=== PATIENT | female | born 1955 | race Caucasian/White ===

== ENCOUNTER → 2018-11-21 | Outpatient (REF) | payer OTHER | LOC: M LAB REF 16:23 | PROVIDERS: ATTEND Nurse Practitioner Family | DX: R79.82 Elevated C-reactive protein (CRP) (principal) ==

== ENCOUNTER 2019-03-05 16:07 | Emergency (ER) | payer MEDICARE, OTHER ==
[~2019-03-05] VITALS: Ht 157.5 cm; Wt 64.2 kg
[2019-03-05] MEDS ORDERED: ATOR1TAB19 PO (16:14)
[2019-03-05] MEDS ORDERED: HYDR25TAB PO (16:14)
[2019-03-05] MEDS ORDERED: PRED10TA2 (16:14)
[2019-03-05 17:40] LABS: BASO # 0.1 10^3/uL (0.0-0.2); BASO % 0.7 % (0.0-1.0); EOS # 0.2 10^3/uL (0.0-0.50); EOS % 1.5 % (0.0-3.0); HEMATOCRIT 49.5 % (36.0-47.0); HEMOGLOBIN 16.6 g/dl (12.0-15.5); MEAN CORPUSCULAR HEMOGLOBIN 32.7 pg (27.0-33.0); MEAN CORPUSCULAR HGB CONC 33.5 g/dl (32.0-36.5); MEAN CORPUSCULAR VOLUME 97.4 fl (80.0-96.0); MONO # 0.7 10^3/uL (0.0-0.8); NEUTROPHILS # 8.3 10^3/uL (1.8-7.7); PLATELET COUNT, AUTOMATED 285 10^3/uL (150-450); RED BLOOD COUNT 5.08 10^6/uL (4.00-5.40); WHITE BLOOD COUNT 12.4 10^3/uL (4.0-10.0)
[2019-03-05 17:51] LABS: INR 0.92; PROTHROMBIN TIME 12.5 SECONDS (12.1-14.4)
[2019-03-05 18:05] LABS: ALBUMIN 3.8 GM/DL (3.2-5.2); ALT/SGPT 26 U/L (12-78); BILIRUBIN,TOTAL 0.6 MG/DL (0.2-1.0); BLOOD UREA NITROGEN 15 MG/DL (7-18); CALCIUM LEVEL 9.2 MG/DL (8.8-10.2); CARBON DIOXIDE LEVEL 27 MEQ/L (21-32); CHLORIDE LEVEL 105 MEQ/L (98-107); CPK CREATINE PHOSPHOKINASE 84 U/L (26-192); GLOMERULAR FILTRATION RATE > 60.0 (>45); GLUCOSE, FASTING 93 MG/DL (70-100); LIPASE 85 U/L (73-393); MB/CK RELATIVE INDEX 2.14 (< OR =4); SODIUM LEVEL 141 MEQ/L (136-145); TOTAL PROTEIN 8.3 GM/DL (6.4-8.2); TROPONIN I < 0.02 NG/ML (< 0.10)
--- NOTE | 2019-03-05 18:14 | REP ---
Clinical: Acute chest pain. Technique: Portable upright view of the chest. Comparison: 03/20/2015 Findings: Mediastinum and cardiac silhouette are within normal limits. Chronic stable interstitial changes are appreciated. Mild basilar atelectasis cannot be excluded. No definite effusion. No pneumothorax. Impression: Chronic stable changes. Cannot exclude trace bibasilar atelectasis. Electronically Signed by Aj Whtiley MD 03/05/2019 06:05 P
[2019-03-05] MEDS ORDERED: ALPRAZolam 0.5 MG TAB PO ONE (19:30)
[2019-03-05] MEDS ORDERED: hydrALAZINE INJ 20 MG/ML VIAL IV ONE (19:30)
[2019-03-05] MEDS ORDERED: LABETALOL HCL 100 MG/20 ML VIAL IV STA (20:24)
[2019-03-05 21:41] VITALS: BP 179/80
[2019-03-05] MEDS ORDERED: LABE100T36 PO (21:44)
[2019-03-05] MEDS ORDERED: LABETALOL 100 MG TAB PO ONE (21:45)
--- NOTE | 2019-03-06 06:05 | ECGEPIP ---
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
== END 2019-03-05 22:05 | disposition home or self-care (01) ==
LOC: M ED 16:07
DX: I10 Essential (primary) hypertension (principal); F41.9 Anxiety disorder, unspecified; J44.9 Chronic obstructive pulmonary disease, unspecified; E78.00 Pure hypercholesterolemia, unspecified; A69.20 Lyme disease, unspecified; Z79.899 Other long term (current) drug therapy; F17.200 Nicotine dependence, unspecified, uncomplicated; Z88.0 Allergy status to penicillin; Z88.5 Allergy status to narcotic agent

== ENCOUNTER 2019-03-12 13:01 | Inpatient (IN) | payer MEDICARE, OTHER ==
[~2019-03-12] VITALS: Ht 157.5 cm; Wt 74.0 kg
[~2019-03-12 13:01] MED LIST: ATOR1TAB19 PO; HYDR25TAB PO; LABE100T36 PO; PRED10TA2
[2019-03-12] MEDS ORDERED: ONDANSETRON 4MG/2ML VIAL (J2405) As Ordered ONE (13:22)
[2019-03-12] MEDS ORDERED: DILUENT IV ONE (13:30)
[2019-03-12] MEDS ORDERED: NS IV ONE (13:30)
[2019-03-12] MEDS ORDERED: MORPHINE 2 MG/ML 1ML SYRINGE (J2270) IV PRN (13:30)
[2019-03-12] MEDS ORDERED: ONDANSETRON 4MG/2ML VIAL (J2405) IV ONE (13:30)
[2019-03-12 13:46] LABS: VENOUS BASE EXCESS 0.1 (-2.0-2.0); VENOUS HCO3 23.4 MEQ/L (23.0-27.0); VENOUS O2 SATURATION 89.9 % (60.0-80.0); VENOUS PARTIAL PRESSURE CO2 34.9 mmHg (38.0-50.0); VENOUS PARTIAL PRESSURE O2 59.3 mmHg (30.0-50.0); VENOUS PH 7.444 UNITS (7.330-7.430); VENOUS STANDARD HCO3 24.3 MEQ/L; VENOUS TOTAL CO2 24.5 MEQ/L (24.0-28.0)
[2019-03-12 13:55] LABS: BASO # 0.1 10^3/uL (0.0-0.2); BASO % 0.4 % (0.0-1.0); HEMOGLOBIN 18.4 g/dl (12.0-15.5); LYMPH # 1.5 10^3/uL (1.5-4.5); LYMPH % 5.8 % (24.0-44.0); MEAN CORPUSCULAR HGB CONC 34.7 g/dl (32.0-36.5); MEAN CORPUSCULAR VOLUME 95.2 fl (80.0-96.0); MONO # 1.3 10^3/uL (0.0-0.8); MONO % 4.8 % (0.0-5.0); NEUTROPHILS # 23.4 10^3/uL (1.8-7.7); NEUTROPHILS % 87.9 % (36.0-66.0); PLATELET COUNT, AUTOMATED 336 10^3/uL (150-450); RED BLOOD COUNT 5.57 10^6/uL (4.00-5.40); WHITE BLOOD COUNT 26.6 10^3/uL (4.0-10.0)
[2019-03-12 14:11] LABS: INR 0.99; PARTIAL THROMBOPLASTIN TIME 26.1 SECONDS (25.4-37.6); PROTHROMBIN TIME 13.2 SECONDS (12.1-14.4)
[2019-03-12] MEDS ORDERED: PROMETHAZINE INJ 25 MG/ML VIAL (J2550) IV ONE (14:15)
--- NOTE | 2019-03-12 14:18 | REP ---
CHEST, PORTABLE: AP portable view of the chest is performed and compared to a prior study of 03/05/2019. There is diffuse interstitial fibrotic change which is stable. There is slight elevation of the left hemidiaphragm. No new infiltrate is seen. The heart is normal in size. There is calcification of the thoracic aorta. The mediastinal silhouette is unchanged. IMPRESSION: Stable chronic changes. No acute infiltrate. Electronically Signed by Tony Billings MD 03/16/2019 01:46 P
[2019-03-12 14:22] LABS: ALBUMIN 4.3 GM/DL (3.2-5.2); ALT/SGPT 31 U/L (12-78); AMYLASE 68 U/L (25-115); BILIRUBIN,DIRECT 0.1 MG/DL (0.0-0.2); BILIRUBIN,TOTAL 0.7 MG/DL (0.2-1.0); BLOOD UREA NITROGEN 41 MG/DL (7-18); CALCIUM LEVEL 9.7 MG/DL (8.8-10.2); CARBON DIOXIDE LEVEL 22 MEQ/L (21-32); CHLORIDE LEVEL 98 MEQ/L (98-107); CPK CREATINE PHOSPHOKINASE 221 U/L (26-192); CREATININE FOR GFR 2.39 MG/DL (0.55-1.30); GLOMERULAR FILTRATION RATE 21.7 (>45); GLUCOSE, FASTING 205 MG/DL (70-100); MB/CK RELATIVE INDEX 2.49 (< OR =4); SODIUM LEVEL 136 MEQ/L (136-145); TOTAL PROTEIN 9.2 GM/DL (6.4-8.2); TROPONIN I < 0.02 NG/ML (< 0.10)
[2019-03-12] MEDS ORDERED: ADVA230A INH (15:41)
[2019-03-12] MEDS ORDERED: BENA20TA8 PO (15:41)
[2019-03-12] MEDS ORDERED: VENTAER INH (15:41)
[2019-03-12] MEDS ORDERED: PRED10TA2 PO (15:41)
[2019-03-12] MEDS ORDERED: HYDROMORPHONE HCL 0.5 MG/ 0.5 ML SYRINGE (J1170 PER 1) IV PRN (15:45)
[2019-03-12] MEDS ORDERED: ALBUTEROL SULFATE 2.5 MG/0.5 ML INH NEB SOLN INH PRN (15:45)
[2019-03-12] MEDS ORDERED: MEROPENEM INJ 1 GM in APPROPRIATE DILUENT 1 EA IV SCH (15:45)
--- NOTE | 2019-03-12 15:47 | REP ---
REASON FOR EXAM: Abdominal pain. COMPARISON: 05/21/2007. The lack of intravenous contrast and the lack of administration of oral bowel preparatory contrast significantly decreases the sensitivity of the exam. Fibrotic and subsegmental atelectatic changes are seen in the lung bases increased from the prior exam. There are no pleural or pericardial effusions. Limited evaluation of the solid intra-abdominal organs and gallbladder show no gross abnormalities. Limited evaluation of the pancreas, adrenal glands, and kidneys show no gross abnormalities. There are bilateral renovascular calcifications. Limited evaluation of the abdominal aorta shows an infrarenal abdominal aortic aneurysm which measures 3.1 cm in its AP dimension. Additionally, there appear to be some centrally displaced calcifications indicating the possibility of an aneurysmal dissection. This cannot be further evaluated without intravenous contrast administration and it represents a change from the prior exam. Limited evaluation of the bowel loops and their mesenteries shows no gross abnormalities. There is no evidence of free fluid or free air in the abdomen or retroperitoneum. CT PELVIS: Limited evaluation of the bowel loops and their mesenteries show no gross abnormalities. There is no free fluid or free air. There is no evidence of a mass or adenopathy. Bone window technique throughout the exam shows the osseous structures to be within normal limits for the patient's age. IMPRESSION: There is an infrarenal abdominal aortic aneurysm as described above. Contrast enhanced abdominal aortic CTA is recommended. None of the prior chest CTs imaged this portion of the abdomen as would be expected. Other chronic changes as described above. Electronically Signed by Yuniel Mcarthur DO 03/12/2019 04:55 P
[2019-03-12] MEDS: NS 1,000 ML IV SCH (16:15)
[2019-03-12 16:17] LABS: LDH LACTATE DEHYDROGENASE 291 U/L (84-246)
--- NOTE | 2019-03-12 16:35 | HPEPDOC ---
General Date of Admission Mar 12, 2019 at 15:38 Date of Service: Mar 12, 2019 Chief Complaint The patient is a 63-year-old female who presented to the emergency room with complaints of diarrhea and abdominal pain since yesterday evening History of Present Illness Patient is a 63-year-old female with a PMHx HTN, DLP, COPD, Interstitial cystitis, Osteoporosis, RA, who presented to the ER with complaints of abdominal pain that progressed to diarrhea that started yesterday at 8 PM. Patient had reported greater than 10 episodes of bowel movements with blood. Patient reports chills but is unsure of any fevers. . She also reported associated abdominal pain occurring in the middle of her abdomen without any radiation. No alleviating or aggravating factors reported the pain as a 7-8/10, aching nature and continuous. Patient also had associated nausea and vomiting; describes the vomitus as water only. Patient reported this is the first time she experienced this. Patient denies chest pain, palpitations, shortness of breath, cough or discomfort with urination. Patient has reported poor appetite but noted her weight has been consistent. Patient was recently in the ER on 03/05/2019 for elevated blood pressure was placed on labetalol and subsequently changed as an outpatient recently by her provider Juhi Cuellar. Home Medications Scheduled Atorvastatin Calcium (Atorvastatin Calcium) 10 Mg Tablet, 10 MG PO QHS, (Reported) Benazepril HCl (Benazepril HCl) 20 Mg Tablet, 20 MG PO DAILY, (Reported) Fluticasone Propion/Salmeterol (Advair Hfa 230-21 Mcg Inhaler) 12 Gm Hfa.aer.ad, 2 PUFF INH BID, (Reported) Hydrochlorothiazide (Hydrochlorothiazide) 25 Mg Tablet, 25 MG PO DAILY, (Reported) Scheduled PRN Albuterol Sulfate (Ventolin Hfa) 18 Gm Hfa.aer.ad, 2 PUFF INH Q6H PRN for SHORTNESS OF BREATH, (Reported) Prednisone (Prednisone) 10 Mg Tablet, 10 MG PO Q2D PRN for RA FLARE, (Reported) Allergies Coded Allergies: Penicillins (Verified Allergy, Unknown, anaphylaxis, 03/12/19) morphine (Verified Adverse Reaction, Severe, N/V, 03/12/19) Past Medical History Medical History HTN, DLP, COPD, Interstitial cystitis, Osteoporosis, RA Surgical History Patient reports no surgical history Family History - Mother with a history of breast cancer - Father with a history of pancreatic cancer Social History - Denies the use of alcohol or illicit drugs; patient has quit smoking less than 5 years ago but was a smoker of greater than 30 years - Denies recent travel or sick contacts - Lives alone in [place] - Occupation; [employer] is a [employer] Review of Systems Other systems 10 point review of systems complete, all negative otherwise stated in HPI Vital Signs - Vitals: BP 186/120, HR 103, RR 22, Sat 99%NC2L, Temp 97.2F - General: Lying in bed, Complaining of abdominal pain, AAOx3 - HEENT: NC, AT, PERRLA, EOMI - CVS: RRR, +S1S2, - Murmurs / rubs / gallops - Lungs: Fair air entry bilaterally, Clear to auscultation, No wheezing / rales / rhonchi - Abdomen: Soft, Non-distended, mild mid abdominal tenderness - Extremities: No lower extremity edema, No calf tenderness - Neuro: No focal motor or sensory deficit - Skin: No visible rashes Laboratory Data Labs 24H Laboratory Tests 2 03/12/19 13:32: Immature Granulocyte % (Auto) 1.1, White Blood Count 26.6H, Red Blood Count 5.57H, Hemoglobin 18.4H, Hematocrit 53.0H, Mean Corpuscular Volume 95.2, Mean C orpuscular Hemoglobin 33.0, Mean Corpuscular Hemoglobin Concent 34.7, Red Cell Distribution Width 12.9, Platelet Count 336, Neutrophils (%) (Auto) 87.9H, Lymphocytes (%) (Auto) 5.8L, Monocytes (%) (Auto) 4.8, Eosinophils (%) (Auto) 0.0, Basophils (%) (Auto) 0.4, Neutrophils # (Auto) 23.4H, Lymphocytes # (Auto) 1.5, Monocytes # (Auto) 1.3H, Eosinophils # (Auto) 0.0, Basophils # (Auto) 0.1, Nucleated Red Blood Cells % (auto) 0.0, Prothrombin Time 13.2, Prothromb Time International Ratio 0.99, Activated Partial Thromboplast Time 26.1, Blood Gas Bicarbonate Standard 24.3, Venous Blood pH 7.444H, Venous Blood Partial Pressure CO2 34.9L, Venous Blood Partial Pressure O2 59.3H, Venous Blood Total Carbon Dioxide 24.5, Venous Blood HCO3 23.4, Venous Blood Oxygen Saturation 89.9H, Venous Blood Base Excess 0.1, Anion Gap 16, Glomerular Filtration Rate 21.7L, Lactic Acid Level 2.6*H, Calcium Level 9.7, Aspartate Amino Transf (AST/SGOT) 28, Alanine Aminotransferase (ALT/SGPT) 31, Lactate Dehydrogenase 291H, Alkaline Phosphatase 174H, Total Bilirubin 0.7, Direct Bilirubin 0.1, Total Creatine Kinase 221H, Creatine Kinase MB 6.0H, Creatine Kinase MB Relative Index 2.49, Troponin I < 0.02, C-Reactive Protein, Quantitative 6.50H, Total Protein 9.2H, Albumin 4.3, Albumin/Globulin Ratio 0.88L, Amylase Level 68 CBC/BMP Laboratory Tests 03/12/19 13:32 Red Blood Count 5.57 H, Mean Corpuscular Volume 95.2, Mean Corpuscular Hemoglobin 33.0, Mean Corpuscular Hemoglobin Concent 34.7, Red Cell Distribution Width 12.9, Neutrophils (%) (Auto) 87.9 H, Lymphocytes (%) (Auto) 5.8 L, Mo nocytes (%) (Auto) 4.8, Eosinophils (%) (Auto) 0.0, Basophils (%) (Auto) 0.4, Neutrophils # (Auto) 23.4 H, Lymphocytes # (Auto) 1.5, Monocytes # (Auto) 1.3 H, Eosinophils # (Auto) 0.0, Basophils # (Auto) 0.1 Microbiology Microbiology 03/12/19 Blood Culture, Received Pending 03/12/19 Blood Culture, Received Pending Plan / VTE VTE Prophylaxis Ordered?: Yes Plan Plan Abdominal pain associated with diarrhea - possibly 2/2 intra-abdominal infectious etiology - possibly 2/2 dysentery - Patient has reported that shes been expressing greater than 10 episodes of diarrhea associated with abdominal pain; also reports associated chills - Patient has not yet had a bowel movement upon arrival to the emergency room - Patient remains afebrile and hypertensive in the ER - Leukocytosis with neutrophil predominance; lactic acidosis - CT abdomen / pelvis 03/12: There is an infrarenal abdominal aortic aneurysm as described above. Contrast enhanced abdominal aortic CTA is recommended. None of the prior chest CTs imaged this portion of the abdomen would be expected. Other chronic changes as described above. - Patient has been started on IV fluid hydration in the ER at 30 cc/kg - Pending results of GI panel will start vancomycin by mouth for coverage of C. difficile colitis - Will continue with aggressive IV fluid hydration and start Moxifloxacin for intra-abdominal coverage - Will start symptomatic control with Dilaudid (Given morphine allergy) and Reglan Elevated hemoglobin - likely 2/2 hemoconcentration - Patients baseline hemoglobin appears to run around 16 - Will continue with aggressive IV fluid hydration Lactic acidosis - Will follow-up repeat lactic acid levels - Will continue with aggressive IV fluid hydration Acute renal failure - likely 2/2 pre-renal etiology - 2/2 hypovolemia - Will check urinalysis and urine electrolytes - Will continue with aggressive IV fluid hydration Hypertensive urgency - Patient blood pressure in the ER was found to be systolic of 200 - Will start the patient on hydralazine IV every 6 hours with specific hold parameters DLP - c/w Atorvastatin COPD - No evidence of exacerbation - CXR 03/12: Stable chronic changes. No acute infiltrate. - Will continue with inhaled therapy is ordered Interstitial cystitis - Currently not on any medications Osteoporosis - Well hold off on supplementation at this time RA - Patient reports that she takes prednisone when necessary Gastrointestinal prophylaxis - Will start Protonix and Sucralfate DVT prophylaxis - Will start TEDs/MIRANDA Leigh MD Mar 12, 2019 16:35
[2019-03-12] MEDS ORDERED: VANCOMYCIN ORAL SOL 250MG/5ML ORAL SYRINGE PO SCH (17:00)
[2019-03-12 17:02] LABS: MAGNESIUM LEVEL 2.4 MG/DL (1.8-2.4)
[2019-03-12] MEDS: METOCLOPRAMIDE INJ 10MG/2ML VIAL (J2765) IV PRN (17:18)
[2019-03-12] MEDS: HYDROMORPHONE HCL 0.5 MG/ 0.5 ML SYRINGE (J1170 PER 1) IV PRN (17:18)
[2019-03-12] MEDS: SUCRALFATE SUSP 1GM/10ML UD PO SCH ×2 (17:18→23:49)
[2019-03-12] MEDS: VANCOMYCIN ORAL SOL 250MG/5ML ORAL SYRINGE PO SCH ×2 (18:02→23:49)
[2019-03-12] MEDS: MOXIFLOXACIN HCL 400 MG in APPROPRIATE DILUENT 1 EA IV SCH (18:02)
[2019-03-12] MEDS: hydrALAZINE INJ 20 MG/ML VIAL IV SCH ×2 (18:08→23:49)
[2019-03-12 19:00] VITALS: BP 178/76
[2019-03-12 19:16] LABS: HEMOGLOBIN 16.5 g/dl (12.0-15.5)
[2019-03-12 19:30] VITALS: BP 155/65
[2019-03-12 19:32] LABS: CPK CREATINE PHOSPHOKINASE 517 U/L (26-192); TROPONIN I < 0.02 NG/ML (< 0.10)
[2019-03-12 21:00] VITALS: BP 180/79
[2019-03-12] MEDS: ADVAIR HFA 230/21MCG INHALER INH SCH (21:00)
[2019-03-12] MEDS: PANTOPRAZOLE 40MG INJ (PROTONIX) (C9113) IV SCH (21:09)
[2019-03-12] MEDS: ATORVASTATIN 10 MG TAB PO SCH (21:09)
[2019-03-12 23:40] VITALS: BP 170/80
[2019-03-13] VITALS (13 sets, daily range): BP systolic 131–210; BP diastolic 60–90
[2019-03-13] MEDS: METOCLOPRAMIDE INJ 10MG/2ML VIAL (J2765) IV PRN ×2 (00:07→17:26)
[2019-03-13] MEDS: NS 1,000 ML IV SCH (00:08)
[2019-03-13 00:50] LABS: HEMATOCRIT 46.1 % (36.0-47.0); HEMOGLOBIN 15.3 g/dl (12.0-15.5)
[2019-03-13 00:50] LABS: APPEARANCE, URINE CLOUDY (CLEAR); BACTERIA, URINE AUTO 1+ (NEGATIVE); BILIRUBIN, URINE AUTO NEGATIVE (NEGATIVE); BLOOD, URINE BLOOD NEGATIVE (NEGATIVE); COLOR, URINE YELLOW (YELLOW); GLUCOSE, URINE (UA) AUTO NEGATIVE (NEGATIVE); KETONE, URINE AUTO NEGATIVE (NEGATIVE); LEUKOCYTE ESTERASE, URINE AUTO 2+ (NEGATIVE); MUCUS, URINE SMALL (NEGATIVE); NITRITE, URINE AUTO NEGATIVE (NEGATIVE); PROTEIN, URINE AUTO NEGATIVE (NEGATIVE); RBC, URINE AUTO 5 /HPF (0-3); SPECIFIC GRAVITY URINE AUTO 1.015 (1.002-1.035); SQUAMOUS EPITHELIAL CELL UR AU 14 /HPF (0-6); UROBILINOGEN, URINE AUTO 0.2 mg/dL (0.0-2.0); WBC, URINE AUTO 31 /HPF (0-3)
[2019-03-13 01:11] LABS: SODIUM,RANDOM URINE 35 MEQ/L
[2019-03-13 01:20] LABS: CPK CREATINE PHOSPHOKINASE 559 U/L (26-192); MB/CK RELATIVE INDEX 1.95 (< OR =4); TROPONIN I < 0.02 NG/ML (< 0.10)
[2019-03-13] MEDS: cloNIDine 0.1 MG TAB PO SCH ×4 (02:00→22:37)
[2019-03-13] MEDS: HYDROMORPHONE HCL 0.5 MG/ 0.5 ML SYRINGE (J1170 PER 1) IV PRN (03:18)
[2019-03-13] MEDS: SUCRALFATE SUSP 1GM/10ML UD PO SCH ×3 (05:44→17:13)
[2019-03-13] MEDS: VANCOMYCIN ORAL SOL 250MG/5ML ORAL SYRINGE PO SCH (05:45)
[2019-03-13] MEDS: hydrALAZINE INJ 20 MG/ML VIAL IV SCH ×3 (05:48→17:26)
[2019-03-13 05:51] LABS: BASO % 0.1 % (0.0-1.0); HEMATOCRIT 40.3 % (36.0-47.0); HEMOGLOBIN 13.5 g/dl (12.0-15.5); LYMPH # 1.5 10^3/uL (1.5-4.5); LYMPH % 7.1 % (24.0-44.0); MEAN CORPUSCULAR HEMOGLOBIN 32.6 pg (27.0-33.0); MEAN CORPUSCULAR HGB CONC 33.5 g/dl (32.0-36.5); MEAN CORPUSCULAR VOLUME 97.3 fl (80.0-96.0); MONO % 11.6 % (0.0-5.0); NEUTROPHILS # 16.8 10^3/uL (1.8-7.7); NEUTROPHILS % 80.9 % (36.0-66.0); PLATELET COUNT, AUTOMATED 241 10^3/uL (150-450); RED BLOOD COUNT 4.14 10^6/uL (4.00-5.40); WHITE BLOOD COUNT 20.9 10^3/uL (4.0-10.0)
[2019-03-13 06:18] LABS: C REACTIVE PROTEIN QUANTITATIV 12.3 MG/DL (0.00-0.30); CALCIUM LEVEL 7.5 MG/DL (8.8-10.2); CREATININE FOR GFR 1.19 MG/DL (0.55-1.30); GLOMERULAR FILTRATION RATE 48.6 (>45); MAGNESIUM LEVEL 1.8 MG/DL (1.8-2.4); POTASSIUM SERUM 3.4 MEQ/L (3.5-5.1)
[2019-03-13 06:19] LABS: MONO # 2.4 10^3/uL (0.0-0.8)
[2019-03-13] MEDS ORDERED: POTASSIUM CHLORIDE 10 MEQ SR TABLET PO ONE ×2 (08:00→16:30)
[2019-03-13] MEDS: PANTOPRAZOLE 40MG INJ (PROTONIX) (C9113) IV SCH ×2 (08:05→22:38)
[2019-03-13] MEDS: ADVAIR HFA 230/21MCG INHALER INH SCH ×2 (08:19→20:30)
--- NOTE | 2019-03-13 08:44 | REP ---
PORTABLE CHEST: AP portable view of the chest is performed. There is continued evidence of chronic fibrotic changes. However, no acute infiltrate is seen. Heart is normal in size. There is mild calcification of the thoracic aorta. Mediastinal silhouette is unchanged. Electronically Signed by Tony Billings MD 03/16/2019 05:01 P
[2019-03-13] MEDS: BENAZEPRIL 20 MG TAB PO SCH (10:09)
[2019-03-13 10:37] LABS: H PYLORI QUALITATIVE IgG NEGATIVE (NEGATIVE)
[2019-03-13] MEDS: D5W/0.45% SODIUM CHLORIDE 1,000 ML IV SCH (11:35)
--- NOTE | 2019-03-13 12:55 | IPNPDOC ---
Text Note Date of Service The patient was seen on 03/13/19. NOTE Subjective: Patient is a 63-year-old female with a PMHx HTN, DLP, COPD, Interstitial cystitis, Osteoporosis, RA, who presented to the ER with complaints of abdominal pain that progressed to diarrhea that started yesterday at 8 PM. Patient had reported greater than 10 episodes of bowel movements with blood. Patient reports chills but is unsure of any fevers. . She also reported associated abdominal pain occurring in the middle of her abdomen without any radiation. No alleviating or aggravating factors reported the pain as a 7-8/10, aching nature and continuous. Patient also had associated nausea and vomiting; describes the vomitus as water only. Patient was admitted to hospitalist service for further evaluation and treatment. Patient was seen and examined at the bedside. Currently, patient reports that her abdominal pain has subsided significantly and has not required any oral pain medications. Patient denies any nausea or vomiting. Overnight, she did have difficulty with urination in the Díaz catheter was placed. . She denies chest pain, shortness of breath or palpitations. Objective: Vitals (See below) General: Lying in bed, no acute distress, comfortable, AAOx3 HEENT: NC, AT CVS: RRR, +S1S2 Lungs: Fair air entry b/l, -w/r/r Abdomen: Soft, ND, there appears to be some mild tenderness of the right lower quadrant Extremities: No evidence of lower extremity edema, - Calf tenderness Assessment and plan: Abdominal pain associated with diarrhea - possibly 2/2 intra-abdominal in fectious etiology - possibly 2/2 dysentery - Patient reported diarrhea with >10 episodes associated with abdominal pain; - Currently, she has not yet had a bowel movement and does not reporting signi ficant abdominal pain - Patient remains afebrile and hypertensive in the ER - Leukocytosis has improved - CT abdomen / pelvis 03/12: There is an infrarenal abdominal aortic aneurysm as described above. Contrast enhanced abdominal aortic CTA is recommended. None of the prior chest CTs imaged this portion of the abdomen would be expected. Other chronic changes as described above. - GI panel pending - Will consider repeat imaging when kidney function improves - c/w Moxifloxacin for intra-abdominal coverage; s/p Vanco PO (re: no further diarrhea noted - unlikely C. diff) - c/w Reglan; Added Bentyl; s/p Dilaudid - Will advance diet to clear liquids s/p Elevated hemoglobin - likely 2/2 hemoconcentration s/p Lactic acidosis s/p Acute renal failure - likely 2/2 pre-renal etiology - 2/2 hypovolemia - Urinalysis with some elevation of leukocyte esterase and WBC, 1+ bacteria - Will reduce IV fluids s/p Hypertensive urgency - Patient blood pressure in the ER was found to be systolic of 200 - Oral medications have been resumed - c/w Benazepril, Hydralazine and Clonidine Acute urinary retention - Overnight, patient had difficulty with urination in the Díaz catheter was placed - Will c/w Díaz catheter for now; remove within next 24 hours for voiding trial Interstitial cystitis - Currently not on any medications DLP - c/w Atorvastatin COPD - No evidence of exacerbation - CXR 03/12: Stable chronic changes. No acute infiltrate. - Will continue with inhaled therapy is ordered Osteoporosis - Will hold off on supplementation at this time RA - Patient reports that she takes prednisone when necessary Gastrointestinal prophylaxis - c/w Protonix and Sucralfate DVT prophylaxis - c/w TEDs/Sequentials VS,Fishbone, I+O VS, Fishbone, I+O Laboratory Tests 03/12/19 13:32 Red Blood Count 5.57 H, Mean Corpuscular Volume 95.2, Mean Corpuscular Hemoglobin 33.0, Mean Corpuscular Hemoglobin Concent 34.7, Red Cell Distribution Width 12.9, Neutrophils (%) (Auto) 87.9 H, Lymphocytes (%) (Auto) 5.8 L, Monocytes (%) (Auto) 4.8, Eosinophils (%) (Auto) 0.0, Basophils (%) (Auto) 0.4, Neutrophils # (Auto) 23.4 H, Lymphocytes # (Auto) 1.5, Monocytes # (Auto) 1.3 H, Eosinophils # (Auto) 0.0, Basophils # (Auto) 0.1 03/12/19 18:46 03/13/19 00:33 03/13/19 05:26 Red Blood Count 4.14, Mean Corpuscular Volume 97.3 H, Mean Corpuscular Hemoglobin 32.6, Mean Corpuscular Hemoglobin Concent 33.5, Red Cell Distribution Width 13.2, Neutrophils (%) (Auto) 80.9 H, Lymphocytes (%) (Auto) 7.1 L, Monocytes (%) (Auto) 11.6 H, Eosinophils (%) (Auto) 0.0, Basophils (%) (Auto) 0.1, Neutrophils # (Auto) 16.8 H, Lymphocytes # (Auto) 1.5, Monocytes # (Auto) 2.4 H, Eosinophils # (Auto) 0.0, Basophils # (Auto) 0.0, Calcium Level 7.5 #L Vital Signs Date Time Temp Pulse Resp B/P (MAP) Pulse Ox O2 Delivery O2 Flow Rate FiO2 03/13/19 11:51 99.0 101 18 146/65 (92) 97 2.0 03/12/19 17:18 Nasal Cannula I&O- Last 24 Hours up to 6 AM 03/13/19 06:00 Intake Total 3470 ml Output Total 750 ml Balance 2720 ml MIRANDA REINOSO MD Mar 13, 2019 12:55
[2019-03-13 12:57] LABS: HEMATOCRIT 40.3 % (36.0-47.0); HEMOGLOBIN 13.7 g/dl (12.0-15.5)
[2019-03-13 15:23] LABS: CALCIUM LEVEL 8.1 MG/DL (8.8-10.2); CREATININE FOR GFR 1.09 MG/DL (0.55-1.30); GLOMERULAR FILTRATION RATE 53.8 (>45); POTASSIUM SERUM 3.4 MEQ/L (3.5-5.1)
[2019-03-13] MEDS: ACETAMINOPHEN TAB 650MG DOSE (2X325MG) PO PRN (15:34)
[2019-03-13] MEDS: DICYCLOMINE 10 MG CAP PO PRN (15:35)
[2019-03-13] MEDS: MOXIFLOXACIN HCL 400 MG in APPROPRIATE DILUENT 1 EA IV SCH (17:13)
[2019-03-13 18:41] LABS: HEMATOCRIT 37.1 % (36.0-47.0); HEMOGLOBIN 12.3 g/dl (12.0-15.5)
[2019-03-13] MEDS ORDERED: hydrOXYzine 10 MG TAB PO PRN (19:00)
[2019-03-13] MEDS ORDERED: traMADol 50 MG TAB PO PRN (22:15)
[2019-03-13] MEDS: ATORVASTATIN 10 MG TAB PO SCH (22:38)
[2019-03-14] VITALS (13 sets, daily range): BP systolic 113–158; BP diastolic 50–70; O2SAT 100
[2019-03-14 00:18] LABS: HEMATOCRIT 37.6 % (36.0-47.0); HEMOGLOBIN 12.5 g/dl (12.0-15.5)
[2019-03-14] MEDS: SUCRALFATE SUSP 1GM/10ML UD PO SCH ×5 (00:53→23:50)
[2019-03-14] MEDS: D5W/0.45% SODIUM CHLORIDE 1,000 ML IV SCH ×2 (00:54→08:34)
[2019-03-14] MEDS: hydrALAZINE INJ 20 MG/ML VIAL IV SCH ×5 (00:54→23:56)
[2019-03-14 05:46] LABS: HEMATOCRIT 35.8 % (36.0-47.0); HEMOGLOBIN 12.1 g/dl (12.0-15.5); MEAN CORPUSCULAR HEMOGLOBIN 32.5 pg (27.0-33.0); MEAN CORPUSCULAR HGB CONC 33.8 g/dl (32.0-36.5); MEAN CORPUSCULAR VOLUME 96.2 fl (80.0-96.0); PLATELET COUNT, AUTOMATED 211 10^3/uL (150-450); RED BLOOD COUNT 3.72 10^6/uL (4.00-5.40)
[2019-03-14 06:07] LABS: BLOOD UREA NITROGEN 15 MG/DL (7-18); CALCIUM LEVEL 7.8 MG/DL (8.8-10.2); CARBON DIOXIDE LEVEL 21 MEQ/L (21-32); CHLORIDE LEVEL 109 MEQ/L (98-107); CREATININE FOR GFR 0.89 MG/DL (0.55-1.30); GLOMERULAR FILTRATION RATE > 60.0 (>45); GLUCOSE, FASTING 145 MG/DL (70-100); MAGNESIUM LEVEL 1.8 MG/DL (1.8-2.4); POTASSIUM SERUM 3.5 MEQ/L (3.5-5.1); SODIUM LEVEL 137 MEQ/L (136-145)
[2019-03-14 06:25] LABS: LYMPHOCYTES 6 % (16-52); MONOCYTES 6 % (0-8); NEUTROPHILS 84 % (35-75)
[2019-03-14 06:26] LABS: PLATELET ESTIMATE NORMAL (NORMAL)
[2019-03-14] MEDS: DICYCLOMINE 10 MG CAP PO PRN (06:30)
[2019-03-14] MEDS ORDERED: ISOVUE-370 76% 100ML VIAL (Q9967) As Ordered ONE (07:29)
--- NOTE | 2019-03-14 08:08 | ECGEPIP ---
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
[2019-03-14] MEDS: ADVAIR HFA 230/21MCG INHALER INH SCH ×2 (08:10→20:25)
[2019-03-14] MEDS: BENAZEPRIL 20 MG TAB PO SCH (08:29)
[2019-03-14] MEDS: PANTOPRAZOLE 40MG INJ (PROTONIX) (C9113) IV SCH ×2 (08:29→20:06)
[2019-03-14] MEDS: cloNIDine 0.1 MG TAB PO SCH (08:30)
--- NOTE | 2019-03-14 09:30 | REP ---
CT ANGIO ABDOMEN: HISTORY: Ischemia. CONTRAST: Isovue 370, 100 mL. COMPARISON: CT abdomen 03/12/2019. An infrarenal abdominal aortic aneurysm is present. The aneurysm measures 3.1 cm in transverse x 3.1 cm in AP dimensions. Extensive calcified atherosclerotic plaques are present throughout the course of the lower thoracic and abdominal aorta as well as common iliac, internal and external iliac arteries. 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 There is reconstitution of the superior mesenteric artery distal to the occlusion. 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 The liver, pancreas, spleen adrenal glands and kidneys are normal in appearance. The gallbladder is contracted. Linear densities are present in the lower lobes consistent with atelectasis or scar. The urinary bladder and uterus are normal in appearance. Degenerative change is present in the spine. IMPRESSION: 1. There is a 3.1 cm infrarenal abdominal aortic aneurysm. 2. 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 There is reconstitution of the superior mesenteric artery distal to the occlusion. 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 Electronically Signed by Chandrakant Amaya MD 03/14/2019 09:39 A
[2019-03-14] MEDS: metroNIDAZOLE 500 MG in APPROPRIATE DILUENT 1 EA IV SCH ×2 (09:32→18:44)
[2019-03-14] MEDS: HEPARIN DRIP 25,000 UNITS in APPROPRIATE DILUENT 1 EA IV SCH (10:27)
[2019-03-14] MEDS: ACETAMINOPHEN TAB 650MG DOSE (2X325MG) PO PRN (10:38)
[2019-03-14] MEDS: AZTREONAM 2 GM in D5W MINI-BAG PLUS 50 ML IV SCH ×2 (11:28→20:06)
[2019-03-14 12:28] LABS: HEMATOCRIT 35.8 % (36.0-47.0); HEMOGLOBIN 12.2 g/dl (12.0-15.5)
[2019-03-14] MEDS ORDERED: MIDAZOLAM INJ 2 MG/2 ML VIAL (J2250) As Ordered ONE (12:46)
[2019-03-14] MEDS ORDERED: fentaNYL 100 MCG/2 ML INJECTION (J3010) As Ordered ONE (12:46)
[2019-03-14] MEDS ORDERED: LIDOCAINE 2% MDV 20 ML VIAL As Ordered ONE (13:03)
[2019-03-14] MEDS ORDERED: BUPIVACAINE HCL 0.5% 10 ML VIAL As Ordered ONE (13:03)
[2019-03-14] MEDS ORDERED: ISOVUE-300 61% 50ML VIAL (Q9967) As Ordered ONE (13:04)
--- NOTE | 2019-03-14 13:32 | IPNPDOC ---
Text Note Date of Service The patient was seen on 03/14/19. NOTE Subjective: Patient is a 63-year-old female with a PMHx HTN, DLP, COPD, Interstitial cystitis, Osteoporosis, RA, who presented to the ER with complaints of abdominal pain that progressed to diarrhea that started yesterday at 8 PM. Patient had reported greater than 10 episodes of bowel movements with blood. Patient reports chills but is unsure of any fevers. . She also reported associated abdominal pain occurring in the middle of her abdomen without any radiation. No alleviating or aggravating factors reported the pain as a 7-8/10, aching nature and continuous. Patient also had associated nausea and vomiting; describes the vomitus as water only. Patient was admitted to hospitalist service for further evaluation and treatment. Patient was seen and examined at the bedside. This morning patient reported that her abdominal pain was still persistent. She denied any vomiting but still experienced intermittent nausea. She continues to have bowel movements that are bloody. Denies chest pain, shortness of breath or palpitations. Objective: Vitals (See below) General: Lying in bed, no acute distress, comfortable, AAOx3 HEENT: NC, AT CVS: RRR, +S1S2 Lungs: Fair air entry b/l, auscultation without rhonchi, rales or wheezing Abdomen: Soft without distention, there is tenderness appreciated around the umbilicus Extremities: Lower extremities are without any edema, - Calf tenderness Assessment and plan: Abdominal pain associated with diarrhea - likely 2/2 ischemic colitis - Patient reported diarrhea with >10 episodes associated with abdominal pain; - Currently, she has not yet had a bowel movement and does not reporting significant abdominal pain - Patient remains afebrile and hypertensive in the ER - Leukocytosis has improved - CT abdomen / pelvis 03/12: There is an infrarenal abdominal aortic aneurysm as described above. Contrast enhanced abdominal aortic CTA is recommended. None of the prior chest CTs imaged this portion of the abdomen would be expected. Other chronic changes as described above. - CT angio abdomen / pelvis 03/14: 1. There is a 3.1 cm infrarenal abdominal aor tic aneurysm. 2. 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 There is reconstitution of the superior mesenteric artery distal to the occlusion. 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 - GI panel negative - Changed antibiotics to aztreonam and metronidazole; Will DC Moxifloxacin; s/p Vanco PO - c/w Reglan and Bentyl; s/p Dilaudid - Return back to NPO - Case been discussed with Dr. Gamez and Dr. Whyte - Patient will be started on a heparin drip (Without bolus dosing) s/p Elevated hemoglobin - likely 2/2 hemoconcentration s/p Lactic acidosis s/p Acute renal failure - likely 2/2 pre-renal etiology - 2/2 hypovolemia - Urinalysis with some elevation of leukocyte esterase and WBC, 1+ bacteria - c/w IV fluids at a reduced rate s/p Hypertensive urgency - Patient blood pressure in the ER was found to be systolic of 200 - Oral medications have been resumed - c/w Benazepril, Hydralazine and Clonidine Acute urinary retention - Overnight, patient had difficulty with urination in the Díaz catheter was placed - s/p Díaz catheter - Will continue with bladder scans to ensure no further retention Interstitial cystitis - Currently not on any medications DLP - c/w Atorvastatin COPD - No evidence of exacerbation - CXR 03/12: Stable chronic changes. No acute infiltrate. - Will continue with inhaled therapy is ordered Osteoporosis - Will hold off on supplementation at this time RA - Patient reports that she takes prednisone when necessary Gastrointestinal prophylaxis - c/w Protonix and Sucralfate DVT prophylaxis - c/w TEDs/Sequentials Disposition: - Will be evaluated by vascular surgery for possible intervention - Continue with new broad-spectrum antibiotics VS,Odilia, I+O VS, Odilia, I+O Laboratory Tests 03/13/19 14:28 Calcium Level 8.1 L 03/13/19 18:01 03/13/19 23:53 03/14/19 05:20 Calcium Level 7.8 L, Red Blood Count 3.72 L, Mean Corpuscular Volume 96.2 H, Mean Corpuscular Hemoglobin 32.5, Mean Corpuscular Hemoglobin Concent 33.8, Red Cell Distribution Width 13.2 03/14/19 12:20 Vital Signs Date Time Temp Pulse Resp B/P (MAP) Pulse Ox O2 Delivery O2 Flow Rate FiO2 03/14/19 10:17 2.0 03/14/19 10:10 98.7 69 20 134/61 (85) 94 03/12/19 17:18 Nasal Cannula I&O- Last 24 Hours up to 6 AM 03/14/19 06:00 Intake Total 3425 ml Output Total 1825 ml Balance 1600 ml MIRANDA REINOSO MD Mar 14, 2019 13:32
[2019-03-14] MEDS ORDERED: HEPARIN 1,000 UNITS/ML 10ML VIAL (FOR RADIOLOGY& DIALYSIS ONLY) As Ordered ONE (13:35)
[2019-03-14 13:45] LABS: ABG BASE EXCESS -4.7 (-2.0-2.0); ABG HCO3 20.5 MEQ/L (22.0-26.0); ABG O2 SATURATION 99.4 % (95.0-99.0); ABG PARTIAL PRESSURE CO2 37.9 mmHg (35.0-45.0); ABG PARTIAL PRESSURE O2 199.8 mmHg (75.0-100.0); ABG SITE ART LINE; ABG STANDARD HCO3 20.7 MEQ/L (22.0-26.0); ABG TOTAL CO2 21.6 MEQ/L (23.0-31.0)
[2019-03-14 13:53] LABS: HEMATOCRIT 33.4 % (36.0-47.0); HEMOGLOBIN 10.9 g/dl (12.0-15.5); MEAN CORPUSCULAR HEMOGLOBIN 32.6 pg (27.0-33.0); MEAN CORPUSCULAR HGB CONC 32.6 g/dl (32.0-36.5); PLATELET COUNT, AUTOMATED 197 10^3/uL (150-450); RED BLOOD COUNT 3.34 10^6/uL (4.00-5.40); WHITE BLOOD COUNT 22.9 10^3/uL (4.0-10.0)
[2019-03-14] MEDS ORDERED: ALTEPLASE 2 MG/2 ML VIAL (J2997 PER 1MG) XX ONE (14:00)
[2019-03-14 14:06] LABS: INR 1.31; PROTHROMBIN TIME 16.5 SECONDS (12.1-14.4)
[2019-03-14 14:08] LABS: PARTIAL THROMBOPLASTIN TIME 50.1 SECONDS (25.4-37.6)
[2019-03-14 14:31] LABS: ALBUMIN 2.2 GM/DL (3.2-5.2); ALT/SGPT 20 U/L (12-78); AMYLASE 64 U/L (25-115); BILIRUBIN,DIRECT 0.1 MG/DL (0.0-0.2); BILIRUBIN,TOTAL 0.5 MG/DL (0.2-1.0); BLOOD UREA NITROGEN 12 MG/DL (7-18); CALCIUM LEVEL 7.2 MG/DL (8.8-10.2); CARBON DIOXIDE LEVEL 21 MEQ/L (21-32); CHLORIDE LEVEL 107 MEQ/L (98-107); CK-MB VALUE MASS 7.7 NG/ML (<3.6); CPK CREATINE PHOSPHOKINASE 642 U/L (26-192); CREATININE FOR GFR 0.92 MG/DL (0.55-1.30); GLOMERULAR FILTRATION RATE > 60.0 (>45); GLUCOSE, FASTING 262 MG/DL (70-100); LIPASE 133 U/L (73-393); MAGNESIUM LEVEL 1.8 MG/DL (1.8-2.4); POTASSIUM SERUM 3.3 MEQ/L (3.5-5.1); SODIUM LEVEL 138 MEQ/L (136-145); TOTAL PROTEIN 5.8 GM/DL (6.4-8.2); TROPONIN I 0.03 NG/ML (< 0.10)
[2019-03-14] MEDS ORDERED: VASOPRESSIN INJ 20 UNITS/ML VIAL ONE (15:01)
[2019-03-14] MEDS ORDERED: NOREPINEPHRINE 4 MG/4 ML AMP ONE (15:01)
[2019-03-14 15:28] LABS: ABG SITE ART LINE
[2019-03-14 15:31] LABS: ABG BASE EXCESS -4.8 (-2.0-2.0); ABG HCO3 22.8 MEQ/L (22.0-26.0); ABG O2 SATURATION 98.4 % (95.0-99.0); ABG PARTIAL PRESSURE CO2 53.2 mmHg (35.0-45.0); ABG PARTIAL PRESSURE O2 136.6 mmHg (75.0-100.0); ABG STANDARD HCO3 20.6 MEQ/L (22.0-26.0); ABG TOTAL CO2 24.4 MEQ/L (23.0-31.0)
[2019-03-14] MEDS ORDERED: PROPOFOL 200 MG/20 ML VIAL As Ordered ONE (16:04)
[2019-03-14 16:29] LABS: ABG BASE EXCESS -4.2 (-2.0-2.0); ABG HCO3 22.6 MEQ/L (22.0-26.0); ABG O2 SATURATION 94.6 % (95.0-99.0); ABG PARTIAL PRESSURE CO2 48.6 mmHg (35.0-45.0); ABG STANDARD HCO3 20.9 MEQ/L (22.0-26.0); ABG TOTAL CO2 24.1 MEQ/L (23.0-31.0); ABG pH (ARTERIAL) 7.285 UNITS (7.350-7.450)
[2019-03-14 17:34] LABS: ABG BASE EXCESS -9.1 (-2.0-2.0); ABG HCO3 18.4 MEQ/L (22.0-26.0); ABG PARTIAL PRESSURE CO2 46.5 mmHg (35.0-45.0); ABG PARTIAL PRESSURE O2 91.1 mmHg (75.0-100.0); ABG STANDARD HCO3 17.2 MEQ/L (22.0-26.0); ABG TOTAL CO2 19.9 MEQ/L (23.0-31.0)
[2019-03-14 17:37] LABS: ABG pH (ARTERIAL) 7.216 UNITS (7.350-7.450)
[2019-03-14] MEDS ORDERED: methylPREDNISolone INJ 125 MG/2 ML VIAL (J2930) As Ordered ONE (17:39)
[2019-03-14] MEDS ORDERED: methylPREDNISolone INJ 125 MG/2 ML VIAL (J2930) IV ONE (18:00)
[2019-03-14] MEDS ORDERED: fentaNYL 100 MCG/2 ML INJECTION (J3010) IV PRN (18:15)
[2019-03-14] MEDS ORDERED: LR 1,000 ML IV SCH (18:15)
[2019-03-14] MEDS ORDERED: ONDANSETRON 4MG/2ML VIAL (J2405) IV PRN (18:15)
[2019-03-14] MEDS: KCL 40MEQ in NS 1000ML 1,000 ML IV SCH (18:44)
[2019-03-14 19:12] LABS: ABG BASE EXCESS -4.6 (-2.0-2.0); ABG HCO3 21.1 MEQ/L (22.0-26.0); ABG O2 SATURATION 92.7 % (95.0-99.0); ABG PARTIAL PRESSURE CO2 41.6 mmHg (35.0-45.0); ABG PARTIAL PRESSURE O2 69.4 mmHg (75.0-100.0); ABG STANDARD HCO3 20.6 MEQ/L (22.0-26.0); ABG TOTAL CO2 22.4 MEQ/L (23.0-31.0); ABG pH (ARTERIAL) 7.324 UNITS (7.350-7.450)
[2019-03-14 19:16] LABS: HEMATOCRIT 32.5 % (36.0-47.0); HEMOGLOBIN 10.9 g/dl (12.0-15.5); MEAN CORPUSCULAR HEMOGLOBIN 33.7 pg (27.0-33.0); MEAN CORPUSCULAR HGB CONC 33.5 g/dl (32.0-36.5); MEAN CORPUSCULAR VOLUME 100.6 fl (80.0-96.0); PLATELET COUNT, AUTOMATED 173 10^3/uL (150-450); RED BLOOD COUNT 3.23 10^6/uL (4.00-5.40); WHITE BLOOD COUNT 22.8 10^3/uL (4.0-10.0)
[2019-03-14 19:35] LABS: LYMPHOCYTES 5 % (16-52); MONOCYTES 6 % (0-8); NEUTROPHILS 88 % (35-75)
[2019-03-14 19:36] LABS: PLATELET ESTIMATE NORMAL (NORMAL)
--- NOTE | 2019-03-14 19:46 | REP ---
Abdomen two views History: Postop Air is present in small and large intestine. Several air-fluid levels are present. There is minimal dilatation of the colon. There is no definite pneumoperitoneum. Impression: Nonspecific bowel gas pattern. Electronically Signed by Chandrakant Amaya MD 03/14/2019 07:38 P
[2019-03-14 19:47] LABS: ALBUMIN 2.1 GM/DL (3.2-5.2); BILIRUBIN,TOTAL 0.2 MG/DL (0.2-1.0); CALCIUM LEVEL 6.6 MG/DL (8.8-10.2); CREATININE FOR GFR 1.09 MG/DL (0.55-1.30); GLOMERULAR FILTRATION RATE 53.8 (>45); MAGNESIUM LEVEL 1.8 MG/DL (1.8-2.4); POTASSIUM SERUM 3.7 MEQ/L (3.5-5.1); TOTAL PROTEIN 5.6 GM/DL (6.4-8.2)
--- NOTE | 2019-03-14 19:48 | REP ---
Chest one-view HISTORY: Postop Comparison: 09/28/2014 An increase in interstitial markings is present in the lungs consistent with chronic interstitial fibrosis. The heart is normal in size. The pulmonary vasculature is normal in appearance. Impression: Chronic interstitial fibrosis. Electronically Signed by Chadnrakant Amaya MD 03/14/2019 07:40 P
[2019-03-14] MEDS: ATORVASTATIN 10 MG TAB PO SCH (20:07)
--- NOTE | 2019-03-14 23:30 | CR ---
DATE OF CONSULTATION: 03/12/2019 BRIEF HISTORY OF PRESENT ILLNESS: The patient is a 63-year-old female who presents with abdominal pain, rectal bleeding and abdominal pain that has been going almost 3 days now was admitted to the hospital and had mild lactic acidosis, followup lactic acid was down. And I was asked to see the patient because of her abdominal pain. 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 She has been complaining of abdominal pain, although she states that the pain is a little bit better than it was yesterday when she first came. Her white count did bump up today and that was reason for the followup CAT scan. PAST MEDICAL HISTORY: Is significant for: History of hypercholesterolemia. Hypertension. Chronic obstructive pulmonary disease (COPD). Interstitial cystitis. Osteoporosis. Rheumatoid arthritis. MEDICATIONS: Include - atorvastatin - benazepril - hydrochlorothiazide - Advair Discus - prednisone as needed for chronic obstructive pulmonary disease (COPD) issues - Ventolin as needed for COPD issues. PHYSICAL EXAMINATION: Reveals: A 63-year-old female who looks older than stated age. HEENT is unremarkable. She looks in mild respiratory distress and complaining of discomfort with moving around, although at this point she states that her abdominal pain is somewhat better than it was yesterday. Her lungs are clear anteriorly although diminished significantly posteriorly. Heart is regular with multiple irregular beats. Abdomen is distended, tender along the left side of the abdomen and she is relatively significantly distended but no diffuse peritoneal signs are appreciated and does not have a rigid abdomen. IMPRESSION AND PLAN: The patient is a 63-year-old female. At this point when I reviewed the studies Dr. Gamez was present and we actually conferred over options and available next treatment for her specifically we discussed that at this point the concern is that she has a celiac stenosis and possibly an acute thrombosis of her superior mesenteric artery (SMA). We do feel that she needs to get improved blood supply as a first line treatment and thus angiography is the best next step for her depending on how she does then proceeding with operative intervention if she is doing poorly postoperatively or is hypotensive or has progressive lactic acidosis is appropriate. Otherwise if she seems to make some improvements we may be able to forego operative intervention. At this point knowing that she has had abdominal pain that was quite severe and probably the typical out of proportion to physical findings and knowing that this has been going on for 3 days would suggest that if she truly had transmural ischemia I would have expected her to perforate by this time. Thus I anticipate the ischemia that she has had is probably mucosal based alone and that is the reason for the bleeding. However, I do feel that she is uncomfortable enough, distended enough that we need to watch her very closely. Will see what the angiography does and if it improves her status we may be able to watch her closely, support her blood pressure, her fluids, hematocrit et cetera and we may be able to forego operative intervention. If she has had significant damage to her bowel she might end up with some stenosis or some areas of abnormality. However, at this point I do feel that emergently taking to the operating room at this very moment is not the next step. I do feel improving blood supply would help. The patient was seen earlier and this was our plan for the today. She did undergo angiography and did have stenting of her celiac fortunately, she did well with this and postoperatively she actually was in the recovery room, she is sedated but she actually states that her abdominal pain has improved/resolved. She had a lactic acid this afternoon of 1.4 and she has not had any more bloody bowel movements. And her abdomen is actually decreased tenderness compared to what it was earlier this morning. Thus at this point I do feel that we can watch her closely, continue observation in the intensive care unit (ICU) with supportive care. I do feel that it is very reasonable to continue with anticoagulation unless she has some significant hematocrit drop or her blood pressure dips down secondary to bleeding issues. Otherwise I do feel that she will probably need significant fluid resuscitation given the bowel that it is most likely going to be quite edematous at this time. And if her hematocrit drops a little bit blood replacement may be a good option for her.
[2019-03-15] VITALS (25 sets, daily range): BP systolic 99–204; BP diastolic 49–83; O2SAT 94
[2019-03-15 00:33] LABS: HEMATOCRIT 33.5 % (36.0-47.0); HEMOGLOBIN 10.9 g/dl (12.0-15.5)
[2019-03-15] MEDS: KCL 40MEQ in NS 1000ML 1,000 ML IV SCH ×3 (01:36→17:36)
[2019-03-15] MEDS: metroNIDAZOLE 500 MG in APPROPRIATE DILUENT 1 EA IV SCH ×3 (01:36→17:36)
[2019-03-15] MEDS: AZTREONAM 2 GM in D5W MINI-BAG PLUS 50 ML IV SCH ×3 (03:06→19:20)
[2019-03-15] MEDS: SUCRALFATE SUSP 1GM/10ML UD PO SCH ×2 (05:04→12:39)
[2019-03-15] MEDS: hydrALAZINE INJ 20 MG/ML VIAL IV SCH ×3 (05:04→17:35)
[2019-03-15 05:36] LABS: BASO % 0.1 % (0.0-1.0); HEMATOCRIT 33.1 % (36.0-47.0); HEMOGLOBIN 10.9 g/dl (12.0-15.5); LYMPH # 1.2 10^3/uL (1.5-4.5); LYMPH % 4.9 % (24.0-44.0); MEAN CORPUSCULAR HEMOGLOBIN 32.5 pg (27.0-33.0); MEAN CORPUSCULAR HGB CONC 32.9 g/dl (32.0-36.5); MEAN CORPUSCULAR VOLUME 98.8 fl (80.0-96.0); MONO # 0.6 10^3/uL (0.0-0.8); MONO % 2.3 % (0.0-5.0); NEUTROPHILS # 22.4 10^3/uL (1.8-7.7); NEUTROPHILS % 90.8 % (36.0-66.0); PLATELET COUNT, AUTOMATED 189 10^3/uL (150-450); RED BLOOD COUNT 3.35 10^6/uL (4.00-5.40); WHITE BLOOD COUNT 24.7 10^3/uL (4.0-10.0)
[2019-03-15] MEDS: HEPARIN SOD (PORCINE) 5000 UNITS/ML VIAL IV PRN (05:56)
[2019-03-15] MEDS ORDERED: methylPREDNISolone INJ 125 MG/2 ML VIAL (J2930) IV SCH ×2 (06:00→18:00)
[2019-03-15 06:33] LABS: C REACTIVE PROTEIN QUANTITATIV 14.3 MG/DL (0.00-0.30); CREATININE FOR GFR 1.22 MG/DL (0.55-1.30); GLOMERULAR FILTRATION RATE 47.2 (>45); MAGNESIUM LEVEL 1.9 MG/DL (1.8-2.4); POTASSIUM SERUM 4.7 MEQ/L (3.5-5.1)
[2019-03-15] MEDS: ADVAIR HFA 230/21MCG INHALER INH SCH ×2 (08:18→20:24)
[2019-03-15] MEDS: PANTOPRAZOLE 40MG INJ (PROTONIX) (C9113) IV SCH (08:44)
[2019-03-15] MEDS: ACETAMINOPHEN TAB 650MG DOSE (2X325MG) PO PRN ×2 (09:36→17:35)
--- NOTE | 2019-03-15 10:13 | IPNPDOC ---
Text Note Date of Service The patient was seen on 03/15/19. NOTE Subjective: Patient is a 63-year-old female with a PMHx HTN, DLP, COPD, Interstitial cystitis, Osteoporosis, RA, who presented to the ER with complaints of abdominal pain that progressed to diarrhea that started yesterday at 8 PM. Patient had reported greater than 10 episodes of bowel movements with blood. Patient reports chills but is unsure of any fevers. . She also reported associated abdominal pain occurring in the middle of her abdomen without any radiation. No alleviating or aggravating factors reported the pain as a 7-8/10, aching nature and continuous. Patient also had associated nausea and vomiting; describes the vomitus as water only. Patient was admitted to hospitalist service for further evaluation and treatment. Patient was seen and examined at the bedside. Patient reports that he's feeling better today. She still reports some mild abdominal pain. Denies any chest pain, shortness of breath or palpitations. Has not experience any nausea or vomiting and has not had any bowel movements since yesterday. Objective: Vitals (See below) General: Lying in bed, no acute distress, comfortable, AAOx3 HEENT: NC, AT CVS: RRR, +S1S2 Lungs: Auscultation is without any wheezing, rhonchi or rales Abdomen: Soft without distention; there still appears to be some abdominal tenderness around the umbilicus Extremities: No evidence of lower extremity edema, - Calf tenderness Imaging: - CXR 03/12: Stable chronic changes. No acute infiltrate. - CT abdomen / pelvis 03/12: There is an infrarenal abdominal aortic aneurysm as described above. Contrast enhanced abdominal aortic CTA is recommended. None of the prior chest CTs imaged this portion of the abdomen would be expected. Other chronic changes as described above. - CT angio abdomen / pelvis 03/14: 1. There is a 3.1 cm infrarenal abdominal aortic aneurysm. 2. 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 There is reconstitution of the superior mesenteric artery distal to the occlusion. 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 - CXR 03/14: Chronic interstitial fibrosis. - XR abdomen 03/14: Nonspecific bowel gas pattern. Assessment and plan: Abdominal pain associated with diarrhea - likely 2/2 ischemic colitis - Presented to the ER with abdominal pain and diarrhea; currently her abdominal pain has subsided but persists - Patient is hemodynamically stable and afebrile - Leukocytosis has trended up - GI panel negative - Imaging with evidence of celiac, superior mesenteric artery and inferior mesenteric artery occlusion - s/p Stenting of Celiac artery x2 on 03/14/2019 - c/w aztreonam and metronidazole (Day #2); s/p Moxifloxacin; s/p Vanco PO (Total antibiotic day #4) - c/w Reglan s/p Dilaudid and Bentyl - Currently NPO; will discuss with surgery prior to advancing diet - Dr. Gamez and Dr. Whyte on consultation; appreciate their input - c/w heparin drip s/p Elevated hemoglobin - likely 2/2 hemoconcentration s/p Lactic acidosis s/p Acute renal failure - likely 2/2 pre-renal etiology - 2/2 hypovolemia - Patient continues to make urine; although at a reduced rate - Urinalysis with some elevation of leukocyte esterase and WBC, 1+ bacteria - c/w IV fluids s/p Hypertensive urgency - Patient blood pressure in the ER was found to be systolic of 200 - Hold Benazepril and Clonidine - c/w Hydralazine Acute urinary retention - Overnight, patient had difficulty with urination in the Díaz catheter was placed - Díaz catheter has been re-inserted for critical monitoring; will consider removal within 24-48 hours Interstitial cystitis - Currently not on any medications DLP - c/w Atorvastatin COPD - In PACU on 03/14 patient was experiencing significant wheezing - Patient was started on Solumedrol; will reduce dose today - Will continue with inhaled therapy is ordered Osteoporosis - Will hold off on supplementation at this time RA - Patient reports that she takes prednisone when necessary Gastrointestinal prophylaxis - c/w Protonix and Sucralfate DVT prophylaxis - c/w TEDs/Sequentials Disposition: - s/p Angio - Advance diet as per surgery - c/w broad-spectrum antibiotics and heparin drip VS,Fishbone, I+O VS, Fishbone, I+O Laboratory Tests 03/14/19 12:20 03/14/19 13:28 Red Blood Count 3.34 L, Mean Corpuscular Volume 100.0 H, Mean Corpuscular Hemoglobin 32.6, Mean Corpuscular Hemoglobin Concent 32.6, Red Cell Distribution Width 13.4 03/14/19 13:45 03/14/19 18:58 Red Blood Count 3.23 L, Mean Corpuscular Volume 100.6 H, Mean Corpuscular Hemoglobin 33.7 H, Mean Corpuscular Hemoglobin Concent 33.5, Red Cell Distribution Width 13.4, Calcium Level 6.6 L, Aspartate Amino Transf (AST/SGOT) 31, Alanine Aminotransferase (ALT/SGPT) 19, Alkaline Phosphatase 80, Total Bilirubin 0.2 #, Total Protein 5.6 L, Albumin 2.1 L 03/14/19 23:57 03/15/19 05:21 Red Blood Count 3.35 L, Mean Corpuscular Volume 98.8 H, Mean Corpuscular Hemoglobin 32.5, Mean Corpuscular Hemoglobin Concent 32.9, Red Cell Distribution Width 13.6, Neutrophils (%) (Auto) 90.8 H, Lymphocytes (%) (Auto) 4.9 L, Monocytes (%) (Auto) 2.3, Eosinophils (%) (Auto) 0.0, Basophils (%) (Auto) 0.1, Neutrophils # (Auto) 22.4 H, Lymphocytes # (Auto) 1.2 L, Monocytes # (Auto) 0.6, Eosinophils # (Auto) 0.0, Basophils # (Auto) 0.0, Calcium Level 7.0 L Vital Signs Date Time Temp Pulse Resp B/P (MAP) Pulse Ox O2 Delivery O2 Flow Rate FiO2 03/15/19 09:00 88 148/69 (99) 94 4.0 173/64 03/15/19 08:00 98.1 14 03/14/19 17:32 60 03/14/19 17:00 Aerosol Mask I&O- Last 24 Hours up to 6 AM 03/15/19 06:00 Intake Total 3398 ml Output Total 1005 ml Balance 2393 ml MIRANDA REINOSO MD Mar 15, 2019 10:13
[2019-03-15] MEDS ORDERED: traMADol 50 MG TAB PO PRN (13:30)
[2019-03-15 13:38] LABS: HEMATOCRIT 33.6 % (36.0-47.0); HEMOGLOBIN 11.2 g/dl (12.0-15.5)
[2019-03-15] MEDS: HEPARIN DRIP 25,000 UNITS in APPROPRIATE DILUENT 1 EA IV SCH (14:01)
--- NOTE | 2019-03-15 16:29 | IPN ---
DATE: 03/15/2019 Patient overall is doing much better this morning than she was last night. Her abdominal pain is completely resolved. She is making better urine this morning and overall states that she does not really have any abdominal pain. She has had no nausea and she is not as short of breath as she was last night. Her white count has been persistently elevated, however, but has not really had any ongoing further bleeding. On her physical examination, her abdomen is soft. It is nontender. No guarding. No rebound. No peritoneal signs are appreciated and she is a little less distended than she was last night. IMPRESSION/PLAN: Patient has, fortunately, gotten better and I anticipate she will have some edematous small bowel for quite a while this heals up, but fortunately at this point, she is not acting as though she has a progressive decline of bowel function or at least a transmural infarction. Thus, I would like to keep her nothing by mouth and continue her on anticoagulation, but otherwise supportive care is reasonable at this time. If she is doing well and her white count seems to drop down further tomorrow and she is looking clinically better, we will re-evaluate starting clear liquids, but I do feel usually with these individuals with ischemic bowel, the return of bowel function takes much longer than a typical individual and it may be reasonable to start her on some clear intravenous (IV) nutrition tomorrow. That can be better assessed after tomorrow morning's evaluation labs, et cetera.
[2019-03-15 18:05] LABS: HEMOGLOBIN 11.3 g/dl (12.0-15.5)
[2019-03-15] MEDS ORDERED: hydrOXYzine 25 MG TAB PO PRN (19:00)
[2019-03-15] MEDS ORDERED: hydrALAZINE INJ 20 MG/ML VIAL IV STA (20:11)
[2019-03-15] MEDS: ATORVASTATIN 10 MG TAB PO SCH (20:27)
[2019-03-15] MEDS ORDERED: diphenhydrAMINE INJ 50MG/ML VIAL (J1200) IV STA (20:39)
[2019-03-15] MEDS ORDERED: diphenhydrAMINE INJ 50MG/ML VIAL (J1200) As Ordered ONE (20:40)
[2019-03-15] MEDS ORDERED: EPINEPHrine INJ 1 MG/ML 1ML AMP IM STA (20:42)
[2019-03-15] MEDS ORDERED: EPINEPHrine INJ 1 MG/ML 1ML AMP As Ordered ONE (20:43)
[2019-03-15 20:46] LABS: ABG O2 SATURATION 98.7 % (95.0-99.0)
[2019-03-15 20:48] LABS: ABG BASE EXCESS -14.7 (-2.0-2.0); ABG HCO3 13.1 MEQ/L (22.0-26.0); ABG PARTIAL PRESSURE CO2 37.5 mmHg (35.0-45.0); ABG PARTIAL PRESSURE O2 151.1 mmHg (75.0-100.0); ABG STANDARD HCO3 13.3 MEQ/L (22.0-26.0); ABG TOTAL CO2 14.3 MEQ/L (23.0-31.0); ABG pH (ARTERIAL) 7.162 UNITS (7.350-7.450)
[2019-03-15] MEDS ORDERED: LORazepam 2 MG/ML VIAL (J2060) IV STA (22:21)
[2019-03-15] MEDS ORDERED: LORazepam 2 MG/ML VIAL (J2060) IV ONE (23:15)
[2019-03-15] MEDS ORDERED: ISOVUE-370 76% 100ML VIAL (Q9967) As Ordered ONE (23:19)
[2019-03-16] VITALS (25 sets, daily range): BP systolic 145–222; BP diastolic 68–97; O2SAT 94–95
--- NOTE | 2019-03-16 00:03 | REPVR ---
EXAM: CT Angiography Chest With Contrast EXAM DATE/TIME: 03/15/2019 11:27 PM CLINICAL HISTORY: 63 years old, female; Signs and symptoms; Shortness of breath; Additional info: Assess for pe TECHNIQUE: Imaging protocol: Axial computed tomographic angiography images of the chest with intravenous contrast using CT angiography protocol. Coronal and sagittal reformatted images were created and reviewed. 3D rendering: MIP reconstructed images were created and reviewed. Radiation optimization: All CT scans at this facility use at least one of these dose optimization techniques: automated exposure control; mA and/or kV adjustment per patient size (includes targeted exams where dose is matched to clinical indication); or iterative reconstruction. Contrast material: ISOVUE 370; Contrast volume: 100 ml; Contrast route: IV; COMPARISON: CT Chest with contrast 09/28/2014 5:01 PM FINDINGS: Pulmonary arteries: The main pulmonary artery measures 27 mm. No central pulmonary embolism is identified. Aorta: The ascending thoracic aorta measures 26 mm. Other arteries: Vascular stent in the proximal celiac artery. There is occlusion of the proximal SMA with some reconstitution apparently through the pancreaticoduodenal arcade. Lungs: Mild bullous change with coarse interstitial markings and mild bilateral lower lobe fibro-atelectatic change. Pleural space: Minimal bilateral pleural effusions. Heart: Unremarkable. No cardiomegaly. No pericardial effusion. Gallbladder and bile ducts: Dense gallbladder consistent with recent contrast injection. Kidneys and ureters: Incidental note of a retroaortic left renal vein. Lymph nodes: Unremarkable. No enlarged lymph nodes. Bones/joints: Unremarkable. No acute fracture. Soft tissues: Unremarkable. IMPRESSION: 1. Mild bullous change with coarse interstitium and mild bilateral lower lobe fibro-atelectatic change with minimal bilateral pleural effusions. 2. Vascular stent in the proximal celiac artery and occlusion of the proximal SMA with reconstitution through pancreaticoduodenal branches. 3. No central pulmonary embolism is identified. Electronically signed by: Winston Hatch On 03/16/2019 00:02:28 AM
[2019-03-16] MEDS: hydrALAZINE INJ 20 MG/ML VIAL IV SCH ×4 (00:12→17:55)
--- NOTE | 2019-03-16 00:17 | REPVR ---
EXAM: CT Angiography Abdomen and Pelvis With Contrast EXAM DATE/TIME: 03/15/2019 11:43 PM CLINICAL HISTORY: 63 years old, female; Condition or disease; Arterial embolism and thrombosis; Abdominal aorta; Additional info: Sma occlusion TECHNIQUE: Imaging protocol: Axial computed tomographic angiography images of the abdomen and pelvis with intravenous contrast material. Coronal and sagittal reformatted images were created and reviewed. 3D rendering: MIP reconstructed images were created and reviewed. Radiation optimization: All CT scans at this facility use at least one of these dose optimization techniques: automated exposure control; mA and/or kV adjustment per patient size (includes targeted exams where dose is matched to clinical indication); or iterative reconstruction. Contrast material: ISOVUE 370; Contrast volume: 100 ml; Contrast route: IV; COMPARISON: CT ANGIO ABD/PEL 03/14/2019 7:44 AM FINDINGS: Tubes, catheters and devices: There is a Díaz catheter in the bladder. Lungs: Mild bilateral lower lobe fibro-atelectatic change with coarse basilar interstitial markings and minimal bullous change. Pleura: Minimal bilateral pleural effusions. VASCULATURE: Aorta: Slight ectasia of the infrarenal aorta measuring 32 mm. There is mild calcification of the abdominal aorta with extension into the iliac arteries. Celiac trunk and mesenteric arteries: Interval stent placement of the celiac artery.Celiac branches are within normal limits. Occlusion of the proximal SMA with reconstitution through pancreaticoduodenal arcade. The HALLIE appears to be patent but is small. Renal arteries: Single bilateral renal arteries with suggestion of significant proximal stenosis on the right and mild origin stenosis of the left. Right iliac arteries: No occlusion or significant stenosis. Left iliac arteries: No occlusion or significant stenosis. Other veins: Incidental note of a retroaortic left renal vein. ABDOMEN: Liver: The liver attenuation is 56 Hounsfield units and the spleen is 100 Hounsfield units. Gallbladder and bile ducts: Dense gallbladder consistent with recent contrast injection. Pancreas: Unremarkable. No mass. No ductal dilation. Spleen: Unremarkable. No splenomegaly. Adrenals: Unremarkable. No mass. Kidneys and ureters: Unremarkable. No solid mass. No hydronephrosis. Stomach and bowel: Mildly distended segments of bowel bowel with air-fluid levels which is decreased since the prior study. Findings may reflect a partial obstruction. Bowel ischemia is not excluded and may be a consideration given the vascular condition. Appendix: There are no changes of appendicitis. A normal appendix is not seen. PELVIS: Bladder: Unremarkable. No mass. Reproductive: Unremarkable as visualized. ABDOMEN and PELVIS: Intraperitoneal space: Mild free fluid in the cul-de-sac. Bones/joints: No acute fracture. No dislocation. Soft tissues: Unremarkable. Lymph nodes: Unremarkable. No enlarged lymph nodes. IMPRESSION: 1. Interval stent placement into the celiac artery since 03/14/2019. 2. Proximal occlusion of the SMA with reconstitution through the pancreaticoduodenal arcade. The HALLIE appears be patent but is small and may have stenoses. 3. Mild small bowel distention with air-fluid levels which is slightly decreased overall since the prior study. Findings may reflect partial small bowel obstruction although bowel ischemia with adynamic segments is not excluded. No pneumatosis or bowel wall is seen and no gas is identified. 4. Small bilateral pleural effusions with bilateral lower lobe fibro-atelectatic change and coarse bibasilar markings with some bullous change. 5. Mild free fluid in the cul-de-sac which is likely reactive. 6. Díaz catheter in the bladder. 7. Mild free fluid in the pelvis which is greater than expected for physiologic origin and may be reactive. Electronically signed by: Winston Hatch On 03/16/2019 00:17:10 AM
[2019-03-16 00:36] LABS: HEMATOCRIT 36.2 % (36.0-47.0); HEMOGLOBIN 11.7 g/dl (12.0-15.5); MEAN CORPUSCULAR HEMOGLOBIN 33.2 pg (27.0-33.0); MEAN CORPUSCULAR HGB CONC 32.3 g/dl (32.0-36.5); MEAN CORPUSCULAR VOLUME 102.8 fl (80.0-96.0); PLATELET COUNT, AUTOMATED 229 10^3/uL (150-450); RED BLOOD COUNT 3.52 10^6/uL (4.00-5.40); WHITE BLOOD COUNT 29.4 10^3/uL (4.0-10.0)
[2019-03-16] MEDS ORDERED: SODIUM BICARBONATE 8.4% INJ 50 ML SYRINGE As Ordered ONE (01:04)
[2019-03-16 01:11] LABS: ALBUMIN 2.2 GM/DL (3.2-5.2); BILIRUBIN,TOTAL 0.3 MG/DL (0.2-1.0); CALCIUM LEVEL 7.1 MG/DL (8.8-10.2); CREATININE FOR GFR 1.07 MG/DL (0.55-1.30); POTASSIUM SERUM 5.1 MEQ/L (3.5-5.1); TOTAL PROTEIN 6.4 GM/DL (6.4-8.2)
[2019-03-16] MEDS ORDERED: ROCURONIUM BROMIDE 50 MG/5 ML VIAL As Ordered ONE (01:17)
[2019-03-16] MEDS ORDERED: ETOMIDATE INJ 20MG/10ML VIAL As Ordered ONE (01:17)
[2019-03-16] MEDS ORDERED: PROPOFOL 1,000 MG/100 ML VIAL As Ordered ONE (01:17)
[2019-03-16] MEDS: metroNIDAZOLE 500 MG in APPROPRIATE DILUENT 1 EA IV SCH ×3 (01:48→17:55)
[2019-03-16] MEDS: SODIUM BICARBONATE 150 MEQ in D5W 1,000 ML IV SCH ×2 (01:49→09:18)
[2019-03-16 02:06] LABS: ABG BASE EXCESS -10.8 (-2.0-2.0); ABG HCO3 16.1 MEQ/L (22.0-26.0); ABG O2 SATURATION 94.9 % (95.0-99.0); ABG PARTIAL PRESSURE CO2 39.4 mmHg (35.0-45.0); ABG PARTIAL PRESSURE O2 82.7 mmHg (75.0-100.0); ABG STANDARD HCO3 15.9 MEQ/L (22.0-26.0); ABG TOTAL CO2 17.3 MEQ/L (23.0-31.0)
[2019-03-16 02:08] LABS: ABG pH (ARTERIAL) 7.228 UNITS (7.350-7.450)
[2019-03-16] MEDS: AZTREONAM 2 GM in D5W MINI-BAG PLUS 50 ML IV SCH ×3 (03:14→18:02)
--- NOTE | 2019-03-16 03:16 | IPNPDOC ---
Date Seen The patient was seen on 03/16/19. Progress Note Notified by nurse that patient is in distress with tachycardia HR 150s and BP 200s systolic. Upon arrival, patient was found to be severely tachypneic and states that she cannot breath and attributed it to her anxiety medication she received 2 hours prior. Initially stated that she does not have panic attack. She was given Benadryl along with Epi IM with no significant changes. Daughter was called and had inform us that patient has a long standing problem with panic attacks and anxiety on multiple medications at home without relief. CXR, EKG, ABG was performed with evidence of metabolic acidosis. CT chest was done with no evidence of PE, CT abdomen/Pelvis w/ contrast also performed without significant changes from prior per my interpretation. Patient managed to calm down with improvement in HR and BP after several doses of Ativan. However, woke up again shortly after with similar distress. Ethnographer were called to evaluate patient. A trial of Bipap has been started with overall clinically improve. Had discussed with family regarding possibility of mechanical intubation as well if this does not work and is aware. RENEE JUARES MD Mar 16, 2019 03:16
[2019-03-16 06:11] LABS: ABG BASE EXCESS -7.2 (-2.0-2.0); ABG HCO3 17.7 MEQ/L (22.0-26.0); ABG O2 SATURATION 94.9 % (95.0-99.0); ABG PARTIAL PRESSURE O2 72.8 mmHg (75.0-100.0); ABG STANDARD HCO3 18.5 MEQ/L (22.0-26.0); ABG TOTAL CO2 18.8 MEQ/L (23.0-31.0); ABG pH (ARTERIAL) 7.335 UNITS (7.350-7.450)
[2019-03-16] MEDS: IPRATROPIUM 0.5MG/ALBUTEROL 2.5MG INH SOL UD 3ML (DUONEB)(J7620) NEB PRN (06:20)
[2019-03-16 06:25] LABS: HEMATOCRIT 34.5 % (36.0-47.0); HEMOGLOBIN 11.1 g/dl (12.0-15.5); MEAN CORPUSCULAR HEMOGLOBIN 32.6 pg (27.0-33.0); MEAN CORPUSCULAR HGB CONC 32.2 g/dl (32.0-36.5); MEAN CORPUSCULAR VOLUME 101.5 fl (80.0-96.0); PLATELET COUNT, AUTOMATED 204 10^3/uL (150-450); WHITE BLOOD COUNT 28.6 10^3/uL (4.0-10.0)
[2019-03-16 06:48] LABS: C REACTIVE PROTEIN QUANTITATIV 7.64 MG/DL (0.00-0.30); CALCIUM LEVEL 7.2 MG/DL (8.8-10.2); CREATININE FOR GFR 1.05 MG/DL (0.55-1.30); GLOMERULAR FILTRATION RATE 56.2 (>45); POTASSIUM SERUM 4.4 MEQ/L (3.5-5.1)
[2019-03-16] MEDS: HEPARIN SOD (PORCINE) 5000 UNITS/ML VIAL IV PRN (06:48)
[2019-03-16 07:06] LABS: LYMPHOCYTES 5 % (16-52); MONOCYTES 5 % (0-8); NEUTROPHILS 88 % (35-75)
[2019-03-16 07:07] LABS: PLATELET ESTIMATE NORMAL (NORMAL)
[2019-03-16] MEDS: ADVAIR HFA 230/21MCG INHALER INH SCH ×2 (07:49→20:30)
--- NOTE | 2019-03-16 08:33 | REP ---
CHEST, SINGLE VIEW: Single view of the chest is performed and compared to prior studies. Interstitial and alveolar infiltrates are seen in the lung bases as well as small bilateral pleural effusions. Heart does not appear to be significantly enlarged. Mediastinal silhouette is unremarkable. IMPRESSION: Bibasilar infiltrates and effusions. Electronically Signed by Tony Billings MD 03/17/2019 09:58 A
[2019-03-16] MEDS ORDERED: predniSONE 10 MG TAB PO SCH (09:00)
[2019-03-16] MEDS: PANTOPRAZOLE 40MG INJ (PROTONIX) (C9113) IV SCH (09:17)
[2019-03-16] MEDS: LABETALOL HCL 100 MG/20 ML VIAL IV SCH ×3 (09:21→20:18)
--- NOTE | 2019-03-16 09:47 | IPN ---
DATE OF SERVICE: 03/16/2019 The patient has had some respiratory, cardiac issues overnight but otherwise continues not to have any abdominal pain. When we discuss her abdominal pain, she states she has no abdominal pain like she had previously, that has resolved. She had a bowel movement yesterday but none today. Her urine output has been adequate. However white count still remains elevated. Her physical exam reveals a distended abdomen, tympanitic throughout but without guarding, without rebound, without peritoneal signs. IMPRESSION AND PLAN: The patient has some abdominal distension. I feel this is probably secondary to aerophagia from the BiPAP machine that she has. Fortunately, she does not have ongoing tenderness or pain and thus clinically I anticipate she has some improving/resolution of her acute injury that she had. She is not complaining of any bloody diarrhea or bowel movements and her hematocrit has been stable. Thus it is reasonable to continue with her current supportive treatment from a surgical standpoint, but I was still keep her n.p.o. for now. It is reasonable to start her on some TPN at some point as well given that this will probably be a prolonged ileus that she develops and make take awhile to resolve.
[2019-03-16] MEDS: SIMETHICONE 40MG/0.6ML DROPS 30ML PO SCH ×4 (10:36→20:18)
[2019-03-16 10:57] LABS: HEPATITIS B SURFACE ANTIGEN NEGATIVE (NEGATIVE)
[2019-03-16 11:24] LABS: HEPATITIS C VIRUS ABY INDEX 0.1 INDEX (<0.8)
[2019-03-16 11:25] LABS: HEPATITIS B CORE ANTIBODY IGM NEGATIVE (NEGATIVE)
[2019-03-16 11:27] LABS: HEPATITIS A ANTIBODY IGM NEGATIVE (NEGATIVE)
--- NOTE | 2019-03-16 11:41 | CCN ---
DATE: 03/16/2019 NOTE: Ms. Rivera did not well overnight on noninvasive mechanical ventilation. She is currently sleeping and synchronous with the ventilator. On this modality, her minute ventilation has gone from 15-17 down to 12-13. Heart rate has gone from the 130s down to the 80s. Her accessory muscle usage has resolved. Laboratory data from this morning now showed a bicarbonate of 20. She remains without an anion gap. Her BUN and creatinine are 26 and 1.05. Glucose remains elevated at 185. She has an elevated GGT at 115. Her CRP is decreased to 7.64. Her morning blood gas was 7.34/34/73 with a measured saturation of 95% and her base excess has improved negative 7.2. IMPRESSION: 1. Acute respiratory distress secondary to metabolic acidemia, resolving as her bicarbonate improves. It is thought this is likely secondary to renal insufficiency and inability to compensate secondary to severe COPD. RECOMMENDATIONS: 1. At this point, when she awakens I would give her a trial off of the NIMV. She may be able to tolerate it now that her bicarbonate deficit is less, though I would not be surprised if she does not need a bit more time in supplementation before she is capable of that. 2. We will check repeat BMP later this afternoon. At this point I did not feel we need to draw another ABG unless clinically indicated. Total time spent: 5 minutes and that includes this dictation.
[2019-03-16] MEDS: methylPREDNISolone INJ 40 MG/1 ML VIAL (J2920) IV SCH (12:10)
[2019-03-16 12:40] LABS: HEMATOCRIT 32.7 % (36.0-47.0); HEMOGLOBIN 10.7 g/dl (12.0-15.5)
--- NOTE | 2019-03-16 12:56 | IPNPDOC ---
Text Note Date of Service The patient was seen on 03/16/19. NOTE Subjective: Ms. Rivera is seen and examined on bedside morning rounds. She is laying in bed with NIMV on, she is tired, but is easily aroused on verbal cues. She states she is not in any pain, her abdomen is not hurting her, she denies cp, sob, coughing or palpitations. ROS: 12 point ROS reviewed with patient and negative except for pertinent positive findings above Objective: Vitals (See below) General: Lying in bed, NIMV in place, appears otherwise comfortable, AAOx3 but drowsy HEENT: EOMI, moist mucus membranes, nares patent b/l CVS: RRR, normal s1 and s2., no murmus, rubs or gallops appreciated Lungs: CTA b/l, no wheezing, rales or rhonchi appreciated Abdomen: Soft, some distension, without rebound ridgity or guarding, no pain to palpation, no hepatosplenomegaly or masses appreciated Extremities: no edema, cyanosis or mottling appreciated Imaging: - CXR 03/12: Stable chronic changes. No acute infiltrate. - CT abdomen / pelvis 03/12: There is an infrarenal abdominal aortic aneurysm as described above. Contrast enhanced abdominal aortic CTA is recommended. None of the prior chest CTs imaged this portion of the abdomen would be expected. Other chronic changes as described above. - CT angio abdomen / pelvis 03/14: 1. There is a 3.1 cm infrarenal abdominal aortic aneurysm. 2. 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 There is reconstitution of the superior mesenteric artery distal to the occlusion. 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 - CXR 03/14: Chronic interstitial fibrosis. - XR abdomen 03/14: Nonspecific bowel gas pattern. Assessment and plan: 1. 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 Gamez and Dr. Whyte on consultation; appreciate their input - c/w heparin drip - Will go for PICC line placement for TPN nutrition Metabolic acidosis - 2/2 NAG metabolic acidosis - Most recent ABG demonstrates acidosis; with blood work reflecting NAG metabolic acidosis - continue monitoring H&H and Lactic acid - Currently on NIMV for episode overnight of tachycardia / tachypnea - likely 2/2 compensation for acidosis - c/w Bicarb drip - Dr. Law on consult; appreciate their input 2. s/p Elevated hemoglobin - likely 2/2 hemoconcentration -hg now 11.1 3. s/p Lactic acidosis 4. s/p Acute renal failure - likely 2/2 pre-renal etiology - 2/2 hypovolemia - Patient continues to make urine - Urinalysis with some elevation of leukocyte esterase and WBC, 1+ bacteria - c/w IV fluids 5. s/p Hypertensive urgency - BP improved - Patient blood pressure in the ER was found to be systolic of 200 - c/w Labetalol and Hydralazine 6. Acute urinary retention -Urine output is improving 7. DLP - c/w Atorvastatin 8. COPD - In PACU on 03/14 patient was experiencing significant wheezing - ABG recently does not reveal CO2 retention - Patient was started on Solumedrol; will reduce dose today - Will continue with inhaled therapy is ordered Osteoporosis - Will hold off on supplementation at this time RA - Patient reports that she takes prednisone when necessary Gastrointestinal prophylaxis - c/w Protonix and Sucralfate DVT prophylaxis - c/w TEDs/Sequentials VS,Fishbone, I+O VS, Fishbone, I+O Laboratory Tests 03/15/19 13:31 03/15/19 17:58 03/16/19 00:30 Red Blood Count 3.52 L, Mean Corpuscular Volume 102.8 H, Mean Corpuscular Hemoglobin 33.2 H, Mean Corpuscular Hemoglobin Concent 32.3, Red Cell Distribution Width 14.2, Calcium Level 7.1 L, Aspartate Amino Transf (AST/SGOT) 54 H, Alanine Aminotransferase (ALT/SGPT) 36, Alkaline Phosphatase 126 H, Total Bilirubin 0.3, Total Protein 6.4, Albumin 2.2 L 03/16/19 06:10 Red Blood Count 3.40 L, Mean Corpuscular Volume 101.5 H, Mean Corpuscular Hemoglobin 32.6, Mean Corpuscular Hemoglobin Concent 32.2, Red Cell Distribution Width 14.2, Calcium Level 7.2 L Vital Signs Date Time Temp Pulse Resp B/P (MAP) Pulse Ox O2 Delivery O2 Flow Rate FiO2 03/16/19 12:10 147/73 03/16/19 10:00 100 24 93 30 03/16/19 08:00 97.4 03/16/19 04:30 BIPAP/CPAP 03/16/19 00:00 4.0 I&O- Last 24 Hours up to 6 AM 03/16/19 06:00 Intake Total 1962 ml Output Total 1010 ml Balance 952 ml GME ATTESTATION GME ATTESTATION My faculty preceptor for this patient encounter was physically present during the encounter and was fully available. All aspects of the patient interview, examination, medical decision making process, and medical care plan development were reviewed and approved by the faculty preceptor. The faculty preceptor is aware and concurs with the plan as stated in the body of this note and will attest to such by his/her cosignature. ATTENDING NOTE I, Toño Jernigan, have both independently examined this patient as well as reviewed the documentation. I have discussed in detail with the resident the findings and plan of treatment as documented by the resident. I agree with their findings and treatment plan. I will continue to follow the patient and offer further guidance to the patients care as necessary during this hospital stay. DOMINGO NEWBERRY DO Mar 16, 2019 12:56 TOÑO JERNIGAN MD Mar 16, 2019 13:45
[2019-03-16 13:09] LABS: BLOOD UREA NITROGEN 26 MG/DL (7-18); CALCIUM LEVEL 7.5 MG/DL (8.8-10.2); CARBON DIOXIDE LEVEL 22 MEQ/L (21-32); CHLORIDE LEVEL 115 MEQ/L (98-107); CREATININE FOR GFR 0.97 MG/DL (0.55-1.30); GLOMERULAR FILTRATION RATE > 60.0 (>45); GLUCOSE, FASTING 159 MG/DL (70-100); MAGNESIUM LEVEL 2.2 MG/DL (1.8-2.4); POTASSIUM SERUM 3.9 MEQ/L (3.5-5.1); SODIUM LEVEL 143 MEQ/L (136-145)
--- NOTE | 2019-03-16 16:07 | ECGEPIP ---
[facility] Test Date: 2019-03-15 Pat Name: ELODIA LOPEZ Department: Room: F0949-94 Gender: Female [employer] Service Agent: BINDU : [id number] Requested By: RENEE Galaviz Order Number: [id number] Reading MD: Constantin Hamm Measurements Intervals [place] Rate: 181 P: MA: -1 QRS: 50 QRSD: 77 T: 55 QT: 232 QTc: 403 Interpretive Statements SUPRAVENTRICULAR TACHYCARDIA Septal myocardial infarction, probably old Delayed anterior R wave progression Nonspecific ST-T wave abnormalities Baseline artifact Electronically Signed on 03-16-2019 16:07:01 EDT by Constantin Hamm
[2019-03-16] MEDS ORDERED: SODIUM CHLORIDE NASAL 0.65% SPRAY BTL (OCEAN) PRN (16:45)
[2019-03-16] MEDS: HEPARIN DRIP 25,000 UNITS in APPROPRIATE DILUENT 1 EA IV SCH (17:56)
[2019-03-16 18:00] LABS: BLOOD UREA NITROGEN 26 MG/DL (7-18); CALCIUM LEVEL 7.3 MG/DL (8.8-10.2); CARBON DIOXIDE LEVEL 24 MEQ/L (21-32); CHLORIDE LEVEL 114 MEQ/L (98-107); CREATININE FOR GFR 0.98 MG/DL (0.55-1.30); GLOMERULAR FILTRATION RATE > 60.0 (>45); GLUCOSE, FASTING 150 MG/DL (70-100); POTASSIUM SERUM 4.1 MEQ/L (3.5-5.1); SODIUM LEVEL 145 MEQ/L (136-145)
[2019-03-16 18:17] LABS: HEMATOCRIT 32.7 % (36.0-47.0); HEMOGLOBIN 10.9 g/dl (12.0-15.5)
[2019-03-16] MEDS: ATORVASTATIN 10 MG TAB PO SCH (20:17)
[2019-03-16] MEDS: NS 0.45% 1,000 ML IV SCH (20:19)
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
[2019-03-17] VITALS (32 sets, daily range): BP systolic 148–211; BP diastolic 66–99; O2SAT 93–97
[2019-03-17] MEDS: hydrALAZINE INJ 20 MG/ML VIAL IV SCH ×4 (00:07→17:39)
[2019-03-17] MEDS: metroNIDAZOLE 500 MG in APPROPRIATE DILUENT 1 EA IV SCH ×3 (02:03→17:39)
[2019-03-17] MEDS: AZTREONAM 2 GM in D5W MINI-BAG PLUS 50 ML IV SCH ×3 (03:14→18:33)
[2019-03-17] MEDS: LABETALOL HCL 100 MG/20 ML VIAL IV SCH ×4 (03:15→20:41)
[2019-03-17] MEDS: CALCIUM CARBONATE 500 MG CHEW U/D PO PRN (04:36)
[2019-03-17 04:58] LABS: HEMATOCRIT 32.7 % (36.0-47.0); HEMOGLOBIN 10.8 g/dl (12.0-15.5); PLATELET COUNT, AUTOMATED 205 10^3/uL (150-450); RED BLOOD COUNT 3.27 10^6/uL (4.00-5.40); WHITE BLOOD COUNT 23.2 10^3/uL (4.0-10.0)
[2019-03-17 05:19] LABS: EOSINOPHILS 1 % (0-5); LYMPHOCYTES 16 % (16-52); METAMYELOCYTES 3 % (0-0); MONOCYTES 6 % (0-8); NEUTROPHILS 74 % (35-75); PLATELET ESTIMATE NORMAL (NORMAL)
[2019-03-17 05:21] LABS: BLOOD UREA NITROGEN 29 MG/DL (7-18); C REACTIVE PROTEIN QUANTITATIV 3.82 MG/DL (0.00-0.30); CALCIUM LEVEL 7.5 MG/DL (8.8-10.2); CARBON DIOXIDE LEVEL 24 MEQ/L (21-32); CHLORIDE LEVEL 112 MEQ/L (98-107); CREATININE FOR GFR 0.86 MG/DL (0.55-1.30); GLOMERULAR FILTRATION RATE > 60.0 (>45); GLUCOSE, FASTING 122 MG/DL (70-100); POTASSIUM SERUM 3.9 MEQ/L (3.5-5.1); SODIUM LEVEL 141 MEQ/L (136-145)
[2019-03-17] MEDS: ADVAIR HFA 230/21MCG INHALER INH SCH ×2 (07:24→21:09)
[2019-03-17] MEDS: PANTOPRAZOLE 40MG INJ (PROTONIX) (C9113) IV SCH (08:33)
[2019-03-17] MEDS: SIMETHICONE 40MG/0.6ML DROPS 30ML PO SCH ×4 (08:33→21:05)
[2019-03-17] MEDS: busPIRone 5 MG TAB PO SCH ×3 (08:34→20:36)
[2019-03-17] MEDS: CLOPIDOGREL 75 MG TAB PO SCH (09:06)
[2019-03-17] MEDS: NS 0.45% 1,000 ML IV SCH (09:07)
--- NOTE | 2019-03-17 09:09 | IPN ---
SURGICAL PROGRESS NOTE DATE OF SERVICE: 03/17/2019 Subjectively, the patient has not complained of any abdominal pain; and overall, her white count has dropped down this morning to 23. Her renal function is still good and overall does not have any evidence of ongoing gastrointestinal (GI) bleeding. She has been having flatus without bowel movements. She states she is hungry. Her abdomen is softly distended but nontender. No guarding. No rebound. No peritoneal signs are appreciated. IMPRESSION AND PLAN: From a general surgery standpoint, the patient seems to be making some good progress, and I anticipate she probably had an episode of ischemic bowel that had some mucosal ischemia and edema but probably not transmural. Thus, at this point, given her impression and daily improvement, I feel that it is reasonable to start her on some clear liquids at this time. I would recommend that we go very slowly with progression of diet, anticipating that it may take a little while for her bowel mucosa to regenerate, as well as the severe edema to resolve in her small bowel.
[2019-03-17 09:24] LABS: ABG BASE EXCESS -1.5 (-2.0-2.0); ABG HCO3 22.9 MEQ/L (22.0-26.0); ABG O2 SATURATION 93.8 % (95.0-99.0); ABG PARTIAL PRESSURE CO2 37.7 mmHg (35.0-45.0); ABG PARTIAL PRESSURE O2 71.4 mmHg (75.0-100.0); ABG STANDARD HCO3 23.2 MEQ/L (22.0-26.0); ABG TOTAL CO2 24.1 MEQ/L (23.0-31.0); ABG pH (ARTERIAL) 7.402 UNITS (7.350-7.450)
[2019-03-17] MEDS ORDERED: ALPRAZolam 0.25 MG TAB PO ONE ×2 (09:45)
[2019-03-17] MEDS ORDERED: FUROSEMIDE 20 MG/2 ML VIAL (J1940) IV ONE (10:45)
--- NOTE | 2019-03-17 10:45 | IPNPDOC ---
Date Seen The patient was seen on 03/17/19. Progress Note Vascular Surgery Dr Gamez. HPI: 63year oldF admitted to [facility] with abdominal pain. Abdominal angiogram showed stenosis of the celiac and possible acute thrombosis of the superior mesenteric artery. She underwent angiography on 03/14/2019 with stenting of the celiac artery as per Dr Gamez. PMHx: History of hypercholesterolemia. Hypertension. COPD. Interstitial cystitis. Osteoporosis. Rheumatoid arthritis. PE: GEN: 63yoF, appears stated age. No acute distress. HEENT: Normocephalic, atraumatic. Moist mucous membranes. CHEST: Regular rate and rhythm, +S1, +S2 EXT: Pulses 2+ bilaterally dorsalis pedis and radial. No lower extremity edema appreciated. SKIN: [place], dry, warm. Capillary refill <2sec. No rashes. NEURO: Alert and oriented x 3. No focal deficits appreciated. A&P:63year oldF admitted to [facility] with abdominal pain. Abdominal angiogram showed stenosis of the celiac and possible acute thrombosis of the superior mesenteric artery. She then underwent angiography on 03/14/2019 with stenting of the celiac artery as er Dr Gamez. 1. Stenting of the celiac artery 03/14/19. CTA A/P 03/15/19 VASCULATURE: Aorta: Slight ectasia of the infrarenal aorta measuring 32 mm. There is mild calcification of the abdominal aorta with extension into the iliac arteries. Celiac trunk and mesenteric arteries: Interval stent placement of the celiac artery.Celiac branches are within normal limits. Occlusion of the proximal SMA with reconstitution through pancreaticoduodenal arcade. The HALLIE appears to be patent but is small. Renal arteries: Single bilateral renal arteries with suggestion of significant proximal stenosis on the right and mild origin stenosis of the left. Right iliac arteries: No occlusion or significant stenosis. Left iliac arteries: No occlusion or significant stenosis. Other veins: Incidental note of a retroaortic left renal vein. Pt to be advanced in diet. D/W Dr Gamez, maria fernanda to d/c heparing gtt. Add Plavix 75 mg po daily. Outpt FU with Dr Gamez's office. VS, I&O, 24H, Fishbone Vital Signs/I&O Vital Signs Date Time Temp Pulse Resp B/P (MAP) Pulse Ox O2 Delivery O2 Flow Rate FiO2 03/17/19 09:00 101 36 187/85 (119) 93 2.0 6/11/19 08:00 99.0 03/17/19 07:23 30 03/17/19 04:20 Nasal Cannula I&O- Last 24 Hours up to 6 AM 03/17/19 06:00 Intake Total 2470 ml Output Total 1325 ml Balance 1145 ml Laboratory Data 24H LABS Laboratory Tests 2 03/16/19 12:30: Activated Partial Thromboplast Time 92.7H, Anion Gap 6L, Glomerular Filtration Rate > 60.0, Lactic Acid Level 1.1, Blood Urea Nitrogen 26H, Creatinine 0.97, Sodium Level 143, Potassium Level 3.9, Chloride Level 115H, Carbon Dioxide Level 22, Calcium Level 7.5L, Magnesium Level 2.2 03/16/19 17:26: Activated Partial Thromboplast Time 65.8H, Anion Gap 7L, Glomerular Filtration Rate > 60.0, Blood Urea Nitrogen 26H, Creatinine 0.98, Sodium Level 145, Potassium Level 4.1, Chloride Level 114H, Carbon Dioxide Level 24, Calcium Level 7.3L 03/17/19 04:24: Activated Partial Thromboplast Time 71.7H, Anion Gap 5L, Glomerular Filtration Rate > 60.0, Blood Urea Nitrogen 29H, Creatinine 0.86, Sodium Level 141, Potassium Level 3.9, Chloride Level 112H, Carbon Dioxide Level 24, Calcium Level 7.5L, Magnesium Level 2.0, Immature Granulocyte % (Auto) , Nucleated Red Blood Cells % (auto) 0.1H, Neutrophils 74, Lymphocytes (Manual) 16, Monocytes (Manual) 6, Eosinophils (Manual) 1, Metamyelocytes 3H, Platelet Estimate NORMAL, Red Blood Cell Morphology NORMAL, C-Reactive Protein, Quantitative 3.82H 03/17/19 09:10: Blood Gas Bicarbonate Standard 23.2, Arterial Blood pH 7.402, Arterial Blood Partial Pressure CO2 37.7, Arterial Blood Partial Pressure O2 71.4L, Arterial Blood Total CO2 24.1, Arterial Blood HCO3 22.9, Arterial Blood Base Excess -1.5, Arterial Blood Oxygen Saturation 93.8L CBC/BMP Laboratory Tests 03/16/19 12:30 Calcium Level 7.5 L 03/16/19 17:26 Calcium Level 7.3 L 03/17/19 04:24 Calcium Level 7.5 L, Red Blood Count 3.27 L, Mean Corpuscular Volume 100.0 H, Mean Corpuscular Hemoglobin 33.0, Mean Corpuscular Hemoglobin Concent 33.0, Red Cell Distribution Width 14.0 Microbiology Microbiology 03/16/19 Blood Culture - Preliminary, Resulted No growth after 24 hours . All specim... 03/12/19 Blood Culture - Preliminary, Resulted No Growth after 72 hours. All specime... 03/12/19 Blood Culture - Preliminary, Resulted No Growth after 72 hours. All specime... 03/13/19 Gastrointestinal Tract Panel (PCR) - Final, Complete Radha Wilburn Mar 17, 2019 10:45
[2019-03-17] MEDS: TIOTROPIUM INHALER/CAPSULE (SPIRIVA) INH SCH (11:15)
--- NOTE | 2019-03-17 14:29 | IPNPDOC ---
Date Seen The patient was seen on 03/17/19. Progress Note SUBJECTIVE: Ms. Rivera, a 63-year-old female, is seen and examined on bedside rounds. She is sitting in bed and appears very anxious and tachypneic. She is using accessory muscles to breathe and has difficulty speaking due to her tachypnea and anxiety. She was unable to answer questions pertaining to cp, sob, pain in her abdomen, nausea, vomiting, coughing or palpitations. The family member in the room stated that she was unsure if the patient would be able to make it until 4:00 when her next dose of Alprazolam is scheduled and that she may need to request an earlier dosage and that they needed to be left to rest and eat lunch before being able to answer more questions due to severe anxiety. Patient and family member refused GI physical exam at the time of examination. OBJECTIVE PHYSICAL EXAMINATION: VITAL SIGNS: Please see below. GENERAL: Patient is sitting in bed and appears anxious. She is tachypneic and using accessory muscles to breathe. Family member states that the patient may need to move up her next scheduled Alprazolam due to anxiety. HEENT: EOMI, moist mucus membranes, nares patent b/l CARDIOVASCULAR: RRR, normal S1 and S2., no murmus, rubs or gallops appreciated RESPIRATORY: Patient is tachypneic and using accessory muscles to breathe. CTA bilaterally, no wheezing, rales or rhonchi appreciated ABDOMINAL: Patient refused GI physical exam at the time of examination EXTREMITIES: no edema, cyanosis or mottling appreciated PSYCHOLOGICAL: Appears anxious and is tachypneic LABORATORY DATA, IMAGING STUDIES, MICROBIOLOGY: Please see below. Imaging: - CXR 03/12: Stable chronic changes. No acute infiltrate. - CT abdomen / pelvis 03/12: There is an infrarenal abdominal aortic aneurysm as described above. Contrast enhanced abdominal aortic CTA is recommended. None of the prior chest CTs imaged this portion of the abdomen would be expected. Other chronic changes as described above. - CT angio abdomen / pelvis 03/14: 1. There is a 3.1 cm infrarenal abdominal aortic aneurysm. 2. 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 There is reconstitution of the superior mesenteric artery distal to the occlusion. 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 - CXR 03/14: Chronic interstitial fibrosis. - XR abdomen 03/14: Nonspecific bowel gas pattern. - CXR 03/15: Bibasilar infiltrates and effusions. - CT angio chest 03/15: 1. Mild bullous change with coarse interstitium and mild bilateral lower lobe fibro-atelectatic change with minimal bilateral pleural effusions. 2. Vascular stent in the proximal celiac artery and occlusion of the proximal SMA with reconstitution through pancreaticoduodenal branches. 3. No central pulmonary embolism is identified. - CT angio abdomen/pelvis 03/15: 1. Interval stent placement into the celiac artery since 03/14/2019. 2. Proximal occlusion of the SMA with reconstitution through the pancreaticoduodenal arcade. The HALLIE appears be patent but is small and may have stenoses. 3. Mild small bowel distention with air-fluid levels which is slightly decreased overall since the prior study. Findings may reflect partial small bowel obstruction although bowel ischemia with adynamic segments is not excluded. No pneumatosis or bowel wall is seen and no gas is identified. 4. Small bilateral pleural effusions with bilateral lower lobe fibro-atelectatic change and coarse bibasilar markings with some bullous change. 5. Mild free fluid in the cul-de-sac which is likely reactive. 6. Díaz catheter in the bladder. 7. Mild free fluid in the pelvis which is greater than expected for physiologic origin and may be reactive. DVT prophylaxis ordered?: c/w TEDs/Sequentials ASSESSMENT AND PLAN: This is a 63-year-old woman who presented with diarrhea and abdominal pain with metabolic acidosis PROBLEMS: 1. 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 Gamez and Dr. Whyte on consultation; appreciate their input - Will DC heparin drip and start Plavix - PICC line was cancelled and will hold off on TPN - Advanced diet as per surgery recommendation Metabolic acidosis - 2/2 NAG metabolic acidosis - Most recent ABG demonstrates acidosis; with blood work reflecting NAG met abolic acidosis - continue monitoring H&H and Lactic acid - Was on NIMV this morning for an episode of tachypnea - s/p bicarb drip per pulmonology recommendation - Dr. Law on consult; appreciate their input 2. s/p Elevated hemoglobin - likely 2/2 hemoconcentration -hg now 10.8 3. s/p Lactic acidosis 4. s/p Acute renal failure - likely 2/2 pre-renal etiology - 2/2 hypovolemia - Patient continues to make urine - Urinalysis with some elevation of leukocyte esterase and WBC, 1+ bacteria - c/w IV fluids 5. s/p Hypertensive urgency - BP improved - Patient blood pressure in the ER was found to be systolic of 200 - c/w Labetalol and Hydralazine 6. Acute urinary retention -Urine output is improving 7. DLP - c/w Atorvastatin 8. COPD - In PACU on 03/14 patient was experiencing significant wheezing - ABG recently does not reveal CO2 retention - c/w Solumedrol - Will continue with inhaled therapy is ordered - Pulmonology following Osteoporosis - Will hold off on supplementation at this time RA - Patient reports that she takes prednisone when necessary Gastrointestinal prophylaxis - c/w Protonix and Sucralfate DVT prophylaxis - c/w TEDs/Sequentials DISPOSITION: Patient is tachypneic and appears very anxious. She is unable to answer many questions about her current condition and patient's family member states that she may request moving up her next Alprazolam dose. Patient and family member refused GI physical examination at the time of examination. Advanced diet per vascular surgery recommendation and d/c bicarb drip per pulmonology recommendation VS, I&O, 24H, Fishbone Vital Signs/I&O Vital Signs Date Time Temp Pulse Resp B/P (MAP) Pulse Ox O2 Delivery O2 Flow Rate FiO2 03/17/19 12:00 2.0 03/17/19 12:00 98.3 82 25 176/81 (112) 91 03/17/19 07:23 30 03/17/19 04:20 Nasal Cannula I&O- Last 24 Hours up to 6 AM 03/17/19 06:00 Intake Total 2470 ml Output Total 1325 ml Balance 1145 ml Laboratory Data 24H LABS Laboratory Tests 2 03/16/19 17:26: Activated Partial Thromboplast Time 65.8H, Anion Gap 7L, Glomerular Filtration Rate > 60.0, Blood Urea Nitrogen 26H, Creatinine 0.98, Sodium Level 145, Potassium Level 4.1, Chloride Level 114H, Carbon Dioxide Level 24, Calcium Level 7.3L 03/17/19 04:24: Activated Partial Thromboplast Time 71.7H, Anion Gap 5L, Glomerular Filtration Rate > 60.0, Blood Urea Nitrogen 29H, Creatinine 0.86, Sodium Level 141, Po tassium Level 3.9, Chloride Level 112H, Carbon Dioxide Level 24, Calcium Level 7.5L, Immature Granulocyte % (Auto) , Nucleated Red Blood Cells % (auto) 0.1H, Neutrophils 74, Lymphocytes (Manual) 16, Monocytes (Manual) 6, Eosinophils (Manual) 1, Metamyelocytes 3H, Platelet Estimate NORMAL, Red Blood Cell Morphology NORMAL, Magnesium Level 2.0, C-Reactive Protein, Quantitative 3.82H 03/17/19 09:10: Blood Gas Bicarbonate Standard 23.2, Arterial Blood pH 7.402, Arterial Blood Pa rtial Pressure CO2 37.7, Arterial Blood Partial Pressure O2 71.4L, Arterial Blood Total CO2 24.1, Arterial Blood HCO3 22.9, Arterial Blood Base Excess -1.5, Arterial Blood Oxygen Saturation 93.8L CBC/BMP Laboratory Tests 03/16/19 17:26 Calcium Level 7.3 L 03/17/19 04:24 Calcium Level 7.5 L, Red Blood Count 3.27 L, Mean Corpuscular Volume 100.0 H, Mean Corpuscular Hemoglobin 33.0, Mean Corpuscular Hemoglobin Concent 33.0, Red Cell Distribution Width 14.0 Microbiology Microbiology 03/16/19 Blood Culture - Preliminary, Resulted No growth after 24 hours . All specim... 03/12/19 Blood Culture - Preliminary, Resulted No Growth after 72 hours. All specime... 03/12/19 Blood Culture - Preliminary, Resulted No Growth after 72 hours. All specime... 03/13/19 Gastrointestinal Tract Panel (PCR) - Final, Complete GME ATTESTATION GME ATTESTATION My faculty preceptor for this patient encounter was physically present during the encounter and was fully available. All aspects of the patient interview, examination, medical decision making process, and medical care plan development were reviewed and approved by the faculty preceptor. The faculty preceptor is aware and concurs with the plan as stated in the body of this note and will attest to such by his/her cosignature. ATTENDING NOTE I, Toño Jernigan, have both independently examined this patient, including my own physical exam, as well as reviewed the documentation and edited where necessary. I have discussed in detail with the resident the findings and plan of treatment as documented by the resident and edited their note. I agree with their findings and treatment plan and have edited their documentation. I will continue to follow the patient during this hospital stay. MAGUE GUEVARA OMS-3 Mar 17, 2019 14:29 DOMINGO NEWBERRY DO Mar 17, 2019 15:38 TOÑO JERNIGAN MD Mar 17, 2019 15:52
[2019-03-17] MEDS: ALPRAZolam 0.25 MG TAB PO SCH ×2 (15:28→20:36)
[2019-03-17 18:07] LABS: HEMATOCRIT 34.8 % (36.0-47.0); HEMOGLOBIN 11.5 g/dl (12.0-15.5)
[2019-03-17] MEDS: ATORVASTATIN 10 MG TAB PO SCH (20:36)
[2019-03-18] VITALS (34 sets, daily range): BP systolic 149–219; BP diastolic 67–95
[2019-03-18] MEDS: hydrALAZINE INJ 20 MG/ML VIAL IV SCH ×5 (00:34→23:49)
[2019-03-18] MEDS: ACETAMINOPHEN TAB 650MG DOSE (2X325MG) PO PRN ×2 (00:35→20:55)
[2019-03-18] MEDS ORDERED: LORazepam 1 MG TAB PO PRN (02:00)
[2019-03-18] MEDS: metroNIDAZOLE 500 MG in APPROPRIATE DILUENT 1 EA IV SCH (02:34)
[2019-03-18] MEDS: LABETALOL HCL 100 MG/20 ML VIAL IV SCH ×2 (02:42→08:45)
[2019-03-18] MEDS: AZTREONAM 2 GM in D5W MINI-BAG PLUS 50 ML IV SCH (03:49)
[2019-03-18 04:55] LABS: HEMATOCRIT 33.4 % (36.0-47.0); HEMOGLOBIN 11.1 g/dl (12.0-15.5); MEAN CORPUSCULAR HEMOGLOBIN 32.9 pg (27.0-33.0); MEAN CORPUSCULAR HGB CONC 33.2 g/dl (32.0-36.5); MEAN CORPUSCULAR VOLUME 99.1 fl (80.0-96.0); PLATELET COUNT, AUTOMATED 194 10^3/uL (150-450); RED BLOOD COUNT 3.37 10^6/uL (4.00-5.40); WHITE BLOOD COUNT 17.4 10^3/uL (4.0-10.0)
[2019-03-18 05:13] LABS: EOSINOPHILS 3 % (0-5); LYMPHOCYTES 20 % (16-52); METAMYELOCYTES 1 % (0-0); MONOCYTES 8 % (0-8); NEUTROPHILS 66 % (35-75); PLATELET ESTIMATE NORMAL (NORMAL)
[2019-03-18 05:16] LABS: BLOOD UREA NITROGEN 23 MG/DL (7-18); C REACTIVE PROTEIN QUANTITATIV 4.76 MG/DL (0.00-0.30); CALCIUM LEVEL 7.8 MG/DL (8.8-10.2); CARBON DIOXIDE LEVEL 24 MEQ/L (21-32); CHLORIDE LEVEL 112 MEQ/L (98-107); CREATININE FOR GFR 0.82 MG/DL (0.55-1.30); GLOMERULAR FILTRATION RATE > 60.0 (>45); GLUCOSE, FASTING 109 MG/DL (70-100); MAGNESIUM LEVEL 2.1 MG/DL (1.8-2.4); POTASSIUM SERUM 3.4 MEQ/L (3.5-5.1); SODIUM LEVEL 142 MEQ/L (136-145)
[2019-03-18] MEDS ORDERED: MOXIFLOXACIN 400 MG TAB PO SCH (06:00)
[2019-03-18] MEDS ORDERED: POTASSIUM CHLORIDE 10 MEQ SR TABLET PO ONE (07:15)
[2019-03-18] MEDS: TIOTROPIUM INHALER/CAPSULE (SPIRIVA) INH SCH (07:46)
[2019-03-18] MEDS: ADVAIR HFA 230/21MCG INHALER INH SCH ×2 (07:46→19:56)
[2019-03-18] MEDS: busPIRone 5 MG TAB PO SCH ×3 (08:43→20:45)
[2019-03-18] MEDS: CLOPIDOGREL 75 MG TAB PO SCH (08:43)
[2019-03-18] MEDS: ALPRAZolam 0.25 MG TAB PO SCH ×3 (08:43→20:45)
[2019-03-18] MEDS: SIMETHICONE 40MG/0.6ML DROPS 30ML PO SCH ×4 (08:44→20:45)
[2019-03-18] MEDS: methylPREDNISolone INJ 40 MG/1 ML VIAL (J2920) IV SCH (08:45)
[2019-03-18] MEDS: PANTOPRAZOLE 40MG INJ (PROTONIX) (C9113) IV SCH (08:45)
[2019-03-18] MEDS ORDERED: FUROSEMIDE 20 MG/2 ML VIAL (J1940) IV ONE (09:00)
--- NOTE | 2019-03-18 09:05 | IPNPDOC ---
Date Seen The patient was seen on 03/18/19. Progress Note SUBJECTIVE: Ms. Rivera is seen and examined on bedside morning rounds. She is laying in bed states that she just woke up. She is tired, but is easily aroused on verbal cues. She appears improved from yesterday and is no longer tachypneic and is not using accessory muscles to breathe. She appears less anxious today. Her abdominal pain is much improved this morning. She had breakfast this morning as per surgery recommendations to advance diet, no BM yet. She denies nausea, vomiting, cp, dysuria, or blood in her urine. OBJECTIVE PHYSICAL EXAMINATION: VITAL SIGNS: Please see below. GENERAL: Lying in bed, no longer using accessory muscles to breathe, appears otherwise comfortable, AAOx3. NAD HEENT: NAIF, moist mucus membranes, nares patent b/l CARDIOVASCULAR: RRR, normal S1 and S2., no murmus, rubs or gallops appreciated RESPIRATORY: CTA b/l, no wheezing, rales or rhonchi appreciated ABDOMINAL: Soft, some distension, without rebound, rigidity, or guarding, no pain to palpation, no hepatosplenomegaly or masses appreciated EXTREMITIES: no edema, cyanosis or mottling appreciated NEUROLOGICAL: No focal motor or sensory deficit PSYCHOLOGICAL: Appropriate affect, patient appears much less anxious LABORATORY DATA, IMAGING STUDIES, MICROBIOLOGY: Please see below. Imaging: - CXR 03/12: Stable chronic changes. No acute infiltrate. - CT abdomen / pelvis 03/12: There is an infrarenal abdominal aortic aneurysm as described above. Contrast enhanced abdominal aortic CTA is recommended. None of the prior chest CTs imaged this portion of the abdomen would be expected. Other chronic changes as described above. - CT angio abdomen / pelvis 03/14: 1. There is a 3.1 cm infrarenal abdominal aortic aneurysm. 2. 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 There is reconstitution of the superior mesenteric artery distal to the occlusion. 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 - CXR 03/14: Chronic interstitial fibrosis. - XR abdomen 03/14: Nonspecific bowel gas pattern. DVT prophylaxis ordered?: c/w TEDs/Sequentials ASSESSMENT AND PLAN: This is a 63-year-old woman who presented with diarrhea and abdominal pain with metabolic acidosis PROBLEMS: 1. 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 Gamez and Dr. Whyte on consultation; appreciate their input - Advanced diet as per surgery recommendation, she had breakfast this morning and tolerated it well without abdominal pain or diarrhea Signs of fluid overload -fluid status is improving -s/p Furosemide 2. Metabolic acidosis - 2/2 NAG metabolic acidosis -resolved, most recent abg 6.11 showed ph 7.40 - S/p NIMV for tachypnea - s/p bicarb drip - Dr. Law on consult; appreciate their input 3. Hypokalemia - Most recent labs 3.4 - Supplemented today again 4. s/p Elevated hemoglobin - likely 2/2 hemoconcentration -hg now 10.5 5. s/p Lactic acidosis 6. s/p Acute renal failure - likely 2/2 pre-renal etiology - 2/2 hypovolemia - Patient continues to make urine - Urinalysis with some elevation of leukocyte esterase and WBC, 1+ bacteria - s/p IV fluids 7. s/p Hypertensive urgency - BP is elevated again today, c/w PO labetalol , c/w hydralazine and home atorvastatin -will consider adding on another BP agent today - Patient blood pressure in the ER was found to be systolic of 200 8. Acute urinary retention -resolved - d/c Díaz catheter today, monitor for retention 9. DLP - c/w Atorvastatin 10. COPD -no longer wheezing or labored - In PACU on 03/14 patient was experiencing significant wheezing - ABG recently does not reveal CO2 retention - c/w Solumedrol-weaning down - c/w inhaled therapy - Pulmonology following 11. Osteoporosis - Will hold off on supplementation at this time 12. RA - Patient reports that she takes prednisone when necessary 13. Gastrointestinal prophylaxis - c/w Protonix and Sucralfate DISPOSITION: - Patient is clinically improving compared to yesterday. - She is no longer tachypneic and is not using accessory muscles for breathing. She also appears less anxious. - Leukocytosis is stable and she is afebrile. - Supplemented potassium, most recent lab 3.4. - Continue monitoring H&H and lactic acid. CRP is elevated at 4.76 on most recent labs, will monitor, likely related to acute inflammatory process. - C/w antibiotics Moxifloxacin PO. - C/w labetalol and c/w hydralazine for BP and and c/w home atorvastatin, consider adding on bp regiment VS, I&O, 24H, Fishbone Vital Signs/I&O Vital Signs Date Time Temp Pulse Resp B/P (MAP) Pulse Ox O2 Delivery O2 Flow Rate FiO2 03/18/19 06:27 71 180/74 (109) 96 03/18/19 05:15 0.5 03/18/19 04:00 97.9 16 03/17/19 21:09 Nasal Cannula 03/17/19 07:23 30 I&O- Last 24 Hours up to 6 AM 03/18/19 06:00 Intake Total 1670 ml Output Total 5000 ml Balance -3330 ml Laboratory Data 24H LABS Laboratory Tests 2 03/17/19 09:10: Blood Gas Bicarbonate Standard 23.2, Arterial Blood pH 7.402, Arterial Blood Partial Pressure CO2 37.7, Arterial Blood Partial Pressure O2 71.4L, Arterial Blood Total CO2 24.1, Arterial Blood HCO3 22.9, Arterial Blood Base Excess -1.5, Arterial Blood Oxygen Saturation 93.8L 03/18/19 04:37: Immature Granulocyte % (Auto) , Nucleated Red Blood Cells % (auto) 0.3H, Neutrophils 66, Band Neutrophils 2, Lymphocytes (Manual) 20, Monocytes (Manual) 8, Eosinophils (Manual) 3, Metamyelocytes 1H, Platelet Estimate NORMAL, Red Blood Cell Morphology , Macrocytosis 1+, Activated Partial Thromboplast Time 27.7, Anion Gap 6L, Glomerular Filtration Rate > 60.0, Blood Urea Nitrogen 23H, Creatinine 0.82, Sodium Level 142, Potassium Level 3.4L, Chloride Level 112H, Carbon Dioxide Level 24, Calcium Level 7.8L, Magnesium Level 2.1, C-Reactive Protein, Quantitative 4.76H CBC/BMP Laboratory Tests 03/17/19 17:54 03/18/19 04:37 Red Blood Count 3.37 L, Mean Corpuscular Volume 99.1 H, Mean Corpuscular Hemoglobin 32.9, Mean Corpuscular Hemoglobin Concent 33.2, Red Cell Distribution Width 13.8, Calcium Level 7.8 L Microbiology Microbiology 03/16/19 Blood Culture - Preliminary, Resulted No Growth after 48 hours. All Specime... 03/12/19 Blood Culture - Final, Complete NO GROWTH AFTER 5 DAYS 03/12/19 Blood Culture - Final, Complete NO GROWTH AFTER 5 DAYS 03/13/19 Gastrointestinal Tract Panel (PCR) - Final, Complete GME ATTESTATION GME ATTESTATION My faculty preceptor for this patient encounter was physically present during the encounter and was fully available. All aspects of the patient interview, examination, medical decision making process, and medical care plan development were reviewed and approved by the faculty preceptor. The faculty preceptor is aware and concurs with the plan as stated in the body of this note and will attest to such by his/her cosignature. ATTENDING NOTE I, Toño Jernigan, have both independently examined this patient as well as reviewed the documentation. I have discussed in detail with the resident the findings and plan of treatment as documented by the resident. I agree with their findings and treatment plan. I will continue to follow the patient and offer further guidance to the patients care as necessary during this hospital stay. MAGUE GUEVARA OMS-3 Mar 18, 2019 09:05 DOMINGO NEWBERRY DO Mar 18, 2019 12:12 TOÑO JERNIGAN MD Mar 18, 2019 15:51
--- NOTE | 2019-03-18 09:55 | ECGEPIP ---
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
[2019-03-18] MEDS ORDERED: MOXIFLOXACIN HCL 400 MG in APPROPRIATE DILUENT 1 EA IV SCH (10:00)
[2019-03-18] MEDS: MOXIFLOXACIN 400 MG TAB PO SCH (11:57)
[2019-03-18] MEDS: LABETALOL 100 MG TAB PO SCH ×2 (12:45→20:46)
--- NOTE | 2019-03-18 13:28 | RO ---
DATE OF PROCEDURE: 03/14/2019 ATTENDING SURGEON: Vernon Gamez MD [facility] PROFESSOR: APPLE Rockwell PREOPERATIVE DIAGNOSES: Abdominal pain, mesenteric ischemia, acute kidney injury, chronic obstructive pulmonary disease (COPD), coronary artery disease, superior mesenteric artery occlusion, celiac artery stenosis, and atherosclerotic arterial occlusive disease, abdominal aortic aneurysm. POSTOPERATIVE DIAGNOSES: Abdominal pain, mesenteric ischemia, acute kidney injury, chronic obstructive pulmonary disease (COPD), coronary artery disease, superior mesenteric artery occlusion, celiac artery stenosis, and atherosclerotic arterial occlusive disease, abdominal aortic aneurysm. PROCEDURE: Left brachial artery exposure at the antecubital fossa, aortogram via a left brachial artery approach, selective celiac artery catheter placement with angiogram, celiac artery angioplasty and stenting with a 7 x 15 Ex-Press SD stent, celiac artery angioplasty and stent with a 7 x 15 Ex-Press SD stent, selective superior mesenteric artery catheter placement with angiogram, closure of the left brachial artery arteriotomy. INDICATION: The patient is a 63-year-old female who was admitted with findings of acute kidney injury and abdominal pain with bloody bowel movements that had sudden onset. The patient underwent evaluation with a CT scan of the abdomen and pelvis, which showed no significant abnormalities. Once the patient's acute kidney injury had resolved and it was safe for her to proceed with a CT angiogram, this was performed with the CT angiogram showing complete occlusion of the superior mesenteric artery, high-grade stenosis in the celiac artery, and infrarenal abdominal aortic aneurysm which measured approximately 3.3 cm, with complete occlusion of the inferior mesenteric artery. The patient was evaluated and noted to have worsening abdominal pain, and recommendation was to undergo a mesenteric angiogram with possible angioplasty, stenting, and/or atherectomy. Risks, benefits, and alternative treatment options were discussed with the patient. ANESTHESIA: Local monitored anesthesia care (MAC). ESTIMATED BLOOD LOSS: 50 mL. INTRAVENOUS (IV) FLUIDS: 600 mL. HEPARIN: 6000 units followed by an additional 2000 unit bolus. URINE OUTPUT: 600 mL via Díaz. FLUORO TIME: 28.3 minutes. CONTRAST: 11 mL of Isovue-300. COMPLICATIONS: None. DRAINS: None. SPECIMENS: None. IMPLANT: Two 7 x 15 Ex-Press SD stents placed in the celiac artery. DESCRIPTION OF PROCEDURE: The patient was taken to the angiography suite, placed supine on the angiography room table and then intubated and placed under general anesthesia. The left upper extremity was then prepped and draped in a standard surgical fashion. A time-out was then conducted by me and the team numbers in the room confirming the correct patient, procedure, and laterality. The skin and subcutaneous tissue overlying the brachial artery at the antecubital fossa in the left upper extremity were then anesthetized with 2% lidocaine mixed with 0.5% Marcaine. Incision was made longitudinally over the brachial artery at the antecubital fossa, and the brachial artery was sharply dissected free and encircled with vessel loops. The micropuncture needle was then used to cannulate the left brachial artery with the micropuncture wire being advanced through the micropuncture needle which was upsized to a micropuncture sheath. A [employer] wire was advanced through the micropuncture sheath and through the axillary artery and subclavian artery and into the descending thoracic aorta using an Omni Flush catheter. A long 5-Italian sheath was then placed in the aorta below the level of the diaphragm. An aortogram was performed showing the origins of the celiac and superior mesenteric artery with the superior mesenteric artery occluding shortly after a small remnant with long segment occlusion and reconstitution of the superior mesenteric artery distal to the occlusion. The celiac artery showed a high-grade near-occlusive stenosis of approximately 98% to 99%. An angled glide catheter and wire were then used to selectively cannulate the celiac artery, and an angiogram was performed which showed good filling of the celiac artery with multiple collaterals reconstituting the superior mesenteric artery distal to the occluded portion. The celiac artery was then angioplastied and stented with a 7 x 15 Ex-Press SD stent with a completion angiogram showing residual stenosis distal to the stent. A second 7 x 15 Ex-Press SD stent was placed just proximal to the takeoff of the hepatic artery, and a completion angiogram showed resolution of the stenosis in the celiac artery with excellent flow noted into the hepatic left gastric and splenic arteries with good filling of the superior mesenteric artery via collaterals. 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 Catheters and wires were then removed. The arteriotomy in the left brachial artery was closed using interrupted 6-0 Prolene suture. Hemostasis was obtained, after which the subcutaneous tissue was closed using 2-0 Vicryl and the skin closed using portia. Dressings were applied. The patient tolerated the procedure well. All instrument, sponge, and needle counts were correct at the end of the case. There were no complications. Dr. Gamez was present for and directed the entire case. The patient was transferred to the recovery room intubated, sedated, and in critical condition. The results and outcome of the procedure were discussed with the patient's daughters in the surgical holding area with all of their questions being answered. RADIOLOGIC SUPERVISION AND INTERPRETATION: The initial aortogram showed the celiac artery to be nearly occluded with a high-grade stenosis at its origin. The superior mesenteric artery showed a small region of filling followed by complete occlusion with reconstitution distally via collaterals off of the celiac artery. The celiac artery was selectively cannulated. An angiogram was performed confirming the stenosis and showing the splenic left gastric and hepatic artery to the patent with good filling of collaterals into the superior mesenteric artery which filled distal to the long segment occlusion. The celiac artery underwent angioplasty and stenting with two 7 x 15 Ex-Press SD stents with a followup angiogram showing resolution of the stenosis and excellent filling of the splenic, hepatic, and left gastric, and the superior mesenteric artery via collaterals off of the celiac vessels. Multiple attempts were made to recanalize through the occluded superior mesenteric artery without success, leading to the conclusion that the superior mesenteric artery occlusion is not acute but chronic.
[2019-03-18] MEDS: IPRATROPIUM 0.5MG/ALBUTEROL 2.5MG INH SOL UD 3ML (DUONEB)(J7620) NEB PRN (13:41)
--- NOTE | 2019-03-18 13:54 | CR ---
DATE OF CONSULTATION: 03/14/2019 REFERRING PHYSICIAN: Dr. Toño Jernigan REASON FOR VASCULAR SURGICAL CONSULTATION: Abdominal pain, superior mesenteric artery occlusion, abdominal aortic aneurysm, inferior mesenteric artery occlusion, high-grade stenosis of the celiac artery. The patient is a 63-year-old female who presented with abdominal pain which was sudden in onset as well as bloody bowel movements who was also noted to be in acute renal failure upon presentation to the hospital. Once the patient's renal failure improved the patient underwent a CT angiogram of her abdomen and pelvis which showed complete occlusion of the superior mesenteric artery, complete occlusion of the inferior mesenteric artery, a 3 cm infrarenal abdominal aortic aneurysm and high grade near occlusive lesion in the celiac artery. It was noted that the superior mesenteric artery was occluded for approximately 3-1/2 cm with reconstitution distally of the superior mesenteric artery. The patient was evaluated and felt to require mesenteric angiogram with possible angioplasty stent and/or atherectomy. Physical examination showed that her abdomen was distended with tenderness with palpation but no obvious peritoneal signs noted. ASSESSMENT AND PLAN: The patient is a 63-year-old female with severe atherosclerotic arterial occlusive disease of her superior mesenteric celiac and inferior mesenteric arteries with occlusion of the superior mesenteric and inferior mesenteric arteries and high grade stenosis in her celiac artery. The patient also was noted to have a 3.3 cm abdominal aortic aneurysm. Recommendation was made to undergo a mesenteric angiogram with possible angioplasty stent and/or atherectomy. This was discussed with the patient as well as her two daughters. I also discussed with the patient and her two daughters that she may require exploratory laparotomy to evaluate for ischemic bowel and degree of ischemia even if revascularization is performed. I also discussed with the patient that she may require bypass grafting to the celiac and/or superior mesenteric artery if angioplasty and stenting was unsuccessful. I discussed with the patient and her daughters that this was a critical situation which may result and further surgeries, possible requirement for exploratory laparotomy with bowel resection requiring lifelong total parenteral nutrition (TPN), worsening of her renal function requiring hemodialysis and possibly . The patient and her daughters' questions were answered. No promises or guarantees were made to the patient or her daughters regarding the outcome of the procedure or the hospitalization. The patient acknowledges understanding of these risks and wishes to proceed with mesenteric angiogram with possible angioplasty stent and/or atherectomy. The case was discussed with Dr. Whyte who is on consult and on standby for possible exploratory laparotomy to evaluate for ischemic bowel.
[2019-03-18] MEDS: BENAZEPRIL 20 MG TAB PO SCH (14:46)
[2019-03-18] MEDS: ATORVASTATIN 10 MG TAB PO SCH (20:46)
[2019-03-18] MEDS ORDERED: ATORVASTATIN 10 MG TAB PO SCH (21:00)
--- NOTE | 2019-03-18 21:58 | IPN ---
DATE: 03/17/2019 Overall the patient is doing better from her standpoint. She has not had any significant nausea and no vomiting. She has had some diarrhea symptoms. She has had no significant abdominal pain or tenderness. She has been afebrile and her white count is still elevated at 23,000. On physical exam it is softly distended. Nontender. No guarding, no rebound. No peritoneal signs are appreciated. Otherwise benign exam. IMPRESSION AND PLAN The patient has evidence of resolution of her small bowel injury and at this point I do feel that she can start on some clear liquids. We will see how she does over the next day or so but I anticipate it will be a slow resolution of her injury that occurred to her small bowel and may take 2-3 days before she is able to tolerate some regular food. Will see how she does over the ensuing 24 hours before we progress her diet tomorrow.
--- NOTE | 2019-03-18 22:03 | IPN ---
DATE: 03/18/2019 The patient overall has continued to make some good improvement. Her white count is down to 17,000 today. She is making good urine output. She has not had any nausea or vomiting. She is still having some diarrhea, but without bloody diarrhea. She has not had any fevers or chills and overall her abdominal distension is slowly improving as well. She has an otherwise on physical examination a softly distended abdomen, feeling now with tympany appreciated but no guarding, no rebound, no peritoneal signs. IMPRESSION AND PLAN: The patient continues to make some slow progress and improvement, however, at this point I do feel that we should just keep her on some clear liquids. Hopefully as she does go another day with clear liquids and her white count continues to drop tomorrow and she is still is benign on exam, we could start her on a low residue diet. Otherwise I would recommended continuing with supportive care as currently done.
[2019-03-19] VITALS (7 sets, daily range): BP systolic 135–200; BP diastolic 65–97
[2019-03-19 05:06] LABS: HEMATOCRIT 31.6 % (36.0-47.0); HEMOGLOBIN 10.5 g/dl (12.0-15.5); MEAN CORPUSCULAR HEMOGLOBIN 32.1 pg (27.0-33.0); MEAN CORPUSCULAR HGB CONC 33.2 g/dl (32.0-36.5); MEAN CORPUSCULAR VOLUME 96.6 fl (80.0-96.0); PLATELET COUNT, AUTOMATED 206 10^3/uL (150-450); RED BLOOD COUNT 3.27 10^6/uL (4.00-5.40); WHITE BLOOD COUNT 17.7 10^3/uL (4.0-10.0)
[2019-03-19] MEDS: MOXIFLOXACIN 400 MG TAB PO SCH (05:16)
[2019-03-19] MEDS: hydrALAZINE INJ 20 MG/ML VIAL IV SCH ×2 (05:17→14:08)
[2019-03-19 05:28] LABS: BLOOD UREA NITROGEN 19 MG/DL (7-18); C REACTIVE PROTEIN QUANTITATIV 4.67 MG/DL (0.00-0.30); CALCIUM LEVEL 7.5 MG/DL (8.8-10.2); CARBON DIOXIDE LEVEL 25 MEQ/L (21-32); CHLORIDE LEVEL 112 MEQ/L (98-107); CREATININE FOR GFR 0.78 MG/DL (0.55-1.30); GLOMERULAR FILTRATION RATE > 60.0 (>45); GLUCOSE, FASTING 98 MG/DL (70-100); POTASSIUM SERUM 3.4 MEQ/L (3.5-5.1); SODIUM LEVEL 142 MEQ/L (136-145)
[2019-03-19 05:40] LABS: EOSINOPHILS 1 % (0-5); LYMPHOCYTES 18 % (16-52); METAMYELOCYTES 3 % (0-0); MONOCYTES 7 % (0-8); NEUTROPHILS 71 % (35-75); PLATELET ESTIMATE NORMAL (NORMAL)
[2019-03-19] MEDS: ADVAIR HFA 230/21MCG INHALER INH SCH ×2 (07:45→19:26)
[2019-03-19] MEDS: TIOTROPIUM INHALER/CAPSULE (SPIRIVA) INH SCH (07:45)
[2019-03-19] MEDS: ALPRAZolam 0.25 MG TAB PO SCH ×4 (09:00→21:00)
[2019-03-19] MEDS: CLOPIDOGREL 75 MG TAB PO SCH (09:25)
[2019-03-19] MEDS: BENAZEPRIL 20 MG TAB PO SCH (09:25)
[2019-03-19] MEDS: PANTOPRAZOLE 40MG INJ (PROTONIX) (C9113) IV SCH (09:26)
[2019-03-19] MEDS: busPIRone 5 MG TAB PO SCH ×3 (09:26→21:36)
[2019-03-19] MEDS: SIMETHICONE 40MG/0.6ML DROPS 30ML PO SCH ×4 (09:27→19:38)
[2019-03-19] MEDS: LABETALOL 100 MG TAB PO SCH ×2 (09:27→21:38)
--- NOTE | 2019-03-19 10:01 | IPNPDOC ---
Date Seen The patient was seen on 03/19/19. Progress Note SUBJECTIVE: Ms. Rivera is seen and examined on bedside morning rounds. She is sitting in her chair, awake, alert, and oriented. She reports that her symptoms are much improved over the last few days. She states that her breathing is better today and is no longer tachypneic and is not using accessory muscles to breathe. She appears less anxious than on previous days, as she gets anxious at times being in the hospital. She reports having a small amount diarrhea overnight but denies visible blood in her stool. She states that her stomach discomfort over her umbilicus is better than yesterday. She states that she has had an increase in appetite and is looking forward to breakfast as her diet was advanced. The patient reports that she feels swollen and edematous and is worried that her fluid build up will cause another episode of shortness of breath. She requested a diuretic to help relieve some of the swelling. She states that she was unable to relax enough this morning to be able to urinate. She also reports dizziness. She denies nausea, vomiting, cp, dysuria, or blood in her urine. OBJECTIVE PHYSICAL EXAMINATION: VITAL SIGNS: Please see below. GENERAL: Patient is seen sitting in her chair, pleasant, no longer using accessory muscles to breathe, appears otherwise comfortable, AAOx3. In no acute distress. HEENT: NAIF, moist mucus membranes, nares patent b/l CARDIOVASCULAR: RRR, normal S1 and S2., no murmus, rubs or gallops appreciated RESPIRATORY: CTA b/l, no wheezing, rales or rhonchi appreciated ABDOMINAL: Soft, some distension, without rebound, rigidity, or guarding, no pain to palpation, no hepatosplenomegaly or masses appreciated EXTREMITIES: no edema, cyanosis or mottling appreciated NEUROLOGICAL: No focal motor or sensory deficit PSYCHOLOGICAL: Appropriate affect, patient appears much less anxious compared to previous days. LABORATORY DATA, IMAGING STUDIES, MICROBIOLOGY: Please see below. Imaging: - CXR 03/12: Stable chronic changes. No acute infiltrate. - CT abdomen / pelvis 03/12: There is an infrarenal abdominal aortic aneurysm as described above. Contrast enhanced abdominal aortic CTA is recommended. None of the prior chest CTs imaged this portion of the abdomen would be expected. Other chronic changes as described above. - CT angio abdomen / pelvis 03/14: 1. There is a 3.1 cm infrarenal abdominal aortic aneurysm. 2. 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 There is reconstitution of the superior mesenteric artery distal to the occlusion. 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 - CXR 03/14: Chronic interstitial fibrosis. - XR abdomen 03/14: Nonspecific bowel gas pattern. DVT prophylaxis ordered?: c/w TEDs/Sequentials ASSESSMENT AND PLAN: This is a 63-year-old woman who presented with diarrhea and abdominal pain with metabolic acidosis PROBLEMS: 1. Abdominal pain associated with diarrhea - 2/2 ischemic colitis - Presented to the ER with abdominal pain and diarrhea - Patient is hemodynamically stable and afebrile - Leukocytosis is improving - Elevated CRP, most recent lab is 4.67; will monitor, likely 2/2 inflammatory process - GI panel negative - Imaging with evidence of celiac, superior mesenteric artery and inferior mesenteric artery occlusion - s/p Stenting of Celiac artery x2 on 03/14/2019 - c/w Moxifloxacin PO, EKG ordered to evaluate QTc (SINUS RHYTHM WITH SINUS ARRHYTHMIA. SEPTAL MYOCARDIAL INFARCTION, PROBABLY OLD. Delayed anterior R wave progression. Rate and rhythm normalized from tracing done 03-15-19); d/c aztreonam and metronidazole; s/p Moxifloxacin; s/p Vanco PO - c/w Reglan s/p Dilaudid and Bentyl - c/w Plavix; s/p heparin drip - Dr. Gamez and Dr. Whyte on consultation; appreciate their input - Advanced diet as per surgery recommendation. Signs of fluid overload - s/p Furosemide 20 IV on 03/17 - Has had adequate diuresis 2. Metabolic acidosis - 2/2 NAG metabolic acidosis - Most recent ABG demonstrates acidosis; with blood work reflecting NAG metabolic acidosis - continue monitoring H&H and Lactic acid - Was on NIMV morning of 03/17 for an episode of tachypnea - s/p bicarb drip per pulmonology recommendation - Dr. Law on consult; appreciate their input 3. Hypokalemia - Most recent labs 3.4 - Supplemented yesterday 4. s/p Elevated hemoglobin - likely 2/2 hemoconcentration -hg now 10.5 5. s/p Lactic acidosis 6. s/p Acute renal failure - likely 2/2 pre-renal etiology - 2/2 hypovolemia - Patient continues to make urine - Urinalysis with some elevation of leukocyte esterase and WBC, 1+ bacteria - s/p IV fluids 7. s/p Hypertensive urgency - BP is elevated, will dc IV labetalol and begin PO, will c/w hydralazine and add on home atorvastatin, consider lasix today - Patient blood pressure in the ER was found to be systolic of 200 8. Acute urinary retention - Urine output is improving - d/c Díaz catheter yesterday, monitor for retention. Patient stated that she had difficulty relaxing enough to urinate this morning. 9. DLP - c/w Atorvastatin 10. COPD - In PACU on 03/14 patient was experiencing significant wheezing - ABG recently does not reveal CO2 retention - c/w Solumedrol - Will continue with inhaled therapy is ordered - Pulmonology following 11. Osteoporosis - Will hold off on supplementation at this time 12. RA - Patient reports that she takes prednisone when necessary 13. Gastrointestinal prophylaxis - c/w Protonix and Sucralfate DISPOSITION: - Patient is clinically improving compared to yesterday. - She is no longer tachypneic and is not using accessory muscles for breathing. She also appears less anxious. - Leukocytosis is improving and she is afebrile. - Continue monitoring H&H and lactic acid. CRP is elevated at 4.67 on most recent labs, will monitor, likely related to acute inflammatory process. - c/w Moxifloxacin PO, EKG ordered to assess QTc (SINUS RHYTHM WITH SINUS ARRHYTHMIA. SEPTAL MYOCARDIAL INFARCTION, PROBABLY OLD. Delayed anterior R wave progression. Rate and rhythm normalized from tracing done 03-15-19). - Will begin PO labetalol and d/c IV, c/w hydralazine for BP and schedule home atorvastatin. - Advanced diet per surgery recommendation. Will see how she tolerates this today. - Monitor for urinary retention since Díaz catheter d/c yesterday VS, I&O, 24H, Fishbone Vital Signs/I&O Vital Signs Date Time Temp Pulse Resp B/P (MAP) Pulse Ox O2 Delivery O2 Flow Rate FiO2 03/19/19 07:37 2.0 03/19/19 07:31 98.0 76 22 183/80 (114) 96 03/17/19 21:09 Nasal Cannula 03/17/19 07:23 30 I&O- Last 24 Hours up to AM 03/19/19 06:00 Intake Total 1650 ml Output Total 3675 ml Balance -2025 ml Laboratory Data 24H LABS Laboratory Tests 2 03/19/19 04:37: Immature Granulocyte % (Auto) , Nucleated Red Blood Cells % (auto) 0.5H, Neutrophils 71, Lymphocytes (Manual) 18, Monocytes (Manual) 7, Eosinophils (Manual) 1, Metamyelocytes 3H, Platelet Estimate NORMAL, Anion Gap 5L, Glomerular Filtration Rate > 60.0, Blood Urea Nitrogen 19H, Creatinine 0.78, Sodium Level 142, Potassium Level 3.4L, Chloride Level 112H, Carbon Dioxide Level 25, Calcium Level 7.5L, Magnesium Level 2.0, C-Reactive Protein, Quantitative 4.67H CBC/BMP Laboratory Tests 03/19/19 04:37 Red Blood Count 3.27 L, Mean Corpuscular Volume 96.6 H, Mean Corpuscular Hemoglobin 32.1, Mean Corpuscular Hemoglobin Concent 33.2, Red Cell Distribution Width 13.7, Calcium Level 7.5 L Microbiology Microbiology 03/16/19 Blood Culture - Preliminary, Resulted No Growth after 72 hours. All specime... 03/12/19 Blood Culture - Final, Complete NO GROWTH AFTER 5 DAYS 03/12/19 Blood Culture - Final, Complete NO GROWTH AFTER 5 DAYS 03/13/19 Gastrointestinal Tract Panel (PCR) - Final, Complete GME ATTESTATION GME ATTESTATION My faculty preceptor for this patient encounter was physically present during the encounter and was fully available. All aspects of the patient interview, examination, medical decision making process, and medical care plan development were reviewed and approved by the faculty preceptor. The faculty preceptor is aware and concurs with the plan as stated in the body of this note and will attest to such by his/her cosignature. ATTENDING NOTE I have examined the patient at bedside and discussed the plan of care with the resident and medical student. I agree with the above documentation by the resident/ medical student. MAGUE GUEVARA OMS-3 Mar 19, 2019 10:01 MARIE CARRANZA MD Mar 19, 2019 22:24
--- NOTE | 2019-03-19 10:36 | IPN ---
DATE: 03/19/2019 Patient seems to be doing well. Was hungry this morning, actually started a regular diet this morning and is not having any crampy abdominal pain. No nausea. No vomiting. Still had some diarrhea and fortunately has been afebrile. Her white count still is elevated at 17,000, but otherwise has made some good progress from a GI standpoint. Her abdomen is softly distended and nontender. No guarding. No rebound. No peritoneal signs are appreciated. IMPRESSION AND PLAN: Patient has had an episode of ischemic enteritis and at this point seems to be resolving that. We will try her on some food and see how she does with a low residue diet. If she does well with that over the next 24-48 hours she can be progressed as tolerated. But otherwise at this point I would not be surprised if she has ongoing diarrhea for sometime until the bowel returns to normal which can take up to 4-6 weeks. If she develops increase in fevers etc. C. difficile workup is reasonable etc.
[2019-03-19] MEDS: POTASSIUM CHLORIDE 10 MEQ SR TABLET PO SCH (14:06)
[2019-03-19] MEDS: ATORVASTATIN 10 MG TAB PO SCH (21:36)
[2019-03-20] VITALS (8 sets, daily range): BP systolic 127–197; BP diastolic 61–100
[2019-03-20] MEDS ORDERED: cloNIDine 0.1 MG TAB PO ONE (01:00)
[2019-03-20] MEDS: cloNIDine 0.1 MG TAB PO SCH ×3 (06:00→17:58)
[2019-03-20] MEDS: **hydrALAZINE HCL** 25 MG TAB PO SCH ×3 (06:00→17:58)
[2019-03-20] MEDS: MOXIFLOXACIN 400 MG TAB PO SCH (06:46)
[2019-03-20] MEDS: ADVAIR HFA 230/21MCG INHALER INH SCH ×2 (07:47→20:56)
[2019-03-20] MEDS: TIOTROPIUM INHALER/CAPSULE (SPIRIVA) INH SCH (07:47)
[2019-03-20 08:09] LABS: HEMATOCRIT 32.8 % (36.0-47.0); HEMOGLOBIN 11.1 g/dl (12.0-15.5); MEAN CORPUSCULAR HEMOGLOBIN 33.4 pg (27.0-33.0); MEAN CORPUSCULAR HGB CONC 33.8 g/dl (32.0-36.5); MEAN CORPUSCULAR VOLUME 98.8 fl (80.0-96.0); PLATELET COUNT, AUTOMATED 207 10^3/uL (150-450); RED BLOOD COUNT 3.32 10^6/uL (4.00-5.40); WHITE BLOOD COUNT 21.8 10^3/uL (4.0-10.0)
[2019-03-20] MEDS ORDERED: FUROSEMIDE 40 MG/4 ML VIAL (J1940) IV ONE (08:15)
[2019-03-20 08:34] LABS: BLOOD UREA NITROGEN 17 MG/DL (7-18); CALCIUM LEVEL 7.6 MG/DL (8.8-10.2); CARBON DIOXIDE LEVEL 25 MEQ/L (21-32); CHLORIDE LEVEL 111 MEQ/L (98-107); CREATININE FOR GFR 0.83 MG/DL (0.55-1.30); GLOMERULAR FILTRATION RATE > 60.0 (>45); GLUCOSE, FASTING 99 MG/DL (70-100); POTASSIUM SERUM 3.6 MEQ/L (3.5-5.1); SODIUM LEVEL 143 MEQ/L (136-145)
[2019-03-20 08:51] LABS: EOSINOPHILS 2 % (0-5); LYMPHOCYTES 10 % (16-52); METAMYELOCYTES 1 % (0-0); MONOCYTES 8 % (0-8); MYELOCYTES 1 % (0-0); NEUTROPHILS 77 % (35-75); PLATELET ESTIMATE NORMAL (NORMAL)
[2019-03-20 08:53] LABS: SMUDGE CELLS 1+
[2019-03-20] MEDS: methylPREDNISolone INJ 40 MG/1 ML VIAL (J2920) IV SCH (08:54)
[2019-03-20] MEDS: POTASSIUM CHLORIDE 10 MEQ SR TABLET PO SCH (08:54)
[2019-03-20] MEDS: busPIRone 5 MG TAB PO SCH ×3 (08:55→21:31)
[2019-03-20] MEDS: SIMETHICONE 40MG/0.6ML DROPS 30ML PO SCH ×4 (08:56→21:33)
[2019-03-20] MEDS: CLOPIDOGREL 75 MG TAB PO SCH (08:56)
[2019-03-20] MEDS: BENAZEPRIL 20 MG TAB PO SCH (08:56)
[2019-03-20] MEDS: LABETALOL 100 MG TAB PO SCH ×2 (08:56→21:32)
[2019-03-20] MEDS: PANTOPRAZOLE 40MG TAB (PROTONIX) PO SCH (08:56)
[2019-03-20] MEDS: amLODIPine 10 MG TAB PO SCH (08:57)
[2019-03-20] MEDS: ALPRAZolam 0.25 MG TAB PO SCH ×3 (08:57→21:00)
--- NOTE | 2019-03-20 10:29 | IPNPDOC ---
Text Note Date of Service The patient was seen on 03/20/19. NOTE SUBJECTIVE: Ms. Rivera is seen and examined on bedside morning rounds. She is laying in bed, trying to sleep, apparently she had a rough night, she didn't sleep well, was very anxious. She is tolerating a diet without abdominal pain. The patient reports that she feels her legs are a bit swollen still, this makes her anxious, she states she just had her diuretic and that has made her even more tired. She denies nausea, vomiting, cp, dysuria, or blood in her urine. She reports she was very anxious this morning, apparently she had threatened to leave AMA. OBJECTIVE PHYSICAL EXAMINATION: VITAL SIGNS: Please see below. GENERAL: Patient is seen laying in her bed, pleasant, no longer using accessory muscles to breathe, appears otherwise comfortable, AAOx3. In no acute distress. HEENT: NAIF, moist mucus membranes, nares patent b/l CARDIOVASCULAR: RRR, normal S1 and S2., no murmus, rubs or gallops appreciated RESPIRATORY: CTA b/l, no wheezing, rales or rhonchi appreciated ABDOMINAL: Soft, some distension, without rebound, rigidity, or guarding, no pain to palpation, no hepatosplenomegaly or masses appreciated EXTREMITIES: trace b/l edema, cyanosis or mottling appreciated NEUROLOGICAL: No focal motor or sensory deficit PSYCHOLOGICAL: Appropriate affect, patient appears much less anxious compared to previous days. LABORATORY DATA, IMAGING STUDIES, MICROBIOLOGY: Please see below. Imaging: - CXR 03/12: Stable chronic changes. No acute infiltrate. - CT abdomen / pelvis 03/12: There is an infrarenal abdominal aortic aneurysm as described above. Contrast enhanced abdominal aortic CTA is recommended. None of the prior chest CTs imaged this portion of the abdomen would be expected. Other chronic changes as described above. - CT angio abdomen / pelvis 03/14: 1. There is a 3.1 cm infrarenal abdominal aortic aneurysm. 2. 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 There is reconstitution of the superior mesenteric artery distal to the occlusion. 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 - CXR 03/14: Chronic interstitial fibrosis. - XR abdomen 03/14: Nonspecific bowel gas pattern. DVT prophylaxis ordered?: c/w TEDs/Sequentials ASSESSMENT AND PLAN: This is a 63-year-old woman who presented with diarrhea and abdominal pain with metabolic acidosis PROBLEMS: 1. Abdominal pain associated with diarrhea - 2/2 ischemic colitis - Presented to the ER with abdominal pain and diarrhea - Patient is hemodynamically stable and afebrile - Leukocytosis is elevated a bit today, could be secondary to steroid use, she is on moxifloxacin right now. 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 SEPTAL MYOCARDIAL INFARCTION, PROBABLY OLD. Delayed anterior R wave progression. Rate and rhythm normalized from tracing done 03-15-19); d/c aztreonam and metronidazole; s/p Moxifloxacin; s/p Vanco PO - c/w Reglan s/p Dilaudid and Bentyl - c/w Plavix; s/p heparin drip - Dr. Gamez and Dr. Whyte on consultation; appreciate their input - Advanced diet as per surgery recommendation-she is tolerating low residue diet currently without difficulty Signs of fluid overload -Giving 1x dose furosemide now, lower extremities may have just trace swelling - Has had adequate diuresis 2. Metabolic acidosis - 2/2 NAG metabolic acidosis - Most recent ABG pH 7.402 - continue monitoring H&H and Lactic acid - Was on NIMV morning of 03/17 for an episode of tachypnea - s/p bicarb drip per pulmonology recommendation - Dr. Law on consult; appreciate their input 3. Hypokalemia-resolved - Most recent labs 3.6 4. s/p Elevated hemoglobin - likely 2/2 hemoconcentration -h/h now 11.1/32.8 5. s/p Lactic acidosis 6. s/p Acute renal failure - likely 2/2 pre-renal etiology - 2/2 hypovolemia - Patient continues to make urine - Urinalysis with some elevation of leukocyte esterase and WBC, 1+ bacteria - s/p IV fluids 7. s/p Hypertensive urgency - BP is elevated, have increased amlodipine, added on PO hydralazine and clonidine, c/w labetalol -pt receiving 1x dose lasix - Patient blood pressure in the ER was found to be systolic of 200 8. Acute urinary retention - Urine output is improving - s/p Díaz catheter , monitor for retention. 9. DLP - c/w Atorvastatin 10. COPD - In PACU on 03/14 patient was experiencing significant wheezing - ABG recently does not reveal CO2 retention - c/w Solumedrol - Will continue with inhaled therapy is ordered - Pulmonology following 11. Osteoporosis - Will hold off on supplementation at this time 12. RA - Patient reports that she takes prednisone when necessary 13. Gastrointestinal prophylaxis - c/w Protonix and Sucralfate DISPOSITION: - Patient is clinically stll improving-tolerating low residue diet -her BP remains elevated, BP medication changes as discussed above -WBC is still elevated, could be secondary to inflammatory response or steroid use, afebrile, monitor for now, c/w moxifloxacin - Her anxiety is still an issue for her, we may have to adjust medications if she has difficulty with this again today/tonight - Continue monitoring H&H and lactic acid. - Advanced diet per surgery recommendation. - Monitor for urinary retention since Díaz catheter d/c VS,Fishbone, I+O VS, Fishbone, I+O Laboratory Tests 03/20/19 07:54 Red Blood Count 3.32 L, Mean Corpuscular Volume 98.8 H, Mean Corpuscular Hemoglobin 33.4 H, Mean Corpuscular Hemoglobin Concent 33.8, Red Cell Distribution Width 13.7, Calcium Level 7.6 L Vital Signs Date Time Temp Pulse Resp B/P (MAP) Pulse Ox O2 Delivery O2 Flow Rate FiO2 03/20/19 08:00 2.0 03/20/19 06:34 97.6 77 168/78 (108) 99 03/19/19 14:50 18 03/17/19 21:09 Nasal Cannula 03/17/19 07:23 30 I&O- Last 24 Hours up to 6 AM 03/20/19 06:00 Intake Total 1350 ml Output Total 800 ml Balance 550 ml GME ATTESTATION GME ATTESTATION My faculty preceptor for this patient encounter was physically present during the encounter and was fully available. All aspects of the patient interview, examination, medical decision making process, and medical care plan development were reviewed and approved by the faculty preceptor. The faculty preceptor is aware and concurs with the plan as stated in the body of this note and will attest to such by his/her cosignature. ATTENDING NOTE I have personally interviewed and examined the patient. I have discussed the tai n of care with the resident. I agree with the resident's documentation above. DOMINGO NEWBERRY DO Mar 20, 2019 10:29 MARIE CARRANZA MD Mar 22, 2019 16:26
--- NOTE | 2019-03-20 16:29 | IPN ---
DATE: 03/20/2019 The patient seems to be doing well from a surgical standpoint. She has been afebrile, but her white count bumped up again to 21,000. However, from an abdominal standpoint she is tolerating a regular diet. She is no longer having any diarrhea with her meals and her abdomen is soft, nondistended, nontender. IMPRESSION AND PLAN The patient's enteritis issues seem to be continuing to improve on a daily basis and my recommendation is to keep her on a low-residue diet for right now, but then this can be progressed to a regular diet in a couple days as desired but from my standpoint overall she has made some good improvements and she can followup with general surgery on a as needed (p.r.n.) basis.
[2019-03-20] MEDS: ATORVASTATIN 10 MG TAB PO SCH (21:31)
[2019-03-21] MEDS: MOXIFLOXACIN 400 MG TAB PO SCH (05:37)
[2019-03-21] MEDS: **hydrALAZINE HCL** 25 MG TAB PO SCH ×4 (05:45→16:55)
[2019-03-21] MEDS: cloNIDine 0.1 MG TAB PO SCH ×4 (05:46→16:55)
[2019-03-21 06:00] VITALS: BP_SYST 141; BP_SYST 148; BP_DIAS 57; BP_DIAS 67
[2019-03-21] MEDS: ADVAIR HFA 230/21MCG INHALER INH SCH ×2 (07:17→20:34)
[2019-03-21] MEDS: TIOTROPIUM INHALER/CAPSULE (SPIRIVA) INH SCH (07:17)
[2019-03-21 07:56] LABS: HEMATOCRIT 31.7 % (36.0-47.0); HEMOGLOBIN 10.4 g/dl (12.0-15.5); MEAN CORPUSCULAR HEMOGLOBIN 32.6 pg (27.0-33.0); MEAN CORPUSCULAR HGB CONC 32.8 g/dl (32.0-36.5); MEAN CORPUSCULAR VOLUME 99.4 fl (80.0-96.0); PLATELET COUNT, AUTOMATED 209 10^3/uL (150-450); RED BLOOD COUNT 3.19 10^6/uL (4.00-5.40); WHITE BLOOD COUNT 21.9 10^3/uL (4.0-10.0)
[2019-03-21 08:20] LABS: BLOOD UREA NITROGEN 19 MG/DL (7-18); CALCIUM LEVEL 7.6 MG/DL (8.8-10.2); CARBON DIOXIDE LEVEL 23 MEQ/L (21-32); CHLORIDE LEVEL 113 MEQ/L (98-107); CREATININE FOR GFR 0.87 MG/DL (0.55-1.30); GLOMERULAR FILTRATION RATE > 60.0 (>45); GLUCOSE, FASTING 95 MG/DL (70-100); POTASSIUM SERUM 3.7 MEQ/L (3.5-5.1); SODIUM LEVEL 144 MEQ/L (136-145)
[2019-03-21 08:25] LABS: EOSINOPHILS 2 % (0-5); LYMPHOCYTES 11 % (16-52); METAMYELOCYTES 1 % (0-0); MONOCYTES 6 % (0-8); NEUTROPHILS 78 % (35-75); PLATELET ESTIMATE NORMAL (NORMAL)
[2019-03-21 08:26] LABS: PLATELET CLUMPS SMALL AMT
[2019-03-21] MEDS: CLOPIDOGREL 75 MG TAB PO SCH (08:47)
[2019-03-21] MEDS: PANTOPRAZOLE 40MG TAB (PROTONIX) PO SCH (08:47)
[2019-03-21] MEDS: busPIRone 5 MG TAB PO SCH ×3 (08:47→21:18)
[2019-03-21] MEDS: ALPRAZolam 0.25 MG TAB PO SCH ×3 (08:47→21:00)
[2019-03-21] MEDS: amLODIPine 10 MG TAB PO SCH (08:48)
[2019-03-21] MEDS: LABETALOL 100 MG TAB PO SCH ×2 (08:48→21:19)
[2019-03-21] MEDS: POTASSIUM CHLORIDE 10 MEQ SR TABLET PO SCH (08:49)
[2019-03-21] MEDS: BENAZEPRIL 20 MG TAB PO SCH (08:49)
[2019-03-21] MEDS: SIMETHICONE 40MG/0.6ML DROPS 30ML PO SCH ×4 (08:50→21:21)
[2019-03-21] MEDS: FUROSEMIDE 40 MG/4 ML VIAL (J1940) IV SCH ×2 (08:50→17:03)
[2019-03-21] MEDS ORDERED: FUROSEMIDE 40 MG/4 ML VIAL (J1940) IV SCH (09:00)
[2019-03-21 14:19] VITALS: BP 139/58
--- NOTE | 2019-03-21 17:18 | IPNPDOC ---
Text Note Date of Service The patient was seen on 03/21/19. NOTE SUBJECTIVE: Ms. Rivera is seen and examined on bedside morning rounds. She is anxious appearing, thinks she is having more fluid build up in her abdomen and lower legs and says its heart failure.She is continues to tolerate a diet without abdominal pain or diarrhea, but she does state she had a bout of loose stool this AM. She denies nausea, vomiting, cp, dysuria, or blood in her urine. OBJECTIVE PHYSICAL EXAMINATION: VITAL SIGNS: Please see below. GENERAL: Patient is seen sitting on bedside bench, pleasant but very anxious, AAOx3 HEENT: NAIF, moist mucus membranes, nares patent b/l CARDIOVASCULAR: RRR, normal S1 and S2., no murmus, rubs or gallops appreciated RESPIRATORY: CTA b/l, no wheezing, rales or rhonchi appreciated ABDOMINAL: Soft, some soft distension, without rebound, rigidity, or guarding, no pain to palpation, no hepatosplenomegaly or masses appreciated EXTREMITIES: very trace b/l edema, no cyanosis or mottling appreciated NEUROLOGICAL: No focal motor or sensory deficit PSYCHOLOGICAL: Anxious affect this morning LABORATORY DATA, IMAGING STUDIES, MICROBIOLOGY: Please see below. Imaging: - CXR 03/12: Stable chronic changes. No acute infiltrate. - CT abdomen / pelvis 03/12: There is an infrarenal abdominal aortic aneurysm as described above. Contrast enhanced abdominal aortic CTA is recommended. None of the prior chest CTs imaged this portion of the abdomen would be expected. Other chronic changes as described above. - CT angio abdomen / pelvis 03/14: 1. There is a 3.1 cm infrarenal abdominal aortic aneurysm. 2. 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 There is reconstitution of the superior mesenteric artery distal to the occlusion. 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 - CXR 03/14: Chronic interstitial fibrosis. - XR abdomen 03/14: Nonspecific bowel gas pattern. DVT prophylaxis ordered?: c/w TEDs/Sequentials ASSESSMENT AND PLAN: This is a 63-year-old woman who presented with diarrhea and abdominal pain with metabolic acidosis PROBLEMS: 1. Abdominal pain associated with diarrhea - 2/2 ischemic colitis - Improving, no pain after PO intake - Patient is hemodynamically stable and afebrile - Leukocytosis is elevated today, have ordered procal again today, pending, could be secondary to steroid use, she is on moxifloxacin right now. 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 Gamez and Dr. Whyte on consultation; appreciate their input - Advanced diet as per surgery recommendation-she is tolerating low residue diet currently without difficulty, which could be advanced further tomorrow Signs of fluid overload -Lasix is scheduled, lower extremities may have just trace swelling again today - Has had adequate diuresis 2. Metabolic acidosis - 2/2 NAG metabolic acidosis -resolved - Most recent ABG pH 7.402 - continue monitoring H&H and Lactic acid - Was on NIMV morning of 03/17 for an episode of tachypnea - s/p bicarb drip per pulmonology recommendation - Dr. Law on consult; appreciate their input 3. Hypokalemia-resolved - Most recent labs 3.7 4. s/p Elevated hemoglobin - likely 2/2 hemoconcentration -h/h now 10.4/31.7 5. s/p Lactic acidosis 6. s/p Acute renal failure - likely 2/2 pre-renal etiology - 2/2 hypovolemia - Patient continues to make urine - Urinalysis with some elevation of leukocyte esterase and WBC, 1+ bacteria - s/p IV fluids 7. s/p Hypertensive urgency - BP is improved, c/w amlodipine, PO hydralazine and clonidine, c/w labetalol -c/w lasix 8. Acute urinary retention - Urine output is improving - s/p Díaz catheter , monitor for retention. 9. DLP - c/w Atorvastatin 10. COPD-stable - c/w Solumedrol - Will continue with inhaled therapy is ordered - Pulmonology following 11. Osteoporosis - Will hold off on supplementation at this time 12. RA - Patient reports that she takes prednisone when necessary 13. Gastrointestinal prophylaxis - c/w Protonix and Sucralfate DISPOSITION: - Patient is clinically improving-tolerating low residue diet, can advance tomorrow -her BP is improved -WBC is still elevated, could be secondary to inflammatory response or steroid use, afebrile, procal pending -c/w moxifloxacin - Her anxiety is still an issue for her, she would benefit from outpt psych referral for this - Continue monitoring H&H and lactic acid. VS,Fishbone, I+O VS, Fishbone, I+O Laboratory Tests 03/21/19 07:39 Red Blood Count 3.19 L, Mean Corpuscular Volume 99.4 H, Mean Corpuscular Hemoglobin 32.6, Mean Corpuscular Hemoglobin Concent 32.8, Red Cell Distribution Width 13.9, Calcium Level 7.6 L Vital Signs Date Time Temp Pulse Resp B/P (MAP) Pulse Ox O2 Delivery O2 Flow Rate FiO2 03/21/19 16:55 148/80 03/21/19 14:19 97.8 71 18 98 2.0 03/17/19 21:09 Nasal Cannula 03/17/19 07:23 30 I&O- Last 24 Hours up to 6 AM 03/21/19 06:00 Intake Total 720 ml Output Total 0 ml Balance 720 ml GME ATTESTATION GME ATTESTATION My faculty preceptor for this patient encounter was physically present during the encounter and was fully available. All aspects of the patient interview, examination, medical decision making process, and medical care plan development were reviewed and approved by the faculty preceptor. The faculty preceptor is aware and concurs with the plan as stated in the body of this note and will attest to such by his/her cosignature. ATTENDING NOTE I have personally interviewed and examined the patient. I have discussed the plan of care with the resident. I agree with the resident's documentation above. DOMINGO NEWBERRY DO Mar 21, 2019 17:18 MARIE CARRANZA MD Mar 22, 2019 16:37
[2019-03-21] MEDS: CALCIUM CARBONATE 500 MG CHEW U/D PO PRN (21:18)
[2019-03-21] MEDS: ATORVASTATIN 10 MG TAB PO SCH (21:18)
[2019-03-21 22:00] VITALS: BP 153/74
[2019-03-22] MEDS: METOCLOPRAMIDE INJ 10MG/2ML VIAL (J2765) IV PRN (01:02)
[2019-03-22] MEDS: FUROSEMIDE 40 MG/4 ML VIAL (J1940) IV SCH ×3 (01:03→16:53)
[2019-03-22] MEDS: cloNIDine 0.1 MG TAB PO SCH ×4 (05:22→17:56)
[2019-03-22] MEDS: **hydrALAZINE HCL** 25 MG TAB PO SCH ×4 (05:22→17:55)
[2019-03-22] MEDS: MOXIFLOXACIN 400 MG TAB PO SCH (05:23)
[2019-03-22 06:00] VITALS: BP 155/74
[2019-03-22 06:21] LABS: HEMATOCRIT 28.5 % (36.0-47.0); HEMOGLOBIN 9.5 g/dl (12.0-15.5); MEAN CORPUSCULAR HGB CONC 33.3 g/dl (32.0-36.5); PLATELET COUNT, AUTOMATED 215 10^3/uL (150-450); RED BLOOD COUNT 2.88 10^6/uL (4.00-5.40); WHITE BLOOD COUNT 21.2 10^3/uL (4.0-10.0)
[2019-03-22 06:40] LABS: CALCIUM LEVEL 7.3 MG/DL (8.8-10.2); CREATININE FOR GFR 1.03 MG/DL (0.55-1.30); GLOMERULAR FILTRATION RATE 57.4 (>45); POTASSIUM SERUM 3.6 MEQ/L (3.5-5.1)
[2019-03-22 07:18] LABS: ATYPICAL LYMPH 2 % (0-5); LYMPHOCYTES 18 % (16-52); METAMYELOCYTES 1 % (0-0); MONOCYTES 2 % (0-8); MYELOCYTES 1 % (0-0); NEUTROPHILS 71 % (35-75); PLATELET ESTIMATE NORMAL (NORMAL)
[2019-03-22 07:19] LABS: ANISOCYTOSIS 1+; HYPOCHROMASIA 1+; MICROCYTOSIS 1+; TOXIC GRANULATION 1+
[2019-03-22] MEDS: ADVAIR HFA 230/21MCG INHALER INH SCH ×2 (07:44→19:31)
[2019-03-22] MEDS: TIOTROPIUM INHALER/CAPSULE (SPIRIVA) INH SCH (07:44)
[2019-03-22] MEDS: busPIRone 5 MG TAB PO SCH ×3 (08:47→20:42)
[2019-03-22] MEDS: PANTOPRAZOLE 40MG TAB (PROTONIX) PO SCH (08:47)
[2019-03-22] MEDS: BENAZEPRIL 20 MG TAB PO SCH (08:47)
[2019-03-22] MEDS: CLOPIDOGREL 75 MG TAB PO SCH (08:47)
[2019-03-22] MEDS: LABETALOL 100 MG TAB PO SCH ×2 (08:48→20:42)
[2019-03-22] MEDS: amLODIPine 10 MG TAB PO SCH (08:48)
[2019-03-22] MEDS: methylPREDNISolone INJ 40 MG/1 ML VIAL (J2920) IV SCH (08:48)
[2019-03-22] MEDS: POTASSIUM CHLORIDE 10 MEQ SR TABLET PO SCH (08:49)
[2019-03-22] MEDS: ALPRAZolam 0.25 MG TAB PO SCH ×3 (08:50→20:43)
[2019-03-22] MEDS: SIMETHICONE 40MG/0.6ML DROPS 30ML PO SCH ×4 (08:50→20:43)
--- NOTE | 2019-03-22 10:16 | IPNPDOC ---
Text Note Date of Service The patient was seen on 03/22/19. NOTE SUBJECTIVE: Ms. Rivera is seen and examined on bedside morning rounds. SHe rem ains anxious but better than yesterday. As per staff slept most of the night. SHe is happy that her swelling is going down . Anxious to go home. I did explain that her WBC count needs to start going down before i will fee safe about discharging her home. She seems to understand it. No fever or chills, still SOB on exertion. tolerating soft diet. OBJECTIVE PHYSICAL EXAMINATION: VITAL SIGNS: Please see below. GENERAL: Patient is seen sitting on bedside bench, pleasant but very anxious, AAOx3 HEENT: NAIF, moist mucus membranes, nares patent b/l CARDIOVASCULAR: RRR, normal S1 and S2., no murmus, rubs or gallops appreciated RESPIRATORY: CTA b/l, no wheezing, rales or rhonchi appreciated ABDOMINAL: Soft, some soft distension, without rebound, rigidity, or guarding, no pain to palpation, no hepatosplenomegaly or masses appreciated EXTREMITIES: very trace b/l edema, no cyanosis or mottling appreciated NEUROLOGICAL: No focal motor or sensory deficit PSYCHOLOGICAL: Anxious affect this morning LABORATORY DATA, IMAGING STUDIES, MICROBIOLOGY: Please see below. Imaging: - CXR 03/12: Stable chronic changes. No acute infiltrate. - CT abdomen / pelvis 03/12: There is an infrarenal abdominal aortic aneurysm as described above. Contrast enhanced abdominal aortic CTA is recommended. None of the prior chest CTs imaged this portion of the abdomen would be expected. Other chronic changes as described above. - CT angio abdomen / pelvis 03/14: 1. There is a 3.1 cm infrarenal abdominal aortic aneurysm. 2. 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 There is reconstitution of the superior mesenteric artery distal to the occlusion. 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 - CXR 03/14: Chronic interstitial fibrosis. - XR abdomen 03/14: Nonspecific bowel gas pattern. DVT prophylaxis ordered?: c/w TEDs/Sequentials ASSESSMENT AND PLAN: This is a 63-year-old woman who presented with diarrhea and abdominal pain with metabolic acidosis found to have ischemic colitis. Leucocytosis procalcitonin in progress probably from recovering ischemic colitis, inflammation, steroids. GI panel negative x1, likely diarrhea is 2/2 recovering ischemic colitis finish course of moxifloxacin on 03/25/19 to finish total 2 weeks of antibiotics. 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 c/w Reglan s/p Dilaudid and Bentyl c/w Plavix; s/p heparin drip Dr. Gamez and Dr. Whyte on consultation; appreciate their input Advanced diet as per surgery recommendation-she is tolerating low residue diet currently without difficulty, which could be advanced further tomorrow Signs of fluid overload Lasix is scheduled, lower extremities may have just trace swelling again today Has had adequate diuresis Metabolic acidosis resolved. 2/2 NAG metabolic acidosis -resolved was briefly on BIPAP Hypokalemia-resolved s/p Elevated hemoglobin - likely 2/2 hemoconcentration s/p Lactic acidosis s/p Acute renal failure - likely 2/2 pre-renal etiology - 2/2 hypovolemia now with fluid overload after resuscitation and treament of ischemic colitis continue lasix. s/p Hypertensive urgency BP is improved, c/w amlodipine, PO hydralazine and clonidine, c/w labetalol c/w lasix Acute urinary retention Urine output is improving s/p Díaz catheter , monitor for retention. DLP - c/w Atorvastatin COPD-stable - c/w Solumedrol tapering. - Will continue with inhaled therapy is ordered - Pulmonology following Osteoporosis - Will hold off on supplementation at this time RA - Patient reports that she takes prednisone when necessary Gastrointestinal prophylaxis - c/w Protonix and Sucralfate DISPOSITION: - Patient is clinically improving-tolerating low residue diet, can advance tomorrow -her BP is improved -WBC is still elevated, could be secondary to inflammatory response or steroid use, afebrile, procal pending -c/w moxifloxacin - Her anxiety is still an issue for her, she would benefit from outpt psych r eferral for this - Continue monitoring H&H and lactic acid. VS,Fishbone, I+O VS, Fishbone, I+O Laboratory Tests 03/22/19 05:43 Red Blood Count 2.88 L, Mean Corpuscular Volume 99.0 H, Mean Corpuscular Hemoglobin 33.0, Mean Corpuscular Hemoglobin Concent 33.3, Red Cell Distribution Width 14.0, Calcium Level 7.3 L Vital Signs Date Time Temp Pulse Resp B/P (MAP) Pulse Ox O2 Delivery O2 Flow Rate FiO2 03/22/19 08:48 79 155/74 03/22/19 06:00 99.3 20 96 2.0 03/17/19 21:09 Nasal Cannula 03/17/19 07:23 30 I&O- Last 24 Hours up to 6 AM 03/22/19 06:00 Intake Total 830 ml Output Total 1200 ml Balance -370 ml MARIE CARRANZA MD Mar 22, 2019 10:16
[2019-03-22 12:15] VITALS: BP 95/48
[2019-03-22 14:28] VITALS: BP 97/48
[2019-03-22] MEDS: ATORVASTATIN 10 MG TAB PO SCH (20:42)
[2019-03-22 22:00] VITALS: BP 120/54
[2019-03-23] MEDS: FUROSEMIDE 40 MG/4 ML VIAL (J1940) IV SCH (00:05)
[2019-03-23] MEDS: cloNIDine 0.1 MG TAB PO SCH ×3 (05:13→12:00)
[2019-03-23] MEDS: **hydrALAZINE HCL** 25 MG TAB PO SCH ×3 (05:13→12:00)
[2019-03-23] MEDS: MOXIFLOXACIN 400 MG TAB PO SCH (05:18)
[2019-03-23 05:59] LABS: BASO # 0.1 10^3/uL (0.0-0.2); BASO % 0.4 % (0.0-1.0); EOS # 0.3 10^3/uL (0.0-0.50); EOS % 1.2 % (0.0-3.0); HEMATOCRIT 29.7 % (36.0-47.0); HEMOGLOBIN 9.8 g/dl (12.0-15.5); LYMPH # 2.6 10^3/uL (1.5-4.5); LYMPH % 11.7 % (24.0-44.0); MEAN CORPUSCULAR HEMOGLOBIN 32.7 pg (27.0-33.0); MONO # 1.9 10^3/uL (0.0-0.8); MONO % 8.3 % (0.0-5.0); NEUTROPHILS # 16.6 10^3/uL (1.8-7.7); PLATELET COUNT, AUTOMATED 254 10^3/uL (150-450); WHITE BLOOD COUNT 22.5 10^3/uL (4.0-10.0)
[2019-03-23 06:00] VITALS: BP 131/61
[2019-03-23 06:29] LABS: CALCIUM LEVEL 7.8 MG/DL (8.8-10.2); CREATININE FOR GFR 1.28 MG/DL (0.55-1.30); GLOMERULAR FILTRATION RATE 44.7 (>45); POTASSIUM SERUM 3.5 MEQ/L (3.5-5.1)
[2019-03-23] MEDS: ADVAIR HFA 230/21MCG INHALER INH SCH (09:00)
[2019-03-23] MEDS: amLODIPine 10 MG TAB PO SCH (09:00)
[2019-03-23] MEDS: TIOTROPIUM INHALER/CAPSULE (SPIRIVA) INH SCH (09:00)
[2019-03-23] MEDS: ALPRAZolam 0.25 MG TAB PO SCH ×2 (09:00→15:29)
[2019-03-23] MEDS: busPIRone 5 MG TAB PO SCH ×2 (09:37→15:44)
[2019-03-23] MEDS: PANTOPRAZOLE 40MG TAB (PROTONIX) PO SCH (09:37)
[2019-03-23] MEDS: BENAZEPRIL 20 MG TAB PO SCH (09:38)
[2019-03-23] MEDS: POTASSIUM CHLORIDE 10 MEQ SR TABLET PO SCH (09:39)
[2019-03-23] MEDS: LABETALOL 100 MG TAB PO SCH (09:42)
[2019-03-23] MEDS: CLOPIDOGREL 75 MG TAB PO SCH (09:43)
[2019-03-23] MEDS: SIMETHICONE 40MG/0.6ML DROPS 30ML PO SCH ×3 (09:50→15:44)
[2019-03-23] MEDS: FUROSEMIDE 40 MG TAB PO SCH ×2 (09:50→15:44)
[2019-03-23 12:00] VITALS: BP 120/60
[2019-03-23] MEDS ORDERED: AMLO10TA5 PO (13:34)
[2019-03-23] MEDS ORDERED: BUSP5TA PO (13:34)
[2019-03-23] MEDS ORDERED: FURO40TA2 PO (13:34)
[2019-03-23] MEDS ORDERED: PANT40TA3 PO (13:34)
[2019-03-23] MEDS ORDERED: CLOP75TA2 PO (13:34)
[2019-03-23] MEDS ORDERED: LABE10TAB PO (13:34)
--- NOTE | 2019-03-23 16:19 | DS.PDOC ---
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 S/p Metabolic acidosis 2/2 NAG metabolic acidosis 2. S/p Hypokalemia 3. S/p elevated hemoglobin likely 2/2 hemoconcentration 4. s/p lactic acidosis 5. S/p acute renal failure likely 2/2 pre-renal etiology, 2/2 hypovolemia 6. s/p hypertensive urgency 7. Acute urinary retention 8. DLP 9. COPD stable 10. Osteoporosis 11. Rheumatoid arthritis PROCEDURES PERFORMED DURING STAY: - Díaz catheter placement on 03/13 - Celiac artery stenting x2 on 03/14/19 CONSULTANTS: Dr. Gamez, Dr. Whyte, and Dr. Law [facility] COURSE: Ms. Rivera presented to the ER on March 12, 2019 with complaints of diarrhea and abdominal pain since the previous night. She reported greater than 10 episodes of bowel movements with blood. She reported associated abd ominal pain occurring in the middle of her abdomen without any radiation as well as nausea and vomiting. She also presented with hypertension in the ER with systolic blood pressure of 200. Her past medical history is significant for HTN, DLP, COPD, interstitial cystitis, osteoporosis, and RA. She was seen recently in the ER . on 03/05/19 for elevated blood pressure and was started on Labetalol. She was admitted on 03/12 for further treatment. Her abdominal pain was out of proportion to what was expected on physical exam. CXR preformed on 03/12 showed stable chronic changes with no acute infiltration. CT of the abdomen and pelvis on 03/12 showed infrarenal abdominal aortic aneurysm. She was started on Vancomyin PO which was discontinued when she was started on Moxifloxacin on 03/13. The patient developed lactic acidosis and she developed an elevated white count which promoted a follow up CT scan on 03/14. General surgery was consulted at this point. CT angiogram of the abdomen 03/14 showed a 3.1 cm infrarenal abdominal aortic aneurysm, complete occlusion of the proximal 3.4 cm of the superior mesenteric artery, reconstitution of the superior mesenteric artery distal to the occlusion and occlusion of the inferior mesenteric artery. GI panel was negative. Antibiotics were changed from Moxifloxacin to Aztreonam and Metronidazole. GI prophylaxis of Protonix and Sucralfate was started. Her hypertension was controlled with Benazepril, Hydralazine, and Clonidine. Urinary retention was reported on the night of 03/13 and a Díaz catheter was placed. Stenting of her celiac artery x2 was performed on 03/14 with no complications. She reported that her abdominal pain resolved after stent placement. The night of 03/14, the patient experienced significant wheezing and was started on Solumedrol. On 03/16, the patient became tachycardic with a HR in the 150s and systolic blood pressure in the 200s and was found on examination to be severely tachypneic. She was given Benadryl and Epinephrine IM with no significant changes. CXR, EKG and ABG was performed at the time and showed evidence of metabolic acidosis. CXR preformed showed no evidence of PE and CT of the abdomen showed no significant changes from the previous CT. Patient has a history of panic attacks and is on multiple medications at home without significant relief. Patient was given several doses of Ativan and a trial of BiPAP was initiated which reduced her minute ventilation, heart rate and accessory muscle usage. Bicarb drip was initiated which resulted in improvement of her metabolic acidotic state. Diet was advanced on 03/17 per surgery recommendation which was tolerated well. She began having signs of fluid overload on 03/17 and had adequate diuresis with Furosemide. She had an episode of hypokalemia on 03/18 that resolved after supplementation. Díaz catheter was discontinued on 03/18. Her hypertension persisted on 03/20 and Amlodipine dosage was increased, Hydralazine and Clonidine were added, and Labetalol was continued. She also received Lasix from 03/20-03/23 for bilateral lower extremity edema. Procalcitonin was ordered (and was negative) due to persistent leukocytosis. She did receive abx inhouse. The leukocytosis is likely secondary to steroid administration as well as acute inflammatory process from her vascular interventions. The patient denies systemic signs of infection (fever, chills, night sweats). Upon review of past blood work it seems that she has had elevated WBC this visit, which lends more likely to be caused by acute inflammatory process prompted by this visit, her GI panel was negative, blood cultures were negative, she was afebrile and with a normal procalcitonin, infectious etiology was not suspected. Her diarrhea is expected to improve, likely secondary to the mesenteric ischemia she experienced, and will take some time to resolve to normal. This was explained to the patient. We asked her to please return to the ED if she has blood in her stool, fever and/or abdominal pain. She verbalized her understanding and had no questions. DISCHARGE MEDICATIONS: Please see below. ALLERGIES: Please see below. SUBJECTIVE: Ms. Rivera is seen and examined on bedside morning rounds. She is sitting in her chair, clinically improving. Her b/l lower extremity has resolved today. She is continues to tolerate a diet without abdominal pain or diarrhea, but she does state she had a bout of loose stool this AM, most of what she eats she has loose stool with. She denies nausea, vomiting, cp, dysuria, or blood in her urine. She is anxious to go home and feels well enough to do so today. OBJECTIVE: PHYSICAL EXAMINATION: VITAL SIGNS: Please see below. GENERAL: Patient is seen sitting in bedside chair, pleasant, AAOx3 HEENT: EOMI, moist mucus membranes, nares patent b/l CARDIOVASCULAR: RRR, normal S1 and S2., no murmus, rubs or gallops appreciated RESPIRATORY: CTA b/l, no wheezing, rales or rhonchi appreciated ABDOMINAL: Soft, some soft distension, without rebound, rigidity, or guarding, no pain to palpation, no hepatosplenomegaly or masses appreciated EXTREMITIES: b/l LE edema has resolved, no cyanosis or mottling appreciated, left AC cutdown incision from angiogram has 7 intact portia, skin is closely approximated, there is no erythema, swelling or blood/pus exudation, the incision is clean and intact NEUROLOGICAL: No focal motor or sensory deficit PSYCHOLOGICAL: appropriate, wants to go home LABORATORY DATA, MICROBIOLOGY: Please see below. IMAGING STUDIES: - CXR 03/12: Stable chronic changes. No acute infiltrate. - CT abdomen / pelvis 03/12: There is an infrarenal abdominal aortic aneurysm as described above. Contrast enhanced abdominal aortic CTA is recommended. None of the prior chest CTs imaged this portion of the abdomen would be expected. Other chronic changes as described above. - CT angio abdomen / pelvis 03/14: 1. There is a 3.1 cm infrarenal abdominal aortic aneurysm. 2. 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 There is reconstitution of the superior mesenteric artery distal to the occlusion. 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 - CXR 03/14: Chronic interstitial fibrosis. - XR abdomen 03/14: Nonspecific bowel gas pattern. MICROBIOLOGY: - Blood cultures negative - GI panel negative DVT prophylaxis ordered: TEDs/Sequentials ASSESSMENT AND PLAN: This is a 63-year-old woman who presented with diarrhea and abdominal pain with metabolic acidosis PROBLEMS: 1. Abdominal pain associated with diarrhea 2/2 ischemic colitis 2. Signs of fluid overload 3. Metabolic acidosis 2/2 NAG metabolic acidosis resolved 4. Hypokalemia resolved 5. s/p Elevated Hemoglobin likely 2/2 hemoconcentration 6. s/p lactic acidosis 7. s/p acute renal failure likely 2/2 pre-renal etiology 2/2 hypovolemia 8. s/p hypertensive urgency 9. Acute urinary retention 10. DLP 11. COPD stable 12. Osteoporosis 13. RA DISPOSITION: Patient is clinically improving and anxious to go home. Her white count remains elevated today, likely 2/2 to steroid use and inflammatory process. Procalcitonin was negative and there are no systemic signs of infection (fever/chills). Script for CBC was written to be rechecked on 03/26 and will forward results to PCP, patient is aware of this. Will continue with Plavix, Labetalol, Norvasc, Lasix, and Buspar on d/c. Discontinue Hydrochlorathiazide. Will continue Prednisone she was taking outpatient for RA flare ups as needed. Removed portia in left AC today prior to dc. Patient would likely benefit from outpatient psychiatry referral due to persistent and exaggerated anxiety this hospitalization. She should follow up with pcp, vascular and pulmonary within 7- 10 days of d.c. DISCHARGE CONDITION: Improved and Stable. PROGNOSIS: Stable FOLLOW UP: With PCP in 5-7 days after discharge. Script was written for CBC to be checked on 03/26. Forward results to PCP for CBC orders. Follow with vascular sx and pulmonary within 7-10 days of d.c ACTIVITY: As prior to admission DIET: As prior to admission TIME SPENT ON DISCHARGE: 45 minutes Vital Signs/I&Os Vital Signs Date Time Temp Pulse Resp B/P (MAP) Pulse Ox O2 Delivery O2 Flow Rate FiO2 03/23/19 12:00 120/60 03/23/19 09:42 78 6/17/19 07:45 2.0 03/23/19 06:00 98.1 18 93 03/17/19 21:09 Nasal Cannula 03/17/19 07:23 30 I&O- Last 24 Hours up to 6 AM 03/23/19 05:59 Intake Total 1080 ml Output Total 3650 ml Balance -2570 ml Laboratory Data Labs 24H Laboratory Tests 2 03/23/19 05:19: Immature Granulocyte % (Auto) 4.4H, White Blood Count 22.5H, Red Blood Count 3.00L, Hemoglobin 9.8L, Hematocrit 29.7L, Mean Corpuscular Volume 99.0H, Mean Corpuscular Hemoglobin 32.7, Mean Corpuscular Hemoglobin Concent 33.0, Red Cell Distribution Width 14.1, Platelet Count 254, Neutrophils (%) (Auto) 74.0H, Lymphocytes (%) (Auto) 11.7L, Monocytes (%) (Auto) 8.3H, Eosinophils (%) (Auto) 1.2, Basophils (%) (Auto) 0.4, Neutrophils # (Auto) 16.6H, Lymphocytes # (Auto) 2.6, Monocytes # (Auto) 1.9H, Eosinophils # (Auto) 0.3, Basophils # (Auto) 0.1, Nucleated Red Blood Cells % (auto) 0.0, Anion Gap 6L, Glomerular Filtration Rate 44.7L, Blood Urea Nitrogen 23H, Creatinine 1.28, Sodium Level 140, Potassium Level 3.5, Chloride Level 106, Carbon Dioxide Level 28, Calcium Level 7.8L CBC/BMP Laboratory Tests 03/23/19 05:19 Red Blood Count 3.00 L, Mean Corpuscular Volume 99.0 H, Mean Corpuscular Hemoglobin 32.7, Mean Corpuscular Hemoglobin Concent 33.0, Red Cell Distribution Width 14.1, Neutrophils (%) (Auto) 74.0 H, Lymphocytes (%) (Auto) 11.7 L, Monocytes (%) (Auto) 8.3 H, Eosinophils (%) (Auto) 1.2, Basophils (%) (Auto) 0.4, Neutrophils # (Auto) 16.6 H, Lymphocytes # (Auto) 2.6, Monocytes # (Auto) 1.9 H, Eosinophils # (Auto) 0.3, Basophils # (Auto) 0.1, Calcium Level 7.8 L Microbiology Microbiology 03/16/19 Blood Culture - Final, Complete NO GROWTH AFTER 5 DAYS 03/13/19 Gastrointestinal Tract Panel (PCR) - Final, Complete Discharge Medications Scheduled Amlodipine Besylate (Amlodipine Besylate) 10 Mg Tablet, 10 MG PO DAILY Atorvastatin Calcium (Atorvastatin Calcium) 10 Mg Tablet, 10 MG PO QHS, (Reported) Benazepril HCl (Benazepril HCl) 20 Mg Tablet, 20 MG PO DAILY, (Reported) Buspirone HCl (Buspirone HCl) 5 Mg Tablet, 5 MG PO TID Clopidogrel Bisulfate (Clopidogrel) 75 Mg Tablet, 75 MG PO DAILY Fluticasone Propion/Salmeterol (Advair Hfa 230-21 Mcg Inhaler) 12 Gm Hfa.aer.ad, 2 PUFF INH BID, (Reported) Furosemide (Furosemide) 40 Mg Tablet, 40 MG PO DAILY Labetalol HCl (Labetalol HCl) 100 Mg Tablet, 100 MG PO BID Pantoprazole Sodium (Pantoprazole Sodium) 40 Mg Tablet.dr, 40 MG PO QAM Scheduled PRN Albuterol Sulfate (Ventolin Hfa) 18 Gm Hfa.aer.ad, 2 PUFF INH Q6H PRN for SHORTNESS OF BREATH, (Reported) Prednisone (Prednisone) 10 Mg Tablet, 10 MG PO Q2D PRN for RA FLARE, (Reported) Allergies Coded Allergies: Penicillins (Verified Allergy, Severe, anaphylaxis, 03/14/19) morphine (Verified Adverse Reaction, Mild, N/V, 03/14/19) GME ATTESTATION GME ATTESTATION My faculty preceptor for this patient encounter was physically present during the encounter and was fully available. All aspects of the patient interview, examination, medical decision making process, and medical care plan development were reviewed and approved by the faculty preceptor. The faculty preceptor is aware and concurs with the plan as stated in the body of this note and will attest to such by his/her cosignature. DOMINGO NEWBERRY DO Mar 23, 2019 16:19
== END 2019-03-23 16:20 | disposition home or self-care (01) | DRG 357 ==
LOC: M ED 13:01 → M ED INP 15:38 → M PCU 03-13 12:10 → M ICU 03-14 09:59 → M MS5PR 03-19 14:40
PROVIDERS: ADMIT Internal Medicine; ATTEND Internal Medicine Nephrology
PROC: 047 Lower Arteries, Dilation (ICD-10-PCS; principal; 2019-03-14 12:22)
DX: I77.4 Celiac artery compression syndrome (principal); K55.9 Vascular disorder of intestine, unspecified; E87.2 Acidosis; N17.9 Acute kidney failure, unspecified; J96.11 Chronic respiratory failure with hypoxia; I10 Essential (primary) hypertension; R19.7 Diarrhea, unspecified; E78.5 Hyperlipidemia, unspecified; F41.0 Panic disorder [episodic paroxysmal anxiety]; I16.0 Hypertensive urgency; R06.03 Acute respiratory distress; J44.9 Chronic obstructive pulmonary disease, unspecified; J84.10 Pulmonary fibrosis, unspecified; I71.4 Abdominal aortic aneurysm, without rupture; R33.9 Retention of urine, unspecified; M81.0 Age-related osteoporosis without current pathological fracture; E87.6 Hypokalemia; E87.70 Fluid overload, unspecified; M06.9 Rheumatoid arthritis, unspecified; Z79.899 Other long term (current) drug therapy; Z88.0 Allergy status to penicillin; Z88.5 Allergy status to narcotic agent; Z87.891 Personal history of nicotine dependence; Z79.52 Long term (current) use of systemic steroids

== ENCOUNTER → 2019-03-26 | Outpatient (REF) | payer MEDICARE, OTHER ==
[~2019-03-26] MED LIST changes: +ADVA230A INH; +AMLO10TA5 PO; +BENA20TA8 PO; +BUSP5TA PO; +CLOP75TA2 PO; +FURO40TA2 PO; +LABE10TAB PO; +PANT40TA3 PO; +PRED10TA2 PO; +VENTAER INH
== END ==
LOC: M LAB REF 12:27
PROVIDERS: ATTEND Internal Medicine
DX: R50.9 Fever, unspecified (principal)

== ENCOUNTER → 2019-03-30 | Outpatient (REF) | payer MEDICARE, OTHER | LOC: M LAB REF 12:56 | PROVIDERS: ATTEND Internal Medicine | DX: R79.82 Elevated C-reactive protein (CRP) (principal) ==

== ENCOUNTER → 2019-04-06 | Outpatient (REF) | payer MEDICARE, OTHER | LOC: M LAB REF 16:40 | PROVIDERS: ATTEND Internal Medicine | DX: N30.20 Other chronic cystitis without hematuria (principal) ==

== ENCOUNTER → 2019-04-06 | Outpatient (REF) | payer MEDICARE, OTHER | LOC: M LAB REF 16:42 | PROVIDERS: ATTEND Internal Medicine | DX: K55.051 Focal (segmental) acute (reversible) ischemia of intestine, part unspecified (principal) ==

== ENCOUNTER → 2019-04-14 | Outpatient (CLI) | payer MEDICARE, OTHER ==
--- NOTE | 2019-04-14 13:41 | REP ---
ULTRASOUND ABDOMINAL AORTA: Real-time ultrasound evaluation and duplex Doppler interrogation of the abdominal aorta performed. Proximally AP diameter of the abdominal aorta is 1.8 cm, at the level of the renal artery is 2.1 cm, mid aspect 2.9 cm and distally just above the bifurcation 2.2 cm. Right common iliac artery has an AP diameter of 1.0 cm and left 1.2 cm. There is significant atherosclerotic plaquing throughout the abdominal aorta extending into the common iliac arteries. Peak systolic velocity of the proximal abdominal aorta is 131 cm/s, and distally 65 cm/s. Peak systolic velocity of the right common iliac artery is 130 cm/s and left common iliac artery is 122 cm/s. There is a celiac artery stent which is patent with a peak systolic velocity intraluminally greater than 240 cm/s, and just distal to the stent in the cabazon celiac artery 280 cm/s. Peak systolic velocity of the hepatic artery is 228 cm/s and of the gastroduodenal artery 213 cm/s. Proximal superior mesenteric artery is occluded with reconstitution distally, peak systolic velocity in the cabazon vessel 184 cm/s. Electronically Signed by Tony Billings MD 04/16/2019 09:18 A
== END ==
LOC: M RAD 08:24
PROVIDERS: ATTEND Physician Assistant
DX: Z95.820 Peripheral vascular angioplasty status with implants and grafts (principal)

== ENCOUNTER → 2019-05-05 | Outpatient (REF) | payer MEDICARE, OTHER ==
[~2019-05-05] MED LIST changes: +AMLO5TAB6 PO; +FERR32TA PO
[2019-05-05 13:54] LABS: AMORPHOUS SEDIMENT SMALL (NEGATIVE); APPEARANCE, URINE HAZY (CLEAR); BACTERIA, URINE AUTO 1+ (NEGATIVE); BILIRUBIN, URINE AUTO NEGATIVE (NEGATIVE); BLOOD, URINE BLOOD 1+ (NEGATIVE); COLOR, URINE YELLOW (YELLOW); GLUCOSE, URINE (UA) AUTO NEGATIVE (NEGATIVE); KETONE, URINE AUTO NEGATIVE (NEGATIVE); LEUKOCYTE ESTERASE, URINE AUTO 1+ (NEGATIVE); MUCUS, URINE SMALL (NEGATIVE); NITRITE, URINE AUTO NEGATIVE (NEGATIVE); PROTEIN, URINE AUTO 3+ mg/dL (NEGATIVE); RBC, URINE AUTO 12 /HPF (0-3); SPECIFIC GRAVITY URINE AUTO 1.013 (1.002-1.035); SQUAMOUS EPITHELIAL CELL UR AU 2 /HPF (0-6); TRANSITIONAL EPITHELIAL AUTO 2 /HPF; UROBILINOGEN, URINE AUTO 0.2 mg/dL (0.0-2.0); WBC, URINE AUTO 91 /HPF (0-3)
[2019-05-06 13:31] LABS: C REACTIVE PROTEIN QUANTITATIV 1.53 MG/DL (0.00-0.30); TOTAL PROTEIN 8.8 GM/DL (6.4-8.2)
[2019-05-06 14:41] LABS: HEPATITIS A ANTIBODY IGM NEGATIVE (NEGATIVE); HEPATITIS C VIRUS ABY INDEX 0.2 INDEX (<0.8)
[2019-05-07 10:32] LABS: ALBUMIN 4.66 GM/DL (3.29-5.55); ALBUMIN % 52.9 % (55.8-66.1); ALPHA-1-GLOBULIN % 5.5 % (2.9-4.9); ALPHA-1-GLOBULINS 0.48 GM/DL (0.17-0.41); ALPHA-2-GLOBULINS 0.77 GM/DL (0.42-0.99); ALPHA-2-GLOBULINS % 8.7 % (7.1-11.8); BETA-1-GLOBULINS 0.48 GM/DL (0.28-0.60); BETA-1-GLOBULINS % 5.4 % (4.7-7.2); BETA-2-GLOBULINS % 5.7 % (3.2-6.5); GAMMA GLOBULIN % 21.8 % (11.1-18.8); GAMMA GLOBULINS 1.92 GM/DL (0.65-1.58)
[2019-05-07 12:34] LABS: HEPATITIS B CORE ANTIBODY IGM NEGATIVE (NEGATIVE)
[2019-05-07 14:08] LABS: ANTINUCLEAR ANTIBODIES DIRECT Negative (Negative)
== END ==
LOC: M LAB REF 12:51
PROVIDERS: ATTEND Internal Medicine
DX: N17.8 Other acute kidney failure (principal); R80.9 Proteinuria, unspecified; R70.0 Elevated erythrocyte sedimentation rate; N39.3 Stress incontinence (female) (male)

== ENCOUNTER 2019-05-08 16:54 | Inpatient (IN) | payer MEDICARE, OTHER ==
[~2019-05-08] VITALS: Ht 157.5 cm; Wt 61.4 kg
[~2019-05-08 16:54] MED LIST changes: -ACETAMINOPHEN TAB 650MG DOSE (2X325MG) PO PRN; -AMLO5TAB6 PO; -DOCUSATE SODIUM 100 MG CAP PO SCH; -FERR32TA PO; -HEPARIN SOD (PORCINE) 5000 UNITS/ML VIAL SC SCH; -LABETALOL 100 MG TAB PO SCH; -hydrALAZINE INJ 20 MG/ML VIAL IV STA
[2019-05-08] MEDS ORDERED: FERR32TA PO (17:05)
[2019-05-08] MEDS ORDERED: LABE100T36 PO (17:05)
[2019-05-08] MEDS ORDERED: AMLO5TAB6 PO (17:05)
[2019-05-08 17:49] LABS: IONIZED CALCIUM 4.2 MG/DL (4.5-5.3)
[2019-05-08 18:02] LABS: BASO # 0.1 10^3/uL (0.0-0.2); BASO % 0.8 % (0.0-1.0); EOS # 1.2 10^3/uL (0.0-0.50); HEMATOCRIT 31.5 % (36.0-47.0); HEMOGLOBIN 10.7 g/dl (12.0-15.5); LYMPH # 2.7 10^3/uL (1.5-4.5); LYMPH % 20.2 % (24.0-44.0); MEAN CORPUSCULAR HEMOGLOBIN 29.9 pg (27.0-33.0); MONO % 7.7 % (0.0-5.0); NEUTROPHILS # 8.1 10^3/uL (1.8-7.7); NEUTROPHILS % 61.5 % (36.0-66.0); PLATELET COUNT, AUTOMATED 243 10^3/uL (150-450); RED BLOOD COUNT 3.58 10^6/uL (4.00-5.40); WHITE BLOOD COUNT 13.2 10^3/uL (4.0-10.0)
[2019-05-08] MEDS ORDERED: NS 1,000 ML IV SCH (18:30)
[2019-05-08 18:57] LABS: CREATININE FOR GFR 2.81 MG/DL (0.55-1.30)
[2019-05-08 18:58] LABS: BILIRUBIN,TOTAL 0.6 MG/DL (0.2-1.0); CALCIUM LEVEL 8.2 MG/DL (8.8-10.2); POTASSIUM SERUM 4.3 MEQ/L (3.5-5.1); TOTAL PROTEIN 8.1 GM/DL (6.4-8.2); URIC ACID 6.8 MG/DL (2.6-6.0)
[2019-05-08 18:59] LABS: ALBUMIN 3.7 GM/DL (3.2-5.2); MAGNESIUM LEVEL 1.8 MG/DL (1.8-2.4)
[2019-05-08 19:11] LABS: ERYTHROCYTE SEDIMENTATION RATE 56 mm/hr (0-30)
[2019-05-08] MEDS ORDERED: PANTOPRAZOLE 40MG INJ (PROTONIX) (C9113) IV ONE (21:15)
[2019-05-08] MEDS ORDERED: ALBUTEROL SULFATE 2.5 MG/0.5 ML INH NEB SOLN NEB PRN (21:15)
[2019-05-08] MEDS: NS 1,000 ML IV SCH (22:05)
[2019-05-08] MEDS: hydrALAZINE INJ 20 MG/ML VIAL IV SCH (22:05)
[2019-05-08] MEDS: LABETALOL 100 MG TAB PO SCH (22:05)
[2019-05-08] MEDS: amLODIPine 5 MG TAB PO SCH (22:05)
--- NOTE | 2019-05-08 22:53 | HPEPDOC ---
[facility] Medical History & Physical Date of Admission May 08, 2019 Date of Service: May 08, 2019 Primary Care Physician: A History and Physical Patient is a 64-year-old female with a PMHx HTN, DLP, COPD, Interstitial cystitis, Osteoporosis, RA, who was sent in to the ER by PMD, Dr. Hamm, for ARF which is not improving. She is concerned that Patient's GFR which greater than 60 is now 16. In March patient was diagnosed with ischemic colitis and mesenteric ischemic s/p Stenting of her celiac artery x2 was performed on 03/14 with no complications. During the hospitalization in March she developed ARF, which did not completely resolve. Per Dr. Hamm, She discontinued patient's ACEI and any meds that could contribute to her renal injury and did multiple outpt w/u without much improvement. She did a renal doppler which revealed evidence of right renal artery stenosis but has not met doppler criteria for stenosis by ultrasound. 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 Patient denied any chest pain, sob, but does complain of intermittent nausea. Patient also c/o diffuse muscle aches, but mostly in her LE. Home meds below Allergies Coded Allergies: Penicillins (Verified Allergy, Unknown, anaphylaxis, 03/12/19) morphine (Verified Adverse Reaction, Severe, N/V, 03/12/19) Medical History HTN, DLP, COPD, Interstitial cystitis, Osteoporosis, RA, mesenteric ischemia, ischemic colitis Surgical History celiac artery stent 03/2019 Family History - Mother with a history of breast cancer - Father with a history of pancreatic cancer Social History - Denies the use of alcohol or illicit drugs; patient has quit smoking less than 5 years ago but was a smoker of greater than 30 years - Denies recent travel or sick contacts - Lives alone in [place] - 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; [employer], 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 Assessment and plan Acute renal failure//htn urgency hold ivf until bp is lower iv 10 hydralazine mg resume home meds nephro consult ordered f/u cpk level a number of w/u has already been done outpt - see record in chart resume home meds for HLD, copd, STANLEY, anxiety, and mesenteric ischemic s/p stent placement see meds below dvt ppx full code- Vital Signs Vital Signs Date Time Temp Pulse Resp B/P (MAP) Pulse Ox O2 Delivery O2 Flow Rate FiO2 05/08/19 21:15 79 98 05/08/19 21:00 16 214/99 (137) Room Air 05/08/19 16:56 99.1 Laboratory Data Labs 24H Laboratory Tests 2 05/08/19 17:28: Immature Granulocyte % (Auto) 0.8, White Blood Count 13.2H, Red Blood Count 3.58L, Hemoglobin 10.7L, Hematocrit 31.5L, Mean Corpuscular Volume 88.0, Mean Corpuscular Hemoglobin 29.9, Mean Corpuscular Hemoglobin Concent 34.0, Red Cell Distribution Width 14.8H, Platelet Count 243, Neutrophils (%) (Auto) 61.5, Lymphocytes (%) (Auto) 20.2L, Monocytes (%) (Auto) 7.7H, Eosinophils (%) (Auto) 9.0H, Basophils (%) (Auto) 0.8, Neutrophils # (Auto) 8.1H, Lymphocytes # (Auto) 2.7, Monocytes # (Auto) 1.0H, Eosinophils # (Auto) 1.2H, Basophils # (Auto) 0.1, Nucleated Red Blood Cells % (auto) 0.0, Erythrocyte Sedimentation Rate 56H, Anion Gap 11, Glomerular Filtration Rate 18.0L, Osmolality 297, Blood Urea N itrogen 51H, Creatinine 2.81H, Sodium Level 137, Potassium Level 4.3, Chloride Level 103, Carbon Dioxide Level 23, Calcium Level 8.2L, Aspartate Amino Transf (AST/SGOT) 24, Alanine Aminotransferase (ALT/SGPT) 35, Total Creatine Kinase 60, Alkaline Phosphatase 180H, Total Bilirubin 0.6, Uric Acid 6.8H, Total Protein 8.1, Albumin 3.7, Whole Blood Ionized Calcium 4.2L, Magnesium Level 1.8, Albumin/Globulin Ratio 0.84L CBC/BMP Laboratory Tests 05/08/19 17:28 Red Blood Count 3.58 L, Mean Corpuscular Volume 88.0, Mean Corpuscular Hemoglobin 29.9, Mean Corpuscular Hemoglobin Concent 34.0, Red Cell Distribution Width 14.8 H, Neutrophils (%) (Auto) 61.5, Lymphocytes (%) (Auto) 20.2 L, Monocytes (%) (Auto) 7.7 H, Eosinophils (%) (Auto) 9.0 H, Basophils (%) (Auto) 0.8, Neutrophils # (Auto) 8.1 H, Lymphocytes # (Auto) 2.7, Monocytes # (Auto) 1.0 H, Eosinophils # (Auto) 1.2 H, Basophils # (Auto) 0.1, Calcium Level 8.2 L, Aspartate Amino Transf (AST/SGOT) 24, Alanine Aminotransferase (ALT/SGPT) 35, Total Creatine Kinase 60, Alkaline Phosphatase 180 H, Total Bilirubin 0.6, Uric Acid 6.8 H, Total Protein 8.1, Albumin 3.7 Home Medications Scheduled Amlodipine Besylate (Amlodipine Besylate) 5 Mg Tablet, 5 MG PO BID Atorvastatin Calcium (Atorvastatin Calcium) 10 Mg Tablet, 10 MG PO QHS Clopidogrel Bisulfate (Clopidogrel) 75 Mg Tablet, 75 MG PO DAILY Ferrous Gluconate (Ferrous Gluconate) 324 Mg Tablet, 324 MG PO DAILY Fluticasone Propion/Salmeterol (Advair Hfa 230-21 Mcg Inhaler) 12 Gm Hfa.aer.ad, 2 PUFF INH BID Labetalol HCl (Labetalol HCl) 100 Mg Tablet, 50 MG PO BID Pantoprazole Sodium (Pantoprazole Sodium) 40 Mg Tablet.dr, 40 MG PO QAM Scheduled PRN Albuterol Sulfate (Ventolin Hfa) 18 Gm Hfa.aer.ad, 2 PUFF INH Q6H PRN for SHORTNESS OF BREATH Allergies Coded Allergies: Penicillins (Verified Allergy, Severe, anaphylaxis, 03/14/19) morphine (Verified Allergy, Severe, rash sob, 05/08/19) A-FIB/CHADSVASC A-FIB History Current/History of A-Fib/PAF?: No Current PO Anticoag Therapy: No Age/Risk Factor Scoring CHADSVASC: CHADSVASC Response (Comments) Value Age Risk Factor Age 65-74 years old 1 Gender Risk Factor Female 1 Hx of CHF No 0 Hx of HTN Yes 1 Hx of Stroke/TIA/or VTE No 0 Hx of Diabetes No 0 Hx of Vascular Disease Yes 1 Total 4 Treatment Treatment ordered: NONE Reason Anticoagulant not given: Not indicated/[id number] CASEY MALONEY MD May 08, 2019 21:43
[2019-05-08] MEDS: DOCUSATE SODIUM 100 MG CAP PO SCH (23:36)
[2019-05-08] MEDS: ONDANSETRON 4MG/2ML VIAL (J2405) IV PRN (23:36)
[2019-05-08] MEDS: HEPARIN SOD (PORCINE) 5000 UNITS/ML VIAL SC SCH (23:36)
[2019-05-08] MEDS: ATORVASTATIN 10 MG TAB PO SCH (23:36)
[2019-05-08 23:59] VITALS: BP 172/82
[2019-05-09] VITALS (8 sets, daily range): BP systolic 137–183; BP diastolic 68–88
[2019-05-09] MEDS: hydrALAZINE INJ 20 MG/ML VIAL IV SCH ×3 (04:00→16:00)
[2019-05-09] MEDS: NS 1,000 ML IV SCH ×2 (05:46→16:12)
[2019-05-09 05:49] LABS: BASO # 0.1 10^3/uL (0.0-0.2); BASO % 0.6 % (0.0-1.0); EOS # 0.8 10^3/uL (0.0-0.50); EOS % 5.3 % (0.0-3.0); HEMATOCRIT 29.9 % (36.0-47.0); HEMOGLOBIN 9.8 g/dl (12.0-15.5); LYMPH # 2.9 10^3/uL (1.5-4.5); LYMPH % 19.3 % (24.0-44.0); MEAN CORPUSCULAR HEMOGLOBIN 30.1 pg (27.0-33.0); MEAN CORPUSCULAR HGB CONC 32.8 g/dl (32.0-36.5); MEAN CORPUSCULAR VOLUME 91.7 fl (80.0-96.0); MONO # 0.8 10^3/uL (0.0-0.8); MONO % 5.5 % (0.0-5.0); NEUTROPHILS # 10.4 10^3/uL (1.8-7.7); NEUTROPHILS % 68.5 % (36.0-66.0); PLATELET COUNT, AUTOMATED 230 10^3/uL (150-450); RED BLOOD COUNT 3.26 10^6/uL (4.00-5.40); WHITE BLOOD COUNT 15.2 10^3/uL (4.0-10.0)
[2019-05-09] MEDS: ADVAIR HFA 230/21MCG INHALER INH SCH ×2 (07:50→20:00)
[2019-05-09] MEDS: CLOPIDOGREL 75 MG TAB PO SCH (08:37)
[2019-05-09] MEDS: amLODIPine 5 MG TAB PO SCH ×2 (08:37→20:44)
[2019-05-09] MEDS: LABETALOL 100 MG TAB PO SCH ×2 (08:38→20:44)
[2019-05-09] MEDS: DOCUSATE SODIUM 100 MG CAP PO SCH ×2 (08:38→20:43)
[2019-05-09] MEDS: FERROUS GLUCONATE 324 MG TAB PO SCH ×2 (08:38→09:00)
[2019-05-09] MEDS: PANTOPRAZOLE 40MG TAB (PROTONIX) PO SCH (08:49)
[2019-05-09] MEDS: ONDANSETRON 4MG/2ML VIAL (J2405) IV PRN (08:49)
[2019-05-09] MEDS: HEPARIN SOD (PORCINE) 5000 UNITS/ML VIAL SC SCH ×2 (10:33→20:44)
[2019-05-09 11:57] LABS: CREATININE FOR GFR 2.65 MG/DL (0.55-1.30); GLOMERULAR FILTRATION RATE 19.2 (>45); MAGNESIUM LEVEL 1.7 MG/DL (1.8-2.4)
[2019-05-09] MEDS: ACETAMINOPHEN TAB 650MG DOSE (2X325MG) PO PRN (17:53)
[2019-05-09] MEDS: LABETALOL HCL 100 MG/20 ML VIAL IV SCH (18:00)
[2019-05-09] MEDS: FERROUS SULFATE 325MG TAB PO SCH (18:15)
--- NOTE | 2019-05-09 19:05 | IPNPDOC ---
Date Seen The patient was seen on 05/09/19. 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 GENERAL:NAD Abd: soft NT ND Ext no C/c/e LABORATORY DATA, IMAGING STUDIES, MICROBIOLOGY: Please see below. ASSESSMENT AND PLAN: Acute renal failure//htn urgency hold ivf until bp is lower iv 10 hydralazine mg resume home meds nephro consult ordered resume home meds for HLD, copd, STANLEY, anxiety, and mesenteric ischemic s/p stent placement dvt ppx full code- VS, I&O, 24H, Fishbone Vital Signs/I&O Vital Signs Date Time Temp Pulse Resp B/P (MAP) Pulse Ox O2 Delivery O2 Flow Rate FiO2 05/09/19 16:00 97.9 83 18 170/80 (110) 100 2.0 05/08/19 22:30 Room Air I&O- Last 24 Hours up to 6 AM 05/09/19 06:00 Intake Total 1200 ml Output Total 750 ml Balance 450 ml Laboratory Data 24H LABS Laboratory Tests 2 05/08/19 23:27: Bedside Glucose (Misc Panel) 115 05/09/19 05:17: Immature Granulocyte % (Auto) 0.8, White Blood Count 15.2H, Red Blood Count 3.26L, Hemoglobin 9.8L, Hematocrit 29.9L, Mean Corpuscular Volume 91.7, Mean Corpuscular Hemoglobin 30.1, Mean Corpuscular Hemoglobin Concent 32.8, Red Cell Distribution Width 15.0H, Platelet Count 230, Neutrophils (%) (Auto) 68.5H, Lymp hocytes (%) (Auto) 19.3L, Monocytes (%) (Auto) 5.5H, Eosinophils (%) (Auto) 5.3H, Basophils (%) (Auto) 0.6, Neutrophils # (Auto) 10.4H, Lymphocytes # (Auto) 2.9, Monocytes # (Auto) 0.8, Eosinophils # (Auto) 0.8H, Basophils # (Auto) 0.1, Nucleated Red Blood Cells % (auto) 0.0, Anion Gap 9, Glomerular Filtration Rate 19.2L, Blood Urea Nitrogen 47H, Creatinine 2.65H, Sodium Level 138, Potassium Level 4.0, Chloride Level 106, Carbon Dioxide Level 23, Calcium Level 8.0L, Magnesium Level 1.7L, Total Creatine Kinase 56 CBC/BMP Laboratory Tests 05/09/19 05:17 Red Blood Count 3.26 L, Mean Corpuscular Volume 91.7, Mean Corpuscular Hemoglobin 30.1, Mean Corpuscular Hemoglobin Concent 32.8, Red Cell Distribution Width 15.0 H, Neutrophils (%) (Auto) 68.5 H, Lymphocytes (%) (Auto) 19.3 L, Monocytes (%) (Auto) 5.5 H, Eosinophils (%) (Auto) 5.3 H, Basophils (%) (Auto) 0.6, Neutrophils # (Auto) 10.4 H, Lymphocytes # (Auto) 2.9, Monocytes # (Auto) 0.8, Eosinophils # (Auto) 0.8 H, Basophils # (Auto) 0.1, Calcium Level 8.0 L JUVE ROY MD May 09, 2019 19:05
[2019-05-09] MEDS: ATORVASTATIN 10 MG TAB PO SCH (20:43)
[2019-05-09 21:09] LABS: APPEARANCE, URINE CLEAR (CLEAR); BACTERIA, URINE AUTO 1+ (NEGATIVE); BILIRUBIN, URINE AUTO NEGATIVE (NEGATIVE); BLOOD, URINE BLOOD 1+ (NEGATIVE); COLOR, URINE STRAW (YELLOW); GLUCOSE, URINE (UA) AUTO 1+ mg/dL (NEGATIVE); KETONE, URINE AUTO NEGATIVE (NEGATIVE); LEUKOCYTE ESTERASE, URINE AUTO NEGATIVE (NEGATIVE); MUCUS, URINE SMALL (NEGATIVE); NITRITE, URINE AUTO NEGATIVE (NEGATIVE); PROTEIN, URINE AUTO 3+ mg/dL (NEGATIVE); RBC, URINE AUTO 6 /HPF (0-3); SPECIFIC GRAVITY URINE AUTO 1.009 (1.002-1.035); SQUAMOUS EPITHELIAL CELL UR AU 0 /HPF (0-6); UROBILINOGEN, URINE AUTO 0.2 mg/dL (0.0-2.0); WBC, URINE AUTO 13 /HPF (0-3)
[2019-05-09 21:27] LABS: CREATININE,RANDOM URINE 35.4 MG/DL
[2019-05-10] VITALS (8 sets, daily range): BP systolic 152–202; BP diastolic 75–90
[2019-05-10] MEDS: LABETALOL HCL 100 MG/20 ML VIAL IV SCH ×5 (04:08→23:46)
[2019-05-10 06:07] LABS: BASO # 0.1 10^3/uL (0.0-0.2); BASO % 0.8 % (0.0-1.0); EOS # 1.3 10^3/uL (0.0-0.50); EOS % 10.8 % (0.0-3.0); HEMATOCRIT 29.4 % (36.0-47.0); HEMOGLOBIN 9.6 g/dl (12.0-15.5); LYMPH # 3.1 10^3/uL (1.5-4.5); LYMPH % 26.1 % (24.0-44.0); MEAN CORPUSCULAR HEMOGLOBIN 29.5 pg (27.0-33.0); MEAN CORPUSCULAR HGB CONC 32.7 g/dl (32.0-36.5); MEAN CORPUSCULAR VOLUME 90.5 fl (80.0-96.0); MONO # 0.9 10^3/uL (0.0-0.8); MONO % 7.6 % (0.0-5.0); NEUTROPHILS # 6.4 10^3/uL (1.8-7.7); NEUTROPHILS % 54.1 % (36.0-66.0); PLATELET COUNT, AUTOMATED 220 10^3/uL (150-450); RED BLOOD COUNT 3.25 10^6/uL (4.00-5.40); WHITE BLOOD COUNT 11.8 10^3/uL (4.0-10.0)
[2019-05-10 06:28] LABS: CALCIUM LEVEL 8.3 MG/DL (8.8-10.2); CREATININE FOR GFR 2.65 MG/DL (0.55-1.30); GLOMERULAR FILTRATION RATE 19.2 (>45); POTASSIUM SERUM 3.8 MEQ/L (3.5-5.1)
[2019-05-10] MEDS: ADVAIR HFA 230/21MCG INHALER INH SCH ×2 (07:48→20:00)
--- NOTE | 2019-05-10 07:52 | CR ---
DATE OF CONSULTATION: 05/09/2019 REQUESTING PHYSICIAN: Dr. Elizabeth Gonzalez CONSULTING PHYSICIAN: Dr. Lyons REASON FOR CONSULTATION: Management of acute kidney injury and hypertension. CHIEF COMPLAINT: The patient was sent from the primary care's office because of elevated blood pressures and worsening creatinine. HISTORY OF PRESENT ILLNESS: Anh Rivera is a 64-year-old female with past medical history of hypertension, hyperlipidemia, osteoporosis, history of mesenteric ischemia status post stenting of the mesenteric vessels. Baseline creatinine of around 0.8 as of March 2019. Recently after stenting of the mesenteric vessels in March 2019 her creatinine has been slowly trending up. She had a creatinine of 1.2 in mid March and she was found to have a creatinine of 2.8 yesterday. She was sent from the office of her primary care for further evaluation. When the patient presented to the emergency room she was found to have hypertensive urgency with systolic blood pressures more than 200. She was admitted to PCU under the hospitalist service. She was started on antihypertensive medications and at the same time she is on blood pressure medications as well. Nephrology service was called for further help in the management of this patient with high blood pressure. I saw and evaluated the patient today afternoon at the bedside. She was complaining of headache. I have stopped her IV fluids when I saw her. She denies any fevers or chills. She denies any dysuria or hematuria or swelling of the legs. PAST MEDICAL HISTORY: Past medical history of: Hypertension. Hyperlipidemia. Chronic obstructive pulmonary disease (COPD). History of interstitial cystitis. Osteoporosis. Rheumatoid arthritis. History of ischemic colitis. Mesenteric ischemia. PAST SURGICAL HISTORY: Status post celiac artery stent in March 2019. ALLERGIES: The patient is allergic to: 1. MORPHINE. 2. PENICILLINS. FAMILY HISTORY: No significant family history of end-stage renal disease requiring hemodialysis. SOCIAL HISTORY: The patient denies any illicit drug abuse or alcohol abuse. She is an ex-smoker. She quit about 5 years ago. She lives alone. REVIEW OF SYSTEMS: CONSTITUTIONAL: She denies any fevers or chills. EYES: She denies any blurry vision, double vision. ENT: She does report headache. She denies any dysphagia or odynophagia. CARDIOVASCULAR: She denies any chest pain on palpitations. RESPIRATORY: She denies any shortness of breath or cough. GASTROINTESTINAL (GI): She denies any nausea, vomiting. GENITOURINARY (): She denies any dysuria or hematuria. MUSCULOSKELETAL: She denies any muscle aches and pains. PHARMACEUTICAL PLANT OPERATOR: She denies any strokes or seizures. SKIN: She denies any rashes or ulcers. ENDOCRINE: She denies any history of hyperthyroidism or hypothyroidism. All other review of systems is negative. PHYSICAL EXAMINATION: GENERAL: The patient is awake, alert, oriented times three, sitting up in the bed complaining of headache. VITAL SIGNS: Temperature is 98.6 degrees Fahrenheit, blood pressure is 183/88, pulse is 85, respiratory rate of 18, saturating 97% on 2 liters by nasal cannula. HEAD AND NECK EXAM: Extraocular muscles intact. Pupils equally round and reactive to light. Mucous membranes are moist. Neck is supple. There is no jugular venous distention (JVD). CARDIOVASCULAR: S1, S2 regular rate. No edema of the bilateral lower extremities. RESPIRATORY: Chest is clear to auscultation bilaterally. Bilateral equal air entry. No rales or rhonchi. ABDOMEN: Soft. Positive bowel sounds. Nontender. No organomegaly. MUSCULOSKELETAL: No clubbing or cyanosis. Pulses are 2+. PHARMACEUTICAL PLANT OPERATOR: No focal deficit. Power is 5/5 in all extremities. LAB REVIEW: CBC showed a WBC 15.2, hemoglobin 9.8, platelets of 230. Urinalysis is pending. BMP on arrival showed sodium 137, potassium 4.3, chloride 103, bicarb 23, BUN 51, creatinine is 2.8, uric acid is 6.8, calcium is 8.2, ionized calcium is 4.2. BMP done today morning showed sodium 138, potassium is 4, chloride 106, bicarb 23, BUN 47, creatinine is 2.6, calcium is 9, magnesium is 1.7. IMAGING STUDIES: No recent renal ultrasound is available. 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 CURRENT INPATIENT MEDICATIONS: The patient was getting normal saline at 100 mL an hour which I have stopped. She is on Tylenol p.r.n., albuterol p.r.n., amlodipine 5 mg p.o. twice a day, Lipitor 10 grams q.h.s., Plavix 75 mg daily, Colace 100 mg p.o. twice a day, iron tablet 325 mg p.o. daily, heparin subcu, she was on hydralazine which I have stopped. I have changed the labetalol 100 mg p.o. twice a day and also put her on 10 mg IV every 6 hours. ASSESSMENT/PLAN: 1. Hypertensive urgency. The patient was getting IV fluids, although the patient is in renal failure but because of hypertensive urgency I would not give the patient IV fluid. I have stopped the IV fluid hydration. Continue current dose of amlodipine 5 mg daily. I have increased the labetalol to 100 mg p.o. twice a day. She is also going to get labetalol 10 mg IV every 6 hours. I would avoid using hydralazine because of questionable history of abdominal aortic aneurysm. 2. Acute kidney injury. Most likely this is secondary to combination of IV contrast dye and use of TITO inhibitors at home. Benazepril has already been stopped as outpatient. Avoid use of TITO inhibitors at this time. The patient's blood pressure also needs to be optimized. Hypertensive urgency can also cause severe vasoconstriction and acute kidney injury as well. I have ordered the renal ultrasound and renal Doppler as well. I have also ordered the urinalysis and report is still pending. 3. Anemia in chronic kidney disease. Continue current dose of ferrous sulfate. Avoid use of ALVARO at this time because of hypertension. Thank you for involving me in the care of this patient. I shall be happy to follow the patient along with you tomorrow morning.
[2019-05-10] MEDS: ONDANSETRON 4MG/2ML VIAL (J2405) IV PRN (07:53)
--- NOTE | 2019-05-10 09:43 | REP ---
Clinical: Acute renal failure. Technique: Billings scale and color Doppler evaluation of the kidneys and renal vasculature using curved array transducer. Findings: The kidneys are hyperechoic suggesting chronic medical renal disease without hydronephrosis, nephrolithiasis, cystic or renal mass lesion. Right kidney measures 10.1 x 4.5 x 4.3 cm . Left kidney measures 10.7 x 4.6 x 4.2 cm . Bladder is empty. Color Doppler evaluation of the renal vasculature demonstrates parvus tardus wave forms along with elevation to the right renal arterial velocity. Renal vein is patent. Right Kidney: Peak arterial velocity: 176.5 cm/sec . Renal aortic ratio: 2.9 . Resistive indices: 0.59 - 0.75 . Acceleration times: 0.02 - 0.06 . Left kidney: Peak arterial velocity: 75.6 cm/sec . Renal aortic ratio: 1.2 . Resistive indices: 0.63 - 0.65 . Acceleration times: 0.04 - 0.08 . Impression: 1. Evidence for medical renal disease with increased parenchymal echogenicity. No hydronephrosis. 2. A asymmetric increased velocity to the right renal artery remains within normal range but suggest the possibility of mild/early right renal artery stenosis. Dampened arterial wave forms bilaterally consistent with small vessel disease. Electronically Signed by Aj Whitley MD 05/10/2019 09:34 A
[2019-05-10] MEDS: CLOPIDOGREL 75 MG TAB PO SCH (10:45)
[2019-05-10] MEDS: DOCUSATE SODIUM 100 MG CAP PO SCH ×2 (10:45→21:24)
[2019-05-10] MEDS: HEPARIN SOD (PORCINE) 5000 UNITS/ML VIAL SC SCH ×2 (10:46→21:26)
[2019-05-10] MEDS: FERROUS SULFATE 325MG TAB PO SCH (10:46)
[2019-05-10] MEDS: PANTOPRAZOLE 40MG TAB (PROTONIX) PO SCH (10:53)
[2019-05-10] MEDS: LABETALOL 100 MG TAB PO SCH (10:54)
[2019-05-10] MEDS: amLODIPine 5 MG TAB PO SCH ×2 (10:55→21:25)
[2019-05-10 13:57] LABS: COMPLEMENT C3 124 MG/DL (90-180); COMPLEMENT C4 40 MG/DL (10-40); TOTAL PROTEIN 7.3 GM/DL (6.4-8.2)
--- NOTE | 2019-05-10 16:11 | IPNPDOC ---
Date Seen The patient was seen on 05/10/19. Progress Note SUBJECTIVE: no complaints OBJECTIVE PHYSICAL EXAMINATION: VITAL SIGNS: Please see below. GENERAL:NAD Abd: soft NT ND Ext no C/c/e LABORATORY DATA, IMAGING STUDIES, MICROBIOLOGY: Please see below. ASSESSMENT AND PLAN: #TAMMY #Hypertensive urgency #Chronic anemia #COPD #HL - holding IVFs - TAMMY may be 2/2 home TITO vs contrast - increase labetalol to 100mg bid - labetalol IV q6 - avoid hydralazine - appreciate nephro consult - AMMY - ferrous sulfate VS, I&O, 24H, Fishbone Vital Signs/I&O Vital Signs Date Time Temp Pulse Resp B/P (MAP) Pulse Ox O2 Delivery O2 Flow Rate FiO2 05/10/19 13:23 76 162/80 05/10/19 12:00 98.0 18 98 05/10/19 08:00 2.0 05/08/19 22:30 Room Air I&O- Last 24 Hours up to 6 AM 05/10/19 06:00 Intake Total 2660 ml Output Total 2025 ml Balance 635 ml Laboratory Data 24H LABS Laboratory Tests 2 05/09/19 20:51: Urine Appearance CLEAR, Urine Color STRAW, Urine pH 5.0, Urine Specific [place] 1.009, Urine Protein 3+H, Urine Glucose (UA) 1+H, Urine Ketones NEGATIVE, Urine Urobilinogen 0.2, Urine Bilirubin NEGATIVE, Urine Leukocyte Esterase NEGATIVE, Urine Blood 1+H, Urine Nitrite NEGATIVE, Urine WBC (Auto) 13H, Urine RBC (Auto) 6H, Urine Hyaline Casts (Auto) 0, Urine Bacteria (Auto) 1+H, Urine Squamous Epithelial Cells 0, Urine Mucus (Auto) SMALL, Urine Sperm (Auto) , Urine Random Creatinine 35.4, Urine Random Total Protein 326.0H 05/10/19 05:21: Immature Granulocyte % (Auto) 0.6, White Blood Count 11.8H, Red Blood Count 3.25L, Hemoglobin 9.6L, Hematocrit 29.4L, Mean Corpuscular Volume 90.5, Mean Corpuscular Hemoglobin 29.5, Mean Corpuscular Hemoglobin Concent 32.7, Red Cell Distribution Width 15.1H, Platelet Count 220, Neutrophils (%) (Auto) 54.1, Lymphocytes (%) (Auto) 26.1, Monocytes (%) (Auto) 7.6H, Eosinophils (%) (Auto) 10.8H, Basophils (%) (Auto) 0.8, Neutrophils # (Auto) 6.4, Lymphocytes # (Auto) 3.1, Monocytes # (Auto) 0.9H, Eosinophils # (Auto) 1.3H, Basophils # (Auto) 0.1, Nucleated Red Blood Cells % (auto) 0.0, Anion Gap 9, Glomerular Filtration Rate 19.2L, Blood Urea Nitrogen 41H, Creatinine 2.65H, Sodium Level 139, Potassium Level 3.8, Chloride Level 107, Carbon Dioxide Level 23, Calcium Level 8.3L 05/10/19 13:10: Total Protein (PEP) 7.3, Complement C3 124, Complement C4 40 CBC/BMP Laboratory Tests 05/10/19 05:21 Red Blood Count 3.25 L, Mean Corpuscular Volume 90.5, Mean Corpuscular Hemog lobin 29.5, Mean Corpuscular Hemoglobin Concent 32.7, Red Cell Distribution Width 15.1 H, Neutrophils (%) (Auto) 54.1, Lymphocytes (%) (Auto) 26.1, Monocytes (%) (Auto) 7.6 H, Eosinophils (%) (Auto) 10.8 H, Basophils (%) (Auto) 0.8, Neutrophils # (Auto) 6.4, Lymphocytes # (Auto) 3.1, Monocytes # (Auto) 0.9 H, Eosinophils # (Auto) 1.3 H, Basophils # (Auto) 0.1, Calcium Level 8.3 L JUVE ROY MD May 10, 2019 16:11
[2019-05-10] MEDS ORDERED: **hydrALAZINE HCL** 25 MG TAB PO SCH (18:00)
[2019-05-10] MEDS: BISACODYL 5 MG TAB PO PRN (18:51)
[2019-05-10] MEDS ORDERED: LABETALOL 100 MG TAB PO SCH (21:00)
[2019-05-10] MEDS: ATORVASTATIN 10 MG TAB PO SCH (21:24)
[2019-05-10] MEDS: ACETAMINOPHEN TAB 650MG DOSE (2X325MG) PO PRN (23:21)
[2019-05-11 04:00] VITALS: BP 158/80
[2019-05-11] MEDS: LABETALOL HCL 100 MG/20 ML VIAL IV SCH ×5 (04:16→21:00)
[2019-05-11 04:20] LABS: BASO # 0.1 10^3/uL (0.0-0.2); BASO % 0.6 % (0.0-1.0); EOS # 1.4 10^3/uL (0.0-0.50); EOS % 10.2 % (0.0-3.0); HEMATOCRIT 29.8 % (36.0-47.0); HEMOGLOBIN 9.7 g/dl (12.0-15.5); LYMPH # 3.1 10^3/uL (1.5-4.5); MEAN CORPUSCULAR HEMOGLOBIN 30.2 pg (27.0-33.0); MEAN CORPUSCULAR HGB CONC 32.6 g/dl (32.0-36.5); MEAN CORPUSCULAR VOLUME 92.8 fl (80.0-96.0); MONO % 7.5 % (0.0-5.0); NEUTROPHILS # 7.7 10^3/uL (1.8-7.7); NEUTROPHILS % 58.1 % (36.0-66.0); PLATELET COUNT, AUTOMATED 213 10^3/uL (150-450); RED BLOOD COUNT 3.21 10^6/uL (4.00-5.40); WHITE BLOOD COUNT 13.3 10^3/uL (4.0-10.0)
[2019-05-11 04:37] LABS: CALCIUM LEVEL 8.2 MG/DL (8.8-10.2); CREATININE FOR GFR 2.96 MG/DL (0.55-1.30); GLOMERULAR FILTRATION RATE 16.9 (>45); POTASSIUM SERUM 3.9 MEQ/L (3.5-5.1)
--- NOTE | 2019-05-11 07:30 | IPN ---
DATE: 05/11/2019 SUBJECTIVE: The patient was seen and examined the bedside this morning. She reports that her headache is significantly better today she is still having some episodes of high blood pressures. However, her blood pressures are better today as compared with yesterday. She has a good urine output. Her renal function is not improving. However, her creatinine has plateaued at 2.6 now. The patient's urinalysis was done yesterday which showed 3+ protein. She denies any other active complaints. OBJECTIVE: VITAL SIGNS: Temperature is 98. Blood pressure 154/78, pulse is 59, respiratory of 18, saturating 98% on 2 liters by nasal cannula. Intake and output: Urine output recorded is 2.3 liters yesterday, 625 mL so far today since overnight. Weight in the bed scale is 59.8. PHYSICAL EXAMINATION: GENERAL: The patient is awake, alert, oriented times three, laying in bed in no apparent distress. HEAD AND NECK EXAM: Extraocular muscles intact. Pupils equally round and reactive to light. Mucous membranes are moist. Neck is supple. There is no jugular venous distention (JVD). CARDIOVASCULAR: S1, S2, regular rate. No edema of the bilateral lower extremities. RESPIRATORY: Chest is clear to auscultation bilaterally. Bilateral equal air entry. No rales or rhonchi. ABDOMEN: Soft. Positive bowel sounds. No bruits noted. MUSCULOSKELETAL: No clubbing or cyanosis. Pulses are 2+. CENTRAL NERVOUS SYSTEM (CHIEF AIRLINE RADIO OPERATOR): No focal deficit. Power is 5/5 in all extremities. LAB REVIEW: CBC showed WBC of 11.8, hemoglobin, 9.6, platelets 220. BMP showed sodium 139, potassium 3.8, chloride 107, bicarb 23, BUN 41, creatinine is 2.6, it was 2.6 yesterday as well, calcium is 8.3. Urinalysis done last night showed 3+ protein, 1+ blood. Random creatinine is 335. Random protein is about 326 which roughly translates into almost 8 grams of proteinuria BMP showed sodium 139, potassium 107, bicarb 23, BUN 41, creatinine is 2.6, calcium 8.3. IMAGING STUDIES: Ultrasound with Doppler showed evidence of medical renal disease with increased parenchyma and echogenicity. There was no hydronephrosis. There was an asymmetric increased velocity in the right renal artery which remained within the normal range suggests possibility of mid to early right renal artery stenosis. CURRENT INPATIENT MEDICATIONS: The patient's medications were all reviewed by me. She is getting regular labetalol every 6 hours. I am going to change it to every 4 hours. I have also increased the oral labetalol 300 mg by mouth twice a day. Primary team has also started her on hydralazine 25 mg by mouth every 6 hours. ASSESSMENT/PLAN: 1. Acute kidney injury secondary to combination of IV contrast dye and use of angiotensin converting enzyme inhibitors (TITO) inhibitors. Right renal artery stenosis needs to be rule out. I will discuss her ultrasound findings with vascular surgery, the recently done angiographic studies and mesenteric stenting. 2. Hypertensive urgency: The patient is still requiring IV labetalol. Oral labetalol has been increased. She continues to been on amlodipine. I see that she has been started on hydralazine again. The patient reports history of abdominal aortic aneurysm. Generally, I would avoid using high doses of her hydralazine in patients with abdominal artery aneurysm (AAA). 3. Rule out the right renal artery aneurysm as discussed above. I will discuss the case with vascular surgery in the morning. The patient has history of stenosis of the mesenteric arteries requiring stenting as well. 4. Proteinuria: The patient was found to have 3+ proteinuria. I have ordered autoimmune serology, including PENELOPE, ANCA, anti double-stranded DNA and a glomerular basement membrane antibody, SPEP, UPEP, hepatitis profile, complement levels and 24-hour urine protein. If the 24-hour urine protein is significant then the patient might need a renal biopsy to rule out the possibility of glomerulonephritis.
[2019-05-11 07:40] LABS: CRYOGLOBULINS NEGATIVE (NEGATIVE)
[2019-05-11 08:00] VITALS: BP 165/76
[2019-05-11] MEDS: CLOPIDOGREL 75 MG TAB PO SCH (08:26)
[2019-05-11] MEDS: PANTOPRAZOLE 40MG TAB (PROTONIX) PO SCH (08:26)
[2019-05-11] MEDS: DOCUSATE SODIUM 100 MG CAP PO SCH ×2 (08:26→20:59)
[2019-05-11] MEDS: BISACODYL 5 MG TAB PO PRN (08:26)
[2019-05-11] MEDS: FERROUS SULFATE 325MG TAB PO SCH (08:27)
[2019-05-11] MEDS: LABETALOL 100 MG TAB PO SCH ×2 (08:27→20:58)
[2019-05-11] MEDS: amLODIPine 5 MG TAB PO SCH ×2 (08:28→20:58)
[2019-05-11] MEDS: HEPARIN SOD (PORCINE) 5000 UNITS/ML VIAL SC SCH ×2 (10:20→21:01)
[2019-05-11] MEDS: ONDANSETRON 4MG/2ML VIAL (J2405) IV PRN (11:30)
[2019-05-11 11:34] LABS: HEPATITIS B SURFACE ANTIBODY NEGATIVE (POSITIVE)
[2019-05-11] MEDS: ADVAIR HFA 230/21MCG INHALER INH SCH ×2 (11:35→20:00)
[2019-05-11 11:44] LABS: HEPATITIS B SURFACE ANTIGEN NEGATIVE (NEGATIVE)
[2019-05-11 12:00] VITALS: BP 144/66
[2019-05-11 12:11] LABS: HEPATITIS B CORE ANTIBODY IGM NEGATIVE (NEGATIVE); HEPATITIS C VIRUS ABY INDEX 0.2 INDEX (<0.8)
--- NOTE | 2019-05-11 14:26 | CR.PDOC ---
General Date of Consultation: May 11, [address] Gamez. HPI: Patient is a 64-year-old female who was sent in to the ER by PMD, Dr. Hamm, for ARF which is not improving. She is concerned that Patient's GFR is now 16. In March patient was diagnosed with ischemic colitis and mesenteric ischemic s/p Stenting of her celiac artery x2 was performed on 03/14/19. During the hospitalization in March she developed ARF, which did not completely resolve. Per Dr. Hamm, She discontinued patient's ACEI and any meds that could contribute to her renal injury and did multiple outpt w/u without much improvement. Renal doppler revealed evidence of right renal artery stenosis but has not met doppler criteria for stenosis by ultrasound. vascular Surgery is consulted re LOLA. Denies any fevers, chills, weakness, fatigue, Headache, Chest Pain, Shortness of breath, cough, palpitations, abdominal pain, N/V/D or changes in bowel or bladder habits. PMHx: HTN, DLP, COPD, Interstitial cystitis, Osteoporosis, RA PSHX: celiac stent 03/25 FH - Mother with a history of breast cancer - Father with a history of pancreatic cancer Social History Denies the use of alcohol patient has quit smoking less than 5 years ago but was a smoker of greater than 30 years Lives alone in [place] ROS: As noted in HPI, otherwise 11pt ROS of systems reviewed and unremarkable. PE: GEN: 64yoF, appears stated age. Well-nourished, well developed. No acute distress. Alert and oriented x 3. Pleasant, interactive. HEENT: Normocephalic, atraumatic. Conjunctiva without injection. Moist mucous membranes. CHEST: Regular rate and rhythm, +S1, +S2 LUNGS: Clear to auscultation bilaterally. No wheezes, rales, or rhonchi. Breathing appears symmetric and easy. ABD: Round, soft, non-tender, non-distended. +Bowel sounds throughout. No rebound or guarding. EXT: No lower extremity edema appreciated. SKIN: [place], dry, warm. Capillary refill <2sec. No rashes. NEURO: Alert and oriented x 3. Cranial nerves III-XII are intact. No focal deficits appreciated. renal doppler Findings: The kidneys are hyperechoic suggesting chronic medical renal disease without hydronephrosis, nephrolithiasis, cystic or renal mass lesion. Right kidney measures 10.1 x 4.5 x 4.3 cm . Left kidney measures 10.7 x 4.6 x 4.2 cm . Bladder is empty. Color Doppler evaluation of the renal vasculature demonstrates parvus tardus w ave forms along with elevation to the right renal arterial velocity. Renal vein is patent. Right Kidney: Peak arterial velocity: 176.5 cm/sec . Renal aortic ratio: 2.9 . Resistive indices: 0.59 - 0.75 . Acceleration times: 0.02 - 0.06 . Left kidney: Peak arterial velocity: 75.6 cm/sec . Renal aortic ratio: 1.2 . Resistive indices: 0.63 - 0.65 . Acceleration times: 0.04 - 0.08 . Impression: 1. Evidence for medical renal disease with increased parenchymal echogenicity. No hydronephrosis. 2. A asymmetric increased velocity to the right renal artery remains within normal range but suggest the possibility of mild/early right renal artery stenosis. Dampened arterial wave forms bilaterally consistent with small vessel disease. Electronically Signed by Aj Whitley MD 05/10/2019 09:34 A A&P: 1. 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 Tentative plan as per Dr Gamez is for renal angiogram 05/12/19 to further asses. 2. S/P celiac stent 03/14/19. Pt is on Plavix daily. DVT prophylaxis. SQ Heparin. Vital Signs/I&O Vital Signs Date Time Temp Pulse Resp B/P (MAP) Pulse Ox O2 Delivery O2 Flow Rate FiO2 05/11/19 12:00 2.0 05/11/19 12:00 97.3 62 18 144/66 (92) 96 05/08/19 22:30 Room Air I&O- Last 24 Hours up to 6 AM 05/11/19 06:00 Intake Total 780 ml Output Total 1325 ml Balance -545 ml Laboratory Data Labs 24H Laboratory Tests 2 05/11/19 04:03: Immature Granulocyte % (Auto) 0.6, White Blood Count 13.3H, Red Blood Count 3.21L, Hemoglobin 9.7L, Hematocrit 29.8L, Mean Corpuscular Volume 92.8, Mean Corpuscular Hemoglobin 30.2, Mean Corpuscular Hemoglobin Concent 32.6, Red Cell Distribution Width 15.2H, Platelet Count 213, Neutrophils (%) (Auto) 58.1, Lymphocytes (%) (Auto) 23.0L, Monocytes (%) (Auto) 7.5H, Eosinophils (%) (Auto) 10.2H, Basophils (%) (Auto) 0.6, Neutrophils # (Auto) 7.7, Lymphocytes # (Auto) 3.1, Monocytes # (Auto) 1.0H, Eosinophils # (Auto) 1.4H, Basophils # (Auto) 0.1, Nucleated Red Blood Cells % (auto) 0.0, Anion Gap 8, Glomerular Filtration Rate 16.9L, Blood Urea Nitrogen 43H, Creatinine 2.96H, Sodium Level 138, Potassium Level 3.9, Chloride Level 105, Carbon Dioxide Level 25, Calcium Level 8.2L CBC/BMP Laboratory Tests 05/11/19 04:03 Red Blood Count 3.21 L, Mean Corpuscular Volume 92.8, Mean Corpuscular Hemoglobin 30.2, Mean Corpuscular Hemoglobin Concent 32.6, Red Cell Distribution Width 15.2 H, Neutrophils (%) (Auto) 58.1, Lymphocytes (%) (Auto) 23.0 L, Monocytes (%) (Auto) 7.5 H, Eosinophils (%) (Auto) 10.2 H, Basophils (%) (Auto) 0.6, Neutrophils # (Auto) 7.7, Lymphocytes # (Auto) 3.1, Monocytes # (Auto) 1.0 H, Eosinophils # (Auto) 1.4 H, Basophils # (Auto) 0.1, Calcium Level 8.2 L Allergies Coded Allergies: Penicillins (Verified Allergy, Severe, anaphylaxis, 03/14/19) morphine (Verified Allergy, Severe, rash sob, 05/08/19) Home Medications Scheduled Amlodipine Besylate (Amlodipine Besylate) 5 Mg Tablet, 5 MG PO BID, (Reported) Atorvastatin Calcium (Atorvastatin Calcium) 10 Mg Tablet, 10 MG PO QHS, (Reported) Clopidogrel Bisulfate (Clopidogrel) 75 Mg Tablet, 75 MG PO DAILY for 30 Days, #30 Ferrous Gluconate (Ferrous Gluconate) 324 Mg Tablet, 324 MG PO DAILY, (Reported) Fluticasone Propion/Salmeterol (Advair Hfa 230-21 Mcg Inhaler) 12 Gm Hfa.aer.ad, 2 PUFF INH BID, (Reported) Labetalol HCl (Labetalol HCl) 100 Mg Tablet, 50 MG PO BID, (Reported) Pantoprazole Sodium (Pantoprazole Sodium) 40 Mg Tablet.dr, 40 MG PO QAM for 30 Days, #30 Scheduled PRN Albuterol Sulfate (Ventolin Hfa) 18 Gm Hfa.aer.ad, 2 PUFF INH Q6H PRN for SHORTNESS OF BREATH, (Reported) Radha Wilburn May 11, 2019 14:26
[2019-05-11 16:00] VITALS: BP 151/70
[2019-05-11] MEDS: ACETAMINOPHEN TAB 650MG DOSE (2X325MG) PO PRN (16:20)
--- NOTE | 2019-05-11 18:47 | IPN ---
DATE: 05/11/2019 SUBJECTIVE: The patient was seen and examined at the bedside today morning. Her antihypertensive regimen was changed yesterday. Her blood pressures are better controlled now. The patient is nonoliguric. She is making more than a liter of urine a day. However, there is no significant improvement in the renal function. Creatinine is actually worse today from 2.6 to 2.9 today. She is collecting 24-hour urine for protein, creatinine and a urine protein electrophoresis. She denies any active complaints. OBJECTIVE: VITAL SIGNS: Temperature is 97.3 degrees Fahrenheit, blood pressure 144/66, pulse is 62, respiratory rate of 18, saturating 96% on two liters via nasal cannula. INTAKE AND OUTPUT: Urine output recorded is 1.3 liters yesterday, 850 mL so far today since overnight. Weight in the bed scale is 58.9 kg. PHYSICAL EXAMINATION: GENERAL: The patient is awake, alert, oriented times three, laying in bed, in no apparent distress. HEAD AND NECK: Extraocular muscles intact. Pupils equally round and reactive to light. Mucous membranes are moist. Neck is supple. There is no jugular venous distention (JVD). CARDIOVASCULAR: S1, S2, regular rate. No edema of the bilateral lower extremities. RESPIRATORY: Chest is clear to auscultation bilaterally. Bilateral equal air entry. No rales or rhonchi. ABDOMEN: Soft. Positive bowel sounds. Nontender. No organomegaly. MUSCULOSKELETAL: No clubbing or cyanosis. Pulses are 2+. CENTRAL NERVOUS SYSTEM (POINTER MACHINE OPERATOR): No focal deficit. Power is 5/5 in all extremities. LABORATORY REVIEW: CBC showed a WBC of 13.3, hemoglobin 9.7, platelets are 213. BMP showed sodium 138, potassium 3.9, chloride 105, bicarbonate 25, BUN 43, creatinine is 2.9, calcium 8.2. IMMUNOLOGY: Serum cryoglobulins are negative, C3 is 124, C4 is 40. Hepatitis B is negative, hepatitis C is negative as well. CURRENT INPATIENT MEDICATIONS: The patient's medications were all reviewed by me. Labetalol IV was changed to 10 mg every four hours and oral has been changed 300 mg by mouth twice a day. Oral hydralazine has been stopped now. ASSESSMENT AND PLAN: 1. Acute nonoliguric renal failure. There is no significant improvement in the renal function. Creatinine has been fluctuating between 2.6 to 2.9. Because of questionable right renal artery stenosis, I have discussed the case with vascular surgery. They are going to review the old studies and if needed, the patient will need a right renal angiogram and possible stenting. 2. Accelerated hypertension. The patient's antihypertensive regimen is being increased. Labetalol has been increased to 300 mg by mouth twice a day. Continue amlodipine 5 mg by mouth twice a day. Avoid use of angiotensin-converting enzyme (TITO) inhibitors or angiotensin-receptor blockers because of acute renal failure. 3. Proteinuria. Most of the serology is pending. Cryoglobulins and hepatitis B and C is negative so far. The 24-hour urine protein levels are still pending. 4. Rule out right renal artery stenosis. Vascular surgery consult was requested. Possible angiogram will be done tomorrow morning. The patient already has history of celiac artery stent in March. Continue antiplatelet therapy.
[2019-05-11 19:36] LABS: URINE VOLUME 1400 ML
[2019-05-11 20:00] VITALS: BP 194/90
[2019-05-11] MEDS: ATORVASTATIN 10 MG TAB PO SCH (20:59)
[2019-05-11 23:58] VITALS: BP 181/77
[2019-05-12] VITALS (7 sets, daily range): BP systolic 150–200; BP diastolic 64–84
[2019-05-12] MEDS: ONDANSETRON 4MG/2ML VIAL (J2405) IV PRN ×2 (00:09→08:56)
[2019-05-12] MEDS: LABETALOL HCL 100 MG/20 ML VIAL IV SCH ×6 (00:14→21:00)
[2019-05-12 05:20] LABS: BASO # 0.1 10^3/uL (0.0-0.2); BASO % 0.6 % (0.0-1.0); EOS # 1.3 10^3/uL (0.0-0.50); EOS % 9.6 % (0.0-3.0); HEMATOCRIT 27.9 % (36.0-47.0); HEMOGLOBIN 9.1 g/dl (12.0-15.5); LYMPH % 22.6 % (24.0-44.0); MEAN CORPUSCULAR HEMOGLOBIN 29.6 pg (27.0-33.0); MEAN CORPUSCULAR HGB CONC 32.6 g/dl (32.0-36.5); MEAN CORPUSCULAR VOLUME 90.9 fl (80.0-96.0); MONO # 0.9 10^3/uL (0.0-0.8); MONO % 6.9 % (0.0-5.0); NEUTROPHILS # 7.8 10^3/uL (1.8-7.7); NEUTROPHILS % 59.7 % (36.0-66.0); PLATELET COUNT, AUTOMATED 204 10^3/uL (150-450); RED BLOOD COUNT 3.07 10^6/uL (4.00-5.40); WHITE BLOOD COUNT 13.1 10^3/uL (4.0-10.0)
[2019-05-12 05:45] LABS: CALCIUM LEVEL 8.3 MG/DL (8.8-10.2); CREATININE FOR GFR 3.18 MG/DL (0.55-1.30); GLOMERULAR FILTRATION RATE 15.6 (>45); POTASSIUM SERUM 3.7 MEQ/L (3.5-5.1)
[2019-05-12 06:05] LABS: CREATININE 24 HOUR, URINE 614.6 MG/24HR (600-1800); CREATININE, URINE 43.9 MG/DL; TOTAL PROTEIN 24 HOUR URINE 3858.4 MG/24HR (50-150); URINE TOTAL PROTEIN 275.6 MG/DL (0-12)
[2019-05-12] MEDS: ADVAIR HFA 230/21MCG INHALER INH SCH ×2 (08:15→20:00)
[2019-05-12] MEDS: CLOPIDOGREL 75 MG TAB PO SCH (08:20)
[2019-05-12] MEDS: amLODIPine 5 MG TAB PO SCH ×2 (08:20→21:01)
[2019-05-12] MEDS: PANTOPRAZOLE 40MG TAB (PROTONIX) PO SCH (08:20)
[2019-05-12] MEDS: LABETALOL 100 MG TAB PO SCH ×2 (08:21→21:51)
[2019-05-12] MEDS: DOCUSATE SODIUM 100 MG CAP PO SCH ×2 (08:21→21:01)
[2019-05-12] MEDS: FERROUS SULFATE 325MG TAB PO SCH (08:21)
[2019-05-12] MEDS: HEPARIN SOD (PORCINE) 5000 UNITS/ML VIAL SC SCH ×2 (08:21→21:00)
[2019-05-12 08:59] LABS: PROTHROMBIN TIME 12.9 SECONDS (11.8-14.0)
[2019-05-12 09:00] LABS: PARTIAL THROMBOPLASTIN TIME 32.6 SECONDS (25.0-38.4)
--- NOTE | 2019-05-12 10:16 | IPN ---
DATE: 05/12/2019 Patient complains of diffuse headache without rhinorrhea or photophobia. No fever or chills overnight. Repeat blood pressure however, from 181/84 is currently 131/74, at the bedside. She is on labetalol 300 mg twice a day, Norvasc 5 mg twice a day. Plans for stent placement due to findings of renal artery stenosis is deferred to vascular surgery. The patient has many questions and is requesting to speak with vascular surgery. She is afraid of procedures and would like to have general anesthesia. She otherwise denies any chest pain, pressure or tightness. She complains of some blurred vision, which is chronic for her. She has had headaches before at home and this does not feel any different. She otherwise denies nausea, vomiting, epigastric discomfort, feeling of impending doom or diaphoresis. White count slightly elevated at 13, but she denies dysuria, urgency or frequency, nausea, vomiting, abdominal pain, diarrhea or constipation. Creatinine remains elevated at 3.18. VITAL SIGNS: Temperature 97.3, pulse 72, respiratory rate 20, blood pressure 181/84, 97% on 2 liters nasal cannula. General: Patient is awake, alert, oriented times three, answering questions appropriately. No use of respiratory accessory muscles. No jugular venous distention (JVD). No thyromegaly. No cervical lymphadenopathy. Moist mucous membranes. Lungs are clear to auscultation. No wheezes, rales or rhonchi. Heart S1, S2, sinus rhythm. No murmurs, rubs or gallops. Abdomen is soft, nontender, nondistended. Positive bowel sounds. Extremities no cyanosis or clubbing. CBC, metabolic panel notable for a white count of 13.1, hemoglobin 9.1, hematocrit 27, creatinine of 3.18, increased from 2.96. Intake and output: 810 mL in, output 1500 mL, negative 690 mL. Current weight is 59 kg from admission weight of 58.18 kg. IMAGING STUDIES: Doppler ultrasound 05/10/2019 shows a symmetric increased velocity to the right renal artery remain within normal, but suggests possibility of early right renal artery stenosis. ASSESSMENT/PLAN: This is a 64-year-old female with past medical history significant for hypertension, hyperlipidemia, chronic obstructive pulmonary disease (COPD), interstitial cystitis, osteoporosis, rheumatoid arthritis, history of ischemic colitis and mesenteric ischemia who presented due to uncontrolled hypertension with increased creatinine from 1.2 to 2.8. The patient did have stenting of the mesenteric vessels in March 2019 with baseline creatinine of 0.8. CURRENT ISSUES: 1. Acute on chronic renal failure secondary to possible early right renal artery stenosis with history of mesenteric ischemia with stenting of the mesenteric vessels. Defer this to Dr. Gamez of vascular surgery for stenting. She is currently on labetalol 300 mg twice a day managed by nephrology. 2. Hypertensive urgency secondary to right renal artery stenosis. Managed by nephrology. She is on 300 mg of labetalol twice a day. Current pulse is 72-80. Beside blood pressure on repeat from 181/84 is to 134/74. Intake and output are monitored. 3. History of mesenteric ischemia status post stenting of celiac artery times on 03/14/2019 and ischemic colitis. Currently has no abdominal complaints or weight loss. 4. Dyslipidemia. On Lipitor. 5. COPD on home inhalers. 6. History of osteoporosis complicating care. 7. History of rheumatoid arthritis complicating care. 8. Deep vein thrombosis (DVT) prophylaxis with subcutaneous heparin.
--- NOTE | 2019-05-12 11:06 | IPNPDOC ---
Date Seen The patient was seen on 05/12/19. Progress Note Vascular Surgery. Dr Gamez. HPI: Patient is a 64-year-old female who was sent in to the ER by PMD, Dr. Hamm, for ARF which is not improving. She is concerned that Patient's GFR is now 16. In March patient was diagnosed with ischemic colitis and mesenteric ischemic s/p Stenting of her celiac artery x2 was performed on 03/14/19. During the hospitalization in March she developed ARF, which did not completely resolve. Per Dr. Hamm, She discontinued patient's ACEI and any meds that could contribute to her renal injury and did multiple outpt w/u without much improvement. Renal doppler revealed evidence of right renal artery stenosis but has not met doppler criteria for stenosis by ultrasound. vascular Surgery is consulted re LOLA. Pt had some questions re angiogram which were answered this Am. PMHx: HTN, DLP, COPD, Interstitial cystitis, Osteoporosis, RA PSHX: celiac stent 03/25 PE: GEN: 64yoF, appears stated age. Alert and oriented x 3. HEENT: Normocephalic, atraumatic. Moist mucous membranes. CHEST: Regular rate and rhythm, +S1, +S2 LUNGS: Clear to auscultation bilaterally. No wheezes, rales, or rhonchi. B ABD: Round, soft, non-tender, non-distended. EXT: No lower extremity edema appreciated. SKIN: [place], dry, warm. o rashes. NEURO: Alert and oriented x 3. Cranial nerves III-XII are intact. No focal deficits appreciated. renal doppler Findings: The kidneys are hyperechoic suggesting chronic medical renal disease without hydronephrosis, nephrolithiasis, cystic or renal mass lesion. Right kidney measures 10.1 x 4.5 x 4.3 cm . Left kidney measures 10.7 x 4.6 x 4.2 cm . Bladder is empty. Color Doppler evaluation of the renal vasculature demonstrates parvus tardus wave forms along with elevation to the right renal arterial velocity. Renal vein is patent. Right Kidney: Peak arterial velocity: 176.5 cm/sec . Renal aortic ratio: 2.9 . Resistive indices: 0.59 - 0.75 . Acceleration times: 0.02 - 0.06 . Left kidney: Peak arterial velocity: 75.6 cm/sec . Renal aortic ratio: 1.2 . Resistive indices: 0.63 - 0.65 . Acceleration times: 0.04 - 0.08 . Impression: 1. Evidence for medical renal disease with increased parenchymal echogenicity. No hydronephrosis. 2. A asymmetric increased velocity to the right renal artery remains within normal range but suggest the possibility of mild/early right renal artery stenosis. Dampened arterial wave forms bilaterally consistent with small vessel disease. Electronically Signed by Aj Whitley MD 05/10/2019 09:34 A A&P: 1. 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 Tentative plan as per Dr Gamez is for renal angiogram 05/13 or 05/14/19 to further asses. 2. S/P celiac stent 03/14/19. Pt is on Plavix daily. DVT prophylaxis. SQ Heparin. VS, I&O, 24H, Fishbone Vital Signs/I&O Vital Signs Date Time Temp Pulse Resp B/P (MAP) Pulse Ox O2 Delivery O2 Flow Rate FiO2 05/12/19 08:20 152/76 05/12/19 08:00 2.0 05/12/19 08:00 97.8 70 18 100 05/08/19 22:30 Room Air I&O- Last 24 Hours up to 6 AM 05/12/19 05:59 Intake Total 510 ml Output Total 1050 ml Balance -540 ml Laboratory Data 24H LABS Laboratory Tests 2 05/12/19 05:03: Immature Granulocyte % (Auto) 0.6, White Blood Count 13.1H, Red Blood Count 3.07L, Hemoglobin 9.1L, Hematocrit 27.9L, Mean Corpuscular Volume 90.9, Mean Corpuscular Hemoglobin 29.6, Mean Corpuscular Hemoglobin Concent 32.6, Red Cell Distribution Width 15.4H, Platelet Count 204, Neutrophils (%) (Auto) 59.7, Lymphocytes (%) (Auto) 22.6L, Monocytes (%) (Auto) 6.9H, Eosinophils (%) (Auto) 9.6H, Basophils (%) (Auto) 0.6, Neutrophils # (Auto) 7.8H, Lymphocytes # (Auto) 3.0, Monocytes # (Auto) 0.9H, Eosinophils # (Auto) 1.3H, Basophils # (Auto) 0.1, Nucleated Red Blood Cells % (auto) 0.0, Anion Gap 7L, Glomerular Filtration Rate 15.6L, Blood Urea Nitrogen 42H, Creatinine 3.18H, Sodium Level 138, Potassium Level 3.7, Chloride Level 105, Carbon Dioxide Level 26, Calcium Level 8.3L 05/12/19 08:11: Prothrombin Time 12.9, Prothromb Time International Ratio 1.00, Activated [place] l Thromboplast Time 32.6 CBC/BMP Laboratory Tests 05/12/19 05:03 Red Blood Count 3.07 L, Mean Corpuscular Volume 90.9, Mean Corpuscular Hemoglobin 29.6, Mean Corpuscular Hemoglobin Concent 32.6, Red Cell Distribution Width 15.4 H, Neutrophils (%) (Auto) 59.7, Lymphocytes (%) (Auto) 22.6 L, Monocytes (%) (Auto) 6.9 H, Eosinophils (%) (Auto) 9.6 H, Basophils (%) (Auto) 0.6, Neutrophils # (Auto) 7.8 H, Lymphocytes # (Auto) 3.0, Monocytes # (Auto) 0.9 H, Eosinophils # (Auto) 1.3 H, Basophils # (Auto) 0.1, Calcium Level 8.3 L Radha Wilburn May 12, 2019 11:06
[2019-05-12] MEDS ORDERED: PROMETHAZINE INJ 25 MG/ML VIAL (J2550) IV ONE (11:30)
[2019-05-12] MEDS ORDERED: PROMETHAZINE INJ 25 MG/ML VIAL (J2550) IV PRN (11:30)
[2019-05-12 14:05] LABS: ALBUMIN % 53.5 % (55.8-66.1); ALPHA-1-GLOBULIN % 5.7 % (2.9-4.9); BETA-1-GLOBULINS % 5.4 % (4.7-7.2); BETA-2-GLOBULINS % 5.6 % (3.2-6.5); GAMMA GLOBULIN % 21.8 % (11.1-18.8)
[2019-05-12 14:06] LABS: ALBUMIN 3.91 GM/DL (3.29-5.55); ALPHA-1-GLOBULINS 0.42 GM/DL (0.17-0.41); ALPHA-2-GLOBULINS 0.58 GM/DL (0.42-0.99); BETA-1-GLOBULINS 0.39 GM/DL (0.28-0.60); BETA-2-GLOBULINS 0.41 GM/DL (0.19-0.55); GAMMA GLOBULINS 1.59 GM/DL (0.65-1.58)
[2019-05-12] MEDS: RESTASIS 0.05% OU SCH (21:00)
[2019-05-12] MEDS: ATORVASTATIN 10 MG TAB PO SCH (21:00)
[2019-05-13] VITALS (7 sets, daily range): BP systolic 110–176; BP diastolic 72–94
[2019-05-13] MEDS: ACETAMINOPHEN TAB 650MG DOSE (2X325MG) PO PRN (03:27)
[2019-05-13] MEDS: LABETALOL HCL 100 MG/20 ML VIAL IV SCH ×6 (04:00→20:35)
[2019-05-13 06:06] LABS: BASO # 0.1 10^3/uL (0.0-0.2); BASO % 0.6 % (0.0-1.0); EOS # 1.1 10^3/uL (0.0-0.50); HEMATOCRIT 29.5 % (36.0-47.0); HEMOGLOBIN 9.4 g/dl (12.0-15.5); LYMPH # 2.3 10^3/uL (1.5-4.5); MEAN CORPUSCULAR HEMOGLOBIN 29.2 pg (27.0-33.0); MEAN CORPUSCULAR HGB CONC 31.9 g/dl (32.0-36.5); MEAN CORPUSCULAR VOLUME 91.6 fl (80.0-96.0); MONO # 0.8 10^3/uL (0.0-0.8); MONO % 7.7 % (0.0-5.0); NEUTROPHILS # 6.5 10^3/uL (1.8-7.7); NEUTROPHILS % 60.1 % (36.0-66.0); PLATELET COUNT, AUTOMATED 225 10^3/uL (150-450); RED BLOOD COUNT 3.22 10^6/uL (4.00-5.40); WHITE BLOOD COUNT 10.8 10^3/uL (4.0-10.0)
[2019-05-13 06:27] LABS: CALCIUM LEVEL 8.3 MG/DL (8.8-10.2); CREATININE FOR GFR 3.67 MG/DL (0.55-1.30); GLOMERULAR FILTRATION RATE 13.2 (>45); POTASSIUM SERUM 3.8 MEQ/L (3.5-5.1)
--- NOTE | 2019-05-13 07:45 | IPN ---
DATE: 05/12/2019 Ms. Rivera is seen this morning on her bedside. She was sleeping and I woke her up. She denies any headache, dyspnea or chest pain. She was admitted with accelerated hypertension and worsening kidney function. Over last few days, her blood pressure control has improved with medication adjustment. However, her kidney function continues to decline. She denies any nausea or vomiting. On physical exam, temperature 98 degrees Fahrenheit, heart rate 68 per minute and respiratory rate 18 per minute. Blood pressure 150/80 mmHg and oxygen saturation 99%. Intake and output records from yesterday showed intake 810 and output 1500. She weighed 59 kg today which is essentially unchanged for last 5 days. Her head is atraumatic. Neck is supple and without jugular venous distention (JVD) or thyroid enlargement. Heart sounds are regular and lungs clear to auscultation. Abdomen: Soft and nontender and bowel sounds are normal. Extremities have no cyanosis or clubbing. She has no peripheral edema. Neurologically she is awake and at her baseline mentation without a focal deficit. Today's labs show sodium 138, potassium 3.7, CO2 26, BUN 42 and creatinine 3.18. Glucose 101 and calcium 8.3. Her total urine protein on 24-hour urine came back 3858 mg. A urine protein electrophoresis is still pending. 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 PROBLEMS: 1. Acute renal failure. The patient has progressive decline in kidney function. She also has significant proteinuria and her complements came back normal. Serum cryoglobulin was negative. Other serology is still pending. I have discussed with her and explained to her about potential need for a diagnostic kidney biopsy. Her PT and PTT is being ordered for today. She will be scheduled for kidney biopsy within the next couple of days as her blood pressure control improves. 2. Accelerated hypertension. Her blood pressure has been better controlled now with adjustment in medications. We will continue to monitor closely and adjust her medications as needed. 3. Proteinuria. Likely that she has proteinuria related to glomerular disease as she also had 1+ blood in her urine. Hypertensive nephrosclerosis with uncontrolled hypertension could also cause proteinuria; however, she has rapid decline in kidney function and I suspect a rapidly progressive glomerulonephritis. I have explained the situation to the patient and she understands the potential need for continued stay in hospital and need for a diagnostic kidney biopsy. All her questions were answered.
[2019-05-13] MEDS: ADVAIR HFA 230/21MCG INHALER INH SCH ×2 (08:16→20:00)
[2019-05-13] MEDS: PANTOPRAZOLE 40MG TAB (PROTONIX) PO SCH (09:47)
[2019-05-13] MEDS: LABETALOL 100 MG TAB PO SCH ×2 (09:48→21:27)
[2019-05-13] MEDS: CLOPIDOGREL 75 MG TAB PO SCH (09:48)
[2019-05-13] MEDS: DOCUSATE SODIUM 100 MG CAP PO SCH ×2 (09:48→20:36)
[2019-05-13] MEDS: amLODIPine 5 MG TAB PO SCH ×2 (09:48→20:36)
[2019-05-13] MEDS: FERROUS SULFATE 325MG TAB PO SCH (09:49)
[2019-05-13] MEDS: HEPARIN SOD (PORCINE) 5000 UNITS/ML VIAL SC SCH (09:49)
[2019-05-13] MEDS: RESTASIS 0.05% OU SCH ×2 (10:03→20:42)
[2019-05-13 10:24] LABS: URINE TOTAL PROTEIN 275.6 MG/DL (0-12)
[2019-05-13] MEDS ORDERED: SLF 3 ML SYR IV PRN (12:00)
[2019-05-13] MEDS: SLF 3 ML SYR IV SCH ×2 (14:09→20:42)
--- NOTE | 2019-05-13 14:22 | REP ---
REASON: Dyspnea. COMPARISON: 03/15/2019. Bibasilar opacities are noted and appear to be improved, however, the examinations are markedly technically different. The heart is not enlarged. There is mild bilateral CP angle blunting which also appears to have improved slightly. There are no new abnormalities. IMPRESSION: Possible basilar improvement as described above. Electronically Signed by Yuniel Mcarthur DO 05/13/2019 05:14 P
[2019-05-13 14:32] LABS: ERYTHROCYTE SEDIMENTATION RATE 67 mm/hr (0-30)
--- NOTE | 2019-05-13 17:59 | IPN ---
DATE: 05/13/2019 Patient seen and examined at the bedside. Chart has been reviewed. This morning, patient denies any chest pain, pressure or tightness, lightheadedness or dizziness. Her blood pressure is significantly improved, currently on labetalol 300 mg by mouth twice a day and labetalol 10 mg IV every four hours with blood pressure of 110/82, pulse of 72. She denies any lightheadedness, dizziness, or headaches this morning. She is planned for a renal artery stenosis stent placement on . Currently denies any nausea, vomiting, or epigastric discomfort. VITAL SIGNS: Temperature 97.6, pulse 72, respiratory rate 20, blood pressure 110/82, 99% on two liters nasal cannula. GENERAL: Patient is awake, alert and oriented to person, place and time, answering questions appropriately. Face is symmetric. Speaks in full sentences. No respiratory use of accessory muscles. No jugular venous distention (JVD). Neck is supple. No thyromegaly. RESPIRATORY: Lung sounds are clear to auscultation. No wheezing or rales. HEART: S1, S2, sinus rhythm. ABDOMEN: Soft, nontender, nondistended. EXTREMITIES: No cyanosis, clubbing, or any pitting edema. LABORATORY DATA: Reviewed. Notable for a slight white count of 10.8, hemoglobin 9.4, hematocrit of 29, and a creatinine of 3.67, slightly increased from 3.18 yesterday. Input overnight was 1380, output of 850, positive 530. Current weight is 59.2 kg from admission weight of 58.18 kg. Chest x-ray 05/13/2019 shows basilar improvement with mild bilateral costophrenic angle blunting which appears to have improved. There are no new abnormalities. ASSESSMENT AND PLAN: A 64-year-old female with history of hypertension, hyperlipidemia, chronic obstructive pulmonary disease (COPD), interstitial cystitis, osteoporosis, rheumatoid arthritis (RA), ischemic colitis, mesenteric ischemia who presented with uncontrolled hypertension and acute on chronic renal failure to 2.8. Patient had stenting of the mesenteric vessels in March 2019 and had baseline creatinine of 0.8. CURRENT ACTIVE ISSUES: 1. Renal artery stenosis with acute on chronic renal failure. Dr. Gamez of vascular surgery has been consulted for stenting. Patient's blood pressure is currently better controlled on labetalol 300 mg by mouth twice a day managed by nephrology and 100 mg IV every four hours of labetalol. 2. Hypertensive urgency, secondary to right renal artery stenosis, managed by nephrology. Much more controlled today on IV labetalol 100 every four hours and 300 mg by mouth twice a day. Input and output have been monitored. Patient's creatinine is slightly increased but the same glomerular filtration rate (GFR). Currently on Norvasc. 3. Right renal artery stenosis causing hypertensive urgency and renal failure, managed by nephrology and stenting to be planned by Dr. Gamez, vascular surgery. 4. History of mesenteric ischemia, status post stenting of celiac artery on 03/14/2009 and history of ischemic colitis. Currently has no abdominal complaints, nausea, vomiting, abdominal pain or weight loss. 5. Dyslipidemia, on chronic Lipitor 10 mg at bedtime. 6. Chronic obstructive pulmonary disease (COPD). Resumed on her home inhalers. Currently has no wheezing on examination. 7. History of osteoporosis. Patient is at risk for falls. May resume medications after hospital discharge. 8. History of rheumatoid arthritis, complicating care. 9. Deep vein thrombosis (DVT) prophylaxis, on compression stockings. Heparin subcutaneously has been discontinued as well as the Plavix for planned stenting in the morning for renal artery stenosis. 10. Bowel regimen and bisacodyl per as needed. 11. Antiemetics, on Phenergan.
[2019-05-13] MEDS: ATORVASTATIN 10 MG TAB PO SCH (20:36)
[2019-05-13] MEDS ORDERED: methylPREDNISolone 500 MG, VIAL MATE ADAPTER 1 EACH in D5W 250 ML IV ONE (23:30)
[2019-05-14] VITALS (9 sets, daily range): BP systolic 128–180; BP diastolic 64–100
[2019-05-14] MEDS: ACETAMINOPHEN TAB 650MG DOSE (2X325MG) PO PRN (00:35)
[2019-05-14] MEDS: PANTOPRAZOLE 40MG TAB (PROTONIX) PO SCH ×2 (00:36→08:36)
[2019-05-14] MEDS: LABETALOL HCL 100 MG/20 ML VIAL IV SCH ×6 (00:37→20:19)
[2019-05-14] MEDS: SLF 3 ML SYR IV SCH ×3 (05:22→21:41)
[2019-05-14 05:39] LABS: BASO # 0.1 10^3/uL (0.0-0.2); EOS # 0.3 10^3/uL (0.0-0.50); EOS % 3.3 % (0.0-3.0); HEMOGLOBIN 9.5 g/dl (12.0-15.5); LYMPH # 1.2 10^3/uL (1.5-4.5); LYMPH % 12.6 % (24.0-44.0); MEAN CORPUSCULAR HEMOGLOBIN 29.9 pg (27.0-33.0); MEAN CORPUSCULAR HGB CONC 32.8 g/dl (32.0-36.5); MEAN CORPUSCULAR VOLUME 91.2 fl (80.0-96.0); MONO # 0.2 10^3/uL (0.0-0.8); MONO % 1.9 % (0.0-5.0); NEUTROPHILS # 7.4 10^3/uL (1.8-7.7); NEUTROPHILS % 80.4 % (36.0-66.0); PLATELET COUNT, AUTOMATED 230 10^3/uL (150-450); RED BLOOD COUNT 3.18 10^6/uL (4.00-5.40); WHITE BLOOD COUNT 9.2 10^3/uL (4.0-10.0)
[2019-05-14 05:59] LABS: CALCIUM LEVEL 8.4 MG/DL (8.8-10.2); CREATININE FOR GFR 3.4 MG/DL (0.55-1.30); GLOMERULAR FILTRATION RATE 14.4 (>45); POTASSIUM SERUM 4.5 MEQ/L (3.5-5.1)
[2019-05-14] MEDS: LABETALOL 100 MG TAB PO SCH ×2 (08:36→21:41)
[2019-05-14] MEDS: amLODIPine 5 MG TAB PO SCH ×2 (08:37→20:19)
[2019-05-14] MEDS: DOCUSATE SODIUM 100 MG CAP PO SCH ×2 (08:37→20:19)
[2019-05-14] MEDS: FERROUS SULFATE 325MG TAB PO SCH (08:37)
[2019-05-14] MEDS: RESTASIS 0.05% OU SCH ×2 (08:37→20:19)
[2019-05-14] MEDS: ADVAIR HFA 230/21MCG INHALER INH SCH ×2 (08:51→20:00)
[2019-05-14] MEDS ORDERED: fentaNYL 100 MCG/2 ML INJECTION (J3010) As Ordered ONE (12:13)
[2019-05-14] MEDS ORDERED: diphenhydrAMINE INJ 50MG/ML VIAL (J1200) As Ordered ONE (12:13)
[2019-05-14] MEDS ORDERED: MIDAZOLAM INJ 2 MG/2 ML VIAL (J2250) As Ordered ONE (12:14)
--- NOTE | 2019-05-14 12:20 | IRMSE ---
[facility] IR Moderate Sedation Eval. Date and Time Date: May 14, 2019 Time: 12:19 ASA Classification ASA Classification: III-Severe systemic dis. Mallampati Score: I NPO: Yes Obstructive Sleep Apnea: No Interval Plan: moderate sedation KENNY PALACIOS MD May 14, 2019 12:20
--- NOTE | 2019-05-14 13:26 | POST-OPPD ---
Postoperative Procedure Note Date Of Procedure: May 14, 2019 Time Of Procedure: 13:22 PREOPERATIVE DIAGNOSIS: renal disease POSTOPERATIVE DIAGNOSIS: renal disease FINDINGS: unremarkable right kidney PROCEDURE: right kidney biopsy SURGEON: sowmya ANESTHESIA: moderate sedation SPECIMENS: 3 cores ESTIMATED BLOOD LOSS: < 5 m COMPLICATIONS: none POSTOPERATIVE CONDITION: stable KENNY PALACIOS MD May 14, 2019 13:25
[2019-05-14 14:51] LABS: ANCA-ATYPICAL <1:20 titer (Neg:<1:20); ANTI DS-DNA AB <1:10 titer (.); ANTINUCLEAR ANTIBODIES DIRECT Negative (Negative); CYTOPLASMIC NEUTROP AB ANCA-C <1:20 titer (Neg:<1:20); HEPATITIS B CORE ANTIBODY IGG Negative (Negative); PERINUCLEAR AB ANCA-P <1:20 titer (Neg:<1:20)
[2019-05-14 14:58] LABS: UPEP INTERPRETATION NO M-SPIKE NOTED
--- NOTE | 2019-05-14 15:17 | REP ---
IR ultrasound-guided kidney biopsy. IR moderate sedation. Clinical information: Renal Failure. Physician: Dr. Hopkins. Procedure: The patient was advised of the benefits, risks and alternatives of the procedure and informed consent was obtained. The time-out was performed with verification of the patient's name, MRN, site of procedure and type of procedure to be performed. The patient was positioned in the prone position on the table. The site was prepped and draped in the usual sterile fashion. Moderate sedation was performed by the physician including the presence of an independent trained observer who assisted in monitoring the patient's level of consciousness and physiologic status. Following the administration Fentanyl and Versed, the physician spent 45 minutes of continuous face to face time with the patient. Preliminary ultrasound of the kidneys demonstrates no hydronephrosis. The anticipated puncture site was anesthetized with lidocaine. Under ultrasound guidance a 17 G coaxial needle was inserted into the lower pole of the right kidney. A 18 Gauge biopsy device was inserted through the coaxial needle under ultrasound guidance and used to obtain core biopsies of the right Kidney. The specimen was labeled with the patient's name and medical record number and sent for further analysis. The coaxial needle and biopsy device were removed, pressure held and hemostasis achieved. A follow-up ultrasound through the area demonstrates no significant hematoma. A sterile dressing was applied to the site. The patient tolerated the procedure well and was returned to the PRU in stable condition. EBL: < 5 ml. Complications: None. Conclusion: 1. Ultrasound right Kidney demonstrates no gross abnormality. 2. Successful ultrasound-guided core kidney biopsy. Patient to follow up with referring provider for biopsy results. Thank you for this referral. Electronically Signed by Malka Hopkins MD 05/14/2019 03:15 P
--- NOTE | 2019-05-14 17:22 | IPN ---
DATE: 05/13/2019 SUBJECTIVE: The patient was seen and examined the bedside today morning. The patient is awake and alert. Her renal function continues to deteriorate. Her creatinine is up to 3.7 today. She has 3.8 grams proteinuria on 24-hour urine. Blood pressure is controlled with IV and oral labetalol along with amlodipine. I discussed the case with interventional radiology and vascular surgery. I am going to hold off on right renal angiogram as I strongly believe that the patient's acute renal failure is because of possible glomerulonephritis since unilateral renal artery stenosis would not cause such severe proteinuria and renal failure. Serologies pending, but I have discussed with interventional radiology to get a renal biopsy. Interventional radiology is aware that the patient has taken dose of Plavix this morning, Plavix is being held. The patient will get renal biopsy under ultrasound guidance tomorrow. The patient denies any active complaints at this time. OBJECTIVE: Vital signs: Temperature is 98 degrees Fahrenheit, blood pressure 164/88, pulse is 70, respiratory of 18, saturating 99% on 2 liters by nasal cannula. Intake and output: Urine output recorded is only 850 mL yesterday, 650 mL so far today since overnight. Weight on the bed scale is 59.2 kg. PHYSICAL EXAMINATION: General: The patient is awake, alert, oriented times three, laying in bed in no apparent distress. Head and neck exam: Extraocular muscles intact. Pupils equally round and reactive to light. Mucous membranes are moist. Neck is supple. No jugular venous distention (JVD). CARDIOVASCULAR: S1, S2 regular rate. No edema of the bilateral lower extremities. RESPIRATORY: Chest is clear to auscultation bilaterally. Bilateral equal air entry. No rales or rhonchi. ABDOMEN: Soft. Positive bowel sounds. Nontender. No organomegaly. MUSCULOSKELETAL: No clubbing or cyanosis. Pulses are 2+. CENTRAL NERVOUS SYSTEM (SCROLL SAW OPERATOR): No focal deficit. Power is 5/5 in all extremities. LABORATORY REVIEW: Complete blood count (CBC) showed WBC of 10.8, hemoglobin 9.4, platelets are 225. Basic metabolic panel (BMP) showed sodium 138, potassium 3.8, chloride 104, bicarbonate 23, BUN 41, creatinine is 3.6, it was 3.1 yesterday, calcium 8.3. Immunology is pending. CURRENT INPATIENT MEDICATIONS: The patient's medications were all reviewed by me. I have ordered a dose of Solu-Medrol 500 mg IV times one dose. Her Plavix has been held. Heparin subcutaneous is also being stopped. Protonix orally is being stopped and she is being started on Protonix 40 mg IV daily. ASSESSMENT/PLAN: 1. Acute nonoliguric renal failure. The patient has nephrotic range proteinuria with declining renal function, mild hematuria, elevated blood pressure. There is a strong suspicion for glomerulonephritis. I am going to give the patient a dose of Solu-Medrol 500 mg IV times one dose. She is going to have the renal biopsy done tomorrow. 2. Accelerated hypertension. The patient continues to be on amlodipine and oral labetalol and IV labetalol. She is not a candidate for mysawzduazp-ujroxrymwi-lrfwdk (TITO) inhibitors or angiotensin receptor blockers. Not a candidate for hydralazine because of history of abdominal aortic aneurysm. Blood pressure is better controlled. If needed before the biopsy she will be given a dose of IV Labetalol. 3. Nephrotic range proteinuria. Autoimmune serology is still pending. SPEP showed polyclonal gammopathy. As mentioned above, the patient is going to have the renal biopsy tomorrow morning. Empirically Solu-Medrol 500 mg IV times one dose will be given today. 4. Rule out right renal artery stenosis. The patient has elevated resistive indices on renal Doppler however, because of acute renal failure and nephrotic range proteinuria, I would avoid getting the angiogram done in this patient until glomerulonephritis and vasculitis is ruled out. 5. Anemia and acute renal failure. Hemoglobin is 9.4, which is acceptable. 6. Status post RCA stent in March 2019. The patient was on Plavix, which is being held for the renal biopsy.
[2019-05-14] MEDS ORDERED: methylPREDNISolone 500 MG, VIAL MATE ADAPTER 1 EACH in D5W 250 ML IV ONE (18:00)
[2019-05-14] MEDS: ATORVASTATIN 10 MG TAB PO SCH (20:19)
[2019-05-15] VITALS (7 sets, daily range): BP systolic 160–172; BP diastolic 70–74
[2019-05-15] MEDS: LABETALOL HCL 100 MG/20 ML VIAL IV SCH ×6 (04:42→20:43)
[2019-05-15] MEDS: SLF 3 ML SYR IV SCH ×3 (05:22→22:49)
[2019-05-15 05:30] LABS: BASO % 0.2 % (0.0-1.0); EOS % 0.1 % (0.0-3.0); HEMATOCRIT 28.4 % (36.0-47.0); HEMOGLOBIN 9.1 g/dl (12.0-15.5); LYMPH # 1.5 10^3/uL (1.5-4.5); LYMPH % 8.6 % (24.0-44.0); MEAN CORPUSCULAR HEMOGLOBIN 29.7 pg (27.0-33.0); MEAN CORPUSCULAR VOLUME 92.8 fl (80.0-96.0); MONO # 0.4 10^3/uL (0.0-0.8); MONO % 2.5 % (0.0-5.0); NEUTROPHILS # 15.4 10^3/uL (1.8-7.7); NEUTROPHILS % 87.5 % (36.0-66.0); PLATELET COUNT, AUTOMATED 251 10^3/uL (150-450); RED BLOOD COUNT 3.06 10^6/uL (4.00-5.40); WHITE BLOOD COUNT 17.6 10^3/uL (4.0-10.0)
[2019-05-15 05:50] LABS: CALCIUM LEVEL 8.2 MG/DL (8.8-10.2); CREATININE FOR GFR 3.83 MG/DL (0.55-1.30); GLOMERULAR FILTRATION RATE 12.6 (>45); POTASSIUM SERUM 4.6 MEQ/L (3.5-5.1)
[2019-05-15] MEDS: ADVAIR HFA 230/21MCG INHALER INH SCH ×2 (08:03→20:00)
[2019-05-15] MEDS: DOCUSATE SODIUM 100 MG CAP PO SCH ×2 (09:01→22:48)
[2019-05-15] MEDS: FERROUS SULFATE 325MG TAB PO SCH (09:01)
[2019-05-15] MEDS: PANTOPRAZOLE 40MG TAB (PROTONIX) PO SCH (09:01)
[2019-05-15] MEDS: amLODIPine 5 MG TAB PO SCH ×2 (09:02→22:48)
[2019-05-15] MEDS: RESTASIS 0.05% OU SCH ×2 (09:05→21:00)
[2019-05-15] MEDS: LABETALOL 200 MG TAB PO SCH ×2 (10:18→22:49)
[2019-05-15] MEDS: CLOPIDOGREL 75 MG TAB PO SCH (12:24)
--- NOTE | 2019-05-15 15:47 | IPN ---
DATE: 05/14/2019 The patient is seen and examined at the bedside. Chart has been reviewed. This morning, the patient denies any headache, changes in vision, blood pressure 160 systolic. Denies chest pain, pressure, tightness, changes in vision, headaches. States that she is to have a renal biopsy planned for today. Pathology has been sent. Urine output overnight was a total of 650 and previously was 850. Current weight is 59.2 kg, which is unchanged from yesterday. VITAL SIGNS: Temperature 97.6, pulse 77, respiratory rate 18, blood pressure 168/92, 96% on 2 liters nasal cannula. GENERAL: The patient is awake, alert, oriented times three. Answering questions appropriately. No respiratory distress. No jugular venous distention (JVD). No cervical adenopathy. LUNGS: Clear to auscultation. No wheezing, rales or rhonchi. HEART: S1, S2. Sinus rhythm. Abdomen is soft, nontender, nondistended. Positive bowel sounds. EXTREMITIES: No pitting edema. LABORATORY DATA: Notable for a hemoglobin of 9.5, hematocrit of 29, creatinine of 3.4. ASSESSMENT AND PLAN: This is a 64-year-old female with hypertension, chronic obstructive pulmonary disease (COPD), osteoporosis, dyslipidemia, cystitis, rheumatoid arthritis, ischemic colitis, mesenteric ischemia, who presented with uncontrolled hypertension, acute on chronic renal failure with recent stenting of the mesenteric vessels in March 2019. CURRENT ISSUES: 1. Acute nonoliguric renal failure with no improvement with hydration, managed by nephrology. Currently status post Solu Medrol and renal biopsy with results pending. Due to hematuria and significant proteinuria, suspicions are for glomerular disease. Defer to nephrology for further treatment. 2. Uncontrolled hypertension. Avoiding xospvsjypia-lqkpysmdmv-wruskb (TITO) inhibitor, ARB. Patient has a history of aortic aneurysm and is not a candidate for vasodilators. Defer to nephrology. 3. Renal artery stenosis with acute on chronic renal failure. Defer to vascular surgery for stenting. The patient has been on labetalol 300 mg twice a day, managed by nephrology. 4. History of mesenteric ischemia, status post stenting of the celiac artery on 03/14/2019 and ischemic colitis. No abdominal complaints of nausea, vomiting, abdominal pain, weight loss or anorexia. 5. Dyslipidemia. On chronic Lipitor. 6. Chronic obstructive pulmonary disease (COPD). Resumed on home inhalers. No wheezing on examination. 7. Rheumatoid arthritis complicating care. 8. History of osteoporosis. Complicating care.
[2019-05-15] MEDS ORDERED: methylPREDNISolone 500 MG, VIAL MATE ADAPTER 1 EACH in D5W 250 ML IV ONE (18:00)
--- NOTE | 2019-05-15 20:04 | IPN ---
DATE: 05/14/2019 SUBJECTIVE: The patient was seen and examined at the bedside today morning. The patient was started on intravenous (IV) pulse steroids for possible acute glomerulonephritis along with renal failure and nephrotic-range proteinuria. She was given Solu-Medrol 500 mg IV last night. The patient was also nothing by mouth when I saw in the morning for ultrasound-guided renal biopsy. The patient reports that after getting Solu-Medrol she was jittery for some time; however, she is feeling good now. OBJECTIVE: Vital signs: Temperature is 98.2 degrees Fahrenheit, blood pressure 166/72, pulse is 86, respiratory of 18, saturating 99% on 2 liters by nasal cannula. Intake and output: Urine output recorded is 650 mL yesterday. There is no urine output recorded so far today since overnight. Weight in the bed scale is not available. PHYSICAL EXAMINATION: GENERAL: The patient is awake, alert, oriented times three, lying in bed in no apparent distress. HEAD AND NECK: Extraocular muscles intact. Pupils equally round and reactive to light. Mucous membranes are moist. Neck is supple. There is no jugular venous distention (JVD). CARDIOVASCULAR: S1, S2, regular rate. No edema of the bilateral lower extremities. RESPIRATORY: Chest is clear to auscultation bilaterally. Bilateral equal air entry. No rales or rhonchi. ABDOMEN: Soft. Positive bowel sounds. Nontender. No organomegaly. MUSCULOSKELETAL: No clubbing or cyanosis. Pulses are 2+. CENTRAL NERVOUS SYSTEM: No focal deficit. Power is 5/5 in all extremities. LABORATORY REVIEW: CBC showed WBC of 9.2, hemoglobin 9.5, platelets are 230. BMP showed sodium 136, potassium 4.5, chloride 104, bicarbonate 24, BUN 43, creatinine is 3.4; it was 3.6 yesterday. Calcium is 8.4. PENELOPE is negative. Atypical ANCA is negative. C-ANCA is negative. P-ANCA is negative. Antidouble-stranded DNA antibody is negative. Glomerular basement membrane antibody levels are still pending. CURRENT INPATIENT MEDICATIONS: The patient's medications were all reviewed by me. The patient was started on IV Protonix 40 mg daily. She was given one dose of Solu-Medrol IV last night. She will be given another dose of Solu-Medrol 500 mg IV tonight. No other change in the medications today as compared with yesterday. ASSESSMENT AND PLAN: 1. Acute nonoliguric renal failure. The patient has nephrotic-range proteinuria. Autoimmune serology is pending so far. There is no significant improvement in the renal function. She was empirically started on pulse steroids last night. A 500 mg dose was given yesterday and another 500 will be given tonight. The patient is going for an ultrasound-guided renal biopsy. Further immunosuppressive therapy will be directed once the preliminary results come back. 2. Accelerated hypertension. The patient's blood pressures are still high. I would avoid using angiotensin-converting enzyme (TITO) inhibitors or angiotensin receptor blockers. Continue current dose of amlodipine. She is also on labetalol oral and IV. I am increasing the oral labetalol dose to 400 mg by mouth twice a day with holding parameters. 3. Rule out right renal artery stenosis. The patient was scheduled for right renal angiogram; however, because of acute renal failure and possible acute vasculitis, angiogram has been postponed until the renal biopsy results come back. 4. Status post iliac artery stent in March 2019. The patient's Plavix is on hold for another day. It to be restarted tomorrow, since patient is just going to have the renal biopsy done.
[2019-05-15] MEDS: ATORVASTATIN 10 MG TAB PO SCH (22:49)
[2019-05-16] VITALS (8 sets, daily range): BP systolic 144–184; BP diastolic 76–94
[2019-05-16] MEDS: LABETALOL HCL 100 MG/20 ML VIAL IV SCH ×6 (00:42→21:02)
[2019-05-16 04:42] LABS: BASO % 0.1 % (0.0-1.0); HEMOGLOBIN 8.5 g/dl (12.0-15.5); LYMPH # 1.3 10^3/uL (1.5-4.5); LYMPH % 6.1 % (24.0-44.0); MEAN CORPUSCULAR HEMOGLOBIN 31.1 pg (27.0-33.0); MEAN CORPUSCULAR HGB CONC 32.7 g/dl (32.0-36.5); MEAN CORPUSCULAR VOLUME 95.2 fl (80.0-96.0); MONO # 0.3 10^3/uL (0.0-0.8); MONO % 1.5 % (0.0-5.0); NEUTROPHILS # 18.8 10^3/uL (1.8-7.7); NEUTROPHILS % 90.1 % (36.0-66.0); PLATELET COUNT, AUTOMATED 256 10^3/uL (150-450); RED BLOOD COUNT 2.73 10^6/uL (4.00-5.40); WHITE BLOOD COUNT 20.8 10^3/uL (4.0-10.0)
[2019-05-16 05:07] LABS: CALCIUM LEVEL 7.9 MG/DL (8.8-10.2); CREATININE FOR GFR 3.39 MG/DL (0.55-1.30); GLOMERULAR FILTRATION RATE 14.5 (>45); MAGNESIUM LEVEL 1.3 MG/DL (1.8-2.4); POTASSIUM SERUM 4.6 MEQ/L (3.5-5.1)
[2019-05-16] MEDS: SLF 3 ML SYR IV SCH ×3 (06:15→21:03)
[2019-05-16] MEDS: ADVAIR HFA 230/21MCG INHALER INH SCH ×2 (07:21→20:00)
[2019-05-16] MEDS: FERROUS SULFATE 325MG TAB PO SCH (09:28)
[2019-05-16] MEDS: PANTOPRAZOLE 40MG TAB (PROTONIX) PO SCH (09:28)
[2019-05-16] MEDS: LABETALOL 200 MG TAB PO SCH ×2 (09:29→21:02)
[2019-05-16] MEDS: DOCUSATE SODIUM 100 MG CAP PO SCH ×2 (09:29→21:02)
[2019-05-16] MEDS: CLOPIDOGREL 75 MG TAB PO SCH (09:29)
[2019-05-16] MEDS: amLODIPine 5 MG TAB PO SCH ×2 (09:29→21:02)
[2019-05-16] MEDS: predniSONE 50 MG TAB PO SCH (09:29)
[2019-05-16] MEDS: MAG SULF 1GM/100ML (MAG RUN) 1 GM in APPROPRIATE DILUENT 1 EA IV SCH ×2 (09:30→10:39)
[2019-05-16] MEDS: RESTASIS 0.05% OU SCH ×2 (09:30→21:03)
--- NOTE | 2019-05-16 10:27 | ECGEPIP ---
[facility] Test Date: 2019-05-16 Pat Name: ELODIA LOPEZ Department: Room: [place] [address] Gender: Female Physician Interventional Cardiologist: FRAN : 1955 Requested By: REUBEN RUTLEDGE Order Number: [id number] Reading MD: Bautista Ramos Measurements Intervals [place] Rate: 76 P: 15 MA: 115 QRS: 5 QRSD: 82 T: 7 QT: 399 QTc: 449 Interpretive Statements Normal sinus rhythm Short MA interval Delayed anterior R wave progression suggesting prior ASMI Nonspecific ST-T wave abnormalities No significant change when compared to prior tracing of 03/18/2019 Electronically Signed on 05-16-2019 10:27:03 EDT by Bautista Ramos
--- NOTE | 2019-05-16 12:33 | IPN ---
DATE: 05/15/2019 The patient complains with fatigue and generalized weakness. Urine output overnight was not documented. Previous urine output was 650 on 05/13/2019. Current weight is 59.2 kg with admission weight of 58.18 kg. Patient is status post renal biopsy. Pathology is unavailable. White count is elevated at 17.6 due to IV Solu-Medrol given as post-therapy for possible glomerular nephritis. Temperature 98.8, pulse 84, respiratory rate 18, blood pressure 158/74, 99% on 2 liters nasal cannula. Generally, patient is awake, alert, oriented times three. She appears cachectic and weak. No use of accessory respiratory muscles. Patient does not have any jugular venous distention (JVD). Answers questions appropriately. No respiratory distress. No cervical lymphadenopathy. Lungs are clear to auscultation. No wheezing, rales or rhonchi. Heart: S1, S2 sinus rhythm. No murmurs, rubs or gallops. Abdomen is soft, nontender, nondistended. Positive bowel sounds. No rebound guarding. No hepatosplenomegaly. Extremities: There is trace pitting edema bilaterally. Laboratory data has been reviewed. ASSESSMENT/PLAN: 64-year-old with hypertension, chronic obstructive pulmonary disease (COPD), osteoporosis, dyslipidemia, cystitis, mesenteric ischemia, ischemic colitis and rheumatoid arthritis presented with hypertensive urgency, acute on chronic renal failure with recent stenting of the mesenteric vessels in March 2019. Active issues are as follows: 1. Acute nonoliguric renal failure with no improvement with IV fluid hydration, managed by nephrology due to the progressive nature of the azotemia. She is currently on empiric post-treatment with steroids for 3 days. She has undergone renal biopsy on 05/14/2019 with results that are still pending. Patient appears to have a rheumatological disorder that is causing the suspected glomerular nephritis. Will defer to nephrology for further management. 2. Hypertensive emergency due to renal failure. Avoiding angiotensin converting enzyme inhibitors (TITO) and angiotensin receptor blockers (ARBs). Patient has a history of aortic aneurysm and is not a candidate for vasodilators. Currently on IV, nothing by mouth Labetalol that is managed by nephrology. 3. Renal artery stenosis with acute on chronic renal failure. The stenting has been deferred due to acute inflammation currently and risk of perforation. She currently has controlled blood pressure on Labetalol both by mouth and IV managed by nephrology. 4. History of mesenteric ischemia status post stenting of the celiac artery 03/14/2019 and ischemic colitis with no complaints of nausea, vomiting, abdominal pain weight loss, or anorexia. 5. Dyslipidemia: On chronic Lipitor. 6. Chronic obstructive pulmonary disease (COPD): On as needed home inhalers. 7. Rheumatoid arthritis (RA): Complicating care. 8. History of osteoporosis complicating care. 9. Steroid induced leukocytosis: Secondary to Solu-Medrol. 10. Anemia of chronic renal failure: No acute indication for RBC transfusion.
--- NOTE | 2019-05-16 13:37 | IPN ---
DATE OF SERVICE: 05/15/2019 SUBJECTIVE: Patient was seen and examined the bedside today morning. Patient got the ultrasound guided renal biopsy done yesterday. Biopsy specimens were sent to [facility] She is currently on empiric Solu-Medrol. Today will be the day third of pulse steroids. Blood pressures are slightly elevated. Labetalol dose was increased. No signs of improvement of the renal function. Creatinine has actually bumped up from 3.4 to 3.8 today. OBJECTIVE: Vital signs: Temperature is 98.5 degrees Fahrenheit. Blood pressure 160/72. Pulse is 79, respiratory rate of 20, saturating 99% on 2 liters via nasal cannula. Intake and output: Urine output recorded so far is 1 liter. Weight in the bed scale is not available. PHYSICAL EXAM: General: Patient is awake, alert, oriented times three, laying in bed, in no apparent distress. Head and neck exam: Extraocular muscles intact. Pupils equally round and reactive to light. Mucous membranes are moist. Neck is supple. There is no jugular venous distention (JVD). Cardiovascular: S1, S2, regular rate. No edema of the bilateral lower extremities. Respiratory: Chest is clear to auscultation bilaterally. Bilateral equal air entry. No rales or rhonchi. Abdomen is soft. Positive bowel sounds. Nontender. No organomegaly. Musculoskeletal: No clubbing or cyanosis. Pulses are 2+. Central nervous system (CLINICAL ORTHOPTIST): No focal deficit. Power is 5/5 in all extremities. LAB REVIEW: CBC showed WBC 17.6, hemoglobin 9.1, platelets of 251. BMP showed sodium 137, potassium 4.6, chloride 106, bicarbonate 20, BUN 56, creatinine is 3.8, calcium is 8.2. Glomerular basement membrane antibody is still pending. Rest of the serology is negative so far. CURRENT INPATIENT MEDICATIONS: Patient's medications were all reviewed by me. Patient has received two doses of pulse Solu-Medrol 500 mg for the last 2 days. Labetalol dose was increased to 400 mg by mouth twice a day. IV labetalol still continues at 10 mg every 4 hours. ASSESSMENT AND PLAN: 1. Acute nonoliguric renal failure with nephrotic range proteinuria. Patient is currently empirically getting pulse steroids for possible glomerulonephritis. Ultrasound-guided biopsy was done yesterday. Prelim report is still pending. Third dose of steroids will be given tonight. Patient then will be switched to prednisone 60 mg by mouth daily starting tomorrow. 2. Renovascular hypertension. Patient is currently on amlodipine and labetalol. The labetalol dose has been increased to 400 mg by mouth twice a day. We cannot use angiotensin-converting enzyme (TITO) inhibitor inhibitors or angiotensin receptor blockers at this time because of acute renal failure. 3. Rule out right renal artery stenosis. Patient's vasculitis needs to be ruled out. He is not a candidate for a right renal angiogram at this time because of acute renal failure. 4. Status post celiac artery stent in March 2019. Patient got a renal biopsy done yesterday. I am going to start Plavix 75 mg by mouth daily starting tomorrow morning. MTDD
[2019-05-16] MEDS: ACETAMINOPHEN TAB 650MG DOSE (2X325MG) PO PRN (16:00)
[2019-05-16] MEDS: ATORVASTATIN 10 MG TAB PO SCH (21:03)
[2019-05-17] MEDS: LABETALOL HCL 100 MG/20 ML VIAL IV SCH ×6 (00:40→20:26)
[2019-05-17] MEDS ORDERED: hydrALAZINE INJ 20 MG/ML VIAL IV PRN (03:45)
[2019-05-17 04:00] VITALS: BP 178/72
[2019-05-17 05:31] LABS: HEMATOCRIT 27.1 % (36.0-47.0); HEMOGLOBIN 8.8 g/dl (12.0-15.5); MEAN CORPUSCULAR HEMOGLOBIN 30.8 pg (27.0-33.0); MEAN CORPUSCULAR HGB CONC 32.5 g/dl (32.0-36.5); MEAN CORPUSCULAR VOLUME 94.8 fl (80.0-96.0); PLATELET COUNT, AUTOMATED 281 10^3/uL (150-450); RED BLOOD COUNT 2.86 10^6/uL (4.00-5.40); WHITE BLOOD COUNT 19.6 10^3/uL (4.0-10.0)
[2019-05-17] MEDS: SLF 3 ML SYR IV SCH ×3 (05:34→21:14)
[2019-05-17 05:51] LABS: BLOOD UREA NITROGEN 66 MG/DL (7-18); CALCIUM LEVEL 7.6 MG/DL (8.8-10.2); CARBON DIOXIDE LEVEL 23 MEQ/L (21-32); CHLORIDE LEVEL 108 MEQ/L (98-107); CREATININE FOR GFR 3.03 MG/DL (0.55-1.30); GLOMERULAR FILTRATION RATE 16.5 (>45); GLUCOSE, FASTING 121 MG/DL (70-100); PHOSPHORUS LEVEL 3.9 MG/DL (2.5-4.9); POTASSIUM SERUM 4.1 MEQ/L (3.5-5.1); SODIUM LEVEL 140 MEQ/L (136-145)
[2019-05-17] MEDS: ADVAIR HFA 230/21MCG INHALER INH SCH ×2 (07:35→21:01)
[2019-05-17 07:40] LABS: MAGNESIUM LEVEL 2.1 MG/DL (1.8-2.4)
[2019-05-17 08:00] VITALS: BP 170/98
[2019-05-17 08:46] LABS: CK-MB VALUE MASS 1.9 NG/ML (<3.6); CPK CREATINE PHOSPHOKINASE 51 U/L (26-192); MB/CK RELATIVE INDEX 3.73 (< OR =4); NT-PRO BNP 16424 PG/ML (<125); TROPONIN I < 0.02 NG/ML (< 0.10)
[2019-05-17] MEDS: DOCUSATE SODIUM 100 MG CAP PO SCH ×2 (08:48→21:13)
[2019-05-17] MEDS: amLODIPine 5 MG TAB PO SCH ×2 (08:48→21:14)
[2019-05-17] MEDS: FERROUS SULFATE 325MG TAB PO SCH (08:48)
[2019-05-17] MEDS: CLOPIDOGREL 75 MG TAB PO SCH (08:48)
[2019-05-17] MEDS: LABETALOL 200 MG TAB PO SCH ×2 (08:48→21:14)
[2019-05-17] MEDS: predniSONE 50 MG TAB PO SCH (08:48)
[2019-05-17] MEDS: PANTOPRAZOLE 40MG TAB (PROTONIX) PO SCH (08:48)
[2019-05-17] MEDS: RESTASIS 0.05% OU SCH ×2 (08:49→21:14)
--- NOTE | 2019-05-17 09:38 | IPN ---
DATE: 05/16/2019 Patient seen and examined at the bedside. Chart has been reviewed. The patient has no new complaints. Denies any chest pain, pressure or tightness, dizziness or lightheadedness. She is slightly short of breath this morning. Her blood pressure is 160-144 systolic, managed by nephrology. She is status post IV Solu-Medrol times pulsed doses, currently on oral prednisone with slight increase in white count to 20,000. She complains of dyspnea with exertion, slightly at rest as well. No worsening lower extremity edema, paroxysmal nocturnal dyspnea (PND). Temperature 97.1, pulse 63, respiratory rate 18, blood pressure 144/76, 98% on 2 liters nasal cannula. Generally, patient is awake, alert, oriented times three. No use of respiratory accessory muscles. Able to speak in full sentences with no conversational dyspnea. Lungs are diminished with fine crackles at the bases, but clear to auscultation. Heart: S1, S2 sinus rhythm. Abdomen is soft, nontender, nondistended. Positive bowel sounds. No hepatosplenomegaly, rebound or guarding. Extremities have trace edema. Laboratory data, microbiology and imaging studies has been reviewed. ASSESSMENT/PLAN: 64-year-old female with hypertension, chronic obstructive pulmonary disease (COPD), osteoporosis, dyslipidemia, cystitis, RA, mesenteric ischemia, ischemic colitis and rheumatoid arthritis presented to the emergency room with hypertensive urgency. Current acute issues are: 1. Acute nonoliguric renal failure status post hydration and pulsed doses of Solu-Medrol with unchanged stage V renal failure, status post renal biopsy. Results are not available as yet. Possible glomerulonephritis. Defer to nephrology for further maternal grandmother. Currently on prednisone 50 mg daily. 2. Uncontrolled hypertension. Avoiding angiotensin converting enzyme inhibitors (TITO) and angiotensin receptor blockers (ARBs). Prior history of aortic aneurysm. Not a candidate for vasodilators. Has renal artery stenosis, but biopsy has been deferred due to acute inflammation with possible glomerulonephritis. Defer to nephrology. 3. Renal artery stenosis with acute on chronic renal failure. Defer to nephrology and vascular surgery regarding timing of intervention, if any, during this admission. Currently on labetalol for blood pressure control. 4. History of mesenteric ischemia status post stenting of celiac artery and ischemic colitis. No abdominal complaints. No nausea, vomiting, abdominal pain at this time. 5. Dyslipidemia, on chronic Lipitor. 6. Chronic obstructive pulmonary disease (COPD), no acute exacerbation, on home inhalers. 7. Rheumatoid arthritis (RA) complicating care. 8. Osteoporosis complicating care. MTDD
[2019-05-17] MEDS ORDERED: FUROSEMIDE 100 MG/10 ML VIAL (J1940) IV ONE ×2 (10:00→19:15)
--- NOTE | 2019-05-17 10:18 | IPN ---
DATE OF VISIT: 05/16/2019 Mrs. Rivera is seen this morning on her bedside. She is sitting in the bed and reports feeling side-effects of steroids. She is somewhat fidgety but not agitated. She just does not feel that this is her usual self. She did receive 3 days of intravenous Solu-Medrol and now prednisone 50 mg was started this morning. She has rapidly progressive renal failure with possible glomerulonephritis, for which a kidney biopsy was done a few days ago and results are pending. She was initially admitted with accelerated hypertension and blood pressure has been much better controlled now with adjustment in medications. She denies any nausea, vomiting, dyspnea or chest pain. She has complained of no taste in the hospital food. On physical exam, temperature 97 degrees Fahrenheit, heart rate 86 per minute and respiratory rate 18 per minute. Blood pressure 144/76 mmHg and oxygen saturation 98%. Head is atraumatic. Neck is supple and without jugular venous distention (JVD) or thyroid enlargement. Heart sounds are regular and without a pericardial friction rub. Lungs clear to auscultation. Abdomen is soft and nontender and bowel sounds are normal. Extremities have no cyanosis or clubbing. Neurologically, she is awake, alert and oriented times three. Today's labs show sodium level 139, potassium 4.6, CO2 22, BUN 65, and creatinine 3.39. Glucose 177 and calcium 7.9. WBC count is 20.8, hemoglobin 8.5, and hematocrit 26.0. PROBLEMS: 1. Acute renal failure superimposed on chronic kidney disease. Patient has slight improvement in her creatinine since yesterday. However, overall her kidney function has been without any significant trend for last several days. Her glomerular filtration rate (GFR) has been between 13-15 mL/min. Her electrolytes are normal and results of her kidney biopsy are pending. She has been started on empiric steroid therapy with 3 days of Solu-Medrol 500 mg daily and now prednisone 50 mg daily. She does not have any overt uremic symptoms and we will continue with current treatment for now. I have discussed with the patient and her daughter and explained at length and answered all their questions. Depending upon her biopsy results, further adjustments in her treatment will be made. 2. Anemia related to acute renal failure and no active bleeding. She is back on her Plavix. We will continue to monitor closely. There is no emergent need for a transfusion. 3. Leukocytosis. Most likely this is related to high-dose steroids and she does not have any acute infection. We will continue to monitor closely. 4. Hypertension. Blood pressure is much better now with current antihypertensive therapy. No changes are being made today. 5. Hyperglycemia. She has mild hyperglycemia related to steroids and it will also be monitored closely. She is not on any therapy so far.
--- NOTE | 2019-05-17 10:21 | REP ---
HISTORY: Dyspnea. COMPARISON: 05/13/2019 The technique utilized in obtaining the radiograph has magnified the cardiac silhouette and accentuated the interstitial markings. There are bibasilar opacities, status quo. Melvina-B lines are present. These are accentuated by technique. There is evidence of pulmonary vascular redistribution on this portable exam. No acute patchy parenchymal opacities or pleural effusions have developed. IMPRESSION: 1. Evidence of interstitial edema as described above. 2. Chronic bibasilar opacities. Electronically Signed by Yuniel Mcarthur DO 05/17/2019 10:22 A
[2019-05-17 10:34] LABS: APPEARANCE, URINE CLEAR (CLEAR); BACTERIA, URINE AUTO NEGATIVE (NEGATIVE); BILIRUBIN, URINE AUTO NEGATIVE (NEGATIVE); BLOOD, URINE BLOOD 3+ (NEGATIVE); COLOR, URINE STRAW (YELLOW); GLUCOSE, URINE (UA) AUTO NEGATIVE (NEGATIVE); KETONE, URINE AUTO NEGATIVE (NEGATIVE); LEUKOCYTE ESTERASE, URINE AUTO NEGATIVE (NEGATIVE); NITRITE, URINE AUTO NEGATIVE (NEGATIVE); PROTEIN, URINE AUTO 2+ mg/dL (NEGATIVE); RBC, URINE AUTO TNTC /HPF (0-3); SPECIFIC GRAVITY URINE AUTO 1.008 (1.002-1.035); SQUAMOUS EPITHELIAL CELL UR AU 0 /HPF (0-6); UROBILINOGEN, URINE AUTO 0.2 mg/dL (0.0-2.0); WBC, URINE AUTO 10 /HPF (0-3)
[2019-05-17 12:00] VITALS: BP 150/82
[2019-05-17 16:00] VITALS: BP 172/80
[2019-05-17 20:00] VITALS: BP 168/80
[2019-05-17] MEDS: ATORVASTATIN 10 MG TAB PO SCH (21:13)
[2019-05-17 23:59] VITALS: BP 162/80
[2019-05-18] VITALS (8 sets, daily range): BP systolic 132–170; BP diastolic 70–90
[2019-05-18] MEDS: LABETALOL HCL 100 MG/20 ML VIAL IV SCH ×7 (00:54→23:59)
[2019-05-18] MEDS: SLF 3 ML SYR IV SCH ×3 (05:19→22:03)
[2019-05-18] MEDS: ADVAIR HFA 230/21MCG INHALER INH SCH ×2 (08:23→20:00)
[2019-05-18 08:26] LABS: HEMATOCRIT 31.2 % (36.0-47.0); HEMOGLOBIN 10.2 g/dl (12.0-15.5); MEAN CORPUSCULAR HEMOGLOBIN 30.5 pg (27.0-33.0); MEAN CORPUSCULAR HGB CONC 32.7 g/dl (32.0-36.5); MEAN CORPUSCULAR VOLUME 93.4 fl (80.0-96.0); PLATELET COUNT, AUTOMATED 322 10^3/uL (150-450); RED BLOOD COUNT 3.34 10^6/uL (4.00-5.40); WHITE BLOOD COUNT 18.4 10^3/uL (4.0-10.0)
[2019-05-18 08:47] LABS: ALBUMIN 3.2 GM/DL (3.2-5.2); CALCIUM LEVEL 7.9 MG/DL (8.8-10.2); CREATININE FOR GFR 3.17 MG/DL (0.55-1.30); GLOMERULAR FILTRATION RATE 15.6 (>45); PHOSPHORUS LEVEL 4.3 MG/DL (2.5-4.9); POTASSIUM SERUM 3.8 MEQ/L (3.5-5.1)
--- NOTE | 2019-05-18 09:11 | REP ---
Portable chest x-ray: Single view. History: Short of breath. CHF. Comparison chest x-ray: May 17, 2019. Findings: EKG monitoring electrodes overlie the chest. Heart is not enlarged. Pulmonary vasculature is not increased. Pleural angles are sharp. Interstitial markings are slightly prominent in the bases consistent with fibrosis. Impression: No acute disease. Mild bibasilar interstitial fibrosis pattern. Electronically Signed by Justin Prajapati MD 05/18/2019 04:45 P
[2019-05-18] MEDS: RESTASIS 0.05% OU SCH ×2 (10:12→22:09)
[2019-05-18] MEDS: amLODIPine 5 MG TAB PO SCH ×2 (10:13→22:02)
[2019-05-18] MEDS: PANTOPRAZOLE 40MG TAB (PROTONIX) PO SCH (10:13)
[2019-05-18] MEDS: CLOPIDOGREL 75 MG TAB PO SCH (10:14)
[2019-05-18] MEDS: predniSONE 50 MG TAB PO SCH (10:14)
[2019-05-18] MEDS: DOCUSATE SODIUM 100 MG CAP PO SCH ×2 (10:14→22:02)
[2019-05-18] MEDS: LABETALOL 200 MG TAB PO SCH ×4 (10:15→22:02)
[2019-05-18] MEDS: FERROUS SULFATE 325MG TAB PO SCH (10:15)
[2019-05-18] MEDS ORDERED: FUROSEMIDE 40 MG/4 ML VIAL (J1940) IV ONE (11:15)
[2019-05-18] MEDS: ONDANSETRON 4MG/2ML VIAL (J2405) IV PRN (18:31)
--- NOTE | 2019-05-18 18:43 | IPN ---
DATE: 05/17/2019 Patient complains of chest pain, shortness of breath this morning, and shakiness of the right arm. No headaches, no changes in vision. Patient says "I don't feel well." No nausea, vomiting, or epigastric discomfort. Denies any sense of impending doom. No chest pain radiating down the left arm. Patient's labetalol 10 mg by mouth and 400 mg twice a day dosing will be given this morning. She did receive hydralazine 10 mg intravenously at 0530 hours earlier. Patient otherwise denies any fevers, cough. Denies any paroxysmal nocturnal dyspnea (PND) or orthopnea. She does complain of dyspnea on exertion when she goes from bed to the bathroom. VITAL SIGNS: Temperature 96.2, pulse 71, respiratory rate 22, blood pressure 108/76, 99% on 2 liters nasal cannula. GENERALLY: Patient is awake, alert, oriented times three, answering questions appropriately. Neck has no jugular venous distention. Moist mucous membranes. LUNGS: Diminished, but clear. HEART: S1, S2, sinus rhythm. No murmurs, rubs, or gallops. Nondisplaced point of maximum impulse. ABDOMEN: Soft, nontender, nondistended. Positive bowel sounds times four quadrants. No rebound or guarding. No hepatosplenomegaly. EXTREMITIES: Trace pitting edema bilaterally. Laboratory data, imaging studies, microbiology have been reviewed. Notable for creatinine 3.03, previous creatinine 3.39. ASSESSMENT AND PLAN: This is a 64-year-old female with past medical history significant for rheumatoid arthritis, mesenteric ischemia, ischemic colitis, cystitis, osteoporosis, chronic obstructive pulmonary disease (COPD), hypertension, and dyslipidemia, presents to the emergency room with acute on chronic renal failure after stenting of the mesenteric vessels in March 2019. ACTIVE ISSUES: Are as follows: 1. Acute nonoliguric renal failure. No improvement with IV hydration. Currently on steroids status post treatment with pulse-dosed steroids times three doses of Solu-Medrol. Currently on prednisone 50 daily. New stage V renal failure, but improving with creatinine of 3.03 today. She is status post renal biopsy on 05/14/2019 with results pending from [facility] in [place]. Patient appears to have a rheumatologic disorder causing possible glomerulonephritis. This is all managed by nephrology. 2. Uncontrolled hypertension with renal artery stenosis. Stenting has been deferred due to acute inflammation currently with perforation. She is currently on labetalol by mouth and IV managed by nephrology. She had uncontrolled levels this morning and morning doses are to be given earlier. 3. Chest pain most likely secondary to uncontrolled hypertension. Will obtain cardiac markers. 4. History of mesenteric ischemia status post stenting of celiac artery 03/14/2019. No complaints of nausea, vomiting, abdominal pain, weight loss, or anorexia. 5. Dyslipidemia, on chronic Lipitor. 6. Chronic obstructive pulmonary disease (COPD), on home dose of inhaler with nebulizer treatment this morning due to complaints of dyspnea on exertion. Check a chest x-ray. Currently on steroids, prednisone 50. 7. Rheumatoid arthritis, complicating care. 8. History of osteoporosis, complicating care. 9. Steroid induced leukocytosis secondary to Solu-Medrol. 10. Anemia of renal failure. No acute indication for red blood cell (RBC) transfusion. MTDD
--- NOTE | 2019-05-18 20:38 | IPN ---
DATE: 05/17/2019 Mrs. Rivera is seen this morning on her bedside. She has complained of difficulty breathing and is sitting up in the bed. She denies any fever or chills. She denies any nausea or vomiting, but her appetite has been poor. She was admitted with acute renal failure, which is felt to be due to acute glomerulonephritis and she has been on steroid therapy. The patient reports pink color during this morning. PHYSICAL EXAMINATION: Temperature is 97.5 degrees Fahrenheit, heart rate 78 per minute and respiratory rate 20 per minute. Blood pressure 170/98 mmHg and oxygen saturation 99% on 2 liters oxygen. Head is atraumatic. Neck is supple and jugular venous distention (JVD) is mildly elevated. Lungs have diminished breath sounds and bibasilar rales. Heart sounds are regular and without pericardial friction rub. Abdomen: Soft and nontender. Extremities: Without any cyanosis or clubbing. Neurologically she is awake, alert and at her baseline mentation. Today's labs show a WBC count of 19.6, hemoglobin 8.8 and hematocrit 27.1. Platelets 281. Sodium 141, potassium 4.1, CO2 of 23, BUN 66 and creatinine 3.0. Glucose 121 and calcium 7.6. She had troponin level done this morning, which was less than 0.02. Her BNP level was 16,424 and albumin 3.0. She had a chest x-ray which was reviewed independently. She has bilateral pulmonary vascular congestion and interstitial edema. No infiltrate or effusion noted. PROBLEM #1: Acute renal failure. Kidney function slightly improved. We will continue with prednisone 50 mg daily. We will repeat her urinalysis today as she reports some hematuria, which could be related to anticoagulation as the patient is on Plavix. She had a kidney biopsy last week. PROBLEM #2: Respiratory insufficiency. The patient is feeling quite short of breath. She is on oxygen, and this is most likely related to congestive heart failure. Her chest x-ray did not show any pulmonary hemorrhages. I will give her Lasix 80 mg intravenously now and repeat another dose later this afternoon, depending upon her response. PROBLEM #3: Hypertension. Blood pressure is somewhat high at times when she has respiratory difficulty. We hope that with diuresis her blood pressure will improve. She will continue with current antihypertensive medications at present. PROBLEM #4: Anemia. Her anemia is stable and does not need any urgent intervention.
[2019-05-18] MEDS: ATORVASTATIN 10 MG TAB PO SCH (22:02)
--- NOTE | 2019-05-18 22:12 | IPN ---
DATE: 05/18/2019 Patient states that her shortness of breath was significantly improved after receiving intravenous Lasix. She diuresed 2.6 liters out and currently had net negative yesterday and today. This morning she denies any chest pain, pressure, tightness, lightheadedness, or dizziness. She is eating her breakfast well. She has no headaches or changes in vision despite blood pressure of 170/78. Patient had received pulsed doses of IV Solu-Medrol, currently with prednisone 50 mg daily, still at stage IV chronic kidney disease, awaiting report from [facility] regarding biopsy of the kidney on 05/14/2019. Repeat chest x-ray shows no acute disease. Mild bibasilar interstitial fibrosis pattern. Vitals: pls see below GEN: no respiratory distress. no conversational dyspnea HEENT: PERRL EOMI no cervical LAD no thyromegaly Lungs; diminished no rales or crackles Heart:S1S2 RRR Abd: (+) BS tender in b/l LQ no rebound or guarding Extremities:3+ edema LLE 1+ RLE LABORATORY DATA, IMAGING STUDIES, MICROBIOLOGY : REVIEWED ASSESSMENT AND PLAN: This is a 64-year-old female with a history of hypertension, chronic obstructive pulmonary disease (COPD), rheumatoid arthritis (RA), mesenteric ischemia, ischemic colitis, osteoporosis, dyslipidemia and cystitis, presented to the emergency room with hypertensive urgency, acute renal failure. ACUTE ISSUES: 1. Acute nonoliguric renal failure, status post hydration and pulse doses of IV Solu-Medrol, status post renal biopsy, the result of which is still pending. Possible glomerulonephritis with proteinuria and blood in the stool. Refer to nephrology for further management. Currently on prednisone 50 mg daily. 2. Uncontrolled hypertension. Avoiding a raise in angiotensin-converting enzyme (TITO) inhibitors. Prior history of aortic aneurysm, not a candidate for vasodilators. Has renal artery stenosis but biopsy deferred due to acute inflammation, possible glomerulonephritis. Defer to nephrology and vascular surgery regarding timing of stent placement. 3. Renal artery stenosis with acute renal failure. Defer to nephrology regarding timing of stent placement. At this time, this has been deferred due to acute inflammation of the kidneys. 4. History of mesenteric ischemia, status post stenting of celiac artery and ischemic colitis. No acute abdominal complaints. No nausea, vomiting, abdominal pain. 5. Dyslipidemia. On chronic Lipitor. 6. Chronic obstructive pulmonary disease. Not in acute exacerbation. No wheezing on exam. On home inhalers. 7. Rheumatoid arthritis. Complicating care. 8. Osteoporosis. Complicating care. MTDD
[2019-05-19] VITALS (7 sets, daily range): BP systolic 136–200; BP diastolic 72–90
[2019-05-19] MEDS: LABETALOL HCL 100 MG/20 ML VIAL IV SCH ×6 (04:00→23:43)
[2019-05-19] MEDS: SLF 3 ML SYR IV SCH ×3 (04:28→21:04)
[2019-05-19 05:34] LABS: HEMATOCRIT 29.4 % (36.0-47.0); HEMOGLOBIN 9.7 g/dl (12.0-15.5); MEAN CORPUSCULAR HEMOGLOBIN 29.9 pg (27.0-33.0); MEAN CORPUSCULAR VOLUME 90.7 fl (80.0-96.0); PLATELET COUNT, AUTOMATED 321 10^3/uL (150-450); RED BLOOD COUNT 3.24 10^6/uL (4.00-5.40); WHITE BLOOD COUNT 16.2 10^3/uL (4.0-10.0)
[2019-05-19 05:55] LABS: ALBUMIN 3.1 GM/DL (3.2-5.2); CALCIUM LEVEL 7.3 MG/DL (8.8-10.2); CREATININE FOR GFR 2.94 MG/DL (0.55-1.30); GLOMERULAR FILTRATION RATE 17.1 (>45); PHOSPHORUS LEVEL 4.7 MG/DL (2.5-4.9); POTASSIUM SERUM 3.8 MEQ/L (3.5-5.1)
[2019-05-19] MEDS: CLOPIDOGREL 75 MG TAB PO SCH (08:36)
[2019-05-19] MEDS: DOCUSATE SODIUM 100 MG CAP PO SCH ×2 (08:36→21:02)
[2019-05-19] MEDS: LABETALOL 200 MG TAB PO SCH ×3 (08:37→21:03)
[2019-05-19] MEDS: FERROUS SULFATE 325MG TAB PO SCH (08:37)
[2019-05-19] MEDS: predniSONE 50 MG TAB PO SCH (08:37)
[2019-05-19] MEDS: PANTOPRAZOLE 40MG TAB (PROTONIX) PO SCH (08:38)
[2019-05-19] MEDS: RESTASIS 0.05% OU SCH ×2 (08:38→21:14)
[2019-05-19] MEDS: amLODIPine 5 MG TAB PO SCH ×2 (08:38→21:02)
[2019-05-19] MEDS: ADVAIR HFA 230/21MCG INHALER INH SCH ×2 (11:23→20:00)
--- NOTE | 2019-05-19 12:27 | IPN ---
DATE OF VISIT: 05/18/2019 HISTORY OF PRESENT ILLNESS: Mrs. Rivera is seen this morning on her bedside. She is feeling better and her dyspnea has improved. She is very depressed due to ongoing problems. She also gets anxious and her blood pressure has been high. She denies any fever, chills, nausea or vomiting. PHYSICAL EXAMINATION: VITAL SIGNS: Temperature 98.2 degrees Fahrenheit, heart rate 72 per minute and respiratory rate 16 per minute. Blood pressure 172/80 mmHg and oxygen saturation is 100%. HEAD: Her head is atraumatic. NECK: Neck is supple and jugular venous distention (JVD) does not seem to be significantly elevated. HEART: Sounds are regular. LUNGS: Significantly improved breath sounds and few basilar rales. ABDOMEN: Abdomen is soft and nontender and bowel sounds are normal. EXTREMITIES: No cyanosis or clubbing. NEUROLOGICALLY: She is awake, alert and oriented times three. LABORATORY DATA: Today's labs show WBC count 18.4, hemoglobin 10.2 and hematocrit 31.2, platelets 332. Sodium 139, potassium 3.8, CO2 27, BUN 63 and creatinine 3.17. Yesterday her creatinine was down to 3.0. Glucose is 86 and calcium 7.9. Serum albumin is 3.2. PROBLEMS: 1. Acute renal failure most likely related to acute glomerulonephritis. She had rapidly progressive glomerulonephritis and has been on steroids. She is currently on prednisone 50 mg daily. Her kidney function seems to be starting to improve. Slight increase in the creatinine compared with yesterday is most likely related to aggressive diuresis. 2. Shortness of breath. She was volume overloaded yesterday and we gave her two doses of Lasix with good urine output and improvement in her symptoms. I will give her only one dose of Lasix 40 mg today. 3. Hypertension. Blood pressure remains elevated in the 170s. Her labetalol dose is being increased to 400 mg three times a day. We will continue to monitor her vital signs closely. 4. Anemia. Her anemia is improving and there is no urgent need for a transfusion. We will continue to monitor her closely. 5. Status post kidney biopsy. I did receive a call from pathology for report that kidney biopsy tissue was all medulla and there was no glomera so no diagnosis has been made. We are waiting for electron microscopy report and then we will make a decision about rebiopsy. I have reviewed this and shared this with the patient. She is already quite upset about it. I have also informed the radiologist who performed her kidney biopsy.
--- NOTE | 2019-05-19 13:58 | IPNPDOC ---
Subjective Date Seen The patient was seen on 05/19/19. Subjective Chief Complaint/HPI Denies any SOb or cough, denies any abdominal pain , nausea or vomiting or diarrhea, No leg swelling. No fever or chills. Objective Physical Examination General Exam: Positive: Alert, Cooperative, No Acute Distress Eye Exam: Positive: PERRLA, Conjunctiva & lids normal, EOMI; Negative: Sclera icteric ENT Exam: Positive: Atraumatic, Mucous membr. moist/pink, Pharynx Normal Neck Exam: Positive: Supple; Negative: JVD, thyromegaly Chest Exam: Positive: Diminished; Negative: Rales, Rhonchi, Wheezing Heart Exam: Positive: Rate Normal, Regular Rhythm, Normal S1, Normal S2; Negative: Murmurs, Rubs Abdomen Exam: Positive: Normal bowel sounds, Soft; Negative: Tenderness, Hepatospenomegaly Extremity Exam: Negative: Clubbing, Cyanosis, Edema Skin Exam: Positive: Nl turgor and temperature; Negative: Rash, Breakdown Assessment /Plan Assessment This is a 64-year-old female with a history of hypertension, chronic obstructive pulmonary disease (COPD), rheumatoid arthritis (RA), mesenteric ischemia, ischemic colitis, osteoporosis, dyslipidemia and cystitis, presented to the emergency room with hypertensive urgency, acute renal failure. Acute nonoliguric renal failure, status post hydration and pulse doses of IV Solu-Medrol, status post renal biopsy, the result of which is still pending. Possible glomerulonephritis with proteinuria and blood in the stool. Refer to nephrology for further management. Currently on prednisone. Uncontrolled hypertension. Avoiding ARBs and angiotensin-converting enzyme (TITO) inhibitors. Prior history of aortic aneurysm, not a candidate for vasodilators. Has renal artery stenosis but stenting deferred due to acute inflammation, possible glomerulonephritis. Defer to nephrology and vascular surgery regarding timing of stent placement. Renal artery stenosis with acute renal failure. Defer to nephrology regarding timing of stent placement. At this time, this has been deferred due to acute inflammation of the kidneys. History of mesenteric ischemia, status post stenting of celiac artery and ischemic colitis. No acute abdominal complaints. No nausea, vomiting, abdominal pain. Dyslipidemia. On chronic Lipitor. Chronic obstructive pulmonary disease with chronic respiratory failure with hypoxia Not in acute exacerbation. On home inhalers. Rheumatoid arthritis. Complicating care. Osteoporosis. Complicating care. Plan/VTE VTE Prophylaxis Ordered?: Yes VS, I&O, 24H, Fishbone Vital Signs/I&O Vital Signs Date Time Temp Pulse Resp B/P (MAP) Pulse Ox O2 Delivery O2 Flow Rate FiO2 05/19/19 13:04 69 160/80 05/19/19 12:00 97.2 16 98 2.0 I&O- Last 24 Hours up to 6 AM 05/19/19 06:00 Intake Total 2420 ml Output Total 2450 ml Balance -30 ml Laboratory Data 24H LABS Laboratory Tests 2 05/19/19 05:09: Nucleated Red Blood Cells % (auto) 0.1H, Blood Urea Nitrogen 69H, Creatinine 2.94H, Sodium Level 138, Potassium Level 3.8, Chloride Level 101, Carbon Dioxide Level 26, Anion Gap 11, Glomerular Filtration Rate 17.1L, Calcium Level 7.3L, Phosphorus Level 4.7, Albumin 3.1L CBC/BMP Laboratory Tests 05/19/19 05:09 Red Blood Count 3.24 L, Mean Corpuscular Volume 90.7, Mean Corpuscular Hemoglobin 29.9, Mean Corpuscular Hemoglobin Concent 33.0, Red Cell Distribution Width 16.2 H, Anion Gap 11 MARIE CARRANZA MD May 19, 2019 13:58
--- NOTE | 2019-05-19 18:28 | IPN ---
DATE: 05/19/2019 Mrs. Rivera is seen this morning on her bedside. She is feeling discouraged due to high blood pressure reading this morning. She reports that she could not get comfortable last night and did not sleep very well. She had some feeling of fogginess in her head. She denies any nausea or vomiting. She has chronic hypoxemia and has been on home oxygen. Her dyspnea is at about baseline. PHYSICAL EXAMINATION: Temperature 98.7 degrees Fahrenheit, heart rate 70 per minute and respiratory rate 16 per minute. Blood pressure was earlier 200/90 mmHg, but most recent one is 160/92 mmHg. Her head is atraumatic. She is using oxygen via nasal cannula. Neck is supple and without jugular venous distention (JVD) or thyroid enlargement. Heart sounds are regular. Lungs sound clear to auscultation. Abdomen is soft and nontender and bowel sounds are normal. No palpable organomegaly. Extremities are without any cyanosis or clubbing. Neurologically, she is awake, alert and oriented times three. LABORATORY DATA: Today's laboratories show WBC count 16.2, hemoglobin 9.7 and hematocrit 29.4. Platelets 321. Sodium 138, potassium 3.8, CO2 26, BUN 69 and creatinine 2.94. Glucose 93 and calcium 7.3. PROBLEMS: 1. Acute renal failure, most likely due to acute glomerulonephritis with rapidly progressive decline in kidney function. She has been on steroids with gradual improvement in her kidney function over last few days. Her creatinine was 3.8 on 05/15/2019 and since then has gradually decreased to 2.94 today. She had a kidney biopsy last week and unfortunately, it was not successful in making a diagnosis as she mostly had renal medulla and there was no cortex in the two specimens. We are still waiting for electron microscopy results. In the meantime, she remains on prednisone 50 mg daily which will be continued for now. 2. Hypertension. I have encouraged the patient to think positively. Her labetalol dose was increased to 400 mg three times a day yesterday and blood pressure seems to be much better controlled all day yesterday. This morning, her reading was high. However, most recent blood pressure is already down to 160/80 range. We will continue to monitor without any changes today as her dose was adjusted just yesterday. 3. Anemia. At present, anemia is stable and no urgent intervention is indicated. 4. Hypoxemia. Her volume status improved with diuresis and currently she is not on any maintenance diuretic. We will continue to monitor her closely. She is on home oxygen and we will continue with the same.
[2019-05-19] MEDS: ATORVASTATIN 10 MG TAB PO SCH (21:04)
[2019-05-19] MEDS: ONDANSETRON 4MG/2ML VIAL (J2405) IV PRN (21:13)
[2019-05-20 04:00] VITALS: BP 180/88
[2019-05-20] MEDS: LABETALOL HCL 100 MG/20 ML VIAL IV SCH ×2 (04:17→08:25)
[2019-05-20] MEDS: SLF 3 ML SYR IV SCH ×3 (04:17→21:51)
[2019-05-20 05:11] LABS: BASO % 0.2 % (0.0-1.0); EOS # 0.1 10^3/uL (0.0-0.50); EOS % 0.8 % (0.0-3.0); HEMATOCRIT 26.9 % (36.0-47.0); HEMOGLOBIN 8.7 g/dl (12.0-15.5); LYMPH # 4.2 10^3/uL (1.5-4.5); LYMPH % 23.4 % (24.0-44.0); MEAN CORPUSCULAR HGB CONC 32.3 g/dl (32.0-36.5); MEAN CORPUSCULAR VOLUME 92.8 fl (80.0-96.0); MONO # 1.5 10^3/uL (0.0-0.8); MONO % 8.5 % (0.0-5.0); NEUTROPHILS # 11.1 10^3/uL (1.8-7.7); NEUTROPHILS % 62.3 % (36.0-66.0); PLATELET COUNT, AUTOMATED 289 10^3/uL (150-450); WHITE BLOOD COUNT 17.8 10^3/uL (4.0-10.0)
[2019-05-20 05:30] LABS: CALCIUM LEVEL 7.3 MG/DL (8.8-10.2); CREATININE FOR GFR 2.76 MG/DL (0.55-1.30); GLOMERULAR FILTRATION RATE 18.4 (>45); POTASSIUM SERUM 3.7 MEQ/L (3.5-5.1)
[2019-05-20 08:00] VITALS: BP 178/90
[2019-05-20] MEDS: ONDANSETRON 4MG/2ML VIAL (J2405) IV PRN (08:24)
[2019-05-20] MEDS: DOCUSATE SODIUM 100 MG CAP PO SCH ×2 (08:26→21:50)
[2019-05-20] MEDS: CLOPIDOGREL 75 MG TAB PO SCH (08:26)
[2019-05-20] MEDS: amLODIPine 5 MG TAB PO SCH ×2 (08:26→21:51)
[2019-05-20] MEDS: BISACODYL 5 MG TAB PO PRN (08:26)
[2019-05-20] MEDS: PANTOPRAZOLE 40MG TAB (PROTONIX) PO SCH (08:26)
[2019-05-20] MEDS: FERROUS SULFATE 325MG TAB PO SCH (08:26)
[2019-05-20] MEDS: predniSONE 50 MG TAB PO SCH (08:27)
[2019-05-20] MEDS: RESTASIS 0.05% OU SCH ×2 (08:27→21:51)
[2019-05-20] MEDS: LABETALOL 200 MG TAB PO SCH (08:27)
[2019-05-20] MEDS: ADVAIR HFA 230/21MCG INHALER INH SCH ×2 (08:39→20:00)
--- NOTE | 2019-05-20 10:35 | IPNPDOC ---
Subjective Date Seen The patient was seen on 05/20/19. Subjective Chief Complaint/HPI complains of insomnia. Says this is a problem at home also. No fever or chills, no cough or phlegm, Her brathing is as usual. Did have some abdominal cramps this am. has not had a bowel movement today yet. Objective Physical Examination General Exam: Positive: Alert, Cooperative, No Acute Distress Eye Exam: Positive: PERRLA, Conjunctiva & lids normal, EOMI; Negative: Sclera icteric ENT Exam: Positive: Atraumatic, Mucous membr. moist/pink, Pharynx Normal Neck Exam: Positive: Supple; Negative: JVD, thyromegaly Chest Exam: Positive: Diminished; Negative: Rales, Rhonchi, Wheezing Heart Exam: Positive: Rate Normal, Regular Rhythm, Normal S1, Normal S2; Negative: Murmurs, Rubs Abdomen Exam: Positive: Normal bowel sounds, Soft; Negative: Tenderness, Hepatospenomegaly Extremity Exam: Negative: Clubbing, Cyanosis, Edema Skin Exam: Positive: Nl turgor and temperature; Negative: Rash, Breakdown Assessment /Plan Assessment This is a 64-year-old female with a history of hypertension, chronic obstructive pulmonary disease (COPD), rheumatoid arthritis (RA), mesenteric ischemia, ischemic colitis, osteoporosis, dyslipidemia and cystitis, presented to the emergency room with hypertensive urgency, acute renal failure. Acute nonoliguric renal failure, status post hydration and pulse doses of IV Solu-Medrol, status post renal biopsy, the result of which is still pending. Possible glomerulonephritis with proteinuria and blood in the stool. Refer to nephrology for further management. Currently on prednisone. Uncontrolled hypertension. Avoiding ARBs and angiotensin-converting enzyme(TITO) inhibitors. on amlodipine, hydralazine and labetelol changed to metoprolol. Renal artery stenosis with acute renal failure. Defer to nephrology and vascular regarding timing of stent placement. At this time, this has been deferred due to acute inflammation of the kidneys. History of mesenteric ischemia, status post stenting of celiac artery and ischemic colitis. No acute abdominal complaints. No nausea, vomiting, abdominal pain. Dyslipidemia. On chronic Lipitor. Chronic obstructive pulmonary disease with chronic respiratory failure with hypoxia Not in acute exacerbation. On home inhalers. Rheumatoid arthritis. Complicating care. Osteoporosis. Complicating care. Plan/VTE VTE Prophylaxis Ordered?: Yes VS, I&O, 24H, [facility] Vital Signs/I&O Vital Signs Date Time Temp Pulse Resp B/P (MAP) Pulse Ox O2 Delivery O2 Flow Rate FiO2 05/20/19 08:25 77 172/74 05/20/19 08:00 96.9 18 100 2.0 I&O- Last 24 Hours up to 6 AM 05/20/19 06:00 Intake Total 1860 ml Output Total 2675 ml Balance -815 ml Laboratory Data 24H LABS Laboratory Tests 2 05/20/19 04:55: Immature Granulocyte % (Auto) 4.8H, White Blood Count 17.8H, Red Blood Count 2.90L, Hemoglobin 8.7L, Hematocrit 26.9L, Mean Corpuscular Volume 92.8, Mean Corpuscular Hemoglobin 30.0, Mean Corpuscular Hemoglobin Concent 32.3, Red Cell Distribution Width 16.4H, Platelet Count 289, Neutrophils (%) (Auto) 62.3, Lymphocytes (%) (Auto) 23.4L, Monocytes (%) (Auto) 8.5H, Eosinophils (%) (Auto) 0.8, Basophils (%) (Auto) 0.2, Neutrophils # (Auto) 11.1H, Lymphocytes # (Auto) 4.2, Monocytes # (Auto) 1.5H, Eosinophils # (Auto) 0.1, Basophils # (Auto) 0.0, Nucleated Red Blood Cells % (auto) 0.0, Anion Gap 6L, Glomerular Filtration Rate 18.4L, Blood Urea Nitrogen 60H, Creatinine 2.76H, Sodium Level 141, Potassium Level 3.7, Chloride Level 106, Carbon Dioxide Level 29, Calcium Level 7.3L CBC/BMP Laboratory Tests 05/20/19 04:55 Red Blood Count 2.90 L, Mean Corpuscular Volume 92.8, Mean Corpuscular Hemoglobin 30.0, Mean Corpuscular Hemoglobin Concent 32.3, Red Cell Distribution Width 16.4 H, Neutrophils (%) (Auto) 62.3, Lymphocytes (%) (Auto) 23.4 L, Monocytes (%) (Auto) 8.5 H, Eosinophils (%) (Auto) 0.8, Basophils (%) (Auto) 0.2, Neutrophils # (Auto) 11.1 H, Lymphocytes # (Auto) 4.2, Monocytes # (Auto) 1.5 H, Eosinophils # (Auto) 0.1, Basophils # (Auto) 0.0, Calcium Level 7.3 L MARIE CARRANZA MD May 20, 2019 10:35
[2019-05-20 12:00] VITALS: BP 168/80
[2019-05-20] MEDS: METOPROLOL SUCC (TopROL XL) 50MG **XL** TAB PO SCH ×2 (12:47→21:50)
[2019-05-20] MEDS: **hydrALAZINE** 50 MG TAB PO SCH ×3 (12:47→21:50)
[2019-05-20] MEDS: ACETAMINOPHEN TAB 650MG DOSE (2X325MG) PO PRN (12:48)
[2019-05-20 16:00] VITALS: BP 158/80
[2019-05-20 20:00] VITALS: BP 152/96
[2019-05-20] MEDS: ATORVASTATIN 10 MG TAB PO SCH (21:50)
[2019-05-20 23:59] VITALS: BP 168/92
[2019-05-21] MEDS: SLF 3 ML SYR IV SCH ×3 (05:17→22:32)
[2019-05-21 06:00] VITALS: BP 178/72
[2019-05-21 07:58] LABS: CALCIUM LEVEL 7.6 MG/DL (8.8-10.2); CREATININE FOR GFR 2.4 MG/DL (0.55-1.30); GLOMERULAR FILTRATION RATE 21.6 (>45); POTASSIUM SERUM 3.8 MEQ/L (3.5-5.1)
[2019-05-21 08:05] LABS: BASO # 0.1 10^3/uL (0.0-0.2); BASO % 0.3 % (0.0-1.0); EOS # 0.2 10^3/uL (0.0-0.50); EOS % 1.1 % (0.0-3.0); HEMATOCRIT 29.4 % (36.0-47.0); HEMOGLOBIN 9.6 g/dl (12.0-15.5); LYMPH % 20.7 % (24.0-44.0); MEAN CORPUSCULAR HEMOGLOBIN 30.9 pg (27.0-33.0); MEAN CORPUSCULAR HGB CONC 32.7 g/dl (32.0-36.5); MEAN CORPUSCULAR VOLUME 94.5 fl (80.0-96.0); MONO # 1.5 10^3/uL (0.0-0.8); NEUTROPHILS # 12.8 10^3/uL (1.8-7.7); PLATELET COUNT, AUTOMATED 318 10^3/uL (150-450); RED BLOOD COUNT 3.11 10^6/uL (4.00-5.40); WHITE BLOOD COUNT 19.3 10^3/uL (4.0-10.0)
[2019-05-21] MEDS: ADVAIR HFA 230/21MCG INHALER INH SCH ×2 (08:10→20:00)
--- NOTE | 2019-05-21 08:25 | IPNPDOC ---
Subjective Date Seen The patient was seen on 05/21/19. Subjective Chief Complaint/HPI Says unable to sleep, very good appetite, no SOB , no chest pain , no fever or chills, no cough or phlegm. Objective Physical Examination General Exam: Positive: Alert, Cooperative, No Acute Distress Eye Exam: Positive: PERRLA, Conjunctiva & lids normal, EOMI; Negative: Sclera icteric ENT Exam: Positive: Atraumatic, Mucous membr. moist/pink, Pharynx Normal Neck Exam: Positive: Supple; Negative: JVD, thyromegaly Chest Exam: Positive: Diminished; Negative: Rales, Rhonchi, Wheezing Heart Exam: Positive: Rate Normal, Regular Rhythm, Normal S1, Normal S2; Negative: Murmurs, Rubs Abdomen Exam: Positive: Normal bowel sounds, Soft; Negative: Tenderness, Hepatospenomegaly Extremity Exam: Negative: Clubbing, Cyanosis, Edema Skin Exam: Positive: Nl turgor and temperature; Negative: Rash, Breakdown Assessment /Plan Assessment This is a 64-year-old female with a history of hypertension, chronic obstructive pulmonary disease (COPD), rheumatoid arthritis (RA), mesenteric ischemia, ischemic colitis, osteoporosis, dyslipidemia and cystitis, presented to the emergency room with hypertensive urgency, acute renal failure. Acute nonoliguric renal failure possible Glomerulonephritis. creatinine slight improvement. status post pulse doses of IV Solu-Medrol, status post renal biopsy, the result of which is still pending. Currently on prednisone. Uncontrolled hypertension. Avoiding ARBs and angiotensin-converting enzyme(TITO) inhibitors. on amlodipine, hydralazine and metoprolol. Renal artery stenosis with acute renal failure. Defer to nephrology and vascular regarding timing of stent placement. At this time, this has been deferred due to acute inflammation of the kidneys. History of mesenteric ischemia, status post stenting of celiac artery and ischemic colitis. No acute abdominal complaints. No nausea, vomiting, abdominal pain. Dyslipidemia. On chronic Lipitor. Chronic obstructive pulmonary disease with chronic respiratory failure with hypoxia Not in acute exacerbation. On home inhalers. Rheumatoid arthritis. Complicating care. Osteoporosis. Complicating care. Plan/VTE VTE Prophylaxis Ordered?: Yes VS, I&O, 24H, Fishbone Vital Signs/I&O Vital Signs Date Time Temp Pulse Resp B/P (MAP) Pulse Ox O2 Delivery O2 Flow Rate FiO2 05/21/19 06:00 98.0 86 16 178/72 (107) 96 2.0 I&O- Last 24 Hours up to 6 AM 05/21/19 06:00 Intake Total 600 ml Output Total 2025 ml Balance -1425 ml Laboratory Data 24H LABS Laboratory Tests 2 05/21/19 06:28: Immature Granulocyte % (Auto) 3.9H, White Blood Count 19.3H, Red Blood Count 3.11L, Hemoglobin 9.6L, Hematocrit 29.4L, Mean Corpuscular Volume 94.5, Mean Corpuscular Hemoglobin 30.9, Mean Corpuscular Hemoglobin Concent 32.7, Red Cell Distribution Width 16.9H, Platelet Count 318, Neutrophils (%) (Auto) 66.0, Ly mphocytes (%) (Auto) 20.7L, Monocytes (%) (Auto) 8.0H, Eosinophils (%) (Auto) 1.1, Basophils (%) (Auto) 0.3, Neutrophils # (Auto) 12.8H, Lymphocytes # (Auto) 4.0, Monocytes # (Auto) 1.5H, Eosinophils # (Auto) 0.2, Basophils # (Auto) 0.1, Nucleated Red Blood Cells % (auto) 0.0, Anion Gap 6L, Glomerular Filtration Rate 21.6L, Blood Urea Nitrogen 54H, Creatinine 2.40H, Sodium Level 139, Potassium Level 3.8, Chloride Level 105, Carbon Dioxide Level 28, Calcium Level 7.6L CBC/BMP Laboratory Tests 05/21/19 06:28 Red Blood Count 3.11 L, Mean Corpuscular Volume 94.5, Mean Corpuscular Hemoglobin 30.9, Mean Corpuscular Hemoglobin Concent 32.7, Red Cell Distribution Width 16.9 H, Neutrophils (%) (Auto) 66.0, Lymphocytes (%) (Auto) 20.7 L, Monocytes (%) (Auto) 8.0 H, Eosinophils (%) (Auto) 1.1, Basophils (%) (Auto) 0.3, Neutrophils # (Auto) 12.8 H, Lymphocytes # (Auto) 4.0, Monocytes # (Auto) 1.5 H, Eosinophils # (Auto) 0.2, Basophils # (Auto) 0.1, Calcium Level 7.6 L MARIE CARRANZA MD May 21, 2019 08:25
[2019-05-21] MEDS: CLOPIDOGREL 75 MG TAB PO SCH (08:29)
[2019-05-21] MEDS: BISACODYL 5 MG TAB PO PRN (08:29)
[2019-05-21] MEDS: PANTOPRAZOLE 40MG TAB (PROTONIX) PO SCH (08:29)
[2019-05-21] MEDS: DOCUSATE SODIUM 100 MG CAP PO SCH ×2 (08:30→22:31)
[2019-05-21] MEDS: amLODIPine 5 MG TAB PO SCH ×2 (08:30→22:29)
[2019-05-21] MEDS: FERROUS SULFATE 325MG TAB PO SCH (08:30)
[2019-05-21] MEDS: predniSONE 50 MG TAB PO SCH (08:30)
[2019-05-21] MEDS: METOPROLOL SUCC (TopROL XL) 50MG **XL** TAB PO SCH ×2 (08:31→22:32)
[2019-05-21] MEDS: RESTASIS 0.05% OU SCH ×2 (08:31→22:33)
[2019-05-21] MEDS: **hydrALAZINE** 50 MG TAB PO SCH ×3 (08:32→22:30)
[2019-05-21 14:00] VITALS: BP 138/76
--- NOTE | 2019-05-21 18:14 | IPN ---
DATE: 05/20/2019 Mrs. Rivera is seen this morning on her bedside. She is laying in her bed and feels very dizzy. She reports that after taking her medications she can not even sit up for a few hours. She has not been able to eat due to severe dizziness. Her blood pressure remains elevated in the 170s. She denies any fever, chills, nausea or vomiting. Her chronic dyspnea is unchanged and she remains on oxygen. PHYSICAL EXAMINATION: Temperature 97.2 degrees Fahrenheit, heart rate 72 per minute and respiratory rate 20 per minute. Blood pressure 168/80 mmHg and oxygen saturation 100%. Head is atraumatic. Neck veins do not seem to be elevated. Lungs sound clear to auscultation. Heart sounds are regular. Abdomen is soft and nontender. Bowel sounds are present. Extremities have no cyanosis or clubbing. Neurologically, she is awake but feeling very dizzy. No focal deficit noted. LABORATORY DATA: Today's laboratories show WBC count 17.8, hemoglobin 8.7 and hematocrit 26.9. Platelets 289. Sodium 141, potassium 3.7, CO2 29, BUN 60 and creatinine 2.76. Glucose is 86 and calcium 7.3. PROBLEMS: 1. Acute renal failure secondary to rapidly progressive glomerulonephritis. The patient is gradually improving with steroid therapy. Unfortunately, her kidney biopsy was inconclusive due to medulla only in the light microscopy specimen and in the immunostaining specimen. Electron microscopy is still pending. I have discussed with the patient about the need for a re-biopsy. However, she has declined it. At present, we will continue with steroids and she is improving gradually. Electrolytes are within normal range. 2. Hypoxemia. This is chronic and related to chronic obstructive pulmonary disease (COPD). Her volume status is well-compensated. No diuretics are being used today. 3. Hypertension and dizziness. Blood pressure is still somewhat elevated. She is feeling very dizzy and most likely this is a side effect of high-dose labetalol. I am going to switch her antihypertensives to metoprolol succinate 50 mg twice a day and hydralazine 50 mg three times a day. She is not a suitable candidate for angiotensin-converting enzyme (TITO) inhibitor or angiotensin-receptor arnie at present due to acute renal failure. 4. Anemia. Her anemia is fluctuating and we will continue to monitor on a daily basis. There is no emergent indication for a transfusion.
--- NOTE | 2019-05-21 20:25 | IPN ---
DATE: 05/21/2019 Ms. Rivera is seen this morning on her bedside. She is laying in the bed as usual as she feels dizzy when she sits up. She feels that it is better than yesterday. However, after taking her 09:00 a.m. medications, she does feel dizzy. She denies any nausea or vomiting and did have good breakfast. Her chronic dyspnea is unchanged and she remains on two liters of oxygen. She has no fever or chills. PHYSICAL EXAMINATION: Temperature 98 degrees Fahrenheit, heart rate 86 per minute and respiratory rate 16 per minute. Blood pressure 178/72 mmHg and oxygen saturation is 96% on two liters of oxygen. Head is atraumatic. Neck is supple and without jugular venous distention (JVD) or thyroid enlargement. Heart sounds are regular. Lungs are clear to auscultation. Abdomen is soft and nontender and bowel sounds are normal. Extremities have no cyanosis or clubbing. Neurologically, she has no focal deficit and remains at her baseline mentation. LABORATORY DATA: Today's laboratories show WBC count 19.3, hemoglobin 9.6 and hematocrit 29.4. Platelets 318. Sodium 139, potassium 3.8, CO2 28, BUN 54 and creatinine 2.4. Glucose is 90 and calcium 7.6. PROBLEMS: 1. Acute renal failure related to rapidly progressive glomerulonephritis. Kidney function is gradually and slowly improving. She remains on prednisone 50 mg daily. Unfortunately, her kidney biopsy was inconclusive due to medulla only in the biopsy. I have reported it to the interventional radiologist. The patient has declined a repeat biopsy. At this point, we will continue with prednisone and start tapering the dose in one week. 2. Hypertension. Blood pressure is still elevated though she is also very anxious when her blood pressure is checked. Her medications were adjusted yesterday and I am going to increase the dose of her metoprolol to 75 mg twice a day. We will continue with hydralazine 50 mg three times a day for now in addition to amlodipine 5 mg twice a day. She is not suitable for angiotensin-converting enzyme (TITO) inhibitor or angiotensin-receptor blockers due to acute renal failure. 3. Anemia. Her anemia is stable and improved. We will continue to monitor her closely. 4. Chronic hypoxemia related to chronic obstructive pulmonary disease (COPD). She remains on oxygen. Her volume status is well-compensated and she is not on daily dose of diuretic.
[2019-05-21 22:00] VITALS: BP 156/80
[2019-05-21] MEDS: ATORVASTATIN 10 MG TAB PO SCH (22:30)
[2019-05-22] MEDS: SLF 3 ML SYR IV SCH (05:56)
[2019-05-22 06:00] VITALS: BP 168/82
[2019-05-22 06:13] LABS: BASO # 0.1 10^3/uL (0.0-0.2); BASO % 0.4 % (0.0-1.0); EOS # 0.2 10^3/uL (0.0-0.50); EOS % 0.8 % (0.0-3.0); HEMATOCRIT 30.2 % (36.0-47.0); HEMOGLOBIN 9.7 g/dl (12.0-15.5); LYMPH # 4.2 10^3/uL (1.5-4.5); LYMPH % 21.5 % (24.0-44.0); MEAN CORPUSCULAR HEMOGLOBIN 30.7 pg (27.0-33.0); MEAN CORPUSCULAR HGB CONC 32.1 g/dl (32.0-36.5); MEAN CORPUSCULAR VOLUME 95.6 fl (80.0-96.0); MONO # 1.5 10^3/uL (0.0-0.8); MONO % 7.9 % (0.0-5.0); NEUTROPHILS # 12.9 10^3/uL (1.8-7.7); NEUTROPHILS % 65.8 % (36.0-66.0); PLATELET COUNT, AUTOMATED 302 10^3/uL (150-450); RED BLOOD COUNT 3.16 10^6/uL (4.00-5.40); WHITE BLOOD COUNT 19.6 10^3/uL (4.0-10.0)
[2019-05-22 06:31] LABS: CALCIUM LEVEL 7.2 MG/DL (8.8-10.2); CREATININE FOR GFR 2.45 MG/DL (0.55-1.30); GLOMERULAR FILTRATION RATE 21.1 (>45); POTASSIUM SERUM 3.6 MEQ/L (3.5-5.1)
[2019-05-22] MEDS: ADVAIR HFA 230/21MCG INHALER INH SCH (07:15)
[2019-05-22] MEDS ORDERED: POTASSIUM CHLORIDE 10 MEQ SR TABLET PO ONE (08:30)
[2019-05-22] MEDS: PANTOPRAZOLE 40MG TAB (PROTONIX) PO SCH (09:13)
[2019-05-22] MEDS: DOCUSATE SODIUM 100 MG CAP PO SCH (09:13)
[2019-05-22] MEDS: CLOPIDOGREL 75 MG TAB PO SCH (09:13)
[2019-05-22] MEDS: FERROUS SULFATE 325MG TAB PO SCH (09:13)
[2019-05-22] MEDS: predniSONE 50 MG TAB PO SCH (09:13)
[2019-05-22] MEDS: RESTASIS 0.05% OU SCH (09:13)
[2019-05-22 09:15] VITALS: BP 168/72
[2019-05-22] MEDS: **hydrALAZINE** 50 MG TAB PO SCH (09:15)
[2019-05-22] MEDS: METOPROLOL SUCC (TopROL XL) 50MG **XL** TAB PO SCH (09:15)
[2019-05-22] MEDS: amLODIPine 5 MG TAB PO SCH (09:15)
[2019-05-22] MEDS ORDERED: METO1TAB7 PO (10:07)
[2019-05-22] MEDS ORDERED: HYDR50TA PO (10:07)
[2019-05-22] MEDS ORDERED: PRED20TA PO (10:07)
--- NOTE | 2019-05-22 14:37 | DS.PDOC ---
Discharge Summary General Date of Admission May 08, 2019 at 21:02 Date of Discharge 05/22/19 Discharge Summary PROCEDURES PERFORMED DURING STAY: Renal Biopsy DISCHARGE DIAGNOSES: Acute renal failure possible Glomerulonephritis, renal bx results pending. 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 HISTORY OF PRESENT ILLNESS: See history and physical HOSPITAL COURSE: This is a 64-year-old female with a history of hypertension, chronic obstructive pulmonary disease (COPD), rheumatoid arthritis (RA), mesenteric ischemia, ischemic colitis, osteoporosis, dyslipidemia and cystitis, presented to the emergency room with hypertensive urgency, acute renal failure. Acute nonoliguric renal failure possible Glomerulonephritis. creatinine slight improvement. status post pulse doses of IV Solu-Medrol, status post renal biopsy, the result of which is still pending. Currently on prednisone 40 mg daily Uncontrolled hypertension. Avoiding ARBs and angiotensin-converting enzyme(TITO) inhibitors. on amlodipine, hydralazine and metoprolol. Renal artery stenosis with acute renal failure. Defer to nephrology and vascular regarding timing of stent placement. At this time, this has been deferred due to acute inflammation of the kidneys. History of mesenteric ischemia, status post stenting of celiac artery and ischemic colitis. No acute abdominal complaints. No nausea, vomiting, abdominal pain. Dyslipidemia. On chronic Lipitor. Chronic obstructive pulmonary disease with chronic respiratory failure with hypoxia Not in acute exacerbation. On home inhalers. Rheumatoid arthritis. Complicating care. Osteoporosis. Complicating care. DISCHARGE MEDICATIONS: Please see below. ALLERGIES: Please see below. PHYSICAL EXAMINATION ON DISCHARGE: VITAL SIGNS: Please see below. General Exam: Positive: Alert, Cooperative, No Acute Distress Eye Exam: Positive: PERRLA, Conjunctiva & lids normal, EOMI; Negative: Sclera icteric ENT Exam: Positive: Atraumatic, Mucous membr. moist/pink, Pharynx Normal Neck Exam: Positive: Supple; Negative: JVD, thyromegaly Chest Exam: Positive: Diminished; Negative: Rales, Rhonchi, Wheezing Heart Exam: Positive: Rate Normal, Regular Rhythm, Normal S1, Normal S2; Negative: Murmurs, Rubs Abdomen Exam: Positive: Normal bowel sounds, Soft; Negative: Tenderness, Hepatospenomegaly Extremity Exam: Negative: Clubbing, Cyanosis, Edema Skin Exam: Positive: Nl turgor and temperature; Negative: Rash, Breakdown LABORATORY DATA: Please see below. ACTIVITY: [As tolerated]. DIET: As tolerated DISPOSITION: 01 Home, Self-Care. DISCHARGE INSTRUCTIONS: Follow up with Renal in 1 week PMD in 1 week DISCHARGE CONDITION: [Stable]. TIME SPENT ON DISCHARGE: 35 minutes. Vital Signs/I&Os Vital Signs Date Time Temp Pulse Resp B/P (MAP) Pulse Ox O2 Delivery O2 Flow Rate FiO2 05/22/19 09:15 65 168/72 05/22/19 09:00 2.0 05/22/19 06:00 97.3 20 100 I&O- Last 24 Hours up to 6 AM 05/22/19 05:59 Intake Total 1320 ml Output Total 1500 ml Balance -180 ml Laboratory Data Labs 24H Laboratory Tests 2 05/22/19 05:30: Immature Granulocyte % (Auto) 3.6H, White Blood Count 19.6H, Red Blood Count 3.16L, Hemoglobin 9.7L, Hematocrit 30.2L, Mean Corpuscular Volume 95.6, Mean Corpuscular Hemoglobin 30.7, Mean Corpuscular Hemoglobin Concent 32.1, Red Cell Distribution Width 17.2H, Platelet Count 302, Neutrophils (%) (Auto) 65.8, Lymphocytes (%) (Auto) 21.5L, Monocytes (%) (Auto) 7.9H, Eosinophils (%) (Auto) 0.8, Basophils (%) (Auto) 0.4, Neutrophils # (Auto) 12.9H, Lymphocytes # (Auto) 4.2, Monocytes # (Auto) 1.5H, Eosinophils # (Auto) 0.2, Basophils # (Auto) 0.1, Nucleated Red Blood Cells % (auto) 0.0 05/22/19 05:31: Anion Gap 8, Glomerular Filtration Rate 21.1L, Blood Urea Nitrogen 52H, Creatinine 2.45H, Sodium Level 139, Potassium Level 3.6, Chloride Level 103, Carbon Dioxide Level 28, Calcium Level 7.2L CBC/BMP Laboratory Tests 05/22/19 05:30 Red Blood Count 3.16 L, Mean Corpuscular Volume 95.6, Mean Corpuscular Hemoglobin 30.7, Mean Corpuscular Hemoglobin Concent 32.1, Red Cell Distribution Width 17.2 H, Neutrophils (%) (Auto) 65.8, Lymphocytes (%) (Auto) 21.5 L, Monocytes (%) (Auto) 7.9 H, Eosinophils (%) (Auto) 0.8, Basophils (%) (Auto) 0.4, Neutrophils # (Auto) 12.9 H, Lymphocytes # (Auto) 4.2, Monocytes # (Auto) 1 .5 H, Eosinophils # (Auto) 0.2, Basophils # (Auto) 0.1 05/22/19 05:31 Calcium Level 7.2 L Discharge Medications Scheduled Amlodipine Besylate (Amlodipine Besylate) 5 Mg Tablet, 5 MG PO BID, (Reported) Atorvastatin Calcium (Atorvastatin Calcium) 10 Mg Tablet, 10 MG PO QHS, (Reported) Clopidogrel Bisulfate (Clopidogrel) 75 Mg Tablet, 75 MG PO DAILY Ferrous Gluconate (Ferrous Gluconate) 324 Mg Tablet, 324 MG PO DAILY, (Reported) Fluticasone Propion/Salmeterol (Advair Hfa 230-21 Mcg Inhaler) 12 Gm Hfa.aer.ad, 2 PUFF INH BID, (Reported) Hydralazine HCl (Hydralazine HCl) 50 Mg Tablet, 50 MG PO TID Metoprolol Succinate (Metoprolol Succinate) 50 Mg Tab.er.24h, 75 MG PO BID Pantoprazole Sodium (Pantoprazole Sodium) 40 Mg Tablet.dr, 40 MG PO QAM Prednisone (Prednisone) 20 Mg Tablet, 40 MG PO ASDIRECTED 2 tabs daily Scheduled PRN Albuterol Sulfate (Ventolin Hfa) 18 Gm Hfa.aer.ad, 2 PUFF INH Q6H PRN for SHORTNESS OF BREATH, (Reported) Allergies Coded Allergies: Penicillins (Verified Allergy, Severe, anaphylaxis, 03/14/19) morphine (Verified Allergy, Severe, rash sob, 05/08/19) nickel (Verified Allergy, Intermediate, skin irritation, 05/21/19) Skin irritation MARIE CARRANZA MD May 22, 2019 14:37
--- NOTE | 2019-05-22 23:23 | IPN ---
DATE: 05/22/2019 Mrs. Rivera is seen this morning on her bedside. She still feels dizzy after taking her morning medications; however, it is not as bad as it was few days ago. She denies any fever, chills, nausea or vomiting. Her chronic dyspnea is unchanged and remains on 2 liters oxygen. PHYSICAL EXAMINATION: Temperature 97.3 degrees Fahrenheit, heart rate 65 per minute and respiratory rate 20 per minute. Blood pressure 168/82 mmHg and oxygen saturation 100% on 2 liters oxygen. Head is atraumatic. Neck is supple and without JVD or thyroid enlargement. Heart: Sounds are regular and lungs clear to auscultation. Abdomen: Soft and nontender and bowel sounds are normal. Extremities: Without any cyanosis or clubbing. Neurologically, she is awake, alert and oriented x3. Today's labs show WBC count 19.6, hemoglobin 9.7 and hematocrit 30.2. Platelets 302. Sodium 139, potassium 3.6, BUN 52 and creatinine 2.45. Glucose 127 and calcium 7.2. Current medications include prednisone 50 mg daily, amlodipine 5 mg twice a day, atorvastatin 10 mg at bedtime, Plavix 75 mg daily, Colace 100 mg twice a day, ferrous sulfate 325 mg daily, hydralazine 50 mg three times a day, metoprolol 75 mg twice a day, Zofran as needed for nausea, Protonix 40 mg daily, Advair Diskus 250/50 twice a day and Tylenol as needed. PROBLEMS: 1. Acute renal failure superimposed on chronic kidney disease. Kidney function has leveled off and no change management expert the last 24 hours. For last several days, her kidney function has been gradually improving. 2. Acute glomerulonephritis. The patient remains on prednisone and dose will be tapered down to 40 mg daily. Unfortunately, her kidney biopsy was inconclusive due to Medela in the specimen. There was no cortex. The patient has declined a repeat kidney biopsy. 3. Hypokalemia. Potassium level is 3.6. She is currently not on any diuretic. She will be given one dose of potassium chloride 20 mEq today. 4. Anemia. Her anemia is stable at present and she remains on iron supplement. 5. Hypertension. Blood pressure control has improved with med adjustment. I will consider to adjust her medications further as an outpatient. She will follow up in my office next week. DISPOSITION: The patient is medically doing much better and can be discharged today. She understands that she will need to follow up very closely because of her hypertension and acute renal failure. Dictation
== END 2019-05-22 11:38 | disposition home or self-care (01) | DRG 698 ==
LOC: M ED 16:54 → M ED INP 21:02 → M PCU 22:55 → M MSPAV 05-21 00:51
PROVIDERS: ADMIT Internal Medicine Nephrology; ATTEND Internal Medicine Nephrology
PROC: 0TB03ZX Excision of Right Kidney, Percutaneous Approach, Diagnostic (ICD-10-PCS; principal; 2019-05-14 12:00)
DX: I70.1 Atherosclerosis of renal artery (principal); N00.9 Acute nephritic syndrome with unspecified morphologic changes; K55.9 Vascular disorder of intestine, unspecified; N17.9 Acute kidney failure, unspecified; J96.11 Chronic respiratory failure with hypoxia; R80.9 Proteinuria, unspecified; R70.0 Elevated erythrocyte sedimentation rate; N39.3 Stress incontinence (female) (male); F41.9 Anxiety disorder, unspecified; I16.0 Hypertensive urgency; I10 Essential (primary) hypertension; R73.9 Hyperglycemia, unspecified; D63.8 Anemia in other chronic diseases classified elsewhere; T50.8X5A Adverse effect of diagnostic agents, initial encounter; E87.6 Hypokalemia; T46.4X5A Adverse effect of angiotensin-converting-enzyme inhibitors, initial encounter; E78.5 Hyperlipidemia, unspecified; T38.0X5A Adverse effect of glucocorticoids and synthetic analogues, initial encounter; J44.9 Chronic obstructive pulmonary disease, unspecified; M81.0 Age-related osteoporosis without current pathological fracture; M06.9 Rheumatoid arthritis, unspecified; Z87.891 Personal history of nicotine dependence; Z88.0 Allergy status to penicillin; Z88.5 Allergy status to narcotic agent; Z79.899 Other long term (current) drug therapy; Z95.828 Presence of other vascular implants and grafts; Z79.02 Long term (current) use of antithrombotics/antiplatelets

== ENCOUNTER → 2019-05-08 | Outpatient (REF) | payer MEDICARE, OTHER ==
[~2019-05-08] MED LIST changes: +ACETAMINOPHEN TAB 650MG DOSE (2X325MG) PO PRN; +DOCUSATE SODIUM 100 MG CAP PO SCH; +HEPARIN SOD (PORCINE) 5000 UNITS/ML VIAL SC SCH; +LABETALOL 100 MG TAB PO SCH; +hydrALAZINE INJ 20 MG/ML VIAL IV STA
== END ==
LOC: M LAB REF 17:19
PROVIDERS: ATTEND Internal Medicine
DX: N17.8 Other acute kidney failure (principal); R80.9 Proteinuria, unspecified; R70.0 Elevated erythrocyte sedimentation rate

== ENCOUNTER → 2019-06-15 | Outpatient (CLI) | payer MEDICARE, OTHER ==
[~2019-06-15] MED LIST changes: +AMLO5TAB6 PO; +FERR32TA PO; +HYDR50TA PO; +LIDOCAINE 1% MDV 20ML VIAL As Ordered ONE; +METO1TAB7 PO; +PRED20TA PO
--- NOTE | 2019-06-15 13:33 | RO ---
DATE OF PROCEDURE: 06/15/2019 PROCEDURE: Left kidney biopsy. INDICATIONS FOR PROCEDURE: Acute renal failure, proteinuria. SURGEON: Dr. Bryant Pillai RELOCATION SPECIALIST: None. ANESTHESIA: 1% lidocaine, 15 mL used. PREPROCEDURE DIAGNOSIS: Acute renal failure and proteinuria. POSTPROCEDURE DIAGNOSIS: Acute renal failure and proteinuria. DESCRIPTION: Informed consent obtained from the patient. Procedure was explained. Patient brought to ultrasound room and put to lay on the exam table in prone position. A rolled sheet was put under her abdomen. Left kidney identified with ultrasound. Her skin was cleaned and prepped in usual sterile fashion. 1% lidocaine used from skin all the way down to renal capsule for local anesthesia. A total of 15 mL lidocaine was used. Under direct ultrasound guidance, we placed the coaxial needle after making a small incision with knife. Kidney biopsy was then performed through the coaxial needle and the patient tolerated the procedure well. A total of four passes were performed and three specimens obtained. The patient tolerated the procedure very well and there were no complications. The patient transferred back to recovery room. Tissue sent to pathology.
[2019-06-15 15:50] VITALS: BP 156/72
--- NOTE | 2019-06-15 19:20 | REP ---
Renal sonographic guidance: History: Renal biopsy. Findings: Sonographic guidance is provided Dr. Pillai who performed percutaneous needle biopsy of the left kidney. Electronically Signed by Justin Prajapati MD 06/15/2019 07:27 P
== END ==
LOC: M IRPRO 11:03
PROVIDERS: ATTEND Internal Medicine Nephrology
DX: N17.9 Acute kidney failure, unspecified (principal); N00.0 Acute nephritic syndrome with minor glomerular abnormality; R80.9 Proteinuria, unspecified

== ENCOUNTER → 2019-07-06 | Outpatient (CLI) | payer MEDICARE ==
[~2019-07-06] MED LIST changes: -LIDOCAINE 1% MDV 20ML VIAL As Ordered ONE
--- NOTE | 2019-07-06 19:39 | REP ---
CT chest without contrast: History: Hypoxemia. Comparison chest CT study March 15, 2019. CT findings: Preliminary digital leak operator paraffin plant radiograph demonstrates hyperinflation of the lung zuñiga. Extensive emphysematous changes are noted on CT images. These are most pronounced in the upper lobes. There is a small pleural-based nodule in the left upper lobe measuring 5 mm in diameter which is unchanged. No pulmonary mass or other nodule is seen. There is discoid atelectasis in the right lower lobe posteriorly. The previously noted pleural effusions have resolved. There is no evidence of hilar or mediastinal mass or adenopathy. No pleural or pericardial effusion is seen. There is mitral annular calcification and left coronary artery vascular calcification. Celiac axis stent is seen in place. No adrenal lesion is observed. Impression: Advanced COPD and emphysematous changes again noted. An area of plate-like atelectasis is seen in the right lower lobe. No infiltrate is noted. Electronically Signed by uJstin Prajapati MD 07/07/2019 09:36 A
== END ==
LOC: M RAD 15:15
PROVIDERS: ATTEND Internal Medicine Nephrology
DX: R09.02 Hypoxemia (principal); J44.1 Chronic obstructive pulmonary disease with (acute) exacerbation

== ENCOUNTER → 2019-10-12 | Outpatient (REF) | payer MEDICARE, OTHER ==
[2019-10-12 18:11] LABS: FOLATE 13.2 NG/ML
== END ==
LOC: M LAB REF 17:26
PROVIDERS: ATTEND Internal Medicine
DX: N18.9 Chronic kidney disease, unspecified (principal); D63.1 Anemia in chronic kidney disease

== ENCOUNTER → 2020-03-14 | Outpatient (CLI) | payer MEDICARE, OTHER ==
[2020-03-14 17:43] LABS: CHOLESTEROL RISK RATIO 5.82 (<5)
== END ==
LOC: M WUC 11:49
PROVIDERS: ATTEND Internal Medicine Cardiovascular Disease
DX: E78.00 Pure hypercholesterolemia, unspecified (principal)

== ENCOUNTER → 2020-05-13 | Outpatient (CLI) | payer MEDICARE, OTHER ==
[~2020-05-13] MED LIST changes: -AMLO10TA5 PO; +AMLO1TAB24 PO; +AMLO1TAB25 PO; -AMLO5TAB6 PO; +PANT40TA29 PO; -PANT40TA3 PO
[2020-06-11 03:31] LABS: INR 1.05; PROTHROMBIN TIME 13.9 SECONDS (11.8-14.0)
[2020-06-11 03:48] LABS: BASO # 0.1 10^3/uL (0.0-0.2); BASO % 0.6 % (0.0-1.0); EOS # 0.3 10^3/uL (0.0-0.5); EOS % 2.3 % (0.0-3.0); HEMATOCRIT 43.5 % (36.0-47.0); HEMOGLOBIN 14.4 g/dl (12.0-15.5); LYMPH # 2.1 10^3/uL (1.5-5.0); LYMPH % 18.4 % (24.0-44.0); MEAN CORPUSCULAR HEMOGLOBIN 31.7 pg (27.0-33.0); MEAN CORPUSCULAR HGB CONC 33.1 g/dl (32.0-36.5); MEAN CORPUSCULAR VOLUME 95.8 fl (80.0-96.0); MONO % 8.6 % (0.0-5.0); NEUTROPHILS # 7.8 10^3/uL (1.5-8.5); PLATELET COUNT, AUTOMATED 347 10^3/uL (150-450); RED BLOOD COUNT 4.54 10^6/uL (4.00-5.40); WHITE BLOOD COUNT 11.3 10^3/uL (4.0-10.0)
[2020-06-27 20:06] LABS: CALCIUM LEVEL 9.1 MG/DL (8.8-10.2); CREATININE FOR GFR 1.94 MG/DL (0.55-1.30); GLOMERULAR FILTRATION RATE 27.5 (>45); POTASSIUM SERUM 4.5 MEQ/L (3.5-5.1)
== END ==
LOC: M LAB 13:29
PROVIDERS: ATTEND Surgery Vascular Surgery
DX: K55.1 Chronic vascular disorders of intestine (principal)

== ENCOUNTER → 2021-01-17 | Outpatient (CLI) | payer MEDICARE, OTHER ==
[~2021-01-17] MED LIST changes: +HYDR-3490 PO; -HYDR25TAB PO; -LABE100T36 PO; +LABE100T4 PO; +LABE100T5 PO; -LABE10TAB PO
--- NOTE | 2021-01-17 19:31 | REP ---
INDICATION: CHRONIC OBSTRUCTIVE PULMONARY DISEASE, UNSPECIFIED COMPARISON: 06/09/2019. TECHNIQUE: PA/Lateral FINDINGS: Lungs: Bibasilar interstitial fibrotic change appears stable. No superimposed acute infiltrate is seen. Heart: Normal in size. Mediastinum: There is mild calcification of the thoracic aorta. The mediastinal silhouette is unchanged. Pleural angles: Unremarkable.. Bones and soft tissues: There are mild degenerative changes of the spine without compression deformity. IMPRESSION: No acute pulmonary disease. Stable chronic findings. <Electronically signed by Tony Billings > 01/17/21 [id number]
== END ==
LOC: M RAD 17:13
PROVIDERS: ATTEND Internal Medicine Pulmonary Disease
DX: J44.9 Chronic obstructive pulmonary disease, unspecified (principal)

== ENCOUNTER → 2021-03-07 | Outpatient (CLI) | payer MEDICARE, OTHER ==
--- NOTE | 2021-03-07 13:36 | REP ---
INDICATION: HX OF NICOTINE DEPENDENCE COMPARISON: 07/06/2019 TECHNIQUE: Axial noncontrast images from the thoracic inlet to the upper abdomen using low-dose lung screening technique (LDCT). FINDINGS: Pleuroparenchymal changes including nodular scar at the right apex and a emphysematous changes and bibasilar scarring as well as small chronic atelectasis at the lingula remains stable. No acute consolidation, significant nodule or mass. No effusion. No pneumothorax. IMPRESSION: Lung rads category 2. Management recommendations include annual low-dose CT surveillance. <Electronically signed by Aj Whitley > 03/07/21 [id number]
== END ==
LOC: M RAD 12:50
PROVIDERS: ATTEND Nurse Practitioner Family
DX: F17.210 Nicotine dependence, cigarettes, uncomplicated (principal)

== ENCOUNTER → 2021-05-29 | Outpatient (REF) | payer MEDICARE, OTHER ==
[2021-05-29 18:02] LABS: FREE T4 0.94 NG/DL (0.76-1.46); MAGNESIUM LEVEL 2.1 MG/DL (1.8-2.4); THYROID STIMULATING HORMONE 2.92 uIU/ML (0.358-3.740)
== END ==
LOC: M LAB REF 16:56
PROVIDERS: ATTEND Internal Medicine
DX: E03.9 Hypothyroidism, unspecified (principal); E83.42 Hypomagnesemia

== ENCOUNTER → 2021-11-07 | Outpatient (CLI) | payer MEDICARE, OTHER ==
[~2021-11-07] MED LIST changes: +BENA-8 PO; -BENA20TA8 PO
== END ==
LOC: M WHC 14:52
PROVIDERS: ATTEND Internal Medicine
DX: Z12.31 Encounter for screening mammogram for malignant neoplasm of breast (principal)

== ENCOUNTER → 2021-12-07 | Outpatient (REF) | payer MEDICARE, OTHER ==
[2021-12-11 10:50] LABS: ALBUMIN 4.28 GM/DL (3.29-5.55); ALBUMIN % 53.5 % (55.8-66.1); ALPHA-1-GLOBULIN % 4.5 % (2.9-4.9); ALPHA-1-GLOBULINS 0.36 GM/DL (0.17-0.41); ALPHA-2-GLOBULINS 1.02 GM/DL (0.42-0.99); ALPHA-2-GLOBULINS % 12.8 % (7.1-11.8); BETA-1-GLOBULINS 0.47 GM/DL (0.28-0.60); BETA-1-GLOBULINS % 5.9 % (4.7-7.2); BETA-2-GLOBULINS 0.54 GM/DL (0.19-0.55); BETA-2-GLOBULINS % 6.7 % (3.2-6.5); GAMMA GLOBULIN % 16.6 % (11.1-18.8); GAMMA GLOBULINS 1.33 GM/DL (0.65-1.58)
== END ==
LOC: M LAB REF 11:02
PROVIDERS: ATTEND Internal Medicine
DX: N18.4 Chronic kidney disease, stage 4 (severe) (principal)

== ENCOUNTER → 2022-03-20 | Outpatient (CLI) | payer MEDICARE, OTHER | LOC: M RAD 10:37 | PROVIDERS: ATTEND Internal Medicine Pulmonary Disease | DX: Z12.2 Encounter for screening for malignant neoplasm of respiratory organs (principal); J98.4 Other disorders of lung; Z87.891 Personal history of nicotine dependence ==

== ENCOUNTER → 2022-04-19 | Outpatient (CLI) | payer MEDICARE, OTHER | LOC: M PLARAD 07:48 | PROVIDERS: ATTEND Internal Medicine Pulmonary Disease | DX: R91.1 Solitary pulmonary nodule (principal) | CPT/HCPCS: 78815; A9552 ==

== ENCOUNTER → 2022-05-03 | Outpatient (CLI) | payer MEDICARE, OTHER ==
[~2022-05-03] MED LIST changes: +ADV100INH INH; +CLON0.1D3 TOP; +FURO20TA2 PO; +SPIR-10 PO; +VITA100093
== END ==
LOC: M ONCR 14:34
PROVIDERS: ATTEND General Practice
DX: R91.1 Solitary pulmonary nodule (principal); J44.9 Chronic obstructive pulmonary disease, unspecified; Z79.01 Long term (current) use of anticoagulants; Z79.51 Long term (current) use of inhaled steroids; Z79.899 Other long term (current) drug therapy; Z80.1 Family history of malignant neoplasm of trachea, bronchus and lung; Z80.3 Family history of malignant neoplasm of breast; Z87.891 Personal history of nicotine dependence; Z88.5 Allergy status to narcotic agent; Z88.0 Allergy status to penicillin; Z91.09 Other allergy status, other than to drugs and biological substances

== ENCOUNTER 2022-06-05 13:38 | Outpatient (RCR) | payer MEDICARE, OTHER ==
[~2022-06-05 13:38] MED LIST changes: -LABE100T4 PO; -LABE100T5 PO; +LABE100T6 PO; +LABE100T71 PO
== END 2022-06-06 ==
LOC: M ONCR 13:38
PROVIDERS: ATTEND General Practice
DX: C34.11 Malignant neoplasm of upper lobe, right bronchus or lung (principal)

== ENCOUNTER → 2022-09-06 | Outpatient (CLI) | payer MEDICARE, OTHER ==
[2022-09-06 15:18] LABS: ALBUMIN 3.9 G/DL (3.2-5.2); BILIRUBIN,TOTAL 0.9 MG/DL (0.3-1.2); CALCIUM LEVEL 8.8 MG/DL (8.3-10.6); CREATININE FOR GFR 1.52 MG/DL (0.55-1.30); GLOMERULAR FILTRATION RATE 36.2 (>45); POTASSIUM SERUM 3.7 MMOL/L (3.5-5.1)
== END ==
LOC: M ONCR 14:28
PROVIDERS: ATTEND General Practice
DX: C34.11 Malignant neoplasm of upper lobe, right bronchus or lung (principal)

== ENCOUNTER → 2022-10-03 | Outpatient (CLI) | payer MEDICARE, OTHER | LOC: M ONCR 14:40 | PROVIDERS: ATTEND General Practice | DX: C34.11 Malignant neoplasm of upper lobe, right bronchus or lung (principal); Z92.3 Personal history of irradiation; Z87.891 Personal history of nicotine dependence; R05.9 Cough, unspecified; Z88.0 Allergy status to penicillin; Z88.5 Allergy status to narcotic agent; Z91.048 Other nonmedicinal substance allergy status; Z79.899 Other long term (current) drug therapy; Z79.51 Long term (current) use of inhaled steroids | CPT/HCPCS: 71260; G0463; Q9967 ==

== ENCOUNTER → 2022-10-03 | Outpatient (CLI) | payer MEDICARE, OTHER ==
[~2022-10-03] MED LIST changes: +ISOVUE-370 76% 100ML VIAL As Ordered ONE
== END ==
LOC: M RAD 12:31
PROVIDERS: ATTEND General Practice
DX: C34.90 Malignant neoplasm of unspecified part of unspecified bronchus or lung (principal)

== ENCOUNTER → 2023-01-14 | Outpatient (CLI) | payer MEDICARE, OTHER ==
[~2023-01-14] MED LIST changes: -ISOVUE-370 76% 100ML VIAL As Ordered ONE
== END ==
LOC: M WHC 14:27
PROVIDERS: ATTEND Internal Medicine
DX: Z12.31 Encounter for screening mammogram for malignant neoplasm of breast (principal)

== ENCOUNTER → 2023-01-28 | Outpatient (CLI) | payer MEDICARE, OTHER | LOC: M WHC 13:56 | PROVIDERS: ATTEND Family Medicine | DX: R92.2 Inconclusive mammogram (principal) | CPT/HCPCS: 76642; 77065; G0279 ==

== ENCOUNTER → 2023-03-20 | Outpatient (CLI) | payer MEDICARE, OTHER | LOC: M RAD 09:36 | PROVIDERS: ATTEND General Practice | DX: C34.11 Malignant neoplasm of upper lobe, right bronchus or lung (principal) ==

== ENCOUNTER → 2023-04-03 | Outpatient (CLI) | payer MEDICARE, OTHER | LOC: M ONCR 12:42 | PROVIDERS: ATTEND General Practice | DX: R91.8 Other nonspecific abnormal finding of lung field (principal); R05.9 Cough, unspecified; J44.9 Chronic obstructive pulmonary disease, unspecified; R06.09 Other forms of dyspnea; Z71.2 Person consulting for explanation of examination or test findings; Z79.01 Long term (current) use of anticoagulants; Z79.51 Long term (current) use of inhaled steroids; Z79.899 Other long term (current) drug therapy; Z87.891 Personal history of nicotine dependence; Z88.0 Allergy status to penicillin; Z88.1 Allergy status to other antibiotic agents; Z88.5 Allergy status to narcotic agent; Z91.048 Other nonmedicinal substance allergy status; Z92.3 Personal history of irradiation ==

== ENCOUNTER → 2023-07-30 | Outpatient (CLI) | payer MEDICARE, OTHER | LOC: M WHC 10:00 | PROVIDERS: ATTEND Internal Medicine | DX: R92.2 Inconclusive mammogram (principal) | CPT/HCPCS: 76642; 77065; G0279 ==

== ENCOUNTER → 2023-09-26 | Outpatient (CLI) | payer MEDICARE, OTHER | LOC: M PLAIMG 10:59 | PROVIDERS: ATTEND General Practice | DX: C34.90 Malignant neoplasm of unspecified part of unspecified bronchus or lung (principal) ==

== ENCOUNTER → 2024-01-17 | Outpatient (CLI) | payer MEDICARE, OTHER ==
[~2024-01-17] MED LIST changes: -HYDR50TA PO; +HYDR50TA47 PO; +LABE100T40 PO; -LABE100T71 PO
== END ==
LOC: M WHC 09:07
PROVIDERS: ATTEND Internal Medicine
DX: Z12.31 Encounter for screening mammogram for malignant neoplasm of breast (principal)

== ENCOUNTER → 2024-02-04 | Outpatient (REF) | payer MEDICARE, OTHER | LOC: M LAB REF 17:19 | PROVIDERS: ATTEND Internal Medicine | DX: N25.81 Secondary hyperparathyroidism of renal origin (principal); E07.9 Disorder of thyroid, unspecified ==

== ENCOUNTER → 2024-02-06 | Outpatient (REF) | payer MEDICARE, OTHER | LOC: M LAB REF 17:00 | PROVIDERS: ATTEND Internal Medicine Nephrology | DX: N39.0 Urinary tract infection, site not specified (principal) ==

== ENCOUNTER → 2024-02-12 | Outpatient (CLI) | payer MEDICARE, OTHER | LOC: M WHC 13:26 | PROVIDERS: ATTEND Internal Medicine | DX: R92.8 Other abnormal and inconclusive findings on diagnostic imaging of breast (principal) | CPT/HCPCS: 77065; G0279 ==

== ENCOUNTER → 2024-03-10 | Outpatient (CLI) | payer MEDICARE, OTHER | LOC: M RAD 09:56 | PROVIDERS: ATTEND Physician Assistant | DX: R10.84 Generalized abdominal pain (principal) ==

== ENCOUNTER → 2024-04-01 | Outpatient (CLI) | payer MEDICARE, OTHER ==
[~2024-04-01] MED LIST changes: +CLON0.3D8 TOP; +CLOP75TA99 PO; +ROCA0.25 PO; +ROSU20TA61 PO; -VITA100093; +VITA100093 PO
== END ==
LOC: M RAD 08:42
PROVIDERS: ATTEND General Practice
DX: C34.90 Malignant neoplasm of unspecified part of unspecified bronchus or lung (principal)

== ENCOUNTER → 2024-04-03 | Outpatient (REF) | payer MEDICARE, OTHER | LOC: M LAB REF 11:51 | PROVIDERS: ATTEND Internal Medicine Gastroenterology | DX: R10.30 Lower abdominal pain, unspecified (principal) ==

== ENCOUNTER → 2024-04-08 | Outpatient (CLI) | payer MEDICARE, OTHER | LOC: M ONCR 13:25 | PROVIDERS: ATTEND General Practice | DX: R91.8 Other nonspecific abnormal finding of lung field (principal); J44.9 Chronic obstructive pulmonary disease, unspecified; Z79.899 Other long term (current) drug therapy; Z88.0 Allergy status to penicillin; Z88.5 Allergy status to narcotic agent; Z87.891 Personal history of nicotine dependence; Z91.09 Other allergy status, other than to drugs and biological substances; Z92.3 Personal history of irradiation ==

== ENCOUNTER 2024-04-15 10:01 | Day surgery (SDC) | payer MEDICARE, OTHER ==
[~2024-04-15] VITALS: Ht 157.5 cm; Wt 63.5 kg
[~2024-04-15 10:01] MED LIST changes: +LIDOCAINE 2% 100MG/5ML SDV (FOR ANES.) As Ordered ONE; +propofoL 200 MG/20 ML VIAL As Ordered ONE
[2024-04-15] MEDS: NS 1,000 ML IV ONE (10:25)
[2024-04-15] MEDS ORDERED: fentaNYL 100 MCG/2 ML INJECTION As Ordered ONE (11:08)
[2024-04-15] MEDS ORDERED: ONDANSETRON 4MG 2ML VIAL As Ordered ONE (11:26)
[2024-04-15 12:30] VITALS: BP 118/58; TEMP 96.7; O2SAT 98
== END 2024-04-15 12:45 | disposition home or self-care (01) ==
LOC: M OPP 10:01
PROVIDERS: ATTEND Internal Medicine Gastroenterology
DX: Z12.11 Encounter for screening for malignant neoplasm of colon (principal); Z80.0 Family history of malignant neoplasm of digestive organs; K64.0 First degree hemorrhoids; K57.30 Diverticulosis of large intestine without perforation or abscess without bleeding; K31.89 Other diseases of stomach and duodenum; K22.89 Other specified disease of esophagus; I50.9 Heart failure, unspecified; J44.9 Chronic obstructive pulmonary disease, unspecified; Z79.02 Long term (current) use of antithrombotics/antiplatelets; Z79.51 Long term (current) use of inhaled steroids; Z79.899 Other long term (current) drug therapy; Z88.0 Allergy status to penicillin; Z88.5 Allergy status to narcotic agent; Z91.048 Other nonmedicinal substance allergy status
CPT/HCPCS: 43239; 88305; G0105; J2405; J3010

== ENCOUNTER → 2024-06-19 | Outpatient (CLI) | payer MEDICARE, OTHER ==
[~2024-06-19] MED LIST changes: -LIDOCAINE 2% 100MG/5ML SDV (FOR ANES.) As Ordered ONE; -propofoL 200 MG/20 ML VIAL As Ordered ONE
== END ==
LOC: M WUC 13:14
PROVIDERS: ATTEND Internal Medicine
DX: R06.09 Other forms of dyspnea (principal)

== ENCOUNTER → 2024-06-26 | Outpatient (CLI) | payer MEDICARE, OTHER | LOC: M PLAIMG 13:22 | PROVIDERS: ATTEND Internal Medicine | DX: I35.1 Nonrheumatic aortic (valve) insufficiency (principal) ==

== ENCOUNTER 2024-07-07 10:04 | Emergency (ER) | payer MEDICARE, OTHER ==
[~2024-07-07] VITALS: Ht 157.5 cm; Wt 66.3 kg
[~2024-07-07 10:04] MED LIST changes: -ROSU20TA61 PO; +ROSU20TA86 PO
[2024-07-07 10:08] VITALS: TEMP 97.1
[2024-07-07 10:53] LABS: BASO # 0.1 10^3/uL (0.0-0.2); BASO % 0.5 % (0.0-1.0); EOS # 0.3 10^3/uL (0.0-0.5); EOS % 2.4 % (0.0-3.0); HEMATOCRIT 39.8 % (36.0-47.0); HEMOGLOBIN 13.1 g/dl (12.0-15.5); LYMPH # 1.2 10^3/uL (1.5-5.0); MEAN CORPUSCULAR HEMOGLOBIN 31.4 pg (27.0-33.0); MEAN CORPUSCULAR HGB CONC 32.9 g/dl (32.0-36.5); MEAN CORPUSCULAR VOLUME 95.4 fl (80.0-96.0); MONO # 0.7 10^3/uL (0.0-0.8); MONO % 6.9 % (2.0-8.0); NEUTROPHILS # 7.9 10^3/uL (1.5-8.5); NEUTROPHILS % 77.1 % (36.0-66.0); PLATELET COUNT, AUTOMATED 258 10^3/uL (150-450); RED BLOOD COUNT 4.17 10^6/uL (4.00-5.40); WHITE BLOOD COUNT 10.2 10^3/uL (4.0-10.0)
[2024-07-07 11:00] VITALS: BP 162/73
[2024-07-07 11:04] VITALS: O2SAT 98
[2024-07-07] MEDS ORDERED: ALBU2.5V10 INH (11:08)
[2024-07-07] MEDS ORDERED: MULT-40 PO (11:08)
[2024-07-07] MEDS ORDERED: POLY17PO18 PO (11:08)
[2024-07-07] MEDS ORDERED: ISOS1TAB35 PO (11:08)
[2024-07-07] MEDS ORDERED: SPIR1CAP PO (11:08)
[2024-07-07] MEDS ORDERED: VITA200020 PO (11:08)
[2024-07-07 11:10] LABS: CK-MB VALUE MASS 1.7 NG/ML (<3.6)
[2024-07-07] MEDS ORDERED: HOME MED LIST COMPLETE! XX SCH (11:10)
[2024-07-07 11:12] LABS: CALCIUM LEVEL 8.8 MG/DL (8.3-10.6); CREATININE FOR GFR 2.28 MG/DL (0.55-1.30); GLOMERULAR FILTRATION RATE 22.5 (>39); MB/CK RELATIVE INDEX 1.5 (< OR =4); POTASSIUM SERUM 3.9 MMOL/L (3.5-5.1)
== END 2024-07-07 13:10 | disposition home or self-care (01) ==
LOC: M ED 10:04
DX: M94.0 Chondrocostal junction syndrome [Tietze] (principal); R94.31 Abnormal electrocardiogram [ECG] [EKG]; I10 Essential (primary) hypertension; E78.5 Hyperlipidemia, unspecified; J44.9 Chronic obstructive pulmonary disease, unspecified; Z87.891 Personal history of nicotine dependence; Z88.0 Allergy status to penicillin; Z88.5 Allergy status to narcotic agent; Z88.8 Allergy status to other drugs, medicaments and biological substances; Z79.51 Long term (current) use of inhaled steroids; Z79.810 Long term (current) use of selective estrogen receptor modulators (SERMs); Z79.899 Other long term (current) drug therapy

== ENCOUNTER → 2024-08-10 | Outpatient (CLI) | payer MEDICARE, OTHER ==
[~2024-08-10] MED LIST changes: +ALBU2.5V10 INH; +ISOS1TAB35 PO; +MULT-40 PO; +POLY17PO18 PO; +SPIR1CAP PO; +VITA200020 PO
== END ==
LOC: M RAD 09:51
PROVIDERS: ATTEND Internal Medicine
DX: R07.9 Chest pain, unspecified (principal)
CPT/HCPCS: 78306; A9503

== ENCOUNTER → 2024-10-09 | Outpatient (CLI) | payer MEDICARE, OTHER ==
[~2024-10-09] MED LIST changes: -ADV100INH INH; +ADVA1AER8 INH
== END ==
LOC: M RAD 11:09
PROVIDERS: ATTEND General Practice
DX: C34.11 Malignant neoplasm of upper lobe, right bronchus or lung (principal)

== ENCOUNTER → 2024-10-14 | Outpatient (CLI) | payer MEDICARE, OTHER | LOC: M ONCR 13:36 | PROVIDERS: ATTEND General Practice | DX: Z08 Encounter for follow-up examination after completed treatment for malignant neoplasm (principal); Z85.118 Personal history of other malignant neoplasm of bronchus and lung; Z87.891 Personal history of nicotine dependence; Z92.3 Personal history of irradiation; Z99.81 Dependence on supplemental oxygen; Z88.0 Allergy status to penicillin; Z88.1 Allergy status to other antibiotic agents; Z88.5 Allergy status to narcotic agent; Z91.02 Food additives allergy status; Z91.048 Other nonmedicinal substance allergy status; Z79.899 Other long term (current) drug therapy; Z79.51 Long term (current) use of inhaled steroids ==

== ENCOUNTER → 2024-11-16 | Outpatient (CLI) | payer MEDICARE, OTHER | LOC: M EKG 13:51 | PROVIDERS: ATTEND Internal Medicine Cardiovascular Disease | DX: R55 Syncope and collapse (principal); R00.2 Palpitations ==

== ENCOUNTER → 2025-01-06 | Outpatient (REF) | payer MEDICARE, OTHER ==
[2025-01-06 18:13] LABS: HEPATITIS B SURFACE ANTIBODY NEGATIVE (POSITIVE)
[2025-01-06 18:24] LABS: HEPATITIS B SURFACE ANTIGEN NEGATIVE (NEGATIVE)
[2025-01-06 18:46] LABS: HEPATITIS B CORE ANTIBODY IGM NEGATIVE (NEGATIVE); HEPATITIS C VIRUS ABY INDEX 0.06 INDEX (<0.8)
== END ==
LOC: M LAB REF 17:05
PROVIDERS: ATTEND Internal Medicine Nephrology
DX: N18.6 End stage renal disease (principal)

== ENCOUNTER → 2025-01-15 | Outpatient (CLI) | payer MEDICARE, OTHER ==
[~2025-01-15] MED LIST changes: +NS (Normal Saline) 0.9% 1,000 ML IV SCH; +ONDANSETRON 4MG 2ML VIAL As Ordered ONE; +VANCOMYCIN HCL 1,000 MG, VIAL MATE ADAPTER 1 EACH in D5W 250 ML IV ONE
[2025-01-15 09:30] VITALS: TEMP 98
[2025-01-15] MEDS: NS (Normal Saline) 0.9% 500 ML IV SCH (09:51)
[2025-01-15] MEDS: ceFAZolin SOD 2 GM IV ONCE IV ONE (10:36)
[2025-01-15] MEDS: MIDAZOLAM INJ 2MG/2ML VIAL IV PRN (10:38)
[2025-01-15] MEDS: fentaNYL 100 MCG/2 ML INJECTION IV PRN (10:38)
[2025-01-15] MEDS: ONDANSETRON 4MG 2ML VIAL IV STA (10:39)
[2025-01-15] MEDS: LIDOCAINE 1% MDV 20ML VIAL SC ONE (10:44)
[2025-01-15] MEDS: HEPARIN 1,000UNITS/ML 10ML VIAL (FOR RADIOLOGY & DIALYSIS ONLY) IV PRN (10:46)
[2025-01-15 11:35] VITALS: BP 162/74; O2SAT 100
== END ==
LOC: M IRPRO 09:22
PROVIDERS: ATTEND Internal Medicine Nephrology
DX: N18.4 Chronic kidney disease, stage 4 (severe) (principal); I12.9 Hypertensive chronic kidney disease with stage 1 through stage 4 chronic kidney disease, or unspecified chronic kidney disease
CPT/HCPCS: 36561; 99152; C1894; J0690; J2250; J2405; J3010

== ENCOUNTER 2025-01-20 17:05 | Emergency (ER) | payer MEDICARE, OTHER ==
[~2025-01-20 17:05] MED LIST changes: -NS (Normal Saline) 0.9% 1,000 ML IV SCH; -ONDANSETRON 4MG 2ML VIAL As Ordered ONE; -VANCOMYCIN HCL 1,000 MG, VIAL MATE ADAPTER 1 EACH in D5W 250 ML IV ONE
[2025-01-20 17:20] VITALS: TEMP 97.7
[2025-01-20 17:44] LABS: VENOUS BASE EXCESS 4.5 (-2.0-2.0); VENOUS HCO3 29.8 MMOL/L (23.0-27.0); VENOUS O2 SATURATION 47.8 % (60.0-80.0); VENOUS PARTIAL PRESSURE CO2 47.6 mmHg (38.0-50.0); VENOUS PARTIAL PRESSURE O2 25.4 mmHg (30.0-50.0); VENOUS PH 7.414 UNITS (7.330-7.430); VENOUS STANDARD HCO3 27.5 MMOL/L; VENOUS TOTAL CO2 31.2 MMOL/L (24.0-28.0)
[2025-01-20 17:49] LABS: BASO # 0.1 10^3/uL (0.0-0.2); BASO % 0.5 % (0.0-1.0); EOS # 0.2 10^3/uL (0.0-0.5); HEMATOCRIT 30.9 % (36.0-47.0); HEMOGLOBIN 10.2 g/dl (12.0-15.5); LYMPH # 1.8 10^3/uL (1.5-5.0); LYMPH % 16.7 % (24.0-44.0); MEAN CORPUSCULAR VOLUME 96.9 fl (80.0-96.0); MONO # 0.9 10^3/uL (0.0-0.8); MONO % 8.2 % (2.0-8.0); NEUTROPHILS # 7.7 10^3/uL (1.5-8.5); PLATELET COUNT, AUTOMATED 181 10^3/uL (150-450); RED BLOOD COUNT 3.19 10^6/uL (4.00-5.40); WHITE BLOOD COUNT 10.7 10^3/uL (4.0-10.0)
[2025-01-20 18:30] LABS: CK-MB VALUE MASS 4.5 NG/ML (<3.6)
[2025-01-20 18:32] LABS: MB/CK RELATIVE INDEX 1.83 (< OR =4)
[2025-01-20 18:33] LABS: ALBUMIN 3.2 G/DL (3.2-5.2); BILIRUBIN,DIRECT 0.2 MG/DL (<0.4); BILIRUBIN,TOTAL 0.6 MG/DL (0.3-1.2); CALCIUM LEVEL 8.1 MG/DL (8.3-10.6); CREATININE FOR GFR 2.14 MG/DL (0.55-1.30); GLOMERULAR FILTRATION RATE 24.3 (>39); POTASSIUM SERUM 3.6 MMOL/L (3.5-5.1); TOTAL PROTEIN 6.8 G/DL (5.7-8.2)
[2025-01-20 18:34] LABS: PROLACTIN 12.91 NG/ML; THYROID STIMULATING HORMONE 3.618 uIU/ML (0.55-4.78)
[2025-01-20 19:21] LABS: CK-MB VALUE MASS 4.8 NG/ML (<3.6)
[2025-01-20 19:22] LABS: MB/CK RELATIVE INDEX 2.06 (< OR =4)
[2025-01-20 19:30] VITALS: BP 132/68; O2SAT 99
== END 2025-01-20 19:52 | disposition home or self-care (01) ==
LOC: M ED 17:05 → EDBD 17:05 → M ED 19:52
DX: R55 Syncope and collapse (principal); I50.22 Chronic systolic (congestive) heart failure; E11.9 Type 2 diabetes mellitus without complications; I11.0 Hypertensive heart disease with heart failure; J44.9 Chronic obstructive pulmonary disease, unspecified; Z88.0 Allergy status to penicillin; Z88.5 Allergy status to narcotic agent; Z88.8 Allergy status to other drugs, medicaments and biological substances; Z79.51 Long term (current) use of inhaled steroids; Z79.899 Other long term (current) drug therapy; Z79.810 Long term (current) use of selective estrogen receptor modulators (SERMs)

== ENCOUNTER 2025-02-20 15:14 | Emergency (ER) | payer MEDICARE, OTHER ==
[~2025-02-20] VITALS: Ht 157.5 cm; Wt 64.9 kg
[2025-02-20 15:18] VITALS: TEMP 97.9
[2025-02-20 16:19] LABS: BASO # 0.1 10^3/uL (0.0-0.2); BASO % 0.6 % (0.0-1.0); EOS # 0.5 10^3/uL (0.0-0.5); EOS % 5.8 % (0.0-3.0); HEMATOCRIT 33.7 % (36.0-47.0); HEMOGLOBIN 10.8 g/dl (12.0-15.5); LYMPH % 24.5 % (24.0-44.0); MEAN CORPUSCULAR HEMOGLOBIN 31.7 pg (27.0-33.0); MEAN CORPUSCULAR VOLUME 98.8 fl (80.0-96.0); MONO # 0.7 10^3/uL (0.0-0.8); MONO % 8.7 % (2.0-8.0); NEUTROPHILS # 4.8 10^3/uL (1.5-8.5); NEUTROPHILS % 59.7 % (36.0-66.0); PLATELET COUNT, AUTOMATED 165 10^3/uL (150-450); RED BLOOD COUNT 3.41 10^6/uL (4.00-5.40)
[2025-02-20 16:51] LABS: CPK CREATINE PHOSPHOKINASE 60 U/L (34-145)
[2025-02-20 16:55] LABS: BLOOD UREA NITROGEN 36 MG/DL (9-23); CALCIUM LEVEL 9.3 MG/DL (8.3-10.6); CARBON DIOXIDE LEVEL 30 MMOL/L (20-31); CHLORIDE LEVEL 99 MMOL/L (98-107); CK-MB VALUE MASS < 1.0 NG/ML (<3.6); CREATININE FOR GFR 3.02 MG/DL (0.55-1.30); GLOMERULAR FILTRATION RATE 16.1 (>39); GLUCOSE, FASTING 79 MG/DL (74-106); MAGNESIUM LEVEL 2.1 MG/DL (1.8-2.4); MB/CK RELATIVE INDEX 1.66 (< OR =4); POTASSIUM SERUM 3.6 MMOL/L (3.5-5.1); SODIUM LEVEL 142 MMOL/L (136-145); THYROID STIMULATING HORMONE 2.319 uIU/ML (0.55-4.78)
[2025-02-20 17:52] LABS: MB/CK RELATIVE INDEX 1.81 (< OR =4)
[2025-02-20 19:42] LABS: CK-MB VALUE MASS < 1.0 NG/ML (<3.6)
[2025-02-20 19:48] LABS: CPK CREATINE PHOSPHOKINASE 51 U/L (34-145); MB/CK RELATIVE INDEX 1.96 (< OR =4)
[2025-02-20 20:49] VITALS: O2SAT 93
[2025-02-20 21:22] VITALS: BP 133/65; O2SAT 100
== END 2025-02-20 21:48 | disposition home or self-care (01) ==
LOC: M ED 15:14
DX: R42 Dizziness and giddiness (principal); I50.22 Chronic systolic (congestive) heart failure; E11.9 Type 2 diabetes mellitus without complications; I11.0 Hypertensive heart disease with heart failure; J44.9 Chronic obstructive pulmonary disease, unspecified; N18.6 End stage renal disease; Z88.0 Allergy status to penicillin; Z88.5 Allergy status to narcotic agent; Z88.8 Allergy status to other drugs, medicaments and biological substances; Z79.51 Long term (current) use of inhaled steroids; Z79.899 Other long term (current) drug therapy

== ENCOUNTER → 2025-04-13 | Outpatient (CLI) | payer MEDICARE, OTHER ==
[2025-04-13 12:41] LABS: ALT/SGPT 23.0 U/L (7.0-40); AST/SGOT 29.0 U/L (<34); CALCIUM LEVEL 9.4 MG/DL (8.3-10.6); CARBON DIOXIDE LEVEL 27.0 MMOL/L (20-31); CHLORIDE LEVEL 103.0 MMOL/L (98-107); CREATININE FOR GFR 3.08 MG/DL (0.55-1.30); GLOMERULAR FILTRATION RATE 15.7 (>39); POTASSIUM SERUM 3.8 MMOL/L (3.5-5.1); SODIUM LEVEL 142.0 MMOL/L (136-145)
== END ==
LOC: M ONCR 11:15
PROVIDERS: ATTEND General Practice
DX: C34.11 Malignant neoplasm of upper lobe, right bronchus or lung (principal)

== ENCOUNTER → 2025-04-13 | Outpatient (CLI) | payer MEDICARE, OTHER ==
[~2025-04-13] MED LIST changes: +ISOVUE-370 76% 100 ML VIAL As Ordered ONE
== END ==
LOC: M RAD 12:19
PROVIDERS: ATTEND General Practice
DX: C34.11 Malignant neoplasm of upper lobe, right bronchus or lung (principal)
CPT/HCPCS: 36415; 71275; 80053; G0463; Q9967

== ENCOUNTER → 2025-04-27 | Outpatient (CLI) | payer MEDICARE, OTHER | LOC: M RAD 07:11 | PROVIDERS: ATTEND Internal Medicine | DX: R22.1 Localized swelling, mass and lump, neck (principal) | CPT/HCPCS: 70491; Q9967 ==

== ENCOUNTER → 2025-06-22 | Outpatient (CLI) | payer MEDICARE, OTHER ==
[~2025-06-22] MED LIST changes: -ISOVUE-370 76% 100 ML VIAL As Ordered ONE
== END ==
LOC: M WHC 12:25
PROVIDERS: ATTEND Internal Medicine
DX: N63.11 Unspecified lump in the right breast, upper outer quadrant (principal); R92.333 Mammographic heterogeneous density, bilateral breasts; R92.8 Other abnormal and inconclusive findings on diagnostic imaging of breast
CPT/HCPCS: 76642; 77066; G0279

== ENCOUNTER 2025-06-25 18:24 | Emergency (ER) | payer MEDICARE, OTHER ==
[~2025-06-25] VITALS: Ht 157.5 cm; Wt 64.1 kg
[2025-06-25 19:46] LABS: BASO # 0.0 10^3/uL (0.0-0.2); BASO % 0.4 % (0.0-1.0); EOS # 0.4 10^3/uL (0.0-0.5); EOS % 4.0 % (0.0-3.0); LYMPH # 1.6 10^3/uL (1.5-5.0); LYMPH % 15.7 % (24.0-44.0); MONO # 0.8 10^3/uL (0.0-0.8); MONO % 8.1 % (2.0-8.0); NEUTROPHILS # 7.3 10^3/uL (1.5-8.5); NEUTROPHILS % 70.4 % (36.0-66.0); PLATELET COUNT, AUTOMATED 222 10^3/uL (150-450)
[2025-06-25 20:19] LABS: CK-MB VALUE MASS 2.1 NG/ML (<3.6)
[2025-06-25 20:21] LABS: ALT/SGPT 27.0 U/L (7.0-40); AST/SGOT 32.0 U/L (<34); CALCIUM LEVEL 9.1 MG/DL (8.3-10.6); CARBON DIOXIDE LEVEL 34.0 MMOL/L (20-31); CHLORIDE LEVEL 96.0 MMOL/L (98-107); CREATININE FOR GFR 1.68 MG/DL (0.55-1.30); GLOMERULAR FILTRATION RATE 32.3 (>39); POTASSIUM SERUM 3.5 MMOL/L (3.5-5.1); SODIUM LEVEL 137.0 MMOL/L (136-145)
[2025-06-25 20:23] LABS: FREE T4 1.42 NG/DL (0.89-1.76)
[2025-06-25 20:25] LABS: CPK CREATINE PHOSPHOKINASE 87.0 U/L (34-145); MB/CK RELATIVE INDEX 2.41 (< OR =4)
[2025-06-25 21:18] LABS: CK-MB VALUE MASS 1.5 NG/ML (<3.6)
[2025-06-25 21:20] LABS: CPK CREATINE PHOSPHOKINASE 77.0 U/L (34-145); MB/CK RELATIVE INDEX 1.94 (< OR =4)
[2025-06-25 22:17] VITALS: TEMP 99
[2025-06-25] MEDS: ASPIRIN 81 MG CHEWABLE TABLET PO ONE (22:19)
[2025-06-26 00:30] VITALS: BP 141/65; O2SAT 97
== END 2025-06-26 00:44 | disposition short-term general hospital (02) ==
LOC: M ED 18:24
DX: I50.22 Chronic systolic (congestive) heart failure (principal); I21.4 Non-ST elevation (NSTEMI) myocardial infarction; E11.9 Type 2 diabetes mellitus without complications; I11.0 Hypertensive heart disease with heart failure; J44.9 Chronic obstructive pulmonary disease, unspecified; E78.5 Hyperlipidemia, unspecified; N18.6 End stage renal disease; Z87.891 Personal history of nicotine dependence; Z88.0 Allergy status to penicillin; Z88.5 Allergy status to narcotic agent; Z88.8 Allergy status to other drugs, medicaments and biological substances; Z79.51 Long term (current) use of inhaled steroids; Z79.899 Other long term (current) drug therapy; Z79.810 Long term (current) use of selective estrogen receptor modulators (SERMs)

== ENCOUNTER 2025-07-08 14:56 | Inpatient (IN) | payer MEDICARE, OTHER ==
[~2025-07-08] VITALS: Ht 157.5 cm; Wt 63.2 kg
[2025-07-08] MEDS ORDERED: MIDO5TA PO (15:14)
[2025-07-08 16:35] LABS: ALT/SGPT 25.0 U/L (7.0-40); AST/SGOT 34.0 U/L (<34); CALCIUM LEVEL 9.1 MG/DL (8.3-10.6); CARBON DIOXIDE LEVEL 29.0 MMOL/L (20-31); CHLORIDE LEVEL 98.0 MMOL/L (98-107); CREATININE FOR GFR 3.25 MG/DL (0.55-1.30); GLOMERULAR FILTRATION RATE 14.6 (>39); POTASSIUM SERUM 4.2 MMOL/L (3.5-5.1); SODIUM LEVEL 140.0 MMOL/L (136-145)
[2025-07-08 17:02] LABS: CK-MB VALUE MASS 1.1 NG/ML (<3.6)
[2025-07-08 17:06] LABS: FREE T4 1.33 NG/DL (0.89-1.76)
[2025-07-08 17:13] LABS: CPK CREATINE PHOSPHOKINASE 65.0 U/L (34-145); MB/CK RELATIVE INDEX 1.69 (< OR =4)
[2025-07-08 18:05] LABS: PLATELET COUNT, AUTOMATED 250 10^3/uL (150-450)
[2025-07-08] MEDS: NS 250 ML IV ONE (18:10)
[2025-07-08 18:31] LABS: CK-MB VALUE MASS 1.0 NG/ML (<3.6)
[2025-07-08 18:40] LABS: CPK CREATINE PHOSPHOKINASE 57.0 U/L (34-145); MB/CK RELATIVE INDEX 1.75 (< OR =4)
[2025-07-08 20:06] LABS: CK-MB VALUE MASS < 1.0 NG/ML (<3.6)
[2025-07-08 20:07] LABS: CPK CREATINE PHOSPHOKINASE 53 U/L (34-145)
[2025-07-09] MEDS: ASPIRIN 81 MG CHEWABLE TABLET PO SCH (02:23)
[2025-07-09] MEDS ORDERED: MIRALAX *UNIT DOSE* 17 GM PACKET PO PRN (02:30)
[2025-07-09 02:50] LABS: CHOLESTEROL LEVEL 142.0 MG/DL (<200); CHOLESTEROL RISK RATIO 3.3 (<5); LDL CHOLESTEROL 74.2 MG/DL (<100); NON-HDL-C 99.0 MG/DL; TRIGLYCERIDES LEVEL 124.0 MG/DL (<150)
[2025-07-09] MEDS: ROSUVASTATIN 10 MG TAB PO SCH (03:10)
[2025-07-09] MEDS: IPRATROPIUM 0.5 MG/ALBUTEROL 2.5 MG INH SOL UD 3 ML NEB SCH (03:12)
[2025-07-09 03:37] LABS: ESTIMATED AVERAGE GLUCOSE 111.0 MG/DL (60-110)
[2025-07-09 04:00] VITALS: BP 117/53; TEMP 97.3; O2SAT 100
[2025-07-09 08:15] VITALS: BP 116/52; TEMP 97.5
[2025-07-09] MEDS ORDERED: CALC1CAP31 PO (08:17)
[2025-07-09] MEDS ORDERED: DOCU100C16 PO (08:26)
[2025-07-09] MEDS ORDERED: FAMO20TA PO (08:26)
[2025-07-09] MEDS ORDERED: FLUTISP NARES (08:28)
[2025-07-09] MEDS ORDERED: HOME MED LIST COMPLETE! XX SCH (08:30)
[2025-07-09 08:32] LABS: PLATELET COUNT, AUTOMATED 236 10^3/uL (150-450)
[2025-07-09] MEDS: CLOPIDOGREL 75 MG TAB PO SCH (08:50)
[2025-07-09] MEDS ORDERED: FAMOTIDINE 20 MG TAB PO SCH (09:00)
[2025-07-09] MEDS ORDERED: ISOSORBIDE MONONITRATE 30 MG XR TAB PO SCH (09:00)
[2025-07-09] MEDS ORDERED: ENTER DRUG NAME HERE (PATIENT'S OWN MED) TD SCH (09:00)
[2025-07-09 09:03] LABS: CALCIUM LEVEL 9.0 MG/DL (8.3-10.6); CARBON DIOXIDE LEVEL 28.0 MMOL/L (20-31); CHLORIDE LEVEL 102.0 MMOL/L (98-107); CREATININE FOR GFR 3.76 MG/DL (0.55-1.30); GLOMERULAR FILTRATION RATE 12.3 (>39); POTASSIUM SERUM 3.2 MMOL/L (3.5-5.1); SODIUM LEVEL 141.0 MMOL/L (136-145)
[2025-07-09] MEDS ORDERED: DOCUSATE SODIUM 100 MG CAPSULE PO PRN (09:30)
[2025-07-09] MEDS ORDERED: FLUTICASONE PROPIONATE 0.05% NASAL SPRAY 16 GM NARES PRN (09:30)
[2025-07-09] MEDS: POTASSIUM CHLORIDE 10MEQ SR TABLET PO ONE (10:21)
[2025-07-09] MEDS: CALCITRIOL 0.25 MCG CAP (S0169) PO SCH (10:21)
[2025-07-09] MEDS ORDERED: HEPARIN 1,000 UNITS/ML 10 ML VIAL (FOR RADIOLOGY & DIALYSIS ONLY) IV PRN (11:25)
[2025-07-09] MEDS ORDERED: SODIUM CHLORIDE 0.9% 1000 ML IV PRN (11:25)
[2025-07-09] MEDS ORDERED: LIDOCAINE 1% SDV 5 ML VIAL SC PRN (11:25)
[2025-07-09] MEDS: TIOTROPIUM BROM 2.5MCG/ACTUATION 4GM INH INH SCH (11:30)
[2025-07-09] MEDS: ADVAIR HFA 230/21 MCG INHALER INH SCH (11:31)
[2025-07-09] MEDS: FAMOTIDINE 20 MG TAB PO SCH (11:54)
[2025-07-09 11:55] VITALS: BP 116/53
[2025-07-09] MEDS: MIDODRINE 5 MG TAB PO SCH (11:55)
[2025-07-09 12:00] VITALS: BP 116/53; TEMP 97.5; O2SAT 92
[2025-07-09] MEDS: HEPARIN 1,000 UNITS/ML 10 ML VIAL (FOR RADIOLOGY & DIALYSIS ONLY) XX SCH (13:26)
[2025-07-09] MEDS: ACETAMINOPHEN 325 MG TAB PO PRN (18:48)
[2025-07-09 20:43] VITALS: BP 115/64; TEMP 97.9; O2SAT 98
[2025-07-09 21:00] VITALS: O2SAT 92
[2025-07-09] MEDS: DOCUSATE SODIUM 100 MG CAPSULE PO SCH (21:22)
[2025-07-09] MEDS: SENNA 8.6 MG TAB PO SCH (21:22)
[2025-07-10 04:10] VITALS: BP 117/55; TEMP 97.5; O2SAT 98
[2025-07-10 06:21] LABS: PLATELET COUNT, AUTOMATED 227 10^3/uL (150-450)
[2025-07-10 06:47] LABS: CALCIUM LEVEL 8.7 MG/DL (8.3-10.6); CARBON DIOXIDE LEVEL 28.0 MMOL/L (20-31); CHLORIDE LEVEL 100.0 MMOL/L (98-107); CREATININE FOR GFR 2.95 MG/DL (0.55-1.30); GLOMERULAR FILTRATION RATE 16.4 (>39); POTASSIUM SERUM 3.7 MMOL/L (3.5-5.1); SODIUM LEVEL 137.0 MMOL/L (136-145)
[2025-07-10] MEDS: HEPARIN SOD 5000 UNITS/ML 1 ML VIAL/SYRINGE SC SCH (10:13)
[2025-07-10 12:00] VITALS: BP 127/60; TEMP 97.5; O2SAT 100
[2025-07-10] MEDS: MIRALAX *UNIT DOSE* 17 GM PACKET PO SCH (13:19)
[2025-07-10 19:45] VITALS: O2SAT 96
[2025-07-10 20:00] VITALS: BP 117/58; TEMP 97.3; O2SAT 92
[2025-07-10 23:51] VITALS: BP 115/58; TEMP 97.5; O2SAT 96
[2025-07-11 03:42] VITALS: BP 106/49; TEMP 97.2; O2SAT 96
[2025-07-11 06:32] LABS: PLATELET COUNT, AUTOMATED 221 10^3/uL (150-450)
[2025-07-11 07:10] LABS: CALCIUM LEVEL 9.1 MG/DL (8.3-10.6); CARBON DIOXIDE LEVEL 26.0 MMOL/L (20-31); CHLORIDE LEVEL 101.0 MMOL/L (98-107); CREATININE FOR GFR 4.07 MG/DL (0.55-1.30); GLOMERULAR FILTRATION RATE 11.2 (>39); POTASSIUM SERUM 4.0 MMOL/L (3.5-5.1); SODIUM LEVEL 139.0 MMOL/L (136-145)
[2025-07-11 08:00] VITALS: BP 139/64; TEMP 97.3; O2SAT 99
[2025-07-11] MEDS ORDERED: CLON0.3D8 TOP (10:21)
[2025-07-11] MEDS ORDERED: ASPI81CH8 PO (10:21)
[2025-07-11] MEDS ORDERED: COLA100C5 PO (10:21)
[2025-07-11] MEDS ORDERED: MIRA33506 PO (10:21)
[2025-07-11] MEDS ORDERED: SENN18TA PO (10:21)
[2025-07-11] MEDS ORDERED: ACET32TAB PO (10:21)
[2025-07-14] MEDS ORDERED: cloNIDine HCL 0.3 MG/24 HR PATCH TOP SCH (09:00)
== END 2025-07-11 12:40 | disposition home or self-care (01) | DRG 64 ==
LOC: M ED 14:56 → M ED INP 07-09 02:30 → M MSPAV 07-09 03:55 → OBSVTOIN 07-09 19:22 → UNDODISIN 07-11 12:40
PROVIDERS: ADMIT Student in an Organized Health Care Education/Training Program; ATTEND Internal Medicine
PROC: B246ZZZ Ultrasonography of Right and Left Heart (ICD-10-PCS; principal; 2025-07-09)
DX: I63.81 Other cerebral infarction due to occlusion or stenosis of small artery (principal); N18.6 End stage renal disease; I77.74 Dissection of vertebral artery; I50.32 Chronic diastolic (congestive) heart failure; I13.2 Hypertensive heart and chronic kidney disease with heart failure and with stage 5 chronic kidney disease, or end stage renal disease; J96.11 Chronic respiratory failure with hypoxia; N25.81 Secondary hyperparathyroidism of renal origin; M81.0 Age-related osteoporosis without current pathological fracture; E78.5 Hyperlipidemia, unspecified; J44.9 Chronic obstructive pulmonary disease, unspecified; M06.9 Rheumatoid arthritis, unspecified; D64.9 Anemia, unspecified; G47.33 Obstructive sleep apnea (adult) (pediatric); K59.00 Constipation, unspecified; I20.9 Angina pectoris, unspecified; E55.9 Vitamin D deficiency, unspecified; I73.9 Peripheral vascular disease, unspecified; Z85.118 Personal history of other malignant neoplasm of bronchus and lung; Z99.81 Dependence on supplemental oxygen; Z99.2 Dependence on renal dialysis; Z87.891 Personal history of nicotine dependence; Z95.828 Presence of other vascular implants and grafts; I95.3 Hypotension of hemodialysis; R53.83 Other fatigue; Z79.02 Long term (current) use of antithrombotics/antiplatelets; Z79.899 Other long term (current) drug therapy; Z88.0 Allergy status to penicillin; Z88.5 Allergy status to narcotic agent; Z91.048 Other nonmedicinal substance allergy status

== ENCOUNTER → 2025-08-31 | Outpatient (CLI) | payer MEDICARE, OTHER ==
[~2025-08-31] MED LIST changes: +ACET32TAB PO; +ASPI81CH8 PO; +CALC1CAP31 PO; +COLA100C5 PO; +DOCU100C16 PO; +FAMO20TA PO; +FLUTISP NARES; -LABE100T6 PO; +LABE100T91 PO; +LIDOCAINE 1% MDV 20 ML VIAL SC SCH; +MIDO5TA PO; +MIRA33506 PO; +SENN18TA PO
[2025-08-31 09:45] VITALS: BP 175/75; TEMP 96.7; O2SAT 98
== END ==
LOC: M IRPRO 09:38
PROVIDERS: ATTEND Internal Medicine Nephrology
DX: N17.9 Acute kidney failure, unspecified (principal); N39.0 Urinary tract infection, site not specified

== ENCOUNTER → 2025-08-31 | Outpatient (REF) | payer MEDICARE, OTHER ==
[~2025-08-31] MED LIST changes: -LIDOCAINE 1% MDV 20 ML VIAL SC SCH
[2025-08-31 12:48] LABS: APPEARANCE, URINE CLEAR (CLEAR); BACTERIA, URINE AUTO NEGATIVE (NEGATIVE); BILIRUBIN, URINE AUTO NEGATIVE (NEGATIVE); BLOOD, URINE BLOOD NEGATIVE (NEGATIVE); GLUCOSE, URINE (UA) AUTO 1+ mg/dL (NEGATIVE); KETONE, URINE AUTO NEGATIVE (NEGATIVE); LEUKOCYTE ESTERASE, URINE AUTO 1+ (NEGATIVE); NITRITE, URINE AUTO NEGATIVE (NEGATIVE); PROTEIN, URINE AUTO 2+ mg/dL (NEGATIVE); RBC, URINE AUTO 0 /HPF (0-3); SPECIFIC GRAVITY URINE AUTO 1.014 (1.002-1.035); SQUAMOUS EPITHELIAL CELL UR AU 0 /HPF (0-6); UROBILINOGEN, URINE AUTO 0.2 mg/dL (0.0-2.0); WBC, URINE AUTO 11 /HPF (0-3)
== END ==
LOC: M LAB REF 11:52
PROVIDERS: ATTEND Nurse Practitioner Family
DX: N39.0 Urinary tract infection, site not specified (principal)